=== PATIENT | female | born 1935 | race Caucasian/White ===

== ENCOUNTER 2018-08-27 10:30 | Observation (INO) | payer MEDICARE, SELFPAY ==
[2018-08-27] VITALS (7 sets, daily range): BP systolic 144–176; BP diastolic 83–132; PULSE 91–103; RESP 14–20; TEMP 36.2–36.8; O2SAT 94–98; BMI 21.4; BMI 22.3
--- NOTE | 2018-08-27 10:46 | EKG12_ITS ---
Test Reason : FALL Blood Pressure : / mmHG Vent. Rate : 090 BPM Atrial Rate : 090 BPM P-R Int : 000 ms QRS Dur : 074 ms QT Int : 378 ms P-R-T Axes : 000 -10 055 degrees QTc Int : 462 ms Accelerated Junctional rhythm Nonspecific ST abnormality Abnormal ECG Confirmed by ANGELITA BARAJAS, JACQUIE ([id number]), make up editor ELLIOT SANCHEZ ([id number]) on 08/28/2018 1:07:26 PM Referred By: Brandon Choe Confirmed By:JACQUIE GOLDSTEIN MD
--- NOTE | 2018-08-27 10:46 | CT_ITS ---
STUDY: CT BRAIN WITHOUT CONTRAST REASON FOR EXAM: Female, 82 years old. FALL LASTNIGHT, FOUND ON FLOOR THIS AM RADIATION DOSAGE (If Supplied By Facility): CTDIvol = ( 44.99 ) mGy, DLP = ( 863.60 ) mGycm TECHNIQUE: Transaxial CT imaging of the brain was performed without administration of intravenous contrast material. Individualized dose optimization techniques were used for this CT. COMPARISON: None. FINDINGS: There is cerebral atrophy with widening of the extra-axial spaces and ventricular dilatation. There are areas of decreased attenuation within the white matter tracts of the supratentorial brain, consistent with microvascular disease changes. There is no intracranial hemorrhage. There are no findings of an acute ischemic infarction. Normal soft tissue structures. Normal visualized paranasal sinuses. CT/Brain/Head without Contrast IMPRESSION: Chronic involutional changes of the brain. Electronically Signed: Tania Silver MD at 12:16 EDT Tel , Service support ,
--- NOTE | 2018-08-27 10:52 | ED.DCSUM_ITS ---
- ER Visit Summary Date of Service: 08/27/18 Chief Complaint: Fall History of Present Illness: The patient is a 82 F who presents after a fall last night. Patient states she fell out of bed last night. Patient states she was unable to get up and climb back into bed. Patient states she laid on the floor all night. Patient hit the top of her head near the frontal area. Patient denies any loss of consciousness. Patient admits to some general weakness. Patient denies any focal weakness. Patient denies any other injury. Physical Examination: Vital signs are stable. Patient is afebrile. Patient is in no acute distress. Cranial nerves II through XII are intact. There are no focal motor or sensory deficits noted. There is tenderness over the frontal area of the scalp. There is no edema noted. There is no bony crepitance or step-off. Oral mucosa is dry. Neck is supple. Trachea is midline. There is no JVD noted. Heart was regular rate and rhythm. Lungs are clear and equal bilateral. Abdomen is soft. Bowel sounds are normal. There is no tenderness. Test Results: EKG showed sinus rhythm with first-degree AV block. There are nonspecific ST-T wave changes. There are no acute changes. CBC shows a mild anemia with hemoglobin of 10.5. Basic metabolic profile showed an elevated creatinine of 1.92 and BUN of 25. Potassium was low at 2.8. Troponin was 0.021. Total CK was 224. Urinalysis showed 100 leukocyte esterase, 5-10 white blood cells, 1+ bacteria. Chest x-ray shows evidence of COPD. There is no acute infiltrate. CT scan of the brain was obtained. There is no acute intracranial abnormality noted. Emergency Department Course and Treatment: Patient was given IV fluids here. Patient was given oral potassium here. Patient was given Zofran, and a GI cocktail. Ambulation was attempted however, the patient was unable to tolerate getting out of bed and standing. Patient was too weak to do this. Case was discussed with the hospitalist. Disposition: Admit to hospital Impression: 1. Acute kidney injury 2. Generalized weakness 3. Inability to ambulate 4. Fall This note was generated with [employer] dictation software. It may contain incorrect words, spelling, and punctuation that were not noted in review of the chart prior to signing
[2018-08-27] MEDS: 0.9% Normal Saline 1,000 ML 1000 ML IV (11:18)
--- NOTE | 2018-08-27 11:22 | RAD_ITS ---
STUDY: X-RAY CHEST REASON FOR EXAM: Female, 82 years old. Fall. TECHNIQUE: Single AP portable view of the chest. COMPARISON: None. FINDINGS: Limited by rotation to the right. Hyperexpansion of the lungs. No infiltrates. No effusions. There is mild cardiac enlargement. Normal mediastinum and mazin. Normal visualized pulmonary arteries. There is atherosclerotic tortuosity of the aortic arch and descending thoracic aorta. The visualized bones and joints show degenerative changes.. There is no demonstrated abnormality of the visualized soft tissue structures of the upper abdomen. RAD/Chest 1 View (Portable) IMPRESSION: Significantly suboptimal positioning. Probable COPD with no infiltrates or effusions. Electronically Signed: Akshat Dao MD at 12:01 EDT , Service support ,
[2018-08-27 11:24] LABS: Absolute Lymphocyte Count 0.59 X10^3/ul (0.83-4.51); Absolute Neutrophil Count 9.1 X10^3/uL (2.0-7.7); Basophil# 0.02 X10^3/uL; Basophil% 0.2 % (0-1); Differential Indicated SCAN CRITERIA MET; Eosinophil# 0.02 X10^3/uL; Eosinophils% 0.2 % (0-5); Hematocrit 32.2 % (37-47); Hemoglobin 10.5 g/dl (12.0-15.0); Lymphocyte # 0.59 X10^3/ul (4.0); Lymphocyte % 5.7 % (19-41); Mean Corp Hgb Conc 32.6 g/gl (32-36); Mean Corpuscular Hgb 30.2 pg (27.0-32.0); Mean Corpuscular Volume 92.5 fL (81-99); Mean Platelet Vol. 9.7 fl (6.2-12.0); Monocyte# 0.67 X10^3/uL; Monocyte% 6.4 % (0-10); Neutrophil % 87.3 % (47-70); POSITIVE COUNT NO; POSITIVE DIFFERENTIAL YES; POSITIVE MORPHOLOGY NO; Platelet Count 175 K/mm3 (150-450); RBC Distribution Width CV 13.5 % (11.6-14.6); RBC Distribution Width SD 44.1 fl (35.1-43.9); Red Blood Count 3.48 M/mm3 (4.2-5.4); White Blood Count 10.4 K/mm3 (4.4-11.0)
[2018-08-27 11:35] LABS: Anion Gap 6 (5-15); BUN 25 mg/dL (7-18); CPK Total, Creatine Kinase 224 U/L (26-192); Calcium,Total 11.5 mg/dL (8.5-10.1); Chloride 107 mmol/L (98-107); Creatinine, Serum 1.92 mg/dL (0.55-1.02); EST Glomerular Filtration Rate 27 mL/min (>60); Est Glom Filt Rate - Afr Amer 32 mL/min (>60); Estimated Creatinine Clearance 21.88 ml/min; Glucose 130 mg/dL (74-106); Potassium 2.8 mmol/L (3.5-5.1); Sodium Level 143 mmol/L (136-145)
[2018-08-27 11:42] LABS: Differential Comment SCANNED
[2018-08-27 11:45] LABS: Mucous, Urine 0 SEEN /hpf (<or=2+)
[2018-08-27 11:46] LABS: Color, Urine Yellow (Yellow); Glucose, Dipstick Normal (Normal); Ketone-Dipstick Negative (Negative); Leukocyte Esterase-Dipstick 100 /ul (Negative); Nitrite-Dipstick Negative (Negative); Occult Blood-Urine 25 /ul (Negative); Protein-Dipstick 30 mg/dl (Negative); Specific Gravity, Urine 1.015 (1.002-1.030); Urine Bilirubin Dipstick Negative (Negative); Urine Clarity Clear (Clear); Urine Urobilinogen Normal (Normal)
[2018-08-27 11:53] LABS: Bacteria 1+ /hpf (None Seen); Red Blood Cells-Urine 0-5 SEEN /hpf (0-5); Squamous Epithelial Cells - UA 0-5 SEEN /hpf (5-10); White Blood Cells 5-10 SEEN /hpf (0-5)
--- NOTE | 2018-08-27 13:56 | PCM.HP.STD ---
Problem List (1) UTI (urinary tract infection) Status: Acute History of Present Illness Date of Admission: 08/27/18 Chief Complaint: Feeling unwell, fall The patient is a 82 year old F with no PMH because she does not see a doctor regularly, presenting after a fall last night. She fell out of bed and hit her head but did not lose consciousness, however she was unable to get back up and did not call for help. She was found this morning by her daughter and brought into the hospital. She lives with her daughter. Other than the headache she denies any blurry vision or focal weakness, though she does feel generally weak. She has been feeling unwell for the last couple of days, though she did not know what was going on. She denies any dysuria, or frequency. In the ER she did not have a leukocytosis, and she was afebrile. CT of her head was negative for any hematoma and her chest x-ray was clear, she does not have any symptoms of a viral syndrome. She was found to be hypokalemic with potassium of 2.8 which was replaced in the ER, and she was found to have possibly an acute kidney injury though we do not have a baseline creatinine for comparison. Total creatine kinase came back in the normal range, therefore she does not have rhabdo. UA was negative for nitrites but positive for leukocyte esterase, with 5-10 white blood cells and 1+ urine bacteria. Past Medical History Allergies No Known Allergies Allergy (Verified 08/27/18 10:44) Surgical History: hysterectomy Lives: With Family Smoking Status: Never smoker Alcohol: None Drugs: None - *Family History Maternal History Items: No pertinent history Paternal History Items: No pertinent history Review of Systems Constitutional: Reports: Weakness. Denies: Chills, Fever, Weight Change HEENT: Denies: Head Aches, Sinus Congestion, Sinus Drainage Cardiovascular: Denies: Chest Pain, Palpitations Respiratory: Denies: Cough, Shortness of breath at rest, Sputum production Gastrointestinal: Reports: Nausea. Denies: Abdominal Pain, Vomiting Genitourinary: Denies: Dysuria Musculoskeletal: Denies: Joint Pain, Joint Tenderness Skin: Denies: Rash, Wounds Neurological: Denies: Numbness, Tingling, Focal weakness Psychiatric: Denies: Anxiety, Depression Hematologic/ Lymphatic: Denies: Easy Bruising, Easy Bleeding VTE Information - Inpt Only VTE Present on Admission: No Patient Problems: Active and Suspected Problems UTI (urinary tract infection) (Acute) - Physical Exam General: Alert, Oriented x3, Cooperative, No apparent distress HEENT: Atraumatic, PERRLA, EOMI, Normocephalic Oral: Dry Mucosa Neck: Supple, No JVD, Trachea Midline Lungs: Clear to auscultation, Normal air movement, No rhonchi, No wheeze, No rales Cardiovascular: Regular rate, Regular Rhythm, Normal S1, Normal S2, No murmurs, - - PACs Abdomen: Soft, Non Tender, Non-Distended, No Hepato-splenomegaly Extremities: No edema, Capillary Refill Less than 3 Seconds Skin: No rashes, No breakdown Neurological: Neuro grossly intact, Sensory exam intact to light touch and pain Psych/Mental Status: Normal Affect, Appropriate Vital Signs Temp Pulse Resp BP Pulse Ox 97.2 F L 91 16 144/91 H 94 08/27/18 10:34 08/27/18 13:07 08/27/18 13:07 08/27/18 13:07 08/27/18 10:34 Oxygen Delivery Method Nasal Cannula Weight: 132 lb 11.492 oz Body Mass Index (BMI) 21.4 Laboratory Tests Past 24 Hrs 08/27/18 08/27/18 08/27/18 11:05 11:05 11:35 WBC 10.4 RBC 3.48 L Hgb 10.5 L Hct 32.2 L MCV 92.5 MCH 30.2 MCHC 32.6 RDW 13.5 RDW Differential 44.1 H Plt Count 175 MPV 9.7 Immature Gran % (Auto) 0.200 Neut % (Auto) 87.3 H Lymph % (Auto) 5.7 L [place] % (Auto) 6.4 Eos % (Auto) 0.2 Baso % (Auto) 0.2 Absolute Neuts (auto) 9.1 H Absolute Lymphs (auto) 0.59 L Total Counted Not Reportable Differential Comment SCANNED Sodium 143 Potassium 2.8 L Chloride 107 Carbon Dioxide 30.0 Anion Gap 6 BUN 25 H Creatinine 1.92 H Estim Creat Clear Calc 21.88 Est GFR (MDRD) Af Amer 32 L Est GFR (MDRD) Non-Af 27 L BUN/Creatinine Ratio 13.0 Glucose 130 H Calcium 11.5 H Total Creatine Kinase 224 H Troponin I 0.021 Urine Color Yellow Urine Clarity Clear Urine pH 8.0 Ur Specific [place] 1.015 Urine Protein 30 H Urine Glucose (UA) Normal Urine Ketones Negative Urine Occult Blood 25 H Urine Nitrite Negative Urine Bilirubin Negative Urine Urobilinogen Normal Ur Leukocyte Esterase 100 H Urine RBC 0-5 SEEN Urine WBC 5-10 SEEN Ur Squamous Epith Cells 0-5 SEEN Urine Bacteria 1+ Urine Mucus 0 SEEN Assessment/Plan All Active Problems UTI (urinary tract infection) (Acute) 1. UTI causing weakness in her fall/CHRIS? -Continue with IV fluids for now given her creatinine of 1.92 and recheck in the morning -She was given p.o. potassium in the ER and will monitor her potassium level -Regular diet -We will start her on Keflex 500 mg p.o. 3 times daily and obtain a urine culture -Zofran for nausea -She does not see her doctor regularly and therefore does not take any medications and states that she has no medical problems. -PT/OT for evaluation DVT: Sindinox Code Visit OBSV E&M: 14124 Initial observation care L2
[2018-08-27] MEDS: Ondansetron 4 MG/2 ML Vial IV (14:04)
--- NOTE | 2018-08-27 14:17 | ED.RN ---
PT STATES SHE'S UNABLE TO SWALLOW PILLS. DR. GARZA AWARE AND CHANGED POTASSIUM ORDER. KEFLEX WILL BE GIVEN IN APPLESAUCE.
[2018-08-27] MEDS: Cephalexin 250 MG Capsule 500 MG PO (15:06)
[2018-08-27] MEDS: Mag Hydrox/Al Hydrox/Simeth 30 ML UDC PO (15:07)
[2018-08-27] MEDS: 0.9% Normal Saline 1,000 ML 100 ML IV (17:28)
[2018-08-27] MEDS: Cephalexin 250 MG Capsule PO (21:22)
[2018-08-28] MEDS: Ondansetron 4 MG/2 ML Vial IV (01:51)
[2018-08-28] MEDS: 0.9% Normal Saline 1,000 ML 100 ML IV ×2 (01:51→16:47)
[2018-08-28 02:00] VITALS: BP 156/69; PULSE 87; RESP 18; TEMP 36.6; O2SAT 97
[2018-08-28 05:57] LABS: Absolute Neutrophil Count 5.2 X10^3/uL (2.0-7.7); Basophil# 0.02 X10^3/uL; Basophil% 0.3 % (0-1); Eosinophil# 0.08 X10^3/uL; Eosinophils% 1.2 % (0-5); Hematocrit 28.2 % (37-47); Hemoglobin 8.9 g/dl (12.0-15.0); Lymphocyte % 13.3 % (19-41); Mean Corp Hgb Conc 31.6 g/gl (32-36); Mean Corpuscular Hgb 29.9 pg (27.0-32.0); Mean Corpuscular Volume 94.6 fL (81-99); Mean Platelet Vol. 9.8 fl (6.2-12.0); Monocyte# 0.58 X10^3/uL; Monocyte% 8.5 % (0-10); Neutrophil % 76.6 % (47-70); Platelet Count 160 K/mm3 (150-450); RBC Distribution Width CV 13.6 % (11.6-14.6); RBC Distribution Width SD 45.3 fl (35.1-43.9); Red Blood Count 2.98 M/mm3 (4.2-5.4); White Blood Count 6.8 K/mm3 (4.4-11.0)
[2018-08-28 06:17] LABS: Anion Gap 6 (5-15); BUN 21 mg/dL (7-18); BUN/Creat Ratio 12.4 RATIO (10-20); Calcium,Total 9.5 mg/dL (8.5-10.1); Chloride 113 mmol/L (98-107); EST Glomerular Filtration Rate 31 mL/min (>60); Est Glom Filt Rate - Afr Amer 37 mL/min (>60); Estimated Creatinine Clearance 21.47 ml/min; Glucose 88 mg/dL (74-106); Potassium 2.8 mmol/L (3.5-5.1); Sodium Level 143 mmol/L (136-145)
[2018-08-28 06:18] LABS: POSITIVE COUNT NO; POSITIVE DIFFERENTIAL NO; POSITIVE MORPHOLOGY NO
[2018-08-28] MEDS: Cephalexin 250 MG Capsule PO ×3 (06:23→22:31)
--- NOTE | 2018-08-28 06:48 | PCM.PN.HOSP ---
Patient Problems: Active and Suspected Problems UTI (urinary tract infection) (Acute) Subjective: Patient with no acute events overnight per self and per nursing report aside from ongoing notable weakness with therapy recommendations for correction facility transition in addition to mild nausea however improved slightly with oral intake this morning and following antiemetic. She does also note diffuse body generalized aching. Discussed patient living status and she states that in the past she did have a high bed however family has decreased the height and they are currently building a ramp into the home. Discussed patient status and weakness at length and amenable to correction facility transition in interim. Patient denies fevers, chills, emesis, abdominal pain, chest pain or dyspnea. Objective: Physical Examination: General: awake, alert, oriented x [address], year, month and realizes that today is her birthday, remains cooperative, seated upright in the bedside chair, no acute distress, notes nausea has subsided with some oral intake but emesis bag next to her. Skin: normal color, turgor, no icterus, cyanosis except staged various extremity and thorax bruising. HEENT: AT/NC, EOMI, PERRLA, mildly dry MM. Lungs: CTA bilaterally, moderate effort, mild decrease BL bases, no rales, ronchi or wheezing. Heart: Regular rate and rhythm; no gallop, rub audible. Abdomen: soft, thin habitus, NTTP, ND, normal BS. Extremities: no cyanosis, clubbing, or edema. Neurological: patient awake, alert, oriented as noted; cognitive function appears baseline intact; pupils equally reactive to light and accomodation; cranial nerves II-XII grossly normal, moving all 4 extremities, no focal deficits, strength [place] to severely globally decreased secondary to acute presentation. Psychiatric: affect appears normal, no acute evidence of depressive or anxiety feelings. Vitals/I&O's: Vital Signs Temp Pulse Resp BP Pulse Ox 98 F 87 18 156/69 H 97 08/28/18 02:00 08/28/18 02:00 08/28/18 02:00 08/28/18 02:00 08/28/18 02:00 Oxygen Delivery Method Room Air Weight: 126 lb 1.671 oz Body Mass Index (BMI) 22.3 Intake and Output for Last 24 Hours 08/26/18 08/27/18 08/28/18 23:59 23:59 23:59 Intake Total 1960 Balance 1960 Laboratory Results 08/27/18 11:05: WBC 10.4, RBC 3.48 L, Hgb 10.5 L, Hct 32.2 L, MCV 92.5, MCH 30.2, MCHC 32.6, RDW 13.5, RDW Differential 44.1 H, Plt Count 175, MPV 9.7, Immature Gran % (Auto) 0.200, Neut % (Auto) 87.3 H, Lymph % (Auto) 5.7 L, [place] % (Auto) 6.4, Eos % (Auto) 0.2, Baso % (Auto) 0.2, Absolute Neuts (auto) 9.1 H, Absolute Lymphs (auto) 0.59 L, Total Counted Not Reportable, Differential Comment SCANNED 08/27/18 11:05: Sodium 143, Potassium 2.8 L, Chloride 107, Carbon Dioxide 30.0, Anion Gap 6, BUN 25 H, Creatinine 1.92 H, Estim Creat Clear Calc 21.88, Est GFR (MDRD) Af Amer 32 L, Est GFR (MDRD) Non-Af 27 L, BUN/Creatinine Ratio 13.0, Glucose 130 H, Calcium 11.5 H, Total Creatine Kinase 224 H, Troponin I 0.021 08/27/18 11:35: Urine Color Yellow, Urine Clarity Clear, Urine pH 8.0, Ur Specific [place] 1.015, Urine Protein 30 H, Urine Glucose (UA) Normal, Urine Ketones Negative, Urine Occult Blood 25 H, Urine Nitrite Negative, Urine Bilirubin Negative, Urine Urobilinogen Normal, Ur Leukocyte Esterase 100 H, Urine RBC 0-5 SEEN, Urine WBC 5-10 SEEN, Ur Squamous Epith Cells 0-5 SEEN, Urine Bacteria 1+, Urine Mucus 0 SEEN 08/28/18 05:08: WBC 6.8, RBC 2.98 L, Hgb 8.9 L, Hct 28.2 L, MCV 94.6, MCH 29.9, MCHC 31.6 L, RDW 13.6, RDW Differential 45.3 H, Plt Count 160, MPV 9.8, Immature Gran % (Auto) 0.100, Neut % (Auto) 76.6 H, Lymph % (Auto) 13.3 L, [place] % (Auto) 8.5, Eos % (Auto) 1.2, Baso % (Auto) 0.3, Absolute Neuts (auto) 5.2, Absolute Lymphs (auto) 0.90, Total Counted Not Reportable 08/28/18 05:08: Sodium 143, Potassium 2.8 L, Chloride 113 H, Carbon Dioxide 24.0, Anion Gap 6, BUN 21 H, Creatinine 1.70 H, Estim Creat Clear Calc 21.47, Est GFR (MDRD) Af Amer 37 L, Est GFR (MDRD) Non-Af 31 L, BUN/Creatinine Ratio 12.4, Glucose 88, Calcium 9.5 Current Medications Cephalexin (Keflex) 250 mg PO Q8 [facility] Last Admin: 08/28/18 06:23 Dose: 250 mg Enoxaparin Sodium (Lovenox) 30 mg SC DAILY@1000 JAZMINE Sodium Chloride () 1,000 mls @ 100 mls/hr IV .Q10H [facility] Last Admin: 08/28/18 01:51 Dose: 100 mls/hr Magnesium Hydroxide (Milk Of Magnesia) 30 ml PO DAILY PRN PRN PRN Reason: Constipation Nutritional Formula (Lactose Free) (Ensure Enlive) 120 ml PO 4X/DAY JAZMINE Last Admin: 08/27/18 21:21 Dose: 120 ml Ondansetron HCl (Zofran) 4 mg IV Q8H PRN PRN PRN Reason: NAUSEA Last Admin: 08/28/18 01:51 Dose: 4 mg Sodium Chloride () 5 - 15 ml IV UD PRN PRN Reason: SALINE FLUSH Medical Necessity - Tobacco Use Smoking Status: Never smoker Assessment/Plan All Active Problems UTI (urinary tract infection) (Acute) The patient is an 83 y/o F w/ no regular health care, unclear PMHx who presents to the [facility] ED on 08/27/18 secondary to fall with associated malaise, fatigue prior. (1) Acute Urinary Tract Infection: Admitted to [facility] upon ED evaluation remarkable, pending UCx, continue IVFs, monitor I/Os, continue oral keflex w/ transition as able pending sensitivities and speciation. PT, OT evaluations, patient amenable to SNF transition, requesting TCU, CM updated. (2) Acute kidney injury versus component CKD, Unclear Stage: Suspect component CKD. Admission BUN/Cr 25/1.92, prior baseline creatinine unknown, repeat 08/28/18 BUN/Cr 26/06.70. Will continue to hydrate, hold nephrotoxic medications and repeat chemistry in AM. FeNa pending. Renal US pending given unclear if CHRIS on CKD component. (3) Hypokalemia: Admission K+ 2.8, supplementation given, repeat level similar; however, will obtain mag level, suspect will be low with repletion needs. (4) Mild rhabdomyolysis: Admission TCK 224, hydrated, repeat TCK pending, suspected downtime mild to moderate, notes still diffusely aching. (5) Mechanical Fall, Possible related to #1, #2, #3: CT head with no acute intracranial findings, maintain on fall precautions, PT, OT, CM consulted for discharge planning. (6) Anemia, Normocytic, Suspected Chronic: Admission Hgb 10.5, repeat 8.9 following overnight hydration, obtain Fe panel, ferritin, vitamin B12, folic acid levels, trend. (7) DVT prophylaxis: SCDs, renally lovenox. (8) CODE status: Discussed CODE status at length including difference between FULL code, DNR-CCA and DNR-CC status. Following discussions about the differences in these status, requested Full Code status. Patient does have a living will and HCPOA (Daughter) in place. She does note that if she had a stroke or something drastic following her living will she would want to transition to comfort measures only. Advanced Care Planning Face to Face Time: 16 minutes. Code Visit OBSV E&M: 07694 Subsequent observation care L3 Procedures: 78866 Advncd Care Plan 30 Min
--- NOTE | 2018-08-28 06:56 | US_ITS ---
STUDY: RENAL ULTRASOUND - COMPLETE REASON FOR EXAM: Female, 83 years old. Acute renal failure. TECHNIQUE: Ultrasound evaluation of the kidneys was performed with real-time and static corea-scale imaging. COMPARISON: None. FINDINGS: RIGHT KIDNEY: Normal location of the right kidney, which is normal in size. The right kidney measures 8.2 x 4.3 x 3.3 cm. There is increased right renal cortical echogenicity. The renal cortex measures 1.2 cm. There is no right renal mass or cyst. There are renal arteriovascular calcifications, but no definite demonstration of right renal calculi. There is no right hydronephrosis. DISTAL RIGHT URETER: There is non-visualization of the distal right ureter. There is no demonstrated right ureterovesical junction calculus. There is no demonstrated right ureteral jet. LEFT KIDNEY: Normal location of the left kidney, which is normal in size. The left kidney measures 8.6 x 4.7 x 3.5 cm. There is increased echogenicity of the left renal cortex. The renal cortex measures 1.4 cm. There is no left renal mass or cyst. There are renal arteriovascular calcifications, but no definite demonstration of left renal calculi. There is no left hydronephrosis. DISTAL LEFT URETER: There is non-visualization of the distal left ureter. There is no demonstrated left ureterovesical junction calculus. There is no demonstrated left ureteral jet. BLADDER: The urinary bladder has a volume of 208 ml. No post void images or measurements of the urinary bladder were obtained. There is a normal wall thickness of the distended urinary bladder. There is no demonstrated mass within the urinary bladder. There are no demonstrated bladder calculi. US/Kidney and Bladder IMPRESSION: Increased renal cortical echogenicity bilaterally, consistent with medical renal disease. No demonstrated hydronephrosis. Urinary bladder is unremarkable in appearance. No post void images or measurements were obtained. Electronically Signed: Magno Lanier MD at 7:58 EDT , Service support ,
--- NOTE | 2018-08-28 06:58 | PN_ITS ---
Patient Problems: Active and Suspected Problems UTI (urinary tract infection) (Acute) Subjective: Patient with no acute events overnight per self and per nursing report aside from ongoing notable weakness with therapy recommendations for [facility] facility transition in addition to mild nausea however improved slightly with oral intake this morning and following antiemetic. She does also note diffuse body generalized aching. Discussed patient living status and she states that in the past she did have a high bed however family has decreased the height and they are currently building a ramp into the home. Discussed patient status and weakness at length and amenable to [facility] facility transition in interim. Patient denies fevers, chills, emesis, abdominal pain, chest pain or dyspnea. Objective: Physical Examination: General: awake, alert, oriented x [address], year, month and realizes that today is her birthday, remains cooperative, seated upright in the bedside chair, no acute distress, notes nausea has subsided with some oral intake but emesis bag next to her. Skin: normal color, turgor, no icterus, cyanosis except staged various extremity and thorax bruising. HEENT: AT/NC, EOMI, PERRLA, mildly dry MM. Lungs: CTA bilaterally, moderate effort, mild decrease BL bases, no rales, ronchi or wheezing. Heart: Regular rate and rhythm; no gallop, rub audible. Abdomen: soft, thin habitus, NTTP, ND, normal BS. Extremities: no cyanosis, clubbing, or edema. Neurological: patient awake, alert, oriented as noted; cognitive function appears baseline intact; pupils equally reactive to light and accomodation; cranial nerves II-XII grossly normal, moving all 4 extremities, no focal deficits, strength [place] to severely globally decreased secondary to acute presentation. Psychiatric: affect appears normal, no acute evidence of depressive or anxiety feelings. Vitals/I&O's: Vital Signs Temp Pulse Resp BP Pulse Ox 98 F 87 18 156/69 H 97 08/28/18 02:00 08/28/18 02:00 08/28/18 02:00 08/28/18 02:00 08/28/18 02:00 Oxygen Delivery Method Room Air Weight: 126 lb 1.671 oz Body Mass Index (BMI) 22.3 Intake and Output for Last 24 Hours 08/26/18 08/27/18 08/28/18 23:59 23:59 23:59 Intake Total 1960 Balance 1960 Laboratory Results 08/27/18 11:05: WBC 10.4, RBC 3.48 L, Hgb 10.5 L, Hct 32.2 L, MCV 92.5, MCH 3 0.2, MCHC 32.6, RDW 13.5, RDW Differential 44.1 H, Plt Count 175, MPV 9.7, Immature Gran % (Auto) 0.200, Neut % (Auto) 87.3 H, Lymph % (Auto) 5.7 L, [place] % (Auto) 6.4, Eos % (Auto) 0.2, Baso % (Auto) 0.2, Absolute Neuts (auto) 9.1 H, Absolute Lymphs (auto) 0.59 L, Total Counted Not Reportable, Differential Comment SCANNED 08/27/18 11:05: Sodium 143, Potassium 2.8 L, Chloride 107, Carbon Dioxide 30.0, Anion Gap 6, BUN 25 H, Creatinine 1.92 H, Estim Creat Clear Calc 21.88, Est GFR (MDRD) Af Amer 32 L, Est GFR (MDRD) Non-Af 27 L, BUN/Creatinine Ratio 13.0, Glucose 130 H, Calcium 11.5 H, Total Creatine Kinase 224 H, Troponin I 0.021 08/27/18 11:35: Urine Color Yellow, Urine Clarity Clear, Urine pH 8.0, Ur Specific [place] 1.015, Urine Protein 30 H, Urine Glucose (UA) Normal, Urine Ketones Negative, Urine Occult Blood 25 H, Urine Nitrite Negative, Urine Bilirubin Negative, Urine Urobilinogen Normal, Ur Leukocyte Esterase 100 H, Urine RBC 0-5 SEEN, Urine WBC 5-10 SEEN, Ur Squamous Epith Cells 0-5 SEEN, Urine Bacteria 1+, Urine Mucus 0 SEEN 08/28/18 05:08: WBC 6.8, RBC 2.98 L, Hgb 8.9 L, Hct 28.2 L, MCV 94.6, MCH 29.9, MCHC 31.6 L, RDW 13.6, RDW Differential 45.3 H, Plt Count 160, MPV 9.8, Immature Gran % (Auto) 0.100, Neut % (Auto) 76.6 H, Lymph % (Auto) 13.3 L, [place] % (Auto) 8.5, Eos % (Auto) 1.2, Baso % (Auto) 0.3, Absolute Neuts (auto) 5.2, Absolute Lymphs (auto) 0.90, Total Counted Not Reportable 08/28/18 05:08: Sodium 143, Potassium 2.8 L, Chloride 113 H, Carbon Dioxide 24.0, Anion Gap 6, BUN 21 H, Creatinine 1.70 H, Estim Creat Clear Calc 21.47, Est GFR (MDRD) Af Amer 37 L, Est GFR (MDRD) Non-Af 31 L, BUN/Creatinine Ratio 12.4, Glucose 88, Calcium 9.5 Current Medications Cephalexin (Keflex) 250 mg PO Q8 [facility] Last Admin: 08/28/18 06:23 Dose: 250 mg Enoxaparin Sodium (Lovenox) 30 mg SC DAILY@1000 JAZMINE Sodium Chloride () 1,000 mls @ 100 mls/hr IV .Q10H [facility] Last Admin: 08/28/18 01:51 Dose: 100 mls/hr Magnesium Hydroxide (Milk Of Magnesia) 30 ml PO DAILY PRN PRN PRN Reason: Constipation Nutritional Formula (Lactose Free) (Ensure Enlive) 120 ml PO 4X/DAY JAZMINE Last Admin: 08/27/18 21:21 Dose: 120 ml Ondansetron HCl (Zofran) 4 mg IV Q8H PRN PRN PRN Reason: NAUSEA Last Admin: 08/28/18 01:51 Dose: 4 mg Sodium Chloride () 5 - 15 ml IV UD PRN PRN Reason: SALINE FLUSH Medical Necessity - Tobacco Use Smoking Status: Never smoker Assessment/Plan All Active Problems UTI (urinary tract infection) (Acute) The patient is an 83 y/o F w/ no regular health care, unclear PMHx who presents to the [facility] ED on 08/27/18 secondary to fall with associated malaise, fatigue prior. (1) Acute Urinary Tract Infection: Admitted to [facility] upon ED evaluation remarkable, pending UCx, continue IVFs, monitor I/Os, continue oral keflex w/ transition as able pending sensitivities and speciation. PT, OT evaluations, patient amenable to SNF transition, requesting TCU, CM updated. (2) Acute kidney injury versus component CKD, Unclear Stage: Suspect component CKD. Admission BUN/Cr 25/1.92, prior baseline creatinine unknown, repeat 08/28/18 BUN/Cr 26/06.70. Will continue to hydrate, hold nephrotoxic medications and repeat chemistry in AM. FeNa pending. Renal US pending given unclear if HCRIS on CKD component. (3) Hypokalemia: Admission K+ 2.8, supplementation given, repeat level similar; however, will obtain mag level, suspect will be low with repletion needs. (4) Mild rhabdomyolysis: Admission TCK 224, hydrated, repeat TCK pending, suspected downtime mild to moderate, notes still diffusely aching. (5) Mechanical Fall, Possible related to #1, #2, #3: CT head with no acute intracranial findings, maintain on fall precautions, PT, OT, CM consulted for discharge planning. (6) Anemia, Normocytic, Suspected Chronic: Admission Hgb 10.5, repeat 8.9 following overnight hydration, obtain Fe panel, ferritin, vitamin B12, folic acid levels, trend. (7) DVT prophylaxis: SCDs, renally lovenox. (8) CODE status: Discussed CODE status at length including difference between FULL code, DNR-CCA and DNR-CC status. Following discussions about the differences in these status, requested Full Code status. Patient does have a living will and HCPOA (Daughter) in place. She does note that if she had a stroke or something drastic following her living will she would want to transition to comfort measures only. Advanced Care Planning Face to Face Time: 16 minutes. Code Visit OBSV E&M: 76753 Subsequent observation care L3 Procedures: 93192 Advncd Care Plan 30 Min
[2018-08-28 07:46] VITALS: O2SAT 95
[2018-08-28 07:50] LABS: CPK Total, Creatine Kinase 387 U/L (26-192)
[2018-08-28 08:18] LABS: Ferritin 194 ng/mL (8-252); Iron 55 ug/dL (50-170); Iron Binding Capacity,Total 286 ug/dL (250-450); Magnesium 1.7 mg/dL (1.6-2.6); PERCENT IRON SATURATION 19.2 % (15.0-55.0)
--- NOTE | 2018-08-28 09:28 | CASEMGMT ---
Addendum entered by Jayda Miller 08/28/18 13:32: SW updated pt on acceptance to TCU and that pt will likely discharge to TCU tomorrow. Pt states understanding. Original Note: Addendum entered by Jayda Miller 08/28/18 13:25: VINOD spoke with Alicia at [facility]. Per lAicia pt is approved to go to TCU. VINOD updated Alicia that it is likely pt will discharge to TCU tomorrow. Alicia states understanding. Per previous conversations with physician, physician is likely to discharge pt tomorrow. VINOD placed a call to Adri with TCU and informed her of approval and that physician is hoping discharge tomorrow. Adri states understanding. Plan: TCU once medically cleared Original Note: Social Work Note SW received update from physician that pt is agreeable to TCU. SW met with pt. SW introduced self and role at [facility]. Pt is alert and orientated x3. Pt states that she lives with her daughter and her daughter's family in a one level set up. Pt states that she was previously independent with ADLs. Pt states that she has can, walker, and wheelchair at home. Pt confirms that she is agreeable to TCU. SW explained that this worker will check on bed availability and that pt will need pre-cert. Pt states understanding. VINOD placed a call to Adri who is covering for TCU referrals. SW left message for Adri regarding referral. VINOD waiting to hear from Adri with TCU in regards to referral. Plan: TCU pending acceptance and pre-cert Jayda Miller BLANKMAKER, WRAPPER LAYER
[2018-08-28 09:30] VITALS: BP 108/74; PULSE 64; RESP 18; TEMP 37.1; O2SAT 96
[2018-08-28 09:45] LABS: Vitamin B12 412 pg/mL (211-911)
[2018-08-28] MEDS: Enoxaparin 30 MG/0.3 ML Syringe SC (09:54)
[2018-08-28 12:50] LABS: Anion Gap 7 (5-15); BUN 21 mg/dL (7-18); BUN/Creat Ratio 11.7 RATIO (10-20); Calcium,Total 9.3 mg/dL (8.5-10.1); Chloride 113 mmol/L (98-107); Creatinine, Serum 1.79 mg/dL (0.55-1.02); EST Glomerular Filtration Rate 29 mL/min (>60); Est Glom Filt Rate - Afr Amer 35 mL/min (>60); Estimated Creatinine Clearance 20.39 ml/min; Glucose 134 mg/dL (74-106); Potassium 3.4 mmol/L (3.5-5.1); Sodium Level 143 mmol/L (136-145)
[2018-08-28 15:30] VITALS: BP 124/107; PULSE 83; RESP 18; TEMP 37.1; O2SAT 96
[2018-08-28 20:25] VITALS: BP 122/84; PULSE 77; RESP 18; TEMP 37.4; O2SAT 94
[2018-08-28 20:33] LABS: Urine Sodium 93 mmol/L (Not Establ.)
[2018-08-29 02:35] VITALS: BP 142/86; PULSE 88; RESP 18; TEMP 37.3; O2SAT 96
[2018-08-29] MEDS: 0.9% Normal Saline 1,000 ML 100 ML IV (03:00)
[2018-08-29] MEDS: 0.9% NaCl Peripheral Flush Adult/Peds IV (03:01)
[2018-08-29] MEDS: Cephalexin 250 MG Capsule PO ×2 (05:49→14:44)
[2018-08-29 06:15] LABS: Absolute Lymphocyte Count 0.98 X10^3/ul (0.83-4.51); Absolute Neutrophil Count 4.1 X10^3/uL (2.0-7.7); Basophil# 0.02 X10^3/uL; Basophil% 0.3 % (0-1); Eosinophil# 0.11 X10^3/uL; Eosinophils% 1.9 % (0-5); Hematocrit 27.5 % (37-47); Hemoglobin 8.6 g/dl (12.0-15.0); Lymphocyte # 0.98 X10^3/ul (4.0); Lymphocyte % 16.7 % (19-41); Mean Corp Hgb Conc 31.3 g/gl (32-36); Mean Corpuscular Hgb 29.6 pg (27.0-32.0); Mean Corpuscular Volume 94.5 fL (81-99); Mean Platelet Vol. 9.5 fl (6.2-12.0); Monocyte# 0.62 X10^3/uL; Monocyte% 10.5 % (0-10); Neutrophil # 4.14 X10^3/uL (2.7-7.7); Neutrophil % 70.4 % (47-70); Platelet Count 140 K/mm3 (150-450); RBC Distribution Width CV 13.6 % (11.6-14.6); RBC Distribution Width SD 45.1 fl (35.1-43.9); Red Blood Count 2.91 M/mm3 (4.2-5.4); White Blood Count 5.9 K/mm3 (4.4-11.0)
[2018-08-29 06:20] LABS: POSITIVE COUNT NO; POSITIVE DIFFERENTIAL NO; POSITIVE MORPHOLOGY NO
[2018-08-29 06:31] LABS: Anion Gap 6 (5-15); BUN 16 mg/dL (7-18); BUN/Creat Ratio 9.8 RATIO (10-20); CPK Total, Creatine Kinase 423 U/L (26-192); Calcium,Total 8.6 mg/dL (8.5-10.1); Chloride 115 mmol/L (98-107); Creatinine, Serum 1.64 mg/dL (0.55-1.02); EST Glomerular Filtration Rate 32 mL/min (>60); Est Glom Filt Rate - Afr Amer 39 mL/min (>60); Estimated Creatinine Clearance 22.25 ml/min; Glucose 95 mg/dL (74-106); Potassium 3.2 mmol/L (3.5-5.1); Sodium Level 145 mmol/L (136-145)
--- NOTE | 2018-08-29 06:56 | PCM.PN.HOSP ---
Subjective: Patient notes feeling improved since day prior, oral intake is improved and patient is less sore and generalized achiness has been improving as well. Patient remains very weak however and is still amenable to transitioning to TCU for ongoing skilled therapies. Patient denies fevers, chills, nausea, emesis, abdominal pain, chest pain or dyspnea. Objective: Physical Examination: General: awake, alert, oriented x 3, cooperative, seated upright in a bedside chair, no acute distress, notes feeling improved since day prior. Skin: normal color, turgor, no icterus, cyanosis except staged various extremity and thorax bruising. HEENT: AT/NC, EOMI, PERRLA, MMM. Lungs: CTA bilaterally, moderate effort, mild decrease BL bases, no rales, ronchi or wheezing. Heart: Regular rate and rhythm; no gallop, rub audible. Abdomen: soft, thin habitus, NTTP, ND, normal BS. Extremities: no cyanosis, clubbing, or edema. Neurological: patient awake, alert, oriented as noted; cognitive function appears baseline intact; pupils equally reactive to light and accomodation; cranial nerves II-XII grossly normal, moving all 4 extremities, no focal deficits, strength improving, moderate to severely globally decreased. Psychiatric: affect appears proved, less fatigued, no acute evidence of depressive or anxiety feelings. Vitals/I&O's: Vital Signs Temp Pulse Resp BP Pulse Ox 99.1 F 88 18 142/86 H 96 08/29/18 02:35 08/29/18 02:35 08/29/18 02:35 08/29/18 02:35 08/29/18 02:35 Oxygen Delivery Method Room Air Weight: 126 lb 1.671 oz Body Mass Index (BMI) 22.3 Intake and Output for Last 24 Hours 08/27/18 08/28/18 08/29/18 23:59 23:59 23:59 Intake Total 2788 / 2788 1579 / 1579 Output Total 850 / 850 Balance 2788 / 2788 729 / 729 Microbiology Past 72 Hours 08/27/18 17:18 Urine Catheter - Catheter Urine Culture - Preliminary Gram negative dalila Laboratory Results 08/28/18 07:15: Magnesium 1.7, Iron 55, TIBC 286, Iron Saturation 19.2, Ferritin 194, Folate 21.70 08/28/18 07:15: Vitamin B12 412 03/25/19 07:15: Total Creatine Kinase 387 H 08/28/18 12:14: Sodium 143, Potassium 3.4 L, Chloride 113 H, Carbon Dioxide 23.0, Anion Gap 7, BUN 21 H, Creatinine 1.79 H, Estim Creat Clear Calc 20.39, Est GFR (MDRD) Af Amer 35 L, Est GFR (MDRD) Non-Af 29 L, BUN/Creatinine Ratio 11.7, Glucose 134 H, Calcium 9.3 08/28/18 19:00: Urine Creatinine 72.50 08/28/18 19:00: Ur Random Sodium 93 08/29/18 05:54: WBC 5.9, RBC 2.91 L, Hgb 8.6 L, Hct 27.5 L, MCV 94.5, MCH 29.6, MCHC 31.3 L, RDW 13.6, RDW Differential 45.1 H, Plt Count 140 L, MPV 9.5, Immature Gran % (Auto) 0.200, Neut % (Auto) 70.4 H, Lymph % (Auto) 16.7 L, [place] % (Auto) 10.5 H, Eos % (Auto) 1.9, Baso % (Auto) 0.3, Absolute Neuts (auto) 4.1, Absolute Lymphs (auto) 0.98, Total Counted Not Reportable 08/29/18 05:54: Sodium 145, Potassium 3.2 L, Chloride 115 H, Carbon Dioxide 24.0, Anion Gap 6, BUN 16, Creatinine 1.64 H, Estim Creat Clear Calc 22.25, Est GFR (MDRD) Af Amer 39 L, Est GFR (MDRD) Non-Af 32 L, BUN/Creatinine Ratio 9.8 L, Glucose 95, Calcium 8.6, Total Creatine Kinase 423 H Current Medications Cephalexin (Keflex) 250 mg PO Q8 [facility] Last Admin: 08/29/18 05:49 Dose: 250 mg Enoxaparin Sodium (Lovenox) 30 mg SC DAILY@1000 JAZMINE Last Admin: 08/28/18 09:54 Dose: 30 mg Sodium Chloride () 1,000 mls @ 100 mls/hr IV .Q10H [facility] Last Admin: 08/29/18 03:00 Dose: 100 mls/hr Magnesium Hydroxide (Milk Of Magnesia) 30 ml PO DAILY PRN PRN PRN Reason: Constipation Nutritional Formula (Lactose Free) (Ensure Enlive) 120 ml PO 4X/DAY JAZMINE Last Admin: 08/28/18 22:31 Dose: Not Given Ondansetron HCl (Zofran) 4 mg IV Q8H PRN PRN PRN Reason: NAUSEA Last Admin: 08/28/18 01:51 Dose: 4 mg Sodium Chloride () 5 - 15 ml IV UD PRN PRN Reason: SALINE FLUSH Last Admin: 08/29/18 03:01 Dose: 10 ml Medical Necessity - Tobacco Use Smoking Status: Never smoker Assessment/Plan All Active Problems UTI (urinary tract infection) (Acute) The patient is an 83 y/o F w/ no regular health care, unclear PMHx who presents to the [facility] ED on 08/27/18 secondary to fall with associated malaise, fatigue prior. (1) Acute E. Coli Urinary Tract Infection: Admitted to [facility] upon ED evaluation remarkable, E. Coli on UCx, continue IVFs, monitor I/Os, continued oral keflex also upon discharge given sensitive on Cx. PT, OT evaluations, CM consulted, planned discharge to TCU today. (2) Acute kidney injury versus component CKD, Unclear Stage: Suspect component CKD. Admission BUN/Cr 25/1.92, prior baseline creatinine unknown, repeat 08/28/18 BUN/Cr 21/1.70-->08/29/18 BUN/Cr 16/1.64, improving. FeNa 1.61%. Renal US w/ increased renal cortical echogenicity bilaterally consistent with medical renal disease with no demonstrated hydronephrosis with a urinary bladder unremarkable in appearance. Suspect likely nearing patient baseline renal function but given she has not been evaluated by healthcare professional and had labs recently unknown clear baseline. Will refer outpatient to nephrology. (3) Hypokalemia: Admission K+ 2.8, supplementation given, repeat level similar; magnesium supplemented, repeat level 3.2, additional supplementation administered. (4) Mild rhabdomyolysis: Admission TCK 224, continue to hydrate, trending w/ 387-->423; however, improved, notes decreased neurologist. (5) Mechanical Fall, Possible related to #1, #2, #3: CT head with no acute intracranial findings, maintain on fall precautions, PT, OT, CM consulted for discharge planning, given improvement, stable, planned transition to TCU today. (6) Anemia, Normocytic, Suspected Chronic: Admission Hgb 10.5, repeat 8.9 following overnight hydration, Fe panel, ferritin, vitamin B12, folic acid level within normal range. 08/29/18 Hgb 8.6. (7) DVT prophylaxis: SCDs, renally lovenox. (8) CODE status: Full Code.
[2018-08-29 07:14] VITALS: O2SAT 96
[2018-08-29 08:00] VITALS: BP 126/64; PULSE 61; RESP 18; TEMP 37; O2SAT 94
--- NOTE | 2018-08-29 08:50 | PCM.TXEXTCAR ---
- Diet 08/27/18 16:06 Diet: Regular Diet Food consistency:: Regular Liquid Consistency:: Regular/Thin HOB, aspiration precautions - Routine Orders/Code Status Enema Type: Fleetz Enema Frequency: Daily PRN Suppository Type: Dulcolax 10mg Suppository Frequency: Daily PRN Keep PO Greater than or Equal to (%): 92 Routine Lab Work: - - CBC, BMP within 1 week Code Status: Full Code - Wound(s) Left upper arm Wound Type: iv site right upper arm Wound Type: old IV site - Suggestions for Active Care Change Position every (hours): 2 Hours to sit in a chair: 6 Times a day to sit in chair: 3 - Therapies Weight Bearing: Full weight bearing Physical Therapy: Eval and Treat Occupational Therapy: Eval and Treat - Allergies/Procedures Done in Hospital Allergies/Adverse Reactions: Allergies No Known Allergies Allergy (Verified 08/27/18 10:44) Procedures: EKG - Type of Care/Length of Stay Estimated LOS: Convalescent Care Less Than 30 days Type of Care Needed: Skilled Rehab Potential: Good Prognosis: Good - Additional Orders/Day of Discharge Additional Orders: (1) HOB. (2) IS 10x/hr 7a-7p. (3) Position changes q 2. (4) Fall precautions, Aspiration precautions. (5) Encourage appropriate oral water intake given recent mild rhabdomyolysis. H&P will serve as current which was dated: 08/27/18 Day of Discharge: 08/29/18 - Dietary and Speech Recommendations Dietitian Recommendations/Changes: Continue regular diet as indicated. Will add ONS to meals, in addition to medpass, for added nutrition if consumed. - Follow Up Care Primary Care Physician: Care Physician,No Primary [Primary Care Provider] - Please follow up with your Primary Care Physician in: Please establish prior to SNF d/c, need PCP visit within 1-2 days D/C. Please Follow Up With: Radha Rahman, When: CKD, new dx, recent CHRIS on CKD, f/u 1 week.
--- NOTE | 2018-08-29 09:02 | CASEMGMT ---
Social Work Note Physician is discharging pt to TCU today. SW placed a call to Adri with [facility] and updated her pt is discharging to TCU today. Adri states understanding. Plan: TCU today Jayda Miller FORMING ROLL OPERATOR, LAP CHECKER
--- NOTE | 2018-08-29 10:18 | CASEMGMT ---
RN EMERALD NOTE: To room to talk with pt. Introduced self and role of XANDER CORBIN. Pt sitting up in recliner chair. Family present in room and pt agreeable to talking with XANDER CORBIN. Discussed HARTMAN form with pt and family and questions answered. Provided MCR Are you a hospital Inpatient or Outpatient info packet. HARTMAN form signed by pt, copy made and placed on chart, and original given back to pt. Kurt JIMENEZ RN CM
--- NOTE | 2018-08-29 11:46 | CASEMGMT ---
Social Work Note SW updated pt on discharge to TCU today. Pt has family present in room. Pt gave this worker permission to speak to her in front of her guest. Pt states understanding on discharge to TCU today. SW updated pt and pt's family that once pt gets to TCU, updates will be sent to pt's insurance and they will determine when they will stop paying for pt to be on TCU. Pt and pt's family state understanding. Plan: TCU today Jayda Miller SHEET COMBINING OPERATOR, SNOW REMOVAL SUPERVISOR
[2018-08-29] MEDS: Enoxaparin 30 MG/0.3 ML Syringe SC (13:03)
[2018-08-29 13:09] VITALS: BP 135/86; PULSE 80; RESP 18; TEMP 37.1; O2SAT 98
--- NOTE | 2018-08-29 14:50 | NURSING ---
report called to TCU.. pt being moved to room TCU 15
--- NOTE | 2018-08-29 15:01 | PCM.DC.SUM ---
Discharge Date and Diagnosis Date of Admission: 08/27/18 Date of Discharge: 08/29/18 - Primary Discharge Diagnosis (1) Acute E. Coli Urinary Tract Infection (2) Acute kidney injury versus component CKD, Unclear Stage (3) Hypokalemia (4) Mild rhabdomyolysis (5) Mechanical Fall, Possible related to #1, #2, #3 (6) Anemia, Normocytic, Suspected Chronic - Secondary Discharge Diagnosis (1) Suspected CKD, Unclear Stage (2) Anemia, Normocytic, Suspected Chronic Hospital Course and Treatment Operations: None Procedures: EKG Summary of Care Provided: The patient is an 83 y/o F w/ no regular health care, unclear PMHx who presented to the [facility] ED on 08/27/18 secondary to fall with associated malaise, fatigue prior. Admitted to [facility], [facility] upon ED evaluation remarkable, E. Coli on UCx, continue IVFs, monitor I/Os, continued oral keflex also upon discharge given sensitive on Cx. PT, OT evaluations, CM consulted, planned discharge to TCU today. Acute kidney injury versus component CKD, Unclear Stage w/ suspected component CKD. Admission BUN/Cr 25/1.92, prior baseline creatinine unknown, repeat 08/28/18 BUN/Cr 21/1.70-->08/29/18 BUN/Cr 16/1.64, improving. FeNa 1.61%. Renal US w/ increased renal cortical echogenicity bilaterally consistent with medical renal disease with no demonstrated hydronephrosis with a urinary bladder unremarkable in appearance. Suspected discharge Cr likely near patient baseline renal function but given she had not been evaluated by healthcare professional and had labs recently unknown clear baseline. Patient was referred outpatient to nephrology. Admission K+ 2.8, supplementation given, repeat level similar; magnesium supplemented, repeat level 3.2, additional supplementation administered. Admission TCK 224, continue to hydrate, trending w/ 387-->423; however, improved, notes decreased neurologist. CT head with no acute intracranial findings, maintained on fall precautions. Admission Hgb 10.5, repeat 8.9 following overnight hydration, Fe panel, ferritin, vitamin B12, folic acid level within normal range. 08/29/18 Hgb 8.6. Patient discharged to TCU in improved condition for ongoing PT, OT. Upon discharge had recommended follow-up and establishment with a primary care physician within 1-2 days of transition from shelter facility to home as well as follow-up outpatient with nephrology to establish. - Physical Exam Vital Signs Temp Pulse Resp BP Pulse Ox 98.8 F 80 18 135/86 H 98 08/29/18 13:09 08/29/18 13:09 08/29/18 13:09 08/29/18 13:09 08/29/18 13:09 Oxygen Delivery Method Room Air Weight: 126 lb 1.671 oz Body Mass Index (BMI) 22.3 Intake and Output for Last 24 Hours 08/27/18 08/28/18 08/29/18 23:59 23:59 23:59 Intake Total 2788 / 2788 2574 / 2574 Output Total 1400 / 1400 Balance 2788 / 2788 1174 / 1174 Microbiology Past 72 Hours 08/27/18 17:18 Urine Culture - Final Urine Catheter - Catheter Escherichia coli Laboratory Tests Past 24 Hrs 08/28/18 08/28/18 08/29/18 19:00 19:00 05:54 WBC 5.9 RBC 2.91 L Hgb 8.6 L Hct 27.5 L MCV 94.5 MCH 29.6 MCHC 31.3 L RDW 13.6 RDW Differential 45.1 H Plt Count 140 L MPV 9.5 Immature Gran % (Auto) 0.200 Neut % (Auto) 70.4 H Lymph % (Auto) 16.7 L [place] % (Auto) 10.5 H Eos % (Auto) 1.9 Baso % (Auto) 0.3 Absolute Neuts (auto) 4.1 Absolute Lymphs (auto) 0.98 Total Counted Not Reportable Sodium Potassium Chloride Carbon Dioxide Anion Gap BUN Creatinine Estim Creat Clear Calc Est GFR (MDRD) Af Amer Est GFR (MDRD) Non-Af BUN/Creatinine Ratio Glucose Calcium Total Creatine Kinase Ur Random Sodium 93 Urine Creatinine 72.50 08/29/18 05:54 WBC RBC Hgb Hct MCV MCH MCHC RDW RDW Differential Plt Count MPV Immature Gran % (Auto) Neut % (Auto) Lymph % (Auto) [place] % (Auto) Eos % (Auto) Baso % (Auto) Absolute Neuts (auto) Absolute Lymphs (auto) Total Counted Sodium 145 Potassium 3.2 L Chloride 115 H Carbon Dioxide 24.0 Anion Gap 6 BUN 16 Creatinine 1.64 H Estim Creat Clear Calc 22.25 Est GFR (MDRD) Af Amer 39 L Est GFR (MDRD) Non-Af 32 L BUN/Creatinine Ratio 9.8 L Glucose 95 Calcium 8.6 Total Creatine Kinase 423 H Ur Random Sodium Urine Creatinine Home Medications: Medications to take at Discharge Acetaminophen [Tylenol] 325 mg PO Q4H PRN PRN #10 capsule 08/29/18 Cephalexin [Keflex] 250 mg PO Q8 3 Days capsule 08/29/18 Ensure Enlive 120 ml PO 4X/DAY liquid 08/29/18 Ondansetron HCl [Zofran] 4 mg PO Q8H PRN PRN #10 tablet 08/29/18 Following Prescrptions Were Given to Patient: Acetaminophen [Tylenol] 325 mg PO Q4H PRN PRN #10 capsule PRN Reason: fever, pain Ondansetron HCl [Zofran] 4 mg PO Q8H PRN PRN #10 tablet PRN Reason: nausea, emesis Primary Care Physician: Care Physician,No Primary [Primary Care Provider] - Please follow up with your Primary Care Physician in: Please establish prior to SNF d/c, need PCP visit within 1-2 days D/C. Please Follow Up With: Radha Rahman DO When: CKD, new dx, recent CHRIS on CKD, f/u 1 week. Disposition: Half-Way facility Minutes spent on discharge:: 35 Patient Condition:: Fair Medical Necessity - Tobacco Use Smoking Status: Never smoker Meaningful Use Info Meaningful Use Diagnoses (Choose all that apply): None applicable Code Visit OBSV E&M: 14182 Observation care discharge
== END 2018-08-29 14:45 | disposition skilled nursing facility (03) ==
LOC: ED 12:13 → MS3 14:24
PROVIDERS: Admitting Provider Family Medicine; Emergency Provider Emergency Medicine; Referring Provider Family Medicine; Visit Provider Family Medicine
DX: N39.0 Urinary tract infection, site not specified (principal); B96.20 Unspecified Escherichia coli [E. coli] as the cause of diseases classified elsewhere; E87.6 Hypokalemia; M62.82 Rhabdomyolysis; I44.0 Atrioventricular block, first degree; R53.81 Other malaise; D64.9 Anemia, unspecified; Z91.81 History of falling
CPT/HCPCS: 36415; 70450; 71045; 76770; 80048; 81001; 82550; 82570; 82607; 82728; 82746; 83540; 83550; 83735; 84300; 84484; 85025; 87077; 87086; 87088; 87186; 93005; 96361; 96372; 96374; 96376; 97162; 97166; 97530; 97802; 99218; 99285; J7030; A4216; G0378; J2405

== ENCOUNTER 2018-08-29 15:03 | Inpatient (IN) | payer MEDICARE, SELFPAY ==
[2018-08-27 16:08] VITALS: BMI 22.3
[2018-08-29 15:18] VITALS: BP 117/66; PULSE 84; RESP 18; TEMP 36.9; O2SAT 93; BMI 25.2
[2018-08-29] MEDS: Ensure Clear 120 ML Liquid PO (18:35)
[2018-08-29] MEDS: Cephalexin 250 MG Capsule PO (21:07)
--- NOTE | 2018-08-29 21:14 | PCM.HP.STD ---
Problem List (1) Fall Status: Acute (2) Encephalopathy Status: Acute (3) Closed head injury Status: Acute (4) Acute on chronic kidney failure Status: Acute (5) Hypokalemia Status: Acute (6) Debility Status: Acute (7) UTI (urinary tract infection) Status: Acute History of Present Illness Date of Admission: 08/29/18 Chief Complaint: Here for rehabilitation, strengthening, prior to discharge home with family. She lives in in-law suite. The patient is a 83 year old Female with below past medical history presented to [facility] Emergency Department with fall. 08/27/2018 CT head showed chronic involutional changes of brain. 08/27/2018 EKG accelerated junctional rhythm, nonspecific ST abnormality. 08/27/2018 Chest X-ray shows chronic obstructive pulmonary disease. Fell out of bed, unable to get up. Hit head. Hemoglobin 10.5, BUN 25, Cr 1.92, K 2.8, Troponin 0.021. Total CK 224, UA equivocal. IV Fluids, KCL, Zofran, GI cocktail, given. Unable to walk, admit to Hospital. 08/27/2018 Admit to Hospital. IV Fluids. PT/OT consult. Keflex 500MG TID for urinary tract infection, urine culture pending. 08/28/2018 Continue Keflex, IV Fluids, PT/OT. Check Magnesium level. 08/28/2018 Miranda ultrasound showed medical renal disease. Urine culture grew E. Coli. Potassium corrected. Recommend Nephrology follow up as outpatient. 08/29/2018 Admit to TCU with debility, here for rehabilitation, strengthening, prior to discharge home with family. Suspect acute delirium upon underlying dementia, discussed with resident, resident daughter, resident son-in-law. 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 Smoking Status: Never smoker Tobacco Use: Non-smoker Alcohol: None Drugs: None - *Family History Maternal History Items: No pertinent history Paternal History Items: No pertinent history Review of Systems Constitutional: Reports: Weakness. Denies: Chills, Fever, Weight Change HEENT: Denies: Head Aches, Sinus Congestion, Sinus Drainage Cardiovascular: Denies: Chest Pain, Palpitations Respiratory: Denies: Cough, Shortness of breath at rest, Sputum production Gastrointestinal: Denies: Abdominal Pain, Nausea, Vomiting Genitourinary: Denies: Dysuria Musculoskeletal: Denies: Joint Pain, Joint Tenderness Skin: Denies: Rash, Wounds Neurological: Denies: Numbness, Tingling, Focal weakness Psychiatric: Denies: Anxiety, Depression, Homicidal Ideations, Suicidal Ideations Hematologic/ Lymphatic: Denies: Easy Bruising, Easy Bleeding VTE Information - Inpt Only VTE Present on Admission: No VTE Mechan Device Prophylaxis: Knee High DEVIN Hose VTE Pharm Prophylaxis ordered?: Yes Patient Problems: Active and Suspected Problems Fall (Acute) Encephalopathy (Acute) Closed head injury (Acute) Acute on chronic kidney failure (Acute) Hypokalemia (Acute) Debility (Acute) - Physical Exam General: Alert, Oriented x3, Cooperative HEENT: Atraumatic, PERRLA, EOMI, Normocephalic Neck: Supple, No JVD, Negative Carotid Bruits Lungs: Clear to auscultation, Normal air movement Cardiovascular: Regular rate, No murmurs Abdomen: Bowel Sounds Present, Soft, Non Tender Extremities: No edema, Capillary Refill Less than 3 Seconds Skin: No rashes, No breakdown Musculoskeletal: No Tenderness to Palpation of Joints or Extremities Neurological: Cranial nerves II-XII grossly intact Psych/Mental Status: Normal Affect, Appropriate Vital Signs Temp Pulse Resp BP Pulse Ox 98.4 F 84 18 117/66 93 08/29/18 15:18 08/29/18 15:18 08/29/18 15:18 08/29/18 15:18 08/29/18 15:18 Oxygen Delivery Method Room Air Weight: 58.5 kg Body Mass Index (BMI) 25.2 Assessment/Plan All Active Problems UTI (urinary tract infection) (Acute) Fall (Acute) Encephalopathy (Acute) Closed head injury (Acute) Acute on chronic kidney failure (Acute) Hypokalemia (Acute) Debility (Acute) 83 year old female with below past medical history hospitalized for fall secondary to E. Coli urinary tract infection, complicated by hypokalemia, acute on chronic kidney failure, admitted to TCU with debility, here for rehabilitation, strengthening, prior to discharge home with family. Debility - PT/OT. Pain - Tylenol 1000MG Q8H PRN mild pain. Bowel - Miralax 17GM daily, Dulcolax 10MG daily PRN. Pneumonia vaccination - Administer Prevnar 13 and/or Pneumovax 23 as necessary. DVT prophylaxis - Lovenox 30MG SC daily. Indigestion - Calcium carbonate 1000MG Q6H PRN. E. Coli UTI - Keflex 250MG Q8H thru 09/04/2018. Nutrition - Ensure 120ML TID. Nausea - Zofran ODT 4MG Q8H PRN. Chronic kidney disease - Follow up with Dr. Rahman as outpatient. Acute delirium on underlying mild Alzheimer's Disease - reassess after discharge from TCU, will treat aggressively if Alzheimer's Disease confirmed.
--- NOTE | 2018-08-29 21:21 | HP.PCM_ITS ---
Problem List (1) Fall Status: Acute (2) Encephalopathy Status: Acute (3) Closed head injury Status: Acute (4) Acute on chronic kidney failure Status: Acute (5) Hypokalemia Status: Acute (6) Debility Status: Acute (7) UTI (urinary tract infection) Status: Acute History of Present Illness Date of Admission: 08/29/18 Chief Complaint: Here for rehabilitation, strengthening, prior to discharge home with family. She lives in in-law suite. The patient is a 83 year old Female with below past medical history presented to [facility] Emergency Department with fall. 08/27/2018 CT head showed chronic involutional changes of brain. 08/27/2018 EKG accelerated junctional rhythm, nonspecific ST abnormality. 08/27/2018 Chest X-ray shows chronic obstructive pulmonary disease. Fell out of bed, unable to get up. Hit head. Hemoglobin 10.5, BUN 25, Cr 1.92, K 2.8, Troponin 0.021. Total CK 224, UA equivocal. IV Fluids, KCL, Zofran, GI cocktail, given. Unable to walk, admit to Hospital. 08/27/2018 Admit to Hospital. IV Fluids. PT/OT consult. Keflex 500MG TID for urinary tract infection, urine culture pending. 08/28/2018 Continue Keflex, IV Fluids, PT/OT. Check Magnesium level. 08/28/2018 Miranda ultrasound showed medical renal disease. Urine culture grew E. Coli. Potassium corrected. Recommend Nephrology follow up as outpatient. 08/29/2018 Admit to TCU with debility, here for rehabilitation, strengthening, prior to discharge home with family. Suspect acute delirium upon underlying dementia, discussed with resident, resident daughter, resident son-in-law. 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 Smoking Status: Never smoker Tobacco Use: Non-smoker Alcohol: None Drugs: None - *Family History Maternal History Items: No pertinent history Paternal History Items: No pertinent history Review of Systems Constitutional: Reports: Weakness. Denies: Chills, Fever, Weight Change HEENT: Denies: Head Aches, Sinus Congestion, Sinus Drainage Cardiovascular: Denies: Chest Pain, Palpitations Respiratory: Denies: Cough, Shortness of breath at rest, Sputum production Gastrointestinal: Denies: Abdominal Pain, Nausea, Vomiting Genitourinary: Denies: Dysuria Musculoskeletal: Denies: Joint Pain, Joint Tenderness Skin: Denies: Rash, Wounds Neurological: Denies: Numbness, Tingling, Focal weakness Psychiatric: Denies: Anxiety, Depression, Homicidal Ideations, Suicidal Ideations Hematologic/ Lymphatic: Denies: Easy Bruising, Easy Bleeding VTE Information - Inpt Only VTE Present on Admission: No VTE Mechan Device Prophylaxis: Knee High DEVIN Hose VTE Pharm Prophylaxis ordered?: Yes Patient Problems: Active and Suspected Problems Fall (Acute) Encephalopathy (Acute) Closed head injury (Acute) Acute on chronic kidney failure (Acute) Hypokalemia (Acute) Debility (Acute) - Physical Exam General: Alert, Oriented x3, Cooperative HEENT: Atraumatic, PERRLA, EOMI, Normocephalic Neck: Supple, No JVD, Negative Carotid Bruits Lungs: Clear to auscultation, Normal air movement Cardiovascular: Regular rate, No murmurs Abdomen: Bowel Sounds Present, Soft, Non Tender Extremities: No edema, Capillary Refill Less than 3 Seconds Skin: No rashes, No breakdown Musculoskeletal: No Tenderness to Palpation of Joints or Extremities Neurological: Cranial nerves II-XII grossly intact Psych/Mental Status: Normal Affect, Appropriate Vital Signs Temp Pulse Resp BP Pulse Ox 98.4 F 84 18 117/66 93 08/29/18 15:18 08/29/18 15:18 08/29/18 15:18 08/29/18 15:18 08/29/18 15:18 Oxygen Delivery Method Room Air Weight: 58.5 kg Body Mass Index (BMI) 25.2 Assessment/Plan All Active Problems UTI (urinary tract infection) (Acute) Fall (Acute) Encephalopathy (Acute) Closed head injury (Acute) Acute on chronic kidney failure (Acute) Hypokalemia (Acute) Debility (Acute) 83 year old female with below past medical history hospitalized for fall secondary to E. Coli urinary tract infection, complicated by hypokalemia, acute on chronic kidney failure, admitted to TCU with debility, here for rehabilitation, strengthening, prior to discharge home with family. * Debility - PT/OT. * Pain - Tylenol 1000MG Q8H PRN mild pain. * Bowel - Miralax 17GM daily, Dulcolax 10MG daily PRN. * Pneumonia vaccination - Administer Prevnar 13 and/or Pneumovax 23 as necessary. * DVT prophylaxis - Lovenox 30MG SC daily. * Indigestion - Calcium carbonate 1000MG Q6H PRN. * E. Coli UTI - Keflex 250MG Q8H thru 09/04/2018. * Nutrition - Ensure 120ML TID. * Nausea - Zofran ODT 4MG Q8H PRN. * Chronic kidney disease - Follow up with Dr. Rahman as outpatient. * Acute delirium on underlying mild Alzheimer's Disease - reassess after discharge from TCU, will treat aggressively if Alzheimer's Disease confirmed.
[2018-08-30] MEDS: Bisacodyl 5 MG Tablet 10 MG PO (03:51)
[2018-08-30] MEDS: Cephalexin 250 MG Capsule PO ×3 (06:04→21:00)
[2018-08-30] MEDS: Enoxaparin 30 MG/0.3 ML Syringe SC (06:04)
[2018-08-30] MEDS: Polyethylene Glycol 3350 17 GM PACKET PO (06:05)
[2018-08-30 06:06] LABS: Absolute Lymphocyte Count 0.82 X10^3/ul (0.83-4.51); Absolute Neutrophil Count 4.6 X10^3/uL (2.0-7.7); Basophil# 0.01 X10^3/uL; Basophil% 0.2 % (0-1); Eosinophil# 0.16 X10^3/uL; Eosinophils% 2.6 % (0-5); Hematocrit 27.6 % (37-47); Hemoglobin 8.8 g/dl (12.0-15.0); Lymphocyte # 0.82 X10^3/ul (4.0); Lymphocyte % 13.3 % (19-41); Mean Corp Hgb Conc 31.9 g/gl (32-36); Mean Corpuscular Hgb 30.1 pg (27.0-32.0); Mean Corpuscular Volume 94.5 fL (81-99); Monocyte# 0.55 X10^3/uL; Monocyte% 8.9 % (0-10); Neutrophil # 4.59 X10^3/uL (2.7-7.7); Neutrophil % 74.7 % (47-70); Platelet Count 150 K/mm3 (150-450); RBC Distribution Width CV 13.7 % (11.6-14.6); RBC Distribution Width SD 45.5 fl (35.1-43.9); Red Blood Count 2.92 M/mm3 (4.2-5.4); White Blood Count 6.2 K/mm3 (4.4-11.0)
[2018-08-30 06:11] LABS: POSITIVE COUNT NO; POSITIVE DIFFERENTIAL NO; POSITIVE MORPHOLOGY NO
[2018-08-30 06:22] LABS: Anion Gap 7 (5-15); BUN 14 mg/dL (7-18); BUN/Creat Ratio 8.9 RATIO (10-20); Calcium,Total 8.3 mg/dL (8.5-10.1); Chloride 115 mmol/L (98-107); Creatinine, Serum 1.58 mg/dL (0.55-1.02); EST Glomerular Filtration Rate 33 mL/min (>60); Est Glom Filt Rate - Afr Amer 40 mL/min (>60); Estimated Creatinine Clearance 20.06 ml/min; Glucose 107 mg/dL (74-106); Potassium 3.5 mmol/L (3.5-5.1); Sodium Level 145 mmol/L (136-145)
[2018-08-30] MEDS: Ensure Clear 120 ML Liquid PO ×3 (09:16→17:39)
[2018-08-30] MEDS: Iron Polysaccharide Complex 150 MG CAPSULE PO (09:16)
--- NOTE | 2018-08-30 10:17 | NURSING ---
Dr Jackson updated by shift supervisor film processing that tongue coated reports pain to mouth and throat. new order for nystatin s/s
[2018-08-30] MEDS: Tuberculin,Purif.prot.deriv. 50 TU/ML Vial 5 ML ID (11:26)
[2018-08-30] MEDS: NYSTATIN 500,000 UNIT/5 ML UDC 500000 UNIT PO ×3 (11:27→20:58)
--- NOTE | 2018-08-30 12:00 | NURSING ---
Dr Jackson updated on final urine culture, no new orders,continue keflex
--- NOTE | 2018-08-30 14:52 | CASEMGMT ---
Insurance: [facility]
[2018-08-30 16:00] VITALS: BP 142/82; PULSE 86; RESP 18; TEMP 36; O2SAT 98
--- NOTE | 2018-08-30 18:37 | NURSING ---
pt informed this nurse she had emesis this morning after breakfast, she thinks it might have been the iron medication.
[2018-08-31] MEDS: NYSTATIN 500,000 UNIT/5 ML UDC 500000 UNIT PO ×4 (05:59→21:00)
[2018-08-31] MEDS: Cephalexin 250 MG Capsule PO ×3 (05:59→21:00)
[2018-08-31] MEDS: Enoxaparin 30 MG/0.3 ML Syringe SC (06:00)
[2018-08-31] MEDS: Polyethylene Glycol 3350 17 GM PACKET PO (06:04)
[2018-08-31] MEDS: Ensure Clear 120 ML Liquid PO ×3 (08:43→17:05)
[2018-08-31] MEDS: Iron Polysaccharide Complex 150 MG CAPSULE PO (08:44)
[2018-08-31 09:40] VITALS: PULSE 79; RESP 18; O2SAT 98
--- NOTE | 2018-08-31 11:07 | CASEMGMT ---
Insurance: Continued stay approved. Patient approved from 08/28/18 to 09/22/18 with LCD 09/21/18. Next review due 09/18/18 with D/C plan and anticipated D/C date. Auth #[id number].
[2018-08-31] MEDS: Calcium Carbonate 500 MG Tablet 1000 MG PO (14:10)
[2018-08-31 14:17] VITALS: BP 141/87; PULSE 82; RESP 18; TEMP 36.9; O2SAT 95
--- NOTE | 2018-08-31 14:18 | NURSING ---
pt c/o reflux, vitals checked all WNL. tums administered, pt going to therapy at this time. will monitor.
--- NOTE | 2018-08-31 16:23 | CASEMGMT ---
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 -KAJAL Gonzales, SUPERVISOR [employer]
[2018-09-01] MEDS: NYSTATIN 500,000 UNIT/5 ML UDC 500000 UNIT PO ×4 (05:00→21:10)
[2018-09-01] MEDS: Polyethylene Glycol 3350 17 GM PACKET PO (05:00)
[2018-09-01] MEDS: Cephalexin 250 MG Capsule PO ×3 (05:00→21:10)
[2018-09-01] MEDS: Enoxaparin 30 MG/0.3 ML Syringe SC (05:00)
[2018-09-01] MEDS: Iron Polysaccharide Complex 150 MG CAPSULE PO (08:31)
--- NOTE | 2018-09-01 12:16 | PHA.CONS_ITS ---
<KalebtommyeligioJames D - Last Filed: 09/01/18 12:14> Progress Note - Pharmacy Subjective: TCU Admission Objective: Allergies No Known Allergies Allergy (Verified 08/27/18 10:44) Current Medications Generic Name Dose Route Start Last Admin Trade Name Freq PRN Reason Stop Dose Admin Acetaminophen 1,000 mg 08/29/18 21:31 Tylenol PO Q8H PRN PRN MILD PAIN (1-3/10) Bisacodyl 10 mg 08/29/18 16:02 08/30/18 03:51 Dulcolax PO 10 mg DAILY PRN PRN Administration Constipation Calcium Carbonate 1,000 mg 08/29/18 18:45 08/31/18 14:10 Tums PO 1,000 mg Q6H PRN PRN Administration INDIGESTION Cephalexin 250 mg 08/29/18 22:00 09/01/18 05:00 Keflex PO 09/04/18 23:59 250 mg Q8 JAZMINE Administration Enoxaparin Sodium 30 mg 08/30/18 06:00 09/01/18 05:00 Lovenox SC 30 mg DAILY@0600 JAZMINE Administration Nutritional Formula (Lactose Free) 120 ml 08/29/18 17:45 09/01/18 11:36 Ensure Clear PO Not Given TIDCM JAZMINE Nystatin 500,000 unit 08/30/18 12:00 09/01/18 11:36 Nystatin PO 09/09/18 12:01 500,000 unit 4X/DAY JAZMINE Administration Ondansetron HCl 4 mg 08/29/18 16:03 Zofran Odt PO Q8H PRN PRN nausea, emesis Polyethylene Glycol 17 gm 08/30/18 06:00 09/01/18 05:00 Miralax PO 17 gm DAILY JAZMINE Administration Polysaccharide Iron Complex 150 mg 08/30/18 08:00 09/01/18 08:31 Ferrex 150 PO 150 mg DAILYCM JAZMINE Administration Tuberculin PPD 5 tu 09/06/18 10:00 Tubersol, Aplisol, Ppd ID 09/06/18 10:01 X1 ONE Problem List Fall (Acute) Encephalopathy (Acute) Closed head injury (Acute) Acute on chronic kidney failure (Acute) Hypokalemia (Acute) Debility (Acute) Vital Signs Temp Pulse Resp BP Pulse Ox 98.5 F 82 18 141/87 H 95 08/31/18 14:17 08/31/18 14:17 08/31/18 14:17 08/31/18 14:17 08/31/18 14:17 Oxygen Delivery Method Room Air Weight: 58.5 kg Body Mass Index (BMI) 25.2 Sodium 145 mmol/L (136-145) 08/30/18 05:24 Potassium 3.5 mmol/L (3.5-5.1) 08/30/18 05:24 Chloride 115 mmol/L (98-107) H 08/30/18 05:24 Carbon Dioxide 23.0 mmol/L (21.0-32.0) 08/30/18 05:24 Anion Gap 7 (5-15) 08/30/18 05:24 BUN 14 mg/dL (7-18) 08/30/18 05:24 Creatinine 1.58 mg/dL (0.55-1.02) H 08/30/18 05:24 Est GFR (MDRD) Af Amer 40 mL/min (>60) L 08/30/18 05:24 Est GFR (MDRD) Non-Af 33 mL/min (>60) L 08/30/18 05:24 BUN/Creatinine Ratio 8.9 RATIO (10-20) L 08/30/18 05:24 Glucose 107 mg/dL (74-106) H 08/30/18 05:24 Assessment/Plan: 1) Pain APAP for mild pain. Continue to monitor prn medication use, daily pain scores. 2) ID Cephalexin, nystatin. Continue to monitor s/s thrush, UTI. 3) DVT PPx Enoxaparin daily. Continue to monitor s/s bleeding/clot. Psychotropic Medications: None Unnecessary Medications: None Bowel Regimen: 4) PEG, prn bisacodyl. Continue to monitor prn medication use, for constipation/diarrhea. Date of Note:: 09/01/18 - Provider Comments Provider responsibility: Provider responsible to enter orders to implement recommendations <Derek Jackson Chi - Last Filed: 09/01/18 13:41> Progress Note - Pharmacy Subjective: [] Objective: Allergies No Known Allergies Allergy (Verified 08/27/18 10:44) Current Medications Generic Name Dose Route Start Last Admin Trade Name Freq PRN Reason Stop Dose Admin Acetaminophen 1,000 mg 08/29/18 21:31 Tylenol PO Q8H PRN PRN MILD PAIN (1-3/10) Bisacodyl 10 mg 08/29/18 16:02 08/30/18 03:51 Dulcolax PO 10 mg DAILY PRN PRN Administration Constipation Calcium Carbonate 1,000 mg 08/29/18 18:45 08/31/18 14:10 Tums PO 1,000 mg Q6H PRN PRN Administration INDIGESTION Cephalexin 250 mg 08/29/18 22:00 09/01/18 05:00 Keflex PO 09/04/18 23:59 250 mg Q8 JAZMINE Administration Enoxaparin Sodium 30 mg 08/30/18 06:00 09/01/18 05:00 Lovenox SC 30 mg DAILY@0600 [facility] Administration Nutritional Formula (Lactose Free) 120 ml 08/29/18 17:45 09/01/18 11:36 Ensure Clear PO Not Given TIDCM JAZMINE Nystatin 500,000 unit 08/30/18 12:00 09/01/18 11:36 Nystatin PO 09/09/18 12:01 500,000 unit 4X/DAY JAZMINE Administration Ondansetron HCl 4 mg 08/29/18 16:03 Zofran Odt PO Q8H PRN PRN nausea, emesis Polyethylene Glycol 17 gm 08/30/18 06:00 09/01/18 05:00 Miralax PO 17 gm DAILY JAZMINE Administration Polysaccharide Iron Complex 150 mg 08/30/18 08:00 09/01/18 08:31 Ferrex 150 PO 150 mg DAILYCM JAZMINE Administration Tuberculin PPD 5 tu 09/06/18 10:00 Tubersol, Aplisol, Ppd ID 09/06/18 10:01 X1 ONE Problem List Fall (Acute) Encephalopathy (Acute) Closed head injury (Acute) Acute on chronic kidney failure (Acute) Hypokalemia (Acute) Debility (Acute) Vital Signs Temp Pulse Resp BP Pulse Ox 98.5 F 82 18 141/87 H 95 08/31/18 14:17 08/31/18 14:17 08/31/18 14:17 08/31/18 14:17 08/31/18 14:17 Oxygen Delivery Method Room Air Weight: 58.5 kg Body Mass Index (BMI) 25.2 Sodium 145 mmol/L (136-145) 08/30/18 05:24 Potassium 3.5 mmol/L (3.5-5.1) 08/30/18 05:24 Chloride 115 mmol/L (98-107) H 08/30/18 05:24 Carbon Dioxide 23.0 mmol/L (21.0-32.0) 08/30/18 05:24 Anion Gap 7 (5-15) 08/30/18 05:24 BUN 14 mg/dL (7-18) 08/30/18 05:24 Creatinine 1.58 mg/dL (0.55-1.02) H 08/30/18 05:24 Est GFR (MDRD) Af Amer 40 mL/min (>60) L 08/30/18 05:24 Est GFR (MDRD) Non-Af 33 mL/min (>60) L 08/30/18 05:24 BUN/Creatinine Ratio 8.9 RATIO (10-20) L 08/30/18 05:24 Glucose 107 mg/dL (74-106) H 08/30/18 05:24 Assessment/Plan: Psychotropic Medications: Unnecessary Medications: Bowel Regimen: - Provider Comments Provider responsibility: Provider responsible to enter orders to implement recommendations Provider Comments to Recommendations by Pharmacy: Agree
[2018-09-01] MEDS: Calcium Carbonate 500 MG Tablet 1000 MG PO (14:04)
[2018-09-01 15:13] VITALS: BP 164/87; PULSE 85; RESP 16; TEMP 36.7; O2SAT 96
--- NOTE | 2018-09-01 17:04 | PCM.CONS.GEN ---
Problem List (1) Nail disorder (onychogryphosis) Status: Chronic (2) Tinea unguium Status: Chronic (3) Toe pain, right Status: Chronic (4) Toe pain, left Status: Chronic Reason for Consult Date of Consultation: 09/01/18 Reason for Consultation: long thick painful toenails History of Present Illness: The patient is a 83 year old F was seen bedside for long thick, painful toenails that she does not feel safe trimming on her own. She asked for help today. She is residing in the transitional care unit at this time status post fall. She denies other pedal complaints at this time. She denies claudication or rest paresthesias. 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 Smoking Status: Never smoker Tobacco Use: Non-smoker Alcohol: None Drugs: None - *Family History Maternal History Items: No pertinent history Paternal History Items: No pertinent history Review of Systems Constitutional: Denies: Chills, Fever Cardiovascular: Reports: Edema - legs (wears compression stockings) Gastrointestinal: Denies: Diarrhea, Vomiting Skin: Reports: - - thick long toenails Neurological: Reports: Balance problems Patient Problems: Active and Suspected Problems Fall (Acute) Encephalopathy (Acute) Closed head injury (Acute) Acute on chronic kidney failure (Acute) Hypokalemia (Acute) Debility (Acute) - Physical Exam General: Alert, Oriented x3, Cooperative Extremities: No cyanosis, No Calf Tenderness - negative edgar and archer signs bilateral, Edema - bilateral lower extremities, Peripheral Pulses Normal - 2/4 dp bilateral Skin: - - there is no infection, skin discontinuity, erythema, maceration bilateral. Toenails are long thick and dystrophic with subungual debris x10 Musculoskeletal: No Tenderness to Palpation of Joints or Extremities, Muscle Wasting, - - Active range of motion toes x10. 5 out of 5 ankle muscle strength and all directions. Pain with nail compression bilateral Neurological: Sensory exam intact to light touch and pain Psych/Mental Status: Normal Affect, Appropriate Vital Signs Temp Pulse Resp BP Pulse Ox 98.1 F 85 16 164/87 H 96 09/01/18 15:13 09/01/18 15:13 09/01/18 15:13 09/01/18 15:13 09/01/18 15:13 Oxygen Delivery Method Room Air Weight: 58.5 kg Body Mass Index (BMI) 25.2 Intake and Output for Last 24 Hours 08/30/18 08/31/18 09/01/18 23:59 23:59 23:59 Intake Total 420 / 420 400 / 400 600 / 600 Balance 420 / 420 400 / 400 600 / 600 Assessment/Plan All Active Problems UTI (urinary tract infection) (Acute) Fall (Acute) Encephalopathy (Acute) Closed head injury (Acute) Acute on chronic kidney failure (Acute) Hypokalemia (Acute) Debility (Acute) onychogryphosis / onychomycosis right and left toe pain s/p fall I reviewed and discussed her case. The abnormal toenail growth may be secondary to repetitive microtrauma or nail fungus. She elects to proceed with palliative care at this time and defers current workup. Her toenails were debrided in length and thickness with nail nippers without incidence x10. Proper hygiene was recommended including washing her feet daily and wearing protective and supportive shoes. To follow-up in the outpatient setting at the [facility] if needed in the future. To continue with rehabilitation while residing in the transitional care unit and medical management per Dr. Jackson. Thank you for the consultation. Please do not hesitate to call if you have any questions. Julieta Gimenez DPM, [facility] [phone]
[2018-09-01] MEDS: Pantoprazole Sodium 40 MG Tablet PO (20:03)
--- NOTE | 2018-09-02 04:20 | NURSING ---
Addendum entered by Isabella Alfaro 09/02/18 04:49: Dr Jackson aware of above. Continue to monitor. Original Note: Addendum entered by Isabella Alfaro 09/02/18 04:43: BP reassessed at this time 189/86, HR 81, pulse ox 97%. Pt reports no CP at this time. No distress noted. Original Note: Upon assisting pt back to bed from , pt states she is having CP while holding chest with hands. Rates CP 8/10. BP 166/110, HR 79, RR 20, pulse ox 96% on RA. RT called for stat EKG.
--- NOTE | 2018-09-02 04:23 | EKG12_ITS ---
Test Reason : CP Blood Pressure : / mmHG Vent. Rate : 078 BPM Atrial Rate : 078 BPM P-R Int : 166 ms QRS Dur : 070 ms QT Int : 386 ms P-R-T Axes : 048 -26 023 degrees QTc Int : 440 ms Sinus rhythm with Premature atrial complexes Otherwise normal ECG When compared with ECG of 27-AUG-2018 11:04, Sinus rhythm has replaced Junctional rhythm Confirmed by ANGELITA BARAJAS, JACQUIE ([id number]), acquisition editor ELLIOT SANCHEZ ([id number]) on 09/11/2018 1:29:23 PM Referred By: Derek Jackson Confirmed By:JACQUIE GOLDSTEIN MD
[2018-09-02] MEDS: Cephalexin 250 MG Capsule PO ×3 (05:35→21:04)
[2018-09-02] MEDS: Enoxaparin 30 MG/0.3 ML Syringe SC (05:35)
[2018-09-02] MEDS: NYSTATIN 500,000 UNIT/5 ML UDC 500000 UNIT PO ×4 (05:36→21:05)
[2018-09-02] MEDS: Pantoprazole Sodium 40 MG Tablet PO (05:36)
[2018-09-02] MEDS: Polyethylene Glycol 3350 17 GM PACKET PO (05:36)
[2018-09-02] MEDS: Iron Polysaccharide Complex 150 MG CAPSULE PO (08:34)
[2018-09-02 16:00] VITALS: BP 134/73; PULSE 67; RESP 18; TEMP 36.9; O2SAT 97
[2018-09-03] MEDS: Pantoprazole Sodium 40 MG Tablet PO (05:43)
[2018-09-03] MEDS: NYSTATIN 500,000 UNIT/5 ML UDC 500000 UNIT PO ×4 (05:44→20:59)
[2018-09-03] MEDS: Cephalexin 250 MG Capsule PO ×3 (05:44→20:59)
--- NOTE | 2018-09-03 05:49 | NURSING ---
Pt refused lovenox injection this AM. Educated pt on the importance of this medication.
[2018-09-03] MEDS: Iron Polysaccharide Complex 150 MG CAPSULE PO (08:00)
[2018-09-03 15:49] VITALS: BP 132/65; PULSE 82; RESP 18; TEMP 37.1; O2SAT 99
[2018-09-04] MEDS: Pantoprazole Sodium 40 MG Tablet PO (06:03)
[2018-09-04] MEDS: Enoxaparin 30 MG/0.3 ML Syringe SC (06:03)
[2018-09-04] MEDS: Polyethylene Glycol 3350 17 GM PACKET PO (06:03)
[2018-09-04] MEDS: NYSTATIN 500,000 UNIT/5 ML UDC 500000 UNIT PO ×4 (06:03→21:51)
[2018-09-04] MEDS: Cephalexin 250 MG Capsule PO ×3 (06:03→21:50)
[2018-09-04] MEDS: Iron Polysaccharide Complex 150 MG CAPSULE PO (07:54)
[2018-09-04 15:09] VITALS: BP 162/87; PULSE 87; RESP 18; TEMP 36.8; O2SAT 94
[2018-09-05] MEDS: NYSTATIN 500,000 UNIT/5 ML UDC 500000 UNIT PO ×4 (05:07→20:45)
[2018-09-05] MEDS: Pantoprazole Sodium 40 MG Tablet PO (05:07)
--- NOTE | 2018-09-05 05:12 | NURSING ---
Pt reported to RN she does not want any more Lovenox injections. Pt educated on risks, pt continues to refuse lovenox injections. Will update Dr Jackson.
[2018-09-05] MEDS: Iron Polysaccharide Complex 150 MG CAPSULE PO (09:06)
--- NOTE | 2018-09-05 09:29 | NURSING ---
Pt refusing Lovenox injection, Dr. Jackson made aware, NO to d/c lovenox.
[2018-09-05 16:00] VITALS: BP 126/65; PULSE 89; RESP 18; TEMP 36.8; O2SAT 96
[2018-09-06] MEDS: NYSTATIN 500,000 UNIT/5 ML UDC 500000 UNIT PO ×4 (06:16→20:24)
[2018-09-06] MEDS: Pantoprazole Sodium 40 MG Tablet PO (06:16)
[2018-09-06] MEDS: Polyethylene Glycol 3350 17 GM PACKET PO (06:17)
[2018-09-06 06:29] LABS: Absolute Lymphocyte Count 1.07 X10^3/ul (0.83-4.51); Absolute Neutrophil Count 4.1 X10^3/uL (2.0-7.7); Basophil# 0.02 X10^3/uL; Basophil% 0.3 % (0-1); Eosinophil# 0.08 X10^3/uL; Eosinophils% 1.4 % (0-5); Hemoglobin 8.4 g/dl (12.0-15.0); Lymphocyte # 1.07 X10^3/ul (4.0); Lymphocyte % 18.3 % (19-41); Mean Corp Hgb Conc 32.3 g/gl (32-36); Mean Corpuscular Hgb 30.1 pg (27.0-32.0); Mean Corpuscular Volume 93.2 fL (81-99); Monocyte# 0.61 X10^3/uL; Monocyte% 10.4 % (0-10); Neutrophil # 4.07 X10^3/uL (2.7-7.7); Neutrophil % 69.4 % (47-70); Platelet Count 200 K/mm3 (150-450); RBC Distribution Width CV 13.7 % (11.6-14.6); RBC Distribution Width SD 45.2 fl (35.1-43.9); Red Blood Count 2.79 M/mm3 (4.2-5.4); White Blood Count 5.9 K/mm3 (4.4-11.0)
[2018-09-06 06:30] LABS: Anion Gap 6 (5-15); BUN 23 mg/dL (7-18); BUN/Creat Ratio 15.2 RATIO (10-20); Calcium,Total 8.3 mg/dL (8.5-10.1); Chloride 110 mmol/L (98-107); Creatinine, Serum 1.51 mg/dL (0.55-1.02); EST Glomerular Filtration Rate 35 mL/min (>60); Est Glom Filt Rate - Afr Amer 43 mL/min (>60); Estimated Creatinine Clearance 20.99 ml/min; Glucose 90 mg/dL (74-106); Sodium Level 140 mmol/L (136-145)
[2018-09-06 06:35] LABS: POSITIVE COUNT NO; POSITIVE DIFFERENTIAL NO; POSITIVE MORPHOLOGY NO
[2018-09-06] MEDS: Iron Polysaccharide Complex 150 MG CAPSULE PO (08:15)
[2018-09-06] MEDS: Tuberculin,Purif.prot.deriv. 50 TU/ML Vial 5 ML ID (11:14)
--- NOTE | 2018-09-06 12:55 | CASEMGMT ---
Social Work Plan of care meeting held today with pt and two daughters present. Pt is receiving PT/OT and progressing with therapy. No d/c date set at this time. Pt is aware that insurance update is due 09/18 and that continued stay is not guaranteed. Pt lives in an in-law suite at daughters home. Therapy is recommending 24 hour supervision initially at home and pt dgts state they can provide this for pt. Pt will need home health PT/OT as well. Will continue with treatment plan at this time. BREANNA Amezcua
[2018-09-06 15:11] VITALS: BP 153/78; PULSE 89; RESP 24; TEMP 37.2; O2SAT 98
--- NOTE | 2018-09-06 18:46 | NURSING ---
Addendum entered by Dari Orr 09/07/18 09:21: Dr farrell spoke with pt, pt refusing to have scopes done. Original Note: Addendum entered by Dari Orr 09/07/18 07:22: paged Dr Farrell this AM, awaiting return call. Original Note: occult stool positive, Dr Jackson notified, new order for gen surgery consult for possible EGD/Colonoscopy
[2018-09-06 20:33] VITALS: PULSE 84; O2SAT 99
[2018-09-07] MEDS: NYSTATIN 500,000 UNIT/5 ML UDC 500000 UNIT PO ×4 (06:06→20:01)
[2018-09-07] MEDS: Pantoprazole Sodium 40 MG Tablet PO (06:06)
[2018-09-07] MEDS: Iron Polysaccharide Complex 150 MG CAPSULE PO (07:48)
--- NOTE | 2018-09-07 08:19 | PCM.CONS.GEN ---
Problem List (1) Anemia Status: Acute Qualifiers: Anemia type: unspecified type Qualified Code(s): D64.9 - Anemia, unspecified Reason for Consult Date of Consultation: 09/07/18 Reason for Consultation: Anemia and positive fecal occult blood History of Present Illness: The patient is a 83 year old F was admitted after a fall with also urinary tract infection. On admission her hemoglobin was 10 but the following morning was 8.4. She reports that during her hospitalization she had diarrhea and was having some bleeding during the diarrhea. She is not having any bleeding in her bowel movements anymore. She is not having any nausea or vomiting or abdominal pain. She does not reports she is ever had a colonoscopy in the past. 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 Smoking Status: Never smoker Tobacco Use: Non-smoker Alcohol: None Drugs: None - *Family History Maternal History Items: No pertinent history Paternal History Items: No pertinent history Review of Systems Constitutional: Denies: Anorexia, Fever HEENT: Denies: Difficulty Swallowing Respiratory: Denies: Cough, Shortness of Breath Gastrointestinal: Reports: Diarrhea. Denies: Abdominal Pain, Nausea, Vomiting Genitourinary: Denies: Dysuria Psychiatric: Denies: Anxiety, Depression Hematologic/ Lymphatic: Reports: Anemia Patient Problems: Active and Suspected Problems Fall (Acute) Encephalopathy (Acute) Closed head injury (Acute) Acute on chronic kidney failure (Acute) Hypokalemia (Acute) Debility (Acute) Anemia (Acute) - Physical Exam General: Alert, Oriented x3, Cooperative Neck: No JVD Lungs: Normal air movement, No rales Cardiovascular: Regular rate, Regular Rhythm Abdomen: Soft, Non Tender, Non-Distended Extremities: No clubbing Musculoskeletal: No Muscle Wasting Neurological: Cranial nerves II-XII grossly intact Psych/Mental Status: Normal Affect Vital Signs Temp Pulse Resp BP Pulse Ox 99 F 84 24 H 153/78 H 99 09/06/18 15:11 09/06/18 20:33 09/06/18 15:11 09/06/18 15:11 09/06/18 20:33 Oxygen Delivery Method Room Air Weight: 129 lb 4 oz Body Mass Index (BMI) 25.2 Intake and Output for Last 24 Hours 09/05/18 09/06/18 09/07/18 23:59 23:59 23:59 Intake Total 720 / 720 720 / 720 Balance 720 / 720 720 / 720 Microbiology Past 72 Hours 09/06/18 16:00 Stool Occult Blood (DWAIN) - Final Stool Occult Blood Positive Assessment/Plan All Active Problems UTI (urinary tract infection) (Acute) Fall (Acute) Encephalopathy (Acute) Closed head injury (Acute) Acute on chronic kidney failure (Acute) Hypokalemia (Acute) Debility (Acute) Anemia (Acute) 83-year-old female with anemia and positive fecal occult blood test 1. Patient had a drop in hemoglobin which may be due to a false elevation of her first hemoglobin from dehydration. Once she was rehydrated her hemoglobin was 8 and I suspect that she is chronically anemic. Patient did describe some blood with bowel movements when she was having diarrhea and irritated from wiping. 2. I recommend EGD and colonoscopy as the patient has never had one. The patient is refusing. I explained the risks of the procedure including bleeding and perforation of the colon but I also explained the risks of not performing the procedure such as leaving a malignancy unnoticed and having a cancer spread. The patient reports that she has 2 friends that undergoing colonoscopy and she does not want these procedures. I explained that it is very safe procedure and these complications rarely occur but the patient respectfully declines. I offered that if she changes her mind I will be available to perform an EGD and colonoscopy for her. Mir Farrell MD Pager: [facility] [address] [place] [address], [address] [place] [address] Office:
--- NOTE | 2018-09-07 08:23 | CON.PCM_ITS ---
Problem List (1) Anemia Status: Acute Qualifiers: Anemia type: unspecified type Qualified Code(s): D64.9 - Anemia, unspecified Reason for Consult Date of Consultation: 09/07/18 Reason for Consultation: Anemia and positive fecal occult blood History of Present Illness: The patient is a 83 year old F was admitted after a fall with also urinary tract infection. On admission her hemoglobin was 10 but the following morning was 8.4. She reports that during her hospitalization she had diarrhea and was having some bleeding during the diarrhea. She is not having any bleeding in her bowel movements anymore. She is not having any nausea or vomiting or abdominal pain. She does not reports she is ever had a colonoscopy in the past. 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 Smoking Status: Never smoker Tobacco Use: Non-smoker Alcohol: None Drugs: None - *Family History Maternal History Items: No pertinent history Paternal History Items: No pertinent history Review of Systems Constitutional: Denies: Anorexia, Fever HEENT: Denies: Difficulty Swallowing Respiratory: Denies: Cough, Shortness of Breath Gastrointestinal: Reports: Diarrhea. Denies: Abdominal Pain, Nausea, Vomiting Genitourinary: Denies: Dysuria Psychiatric: Denies: Anxiety, Depression Hematologic/ Lymphatic: Reports: Anemia Patient Problems: Active and Suspected Problems Fall (Acute) Encephalopathy (Acute) Closed head injury (Acute) Acute on chronic kidney failure (Acute) Hypokalemia (Acute) Debility (Acute) Anemia (Acute) - Physical Exam General: Alert, Oriented x3, Cooperative Neck: No JVD Lungs: Normal air movement, No rales Cardiovascular: Regular rate, Regular Rhythm Abdomen: Soft, Non Tender, Non-Distended Extremities: No clubbing Musculoskeletal: No Muscle Wasting Neurological: Cranial nerves II-XII grossly intact Psych/Mental Status: Normal Affect Vital Signs Temp Pulse Resp BP Pulse Ox 99 F 84 24 H 153/78 H 99 09/06/18 15:11 09/06/18 20:33 09/06/18 15:11 09/06/18 15:11 09/06/18 20:33 Oxygen Delivery Method Room Air Weight: 129 lb 4 oz Body Mass Index (BMI) 25.2 Intake and Output for Last 24 Hours 09/05/18 09/06/18 09/07/18 23:59 23:59 23:59 Intake Total 720 / 720 720 / 720 Balance 720 / 720 720 / 720 Microbiology Past 72 Hours 09/06/18 16:00 Stool Occult Blood (DWAIN) - Final Stool Occult Blood Positive Assessment/Plan All Active Problems UTI (urinary tract infection) (Acute) Fall (Acute) Encephalopathy (Acute) Closed head injury (Acute) Acute on chronic kidney failure (Acute) Hypokalemia (Acute) Debility (Acute) Anemia (Acute) 83-year-old female with anemia and positive fecal occult blood test 1. Patient had a drop in hemoglobin which may be due to a false elevation of her first hemoglobin from dehydration. Once she was rehydrated her hemoglobin w as 8 and I suspect that she is chronically anemic. Patient did describe some blood with bowel movements when she was having diarrhea and irritated from wiping. 2. I recommend EGD and colonoscopy as the patient has never had one. The patient is refusing. I explained the risks of the procedure including bleeding and perforation of the colon but I also explained the risks of not performing the procedure such as leaving a malignancy unnoticed and having a cancer spread. The patient reports that she has 2 friends that undergoing colonoscopy and she does not want these procedures. I explained that it is very safe procedure and these complications rarely occur but the patient respectfully declines. I offered that if she changes her mind I will be available to perform an EGD and colonoscopy for her. Mir Farrell MD Pager: [facility] [address] [place] [address], [address] [place] [address] Office:
--- NOTE | 2018-09-07 15:10 | CASEMGMT ---
Student Social Work MDS documentation reviewed. BREANNA Amezcua
[2018-09-07 16:00] VITALS: BP 135/72; PULSE 82; RESP 18; TEMP 36.6; O2SAT 97
[2018-09-08] MEDS: Pantoprazole Sodium 40 MG Tablet PO (05:11)
[2018-09-08] MEDS: NYSTATIN 500,000 UNIT/5 ML UDC 500000 UNIT PO ×4 (05:11→21:12)
[2018-09-08] MEDS: Polyethylene Glycol 3350 17 GM PACKET PO (05:12)
[2018-09-08] MEDS: Iron Polysaccharide Complex 150 MG CAPSULE PO (08:34)
--- NOTE | 2018-09-08 09:58 | MDS.RN ---
Information for the mds was obtained from review of the clinical record, interview of resident, staff, and direct observation of resident's care.
[2018-09-08 10:40] VITALS: PULSE 80
[2018-09-08 16:00] VITALS: BP 147/80; PULSE 85; RESP 16; TEMP 37.2; O2SAT 99
--- NOTE | 2018-09-08 16:16 | CHAPLAIN ---
Type of Pastoral Visit _x__ Initial Visit ___ Follow-up Visit ___ On-call Visit ___ General Patient Visit ___ Spiritual Assessment ___ Family Conference ___ Bereavement ___ Rapid Response ___ Code Blue ___ Other (describe below) Pastoral Care Referral From _x__ Patient ___ Family ___ Nurse ___ Physician ___ Lead Systems Developer ___ Mail Distribution Scheme Examiner ___ Other (describe below) Sacrament/Intervention _x__ Active listening ___ Anointing ___ Tenriism ___ Bereavement ___ Communion ___ Luzmaria exploration ___ ___ Life review _x__ Prayer ___ Reconciliation ___ Sacrament of Sick _x__ Supportive presence ___ Wedding ___ Other (describe below) Pastoral Comments
[2018-09-09] MEDS: Pantoprazole Sodium 40 MG Tablet PO (06:06)
[2018-09-09] MEDS: NYSTATIN 500,000 UNIT/5 ML UDC 500000 UNIT PO ×2 (06:06→11:28)
[2018-09-09] MEDS: Iron Polysaccharide Complex 150 MG CAPSULE PO (08:47)
[2018-09-09 15:14] VITALS: BP 125/78; PULSE 88; RESP 16; TEMP 37.2; O2SAT 95
[2018-09-10] MEDS: Pantoprazole Sodium 40 MG Tablet PO (05:06)
[2018-09-10] MEDS: Iron Polysaccharide Complex 150 MG CAPSULE PO (10:25)
[2018-09-10 14:52] VITALS: BP 149/74; PULSE 81; RESP 16; TEMP 36.6; O2SAT 96
[2018-09-11] MEDS: Pantoprazole Sodium 40 MG Tablet PO (04:44)
[2018-09-11 04:48] VITALS: PULSE 71; O2SAT 93
[2018-09-11] MEDS: Iron Polysaccharide Complex 150 MG CAPSULE PO (08:11)
[2018-09-11 16:00] VITALS: BP 131/77; PULSE 79; RESP 18; TEMP 36.9; O2SAT 97
[2018-09-12] MEDS: Pantoprazole Sodium 40 MG Tablet PO (04:16)
--- NOTE | 2018-09-12 12:00 | CASEMGMT ---
BIMS and PHQ9 interviews completed on this date for MDS assessment. BREANNA Amezcua
[2018-09-12 16:00] VITALS: BP 129/78; PULSE 77; RESP 18; TEMP 37.2; O2SAT 97
[2018-09-13] MEDS: Pantoprazole Sodium 40 MG Tablet PO (06:01)
[2018-09-13 06:17] LABS: Absolute Lymphocyte Count 1.23 X10^3/ul (0.83-4.51); Absolute Neutrophil Count 2.3 X10^3/uL (2.0-7.7); Basophil# 0.02 X10^3/uL; Basophil% 0.5 % (0-1); Eosinophil# 0.09 X10^3/uL; Eosinophils% 2.2 % (0-5); Hematocrit 27.6 % (37-47); Hemoglobin 8.7 g/dl (12.0-15.0); Lymphocyte # 1.23 X10^3/ul (4.0); Lymphocyte % 29.8 % (19-41); Mean Corp Hgb Conc 31.5 g/gl (32-36); Mean Corpuscular Hgb 29.5 pg (27.0-32.0); Mean Corpuscular Volume 93.6 fL (81-99); Mean Platelet Vol. 9.4 fl (6.2-12.0); Monocyte# 0.51 X10^3/uL; Monocyte% 12.3 % (0-10); Neutrophil # 2.27 X10^3/uL (2.7-7.7); Platelet Count 234 K/mm3 (150-450); RBC Distribution Width CV 13.4 % (11.6-14.6); Red Blood Count 2.95 M/mm3 (4.2-5.4); White Blood Count 4.1 K/mm3 (4.4-11.0)
[2018-09-13 06:21] LABS: POSITIVE COUNT NO; POSITIVE DIFFERENTIAL NO; POSITIVE MORPHOLOGY NO
[2018-09-13 06:29] LABS: Anion Gap 9 (5-15); BUN 30 mg/dL (7-18); BUN/Creat Ratio 17.3 RATIO (10-20); Calcium,Total 8.7 mg/dL (8.5-10.1); Chloride 109 mmol/L (98-107); Creatinine, Serum 1.73 mg/dL (0.55-1.02); EST Glomerular Filtration Rate 30 mL/min (>60); Est Glom Filt Rate - Afr Amer 36 mL/min (>60); Estimated Creatinine Clearance 18.32 ml/min; Glucose 95 mg/dL (74-106); Potassium 4.4 mmol/L (3.5-5.1); Sodium Level 143 mmol/L (136-145)
[2018-09-13 16:00] VITALS: BP 157/94; PULSE 52; RESP 18; TEMP 36.6; O2SAT 93
[2018-09-14] MEDS: Pantoprazole Sodium 40 MG Tablet PO (04:34)
[2018-09-14 15:23] VITALS: BP 143/76; PULSE 92; RESP 16; TEMP 36.9; O2SAT 91
[2018-09-15] MEDS: Pantoprazole Sodium 40 MG Tablet PO (05:45)
[2018-09-15 06:37] LABS: Anion Gap 7 (5-15); BUN 33 mg/dL (7-18); BUN/Creat Ratio 19.1 RATIO (10-20); Calcium,Total 9.4 mg/dL (8.5-10.1); Chloride 110 mmol/L (98-107); Creatinine, Serum 1.73 mg/dL (0.55-1.02); EST Glomerular Filtration Rate 30 mL/min (>60); Est Glom Filt Rate - Afr Amer 36 mL/min (>60); Estimated Creatinine Clearance 18.32 ml/min; Glucose 99 mg/dL (74-106); Potassium 4.1 mmol/L (3.5-5.1); Sodium Level 142 mmol/L (136-145)
--- NOTE | 2018-09-15 09:43 | CASEMGMT ---
Addendum entered by Raquel Harrington 09/15/18 13:21: Student social work documentation reviewed including discharge assessment. BREANNA Amezcua Original Note: Addendum entered by Amada Torrez 09/15/18 10:12: Called patient's daughter, Dari - spoke with Dari's - Bryn. Bryn is agreeable to discharge plan and date - 09/19/18. Akshat Torrez social work student Original Note: Social Work Spoke with resident in room about discharge date. Last covered day being 09/18 with a discharge date of 09/19/18. Resident is agreeable to this date stating she will talk to daughter. Team recommending home physical and occupational therapy. Resident has no preference on company. Spoke with [facility], [facility], and made referral for home PT and OT. Resident reported having all equipment needed and is comparing prices for medical alerts. Discharge Date: 09/19/18 Discharge Plan: Home with family and home health services Akshat Torrez social work student
--- NOTE | 2018-09-15 14:34 | DCINST_ITS ---
- Discharge Diagnoses Current Active Problems: Current Active and Chronic Problems Fall (Acute) Encephalopathy (Acute) Closed head injury (Acute) Acute on chronic kidney failure (Acute) Hypokalemia (Acute) Debility (Acute) Nail disorder (onychogryphosis) (Chronic) Tinea unguium (Chronic) Toe pain, right (Chronic) Toe pain, left (Chronic) Anemia (Acute) You will use the following diet at home:: No restrictions, Regular Your food should be the consistency of: Regular Your liquids should be the consistency of: Regular/Thin Discharge Activity: Return to Normal Activity, May Shower, Use Walker Weight Bearing Status: Weight bearing as tolerated Call your doctor if you observe: Fever of 101 or Higher, Inability to urinate, Inability to have a bowel movement, Chest pain, Uncontrolled pain Allergies/Adverse Reactions: Allergies No Known Allergies Allergy (Verified 08/27/18 10:44) Medications to take at Discharge Acetaminophen [Tylenol] 1,000 mg PO Q8H PRN PRN tablet 09/15/18 Hydrocortisone 2.5% Crm [Hytone] 1 applic TOPICAL BID PRN PRN #1 tube 09/15/18 Iron Polysaccharide Complex [Ferrex 150] 150 mg PO DAILYCM #30 cap 09/15/18 Pantoprazole Sodium [Protonix] 40 mg PO DAILY #30 tab 09/15/18 The following prescriptions were given: Hydrocortisone 2.5% Crm [Hytone] 1 applic TOPICAL BID PRN PRN #1 tube PRN Reason: HEMORRHOIDS Iron Polysaccharide Complex [Ferrex 150] 150 mg PO DAILYCM #30 cap Pantoprazole Sodium [Protonix] 40 mg PO DAILY #30 tab Primary Care Physician: Derek Jackson Chi, MD [COURTESY STAFF PHYSICIAN] - Please follow up with your Primary Care Physician in: 1 week. Test Results: Test results from this visit will be discussed in further detail at your follow- up appointment, if applicable. Please Follow Up With: Dr. Gimenez When: as needed after discharge Proposed Discharge Date: 09/19/18
--- NOTE | 2018-09-15 14:34 | PCM.DC.SUM ---
Discharge Date and Diagnosis - Problem List Patient Problems: Active and Suspected Problems Fall (Acute) Encephalopathy (Acute) Closed head injury (Acute) Acute on chronic kidney failure (Acute) Hypokalemia (Acute) Debility (Acute) Anemia (Acute) Date of Admission: 08/29/18 Date of Discharge: 09/19/18 - Primary Discharge Diagnosis Active and Suspected Problems Fall (Acute) Encephalopathy (Acute) Closed head injury (Acute) Acute on chronic kidney failure (Acute) Hypokalemia (Acute) Debility (Acute) Anemia (Acute) - Secondary Discharge Diagnosis Chronic Problems Nail disorder (onychogryphosis) (Chronic) Tinea unguium (Chronic) Toe pain, right (Chronic) Toe pain, left (Chronic) Hospital Course and Treatment Imaging Results: 08/29/18 16:07 Diet: Regular Diet Food consistency:: Regular Liquid Consistency:: Regular/Thin Is pt able to select menu?: Yes Labs (Last 48 Hours) 09/15/18 05:30 Sodium 142 Potassium 4.1 Chloride 110 H Carbon Dioxide 25.0 Anion Gap 7 BUN 33 H Creatinine 1.73 H Estim Creat Clear Calc 18.32 Est GFR (MDRD) Af Amer 36 L Est GFR (MDRD) Non-Af 30 L BUN/Creatinine Ratio 19.1 Glucose 99 Calcium 9.4 Operations: None Procedures: None Summary of Care Provided: The patient is a 83 year old Female with below past medical history hospitalized for fall secondary to E. Coli urinary tract infection, complicated by hypokalemia, acute on chronic kidney failure, admitted to TCU with debility, here for rehabilitation, strengthening, prior to discharge home with family. Resident anemic, Dr. Farrell consulted for EGD/Colonoscopy, resident denied, will follow up as outpatient. Discharge home with family(in-law suite), Home Health Services for PT/OT. Patient Problems: Active and Suspected Problems Fall (Acute) Encephalopathy (Acute) Closed head injury (Acute) Acute on chronic kidney failure (Acute) Hypokalemia (Acute) Debility (Acute) Anemia (Acute) - Physical Exam Vital Signs Temp Pulse Resp BP Pulse Ox 98.5 F 92 16 143/76 H 91 09/14/18 15:23 09/14/18 15:23 09/14/18 15:23 09/14/18 15:23 09/14/18 15:23 Oxygen Delivery Method Room Air Weight: 57.238 kg Body Mass Index (BMI) 25.2 Intake and Output for Last 24 Hours 09/13/18 09/14/18 09/15/18 23:59 23:59 23:59 Intake Total 1560 / 1560 1140 / 1140 600 / 600 Balance 1560 / 1560 1140 / 1140 600 / 600 Laboratory Tests Past 24 Hrs 09/15/18 05:30 Sodium 142 Potassium 4.1 Chloride 110 H Carbon Dioxide 25.0 Anion Gap 7 BUN 33 H Creatinine 1.73 H Estim Creat Clear Calc 18.32 Est GFR (MDRD) Af Amer 36 L Est GFR (MDRD) Non-Af 30 L BUN/Creatinine Ratio 19.1 Glucose 99 Calcium 9.4 Discharge Diet: No Restrictions Discharge Activity: Return to Normal Activity, May Shower, Use Walker Weight Bearing Status: Weight bearing as tolerated Call your doctor if you observe: Fever of 101 or Higher, Inability to urinate, Inability to have a bowel movement, Chest pain, Uncontrolled pain Home Medications: Medications to take at Discharge Acetaminophen [Tylenol] 1,000 mg PO Q8H PRN PRN tablet 09/15/18 Hydrocortisone 2.5% Crm [Hytone] 1 applic TOPICAL BID PRN PRN #1 tube 09/15/18 Iron Polysaccharide Complex [Ferrex 150] 150 mg PO DAILYCM #30 cap 09/15/18 Pantoprazole Sodium [Protonix] 40 mg PO DAILY #30 tab 09/15/18 Following Prescrptions Were Given to Patient: Hydrocortisone 2.5% Crm [Hytone] 1 applic TOPICAL BID PRN PRN #1 tube PRN Reason: HEMORRHOIDS Iron Polysaccharide Complex [Ferrex 150] 150 mg PO DAILYCM #30 cap Pantoprazole Sodium [Protonix] 40 mg PO DAILY #30 tab Primary Care Physician: Derek Jackson Chi, MD [COURTESY STAFF PHYSICIAN] - Please follow up with your Primary Care Physician in: 1 week. Please Follow Up With: Dr. Gimenez When: as needed after discharge Disposition: Home with Home Health Minutes spent on discharge:: 35 Patient Condition:: Stable Medical Necessity - Tobacco Use Smoking Status: Never smoker Tobacco Use: Non-smoker Meaningful Use Info Meaningful Use Diagnoses (Choose all that apply): None applicable
--- NOTE | 2018-09-15 14:37 | PCM.PN.HH ---
Home Health Note - Plan Overview of reason of hospitalization: The patient is a 83 year old Female with below past medical history hospitalized for fall secondary to E. Coli urinary tract infection, complicated by hypokalemia, acute on chronic kidney failure, admitted to TCU with debility, here for rehabilitation, strengthening, prior to discharge home with family. Resident anemic, Dr. Farrell consulted for EGD/Colonoscopy, resident denied, will follow up as outpatient. Discharge home with family(in-law suite), Home Health Services for PT/OT. Problems: Patient was seen for Fall (Acute) Encephalopathy (Acute) Closed head injury (Acute) Acute on chronic kidney failure (Acute) Hypokalemia (Acute) Debility (Acute) Nail disorder (onychogryphosis) (Chronic) Tinea unguium (Chronic) Toe pain, right (Chronic) Toe pain, left (Chronic) Anemia (Acute) Complete List of Medical Problems UTI (urinary tract infection) (Acute) Fall (Acute) Encephalopathy (Acute) Closed head injury (Acute) Acute on chronic kidney failure (Acute) Hypokalemia (Acute) Debility (Acute) Nail disorder (onychogryphosis) (Chronic) Tinea unguium (Chronic) Toe pain, right (Chronic) Toe pain, left (Chronic) Anemia (Acute) - Requirements and Reasons Disciplines Needed/Ordered: Physical Therapy Reason for Disciplines: Disease Specific Monitoring/education, Gait Training, Stair Training, Fall Prevention, Home Safety/Equipment Instruction, Balance and/or Posture Training, Transfer Training Related To: Change in Medical Treatment Plan, Limited/Poor Endurance, Physical Impairments, Unsteady Gait/Balance, Fall Risk Patient is unable to leave the home: Without Aid of Supportive Devices (crutches, cane, wheelchair, walker), Without the assistance of another person Medically Contraindicated related to: Weight Bearing Status - Additional Disciplines Additional Disciplines Needed/Ordered: Occupational Therapy
[2018-09-15 15:56] VITALS: BP 132/72; PULSE 74; RESP 24; TEMP 36.8; O2SAT 98
[2018-09-16] MEDS: Pantoprazole Sodium 40 MG Tablet PO (06:55)
[2018-09-16 16:00] VITALS: BP 125/74; PULSE 75; RESP 18; TEMP 36.3; O2SAT 94
--- NOTE | 2018-09-16 19:13 | NURSING ---
Dr Jackson aware pt continues to refuse iron. N.O. to D/C.
[2018-09-16 20:00] VITALS: PULSE 88; RESP 16; O2SAT 97
[2018-09-17] MEDS: Pantoprazole Sodium 40 MG Tablet PO (04:44)
[2018-09-17 06:30] VITALS: PULSE 80; RESP 18; O2SAT 96
[2018-09-17 16:00] VITALS: BP 132/67; PULSE 85; RESP 20; TEMP 36.3; O2SAT 94
[2018-09-17] MEDS: Hydrocortisone 2.5% Crm 1 APPLIC TOPICAL (23:25)
[2018-09-18] MEDS: Pantoprazole Sodium 40 MG Tablet PO (04:22)
[2018-09-18 10:00] VITALS: PULSE 72
--- NOTE | 2018-09-18 11:47 | CASEMGMT ---
Insurance Clinical update due today. Pt approved through 09/22 and SW called Alicia at [employer] and notified her that d/c is tomorrow so update will not be faxed today. Alicia in agreement. Auth# [id number] BREANNA Amezcua
[2018-09-18 15:48] VITALS: BP 147/77; PULSE 84; RESP 16; TEMP 37.1; O2SAT 99
[2018-09-19] MEDS: Pantoprazole Sodium 40 MG Tablet PO (04:31)
--- NOTE | 2018-09-19 11:23 | CASEMGMT ---
Addendum entered by Raquel Harrington 09/19/18 12:09: VINOD reviewed student SW MDS documentation. BREANNA Amezcua Original Note: Brief interview for mental status (BIMS) and mood (PHQ-9) completed on this day. BIMS score 05/20. PHQ-9 score . Akshat Torrez social work student
[2018-09-19 11:53] VITALS: BP 142/76; PULSE 74; RESP 16; TEMP 36.8; O2SAT 98
--- NOTE | 2018-09-19 12:29 | CASEMGMT ---
Insurance Notified insurance of d/c on this date with [facility] PT/OT. Auth# [id number] BREANNA Amezcua
--- NOTE | 2018-09-26 08:23 | MDS.RN ---
Information for the mds was obtained from review of the clinical record, interview of resident, staff, and direct observation of resident's care.
== END 2018-09-19 11:45 | disposition home health service (06) | DRG 948 ==
PROVIDERS: Admitting Provider Family Medicine Geriatric Medicine; Referring Provider Family Medicine Geriatric Medicine; Visit Provider Family Medicine Geriatric Medicine
DX: R53.81 Other malaise (principal); N39.0 Urinary tract infection, site not specified; F05 Delirium due to known physiological condition; B96.20 Unspecified Escherichia coli [E. coli] as the cause of diseases classified elsewhere; G30.9 Alzheimer's disease, unspecified; F02.80 Dementia in other diseases classified elsewhere, unspecified severity, without behavioral disturbance, psychotic disturbance, mood disturbance, and anxiety; N18.9 Chronic kidney disease, unspecified; J44.9 Chronic obstructive pulmonary disease, unspecified; D64.9 Anemia, unspecified; L60.2 Onychogryphosis; B35.1 Tinea unguium
CPT/HCPCS: 36415; 80048; 82274; 85025; 93005; 97110; 97116; 97162; 97166; 97530; 97535; 97802

== ENCOUNTER → 2018-10-03 | Outpatient (CLI) | payer MEDICARE, SELFPAY ==
[2018-08-29 15:18] VITALS: BMI 25.2
[2018-10-03 16:32] LABS: Absolute Lymphocyte Count 1.28 X10^3/ul (0.83-4.51); Absolute Neutrophil Count 3.5 X10^3/uL (2.0-7.7); Basophil# 0.02 X10^3/uL; Basophil% 0.4 % (0-1); Eosinophil# 0.03 X10^3/uL; Eosinophils% 0.6 % (0-5); Hematocrit 31.7 % (37-47); Hemoglobin 9.9 g/dl (12.0-15.0); Lymphocyte # 1.28 X10^3/ul (4.0); Lymphocyte % 23.8 % (19-41); Mean Corp Hgb Conc 31.2 g/gl (32-36); Mean Corpuscular Hgb 29.1 pg (27.0-32.0); Mean Corpuscular Volume 93.2 fL (81-99); Mean Platelet Vol. 9.2 fl (6.2-12.0); Monocyte# 0.56 X10^3/uL; Monocyte% 10.4 % (0-10); Neutrophil # 3.48 X10^3/uL (2.7-7.7); Neutrophil % 64.8 % (47-70); Platelet Count 218 K/mm3 (150-450); RBC Distribution Width CV 13.5 % (11.6-14.6); RBC Distribution Width SD 44.8 fl (35.1-43.9); White Blood Count 5.4 K/mm3 (4.4-11.0)
[2018-10-03 16:39] LABS: POSITIVE COUNT NO; POSITIVE DIFFERENTIAL NO; POSITIVE MORPHOLOGY NO
[2018-10-03 17:10] LABS: Vitamin D,25 Hydroxy 16.1 ng/mL (29.95-100.01)
[2018-10-03 17:11] LABS: ALB/GLOB Ratio 0.9 RATIO (0.9-2.4); AST(SGOT) 16 U/L (15-37); Alanine Aminotransfer ALT/SGPT 18 U/L (13-56); Albumin, Serum 3.5 g/dL (3.2-5.0); Alkaline Phosphatase 73 U/L (45-117); Anion Gap 9 (5-15); BUN 25 mg/dL (7-18); Calcium,Total 9.2 mg/dL (8.5-10.1); Chloride 106 mmol/L (98-107); Creatinine, Serum 1.47 mg/dL (0.55-1.02); EST Glomerular Filtration Rate 36 mL/min (>60); Est Glom Filt Rate - Afr Amer 44 mL/min (>60); Globulin 3.8 g/dL (2.2-4.2); Glucose 104 mg/dL (74-106); Potassium 3.5 mmol/L (3.5-5.1); Protein, Total 7.3 g/dL (6.4-8.2); Sodium Level 141 mmol/L (136-145); Thyroid Stim Hormone (TSH) 3.26 uIU/mL (0.358-3.74)
== END | disposition home or self-care (01) ==
LOC: POLAB3 15:39
PROVIDERS: Visit Provider Family Medicine Geriatric Medicine
DX: I10 Essential (primary) hypertension (principal)
CPT/HCPCS: 36415; 80053; 82306; 84443; 85025

== ENCOUNTER 2018-12-05 16:17 | Emergency (ER) | payer MEDICARE, SELFPAY ==
[2018-08-29 15:18] VITALS: BMI 25.2
[2018-12-05 16:19] VITALS: BP 205/148; BP 211/153; PULSE 93; PULSE 95; RESP 16; RESP 20; TEMP 36.6; O2SAT 96; O2SAT 98; BMI 25.0
--- NOTE | 2018-12-05 16:50 | EKG12_ITS ---
Test Reason : NAUSEA AND VOMIT Blood Pressure : / mmHG Vent. Rate : 086 BPM Atrial Rate : 086 BPM P-R Int : 194 ms QRS Dur : 088 ms QT Int : 390 ms P-R-T Axes : 055 -30 052 degrees QTc Int : 466 ms Sinus rhythm with Premature atrial complexes Left axis deviation Minimal voltage criteria for LVH, may be normal variant Abnormal ECG Confirmed by NEVILLE MERCHANT ([id number]), social media editor ELLIOT SANCHEZ ([id number]) on 12/11/2018 1:03:07 PM Referred By: Confirmed By:NEVILLE MERCHANT
--- NOTE | 2018-12-05 16:53 | ED.VISSUMM ---
- ER Visit Summary Date of Service: 12/05/18 Chief Complaint: Nausea, vomiting History of Present Illness: The patient is a 83 F presenting with nausea, vomiting. She states this started around 10 AM today. She has had several episodes of vomiting at home. She denies blood in her emesis. She denies diarrhea or constipation. Denies abdominal pain. Denies chest pain or shortness of breath. She complains of mild headache. She states this is not the worst headache of her life. Denies sick contacts or recent travel. EMS was called. She was given Zofran in the ambulance but she states she vomited immediately following the medication. Physical Examination: Vitals are stable. Blood pressure 211/153. Patient is afebrile. Alert no acute distress. HEENT exam is unremarkable. Neck is supple. Lungs are clear and equal bilaterally. Heart is regular rate and rhythm. Abdomen is soft nontender nondistended. No guarding or rebound Extremities are unremarkable. Skin is warm and dry. No focal neurologic deficit. Remainder of exam is unremarkable. Emergency Department Course and Treatment: Patient given IV fluids, Zofran. EKG is sinus rate of 86 with no acute ischemic changes. Chest x-ray shows no acute process. CBC normal except hemoglobin 11.2. Chemistry normal except for potassium 3.2, glucose 152, BUN 25, creatinine 1.74. Urinalysis unremarkable. Troponin is negative. Patient declined Tylenol for her headache. She continues to have nausea and was given Phenergan IV. She was given clonidine. Repeat blood pressure is 222/112. She was given hydralazine IV. Repeat blood pressure 184/91. She states her headache has resolved. CT head shows interval development of left periventricular hyperdensities, concerning for hemorrhage. Chronic ischemic and atrophic changes. CT abdomen/pelvis shows colonic diverticulosis without evidence of inflammation. Mild increased fat attenuation along the right paracolic gutter, nonspecific, although could be secondary to mild inflammation. Hepatomegaly. Small hiatal hernia. Repeat blood pressure 159/104. Patient and family request [facility]. Discussed with [facility] for transfer. Disposition: Transfer to [facility] Impression: Left periventricular hemorrhage This note was generated with Snapverse dictation software. It may contain incorrect words, spelling, and punctuation that were not noted in review of the chart prior to signing ED Disposition - Plan for ED Patient: Referrals: Derek Jackson Chi, MD [Primary Care Provider] -
--- NOTE | 2018-12-05 16:58 | RAD_ITS ---
STUDY: X-RAY CHEST REASON FOR EXAM: Female, 83 years old. Chest pain TECHNIQUE: Frontal view of the chest COMPARISON: X-Ray Chest August 27, 2018 FINDINGS: The lungs are clear. There are no pleural effusions. There is no pneumothorax. The heart is mildly enlarged. Moderate left shoulder degenerative changes are present. RAD/Chest 1 View (Portable) IMPRESSION: No acute thoracic pathology. Mild cardiomegaly. Electronically Signed: [place], at 17:12 EDT Tel , Service support ,
[2018-12-05] MEDS: Ondansetron 4 MG/2 ML Vial IV ×2 (17:14→21:10)
[2018-12-05 17:31] LABS: Absolute Lymphocyte Count 1.02 X10^3/ul (0.83-4.51); Basophil# 0.02 X10^3/uL; Basophil% 0.4 % (0-1); Hematocrit 34.3 % (37-47); Hemoglobin 11.2 g/dl (12.0-15.0); Lymphocyte # 1.02 X10^3/ul (4.0); Lymphocyte % 18.9 % (19-41); Mean Corp Hgb Conc 32.7 g/gl (32-36); Mean Corpuscular Hgb 28.9 pg (27.0-32.0); Mean Corpuscular Volume 88.4 fL (81-99); Mean Platelet Vol. 9.5 fl (6.2-12.0); Monocyte# 0.33 X10^3/uL; Monocyte% 6.1 % (0-10); Neutrophil # 4.02 X10^3/uL (2.7-7.7); Neutrophil % 74.6 % (47-70); Platelet Count 166 K/mm3 (150-450); RBC Distribution Width CV 13.7 % (11.6-14.6); RBC Distribution Width SD 44.3 fl (35.1-43.9); Red Blood Count 3.88 M/mm3 (4.2-5.4); White Blood Count 5.4 K/mm3 (4.4-11.0)
[2018-12-05 17:35] LABS: POSITIVE COUNT NO; POSITIVE DIFFERENTIAL NO; POSITIVE MORPHOLOGY NO
[2018-12-05 17:44] LABS: AST(SGOT) 17 U/L (15-37); Alanine Aminotransfer ALT/SGPT 18 U/L (13-56); Albumin, Serum 3.8 g/dL (3.2-5.0); Alkaline Phosphatase 78 U/L (45-117); Anion Gap 10 (5-15); BUN 25 mg/dL (7-18); BUN/Creat Ratio 14.4 RATIO (10-20); Calcium,Total 9.9 mg/dL (8.5-10.1); Chloride 105 mmol/L (98-107); Creatinine, Serum 1.74 mg/dL (0.55-1.02); EST Glomerular Filtration Rate 30 mL/min (>60); Est Glom Filt Rate - Afr Amer 36 mL/min (>60); Estimated Creatinine Clearance 18.21 ml/min; Globulin 3.9 g/dL (2.2-4.2); Glucose 152 mg/dL (74-106); Lipase 57 U/L (73-393); Potassium 3.2 mmol/L (3.5-5.1); Protein, Total 7.7 g/dL (6.4-8.2); Sodium Level 141 mmol/L (136-145)
[2018-12-05 17:55] VITALS: BP 205/102
[2018-12-05 17:55] LABS: Bacteria 0 SEEN /hpf (None Seen); Mucous, Urine 0 SEEN /hpf (<or=2+); Red Blood Cells-Urine 0 SEEN /hpf (0-5)
[2018-12-05] MEDS: cloNIDine HCl 0.1 MG Tablet 0.2 MG PO (17:59)
[2018-12-05 18:00] LABS: Color, Urine Straw (Yellow); Glucose, Dipstick Normal (Normal); Ketone-Dipstick 5 mg/dl (Negative); Leukocyte Esterase-Dipstick Negative /ul (Negative); Nitrite-Dipstick Negative (Negative); Occult Blood-Urine Negative /ul (Negative); Protein-Dipstick 15 mg/dl (Negative); Specific Gravity, Urine 1.015 (1.002-1.030); Urine Bilirubin Dipstick Negative (Negative); Urine Clarity Clear (Clear); Urine Urobilinogen Normal (Normal)
[2018-12-05 18:08] LABS: Squamous Epithelial Cells - UA 0-5 SEEN /hpf (5-10)
[2018-12-05 18:09] LABS: White Blood Cells 0-5 SEEN /hpf (0-5)
[2018-12-05 18:41] VITALS: BP 221/112
--- NOTE | 2018-12-05 18:46 | CT_ITS ---
STUDY: CT ABDOMEN AND PELVIS WITHOUT CONTRAST REASON FOR EXAM: Female, 83 years old. Nausea RADIATION DOSAGE (If Supplied By Facility): DLP = ( 398.27 ) mGycm TECHNIQUE: Transaxial images were obtained from the dome of the diaphragm to the symphysis pubis without oral contrast, and without intravenous contrast. Sagittal and coronal images were reconstructed. Individualized dose optimization techniques were used for this CT. COMPARISON: None. FINDINGS: Evaluation of the abdominal viscera is limited in the absence of intravenous contrast. The visualized lung bases are clear. The visualized portions of the heart and pericardium are within normal limits. There are no calcified gallstones present. No hepatic lesions are present. The liver is enlarged. The spleen is normal in size. The pancreas demonstrates an unremarkable unenhanced appearance. The adrenal glands are within normal limits. There are no obstructing renal stones. There is no hydronephrosis. There is a small hiatal hernia. There is no bowel obstruction or inflammation. Colonic diverticulosis is present. There is mild increased fat attenuation along the right paracolic catheter. The aorta is normal in caliber. There is no abdominal or pelvic free air, free fluid, fluid collection or lymphadenopathy. There are no destructive osseous lesions. Extensive degenerative change of the spine is present. CT/Abdomen/Pelvis without Cont IMPRESSION: Colonic diverticulosis without evidence of inflammation. Mild increased fat attenuation along the right paracolic gutter, nonspecific, although could be secondary to mild inflammation. Hepatomegaly. Small hiatal hernia. Electronically Signed: Los Rivero, at 19:50 EDT Tel , Service support ,
--- NOTE | 2018-12-05 18:46 | CT_ITS ---
STUDY: CT BRAIN WITHOUT CONTRAST REASON FOR EXAM: Female, 83 years old. Headache RADIATION DOSAGE (If Supplied By Facility): DLP = ( 796.11 ) mGycm TECHNIQUE: Transaxial CT imaging of the brain was performed without administration of intravenous contrast material. Individualized dose optimization techniques were used for this CT. COMPARISON: CT head August 27, 2018 FINDINGS: There has been interval development of a left periventricular 1.6 x 0.8 x 0.9 cm hyperdensity. There are several smaller adjacent hyperdensities. There is no significant mass effect. No intraventricular blood is present. There are chronic ischemic and atrophic changes. The ventricles are normal in configuration. There is no hydrocephalus. The visualized paranasal sinuses are clear. The mastoid air cells are well aerated. There is no skull fracture. CT/Brain/Head without Contrast IMPRESSION: Interval development of left periventricular hyperdensities as described above, concerning for hemorrhage. Chronic ischemic and atrophic changes. N.B. : The above information has been verbally conveyed by Los Rivero to Joan Christy MD, on 12/05/2018 19:42:02 (ET). Electronically Signed: Los Rivero, at 19:29 EDT Tel , Service support ,
[2018-12-05] MEDS: proMETHazine 25 MG/ML Syringe 6.25 MG IV (18:53)
[2018-12-05] MEDS: hydrALAZINE 20 MG/ML Vial 10 MG IV ×2 (19:18→21:11)
[2018-12-05 19:50] VITALS: BP 184/91; PULSE 102; RESP 16; O2SAT 99
[2018-12-05 20:15] VITALS: BP 159/104; PULSE 99; RESP 17; O2SAT 98
[2018-12-05] MEDS: Morphine 2 MG/ML Syringe IV (21:10)
[2018-12-05 21:16] VITALS: BP 161/111; PULSE 99; RESP 16; O2SAT 99
== END 2018-12-05 21:30 | disposition short-term general hospital (02) ==
PROVIDERS: Emergency Provider Emergency Medicine; Family Provider Family Medicine Geriatric Medicine; PCP Family Medicine Geriatric Medicine
DX: I61.5 Nontraumatic intracerebral hemorrhage, intraventricular (principal); K21.9 Gastro-esophageal reflux disease without esophagitis; I10 Essential (primary) hypertension
CPT/HCPCS: 70450; 71045; 74176; 80053; 81001; 83690; 84484; 85025; 93005; 96361; 96374; 96375; 96376; 99285; J7040; A4216; J2405

== ENCOUNTER 2018-12-11 13:45 | Inpatient (IN) | payer MEDICARE, SELFPAY ==
[2018-12-11 13:59] VITALS: BMI 24.9; BMI 25.2
--- NOTE | 2018-12-11 13:59 | NURSING ---
pt arrived via cot at 1654
[2018-12-11 14:05] VITALS: BP 154/76; PULSE 65; RESP 16; TEMP 36.9; O2SAT 95
[2018-12-11] MEDS: Acetaminophen 325 MG Tablet 650 MG PO (15:48)
[2018-12-11 16:00] VITALS: BP 152/77; PULSE 68; RESP 16; TEMP 36.7; O2SAT 95
[2018-12-11 17:54] VITALS: BP 152/77; PULSE 68
[2018-12-11] MEDS: Metoprolol Tartrate 25 MG Tablet PO (17:54)
--- NOTE | 2018-12-11 19:53 | HP.PCM_ITS ---
Problem List (1) Nausea & vomiting Status: Acute (2) Hemorrhagic stroke Status: Acute (3) Hypertensive emergency Status: Acute (4) Osteoarthritis Status: Chronic (5) Kidney stone Status: Chronic (6) Hypertension Status: Chronic (7) Hypokalemia Status: Chronic (8) Anemia Status: Chronic Qualifiers: History of Present Illness Date of Admission: 12/11/18 Chief Complaint: Here for rehabilitation, strengthening, prior to disharge home with family. The patient is a 83 year old Female with below past medical history presented to [facility] Emergency Department 12/05/2018 with nausea, vomiting. 12/05/2018 Chest X-ray negative, mild cardiomegaly. 12/05/2018 CT abdomen/pelvis showed colonic diverticulosis, increased fat attenuation right paracolic gutter, hepatomegaly, small hiatal hernia. 12/05/2018 CT brain showed left periventricular hemorrhage. Nausea, vomiting x 1 day, mild headache. Zofran not helpful, Blood pressure 211/153. IV fluids, Zofran given. EKG normal sinus rhythm, heart rate 86. Hemoglobin 11.2, K 3.2, Glucose 152, BUN 25, Cr 1.74. UA negative, Troponin negative. Phenergan, clonidine given, Hydralazine IV given. Transfer to [facility]. 12/06/2018 Admit to [facility] with left periventricular hemorrhage. Antiemetics for nausea. Nausea with movement. CT brain in AM, monitor blood pressure, Zofran, Phenergan for nausea. Potassium chloride repleted. Hypertensive hemorrhage. Dr. Gallo recommended medical management. Lisinopril started for HTN. PT/OT consulted. 12/07/2018 No focal neurologic deficits. Reglan added for severe nausea. Lisinopril changed to Amlodipine due to kidney function. 12/08/2018 Nausea continued. IV Hydralazine for high blood pressure. 12/11/2018 Admit to TCU with debility, here for rehabilitation, strengthening, prior to discharge home with family. Resident admits to depression, she appears emotional, anxious, will treat with Paroxetine low dose. Past Medical History Past Medical History (Chronic Problems): Chronic Problems Hypokalemia (Chronic) Nail disorder (onychogryphosis) (Chronic) Tinea unguium (Chronic) Toe pain, right (Chronic) Toe pain, left (Chronic) Anemia (Chronic) Osteoarthritis (Chronic) Kidney stone (Chronic) Hypertension (Chronic) Allergies No Known Allergies Allergy (Verified 12/05/18 18:15) Home Medications: Ambulatory Orders Medication Instructions Recorded Acetaminophen 650 mg PO Q4H PRN PRN 12/11/18 Amlodipine [Norvasc] 10 mg PO DAILY 12/11/18 Ascorbic Acid 500 mg PO DAILY 12/11/18 Calcium Carbonate [Calcium] 500 mg PO TID PRN PRN 12/11/18 Cod Liver Oil 1 ea PO DAILY 12/11/18 Garlic 1 ea PO DAILY 12/11/18 Metoprolol Tartrate 25 mg PO BID 12/11/18 Multiple Vitamin 1 tab PO DAILY 12/11/18 Dixon-3 Fatty Acids/Fish Oil 1 ea PO DAILY 12/11/18 [Dixon 3 1,000 mg Softgel] Ondansetron [Zofran Odt] 4 mg PO Q6H PRN PRN 12/11/18 hydrALAZINE [Apresoline] 10 mg PO TID 12/11/18 Surgical History: hysterectomy, - - Laser kidney stone. 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 Smoking Status: Never smoker Tobacco Use: Non-smoker Alcohol: None Drugs: None - *Family History Maternal History Items: No pertinent history Paternal History Items: No pertinent history Review of Systems Constitutional: Reports: Weakness. Denies: Chills, Fever, Weight Change HEENT: Denies: Head Aches, Sinus Congestion, Sinus Drainage Cardiovascular: Denies: Chest Pain, Palpitations Respiratory: Denies: Cough, Shortness of breath at rest, Sputum production Gastrointestinal: Denies: Abdominal Pain, Nausea, Vomiting Genitourinary: Denies: Dysuria Musculoskeletal: Denies: Joint Pain, Joint Tenderness Skin: Denies: Rash, Wounds Neurological: Denies: Numbness, Tingling, Focal weakness Psychiatric: Reports: Depression. Denies: Anxiety, Homicidal Ideations, Suicidal Ideations Hematologic/ Lymphatic: Denies: Easy Bruising, Easy Bleeding VTE Information - Inpt Only VTE Present on Admission: No VTE Mechan Device Prophylaxis: Knee High DEVIN Hose VTE Pharm Prophylaxis ordered?: No Reason prophylaxis not ordered:: Medical Contraindication Patient Problems: Active and Suspected Problems Nausea & vomiting (Acute) Hemorrhagic stroke (Acute) Hypertensive emergency (Acute) - Physical Exam General: Alert, Oriented x3, Cooperative HEENT: Atraumatic, PERRLA, EOMI, Normocephalic Neck: Supple, No JVD, Negative Carotid Bruits Lungs: Clear to auscultation, Normal air movement Cardiovascular: Regular rate, No murmurs Abdomen: Bowel Sounds Present, Soft, Non Tender Extremities: No edema, Capillary Refill Less than 3 Seconds Skin: No rashes, No breakdown Musculoskeletal: No Tenderness to Palpation of Joints or Extremities Neurological: Cranial nerves II-XII grossly intact Psych/Mental Status: Normal Affect, Appropriate Vital Signs Temp Pulse Resp BP Pulse Ox 98.0 F 68 16 152/77 H 95 12/11/18 16:00 12/11/18 17:54 12/11/18 16:00 12/11/18 17:54 12/11/18 16:00 Oxygen Delivery Method Room Air Weight: 57.8 kg Body Mass Index (BMI) 25.2 Intake and Output for Last 24 Hours 12/09/18 12/10/18 12/11/18 23:59 23:59 23:59 Intake Total 120 / 120 Balance 120 / 120 Assessment/Plan All Active Problems UTI (urinary tract infection) (Acute) Fall (Acute) Encephalopathy (Acute) Closed head injury (Acute) Acute on chronic kidney failure (Acute) Debility (Acute) Nausea & vomiting (Acute) Hemorrhagic stroke (Acute) Hypertensive emergency (Acute) 83 year old female with below past medical history hospitalized for hemorrhagic stroke secondary to uncontrolled hypertension, complicated by acute kidney injury, nausea/vomiting, admitted to TCU with debility, here for rehabilitation, strengthening, prior to discharge home with family. * Debility - PT/OT. * Pain - Tylenol 650MG Q4H PRN. * Bowel - Miralax 17GM daily, Senna/colace 1 tablet BID, Dulcolax 10MG daily PRN. * Pneumonia vaccination - Administer Prevnar 13 and/or Pneumovax 23 as necessary. * DVT prophylaxis - Hold due to hemorrhagic stroke. * Hypertension - Amlodipine 10MG daily, Hydralazine 10MG TID, Metoprolol 25MG BID. * Vitamin C deficiency - Vitamin C 500MG daily. * GERD - TUMS 500MG TID PRN. * Nutrition - MVI daily. * Nausea - Zofran ODT 4MG Q6H PRN. * Depression - Rx Paroxetine 10MG QHS.
[2018-12-11 21:44] VITALS: BP 163/73; PULSE 74
[2018-12-11] MEDS: PARoxetine 10 MG Tablet PO (21:44)
[2018-12-11] MEDS: hydrALAZINE 10 MG Tablet PO (21:44)
[2018-12-11 21:45] VITALS: PULSE 74
[2018-12-12 05:39] VITALS: BP 146/74; PULSE 77
[2018-12-12] MEDS: Ascorbic Acid 500 MG Tablet PO (05:39)
[2018-12-12] MEDS: hydrALAZINE 10 MG Tablet PO ×3 (05:39→21:10)
[2018-12-12] MEDS: Metoprolol Tartrate 25 MG Tablet PO ×2 (05:39→17:15)
[2018-12-12] MEDS: Polyethylene Glycol 3350 17 GM PACKET PO (05:40)
[2018-12-12] MEDS: amLODIPine 10 MG Tablet PO (05:40)
[2018-12-12] MEDS: Senna/Docusate Sodium 1 Tablet PO ×2 (05:40→17:15)
[2018-12-12] MEDS: Ondansetron ODT 4 MG Tablet PO ×3 (05:48→21:44)
[2018-12-12 06:13] LABS: Absolute Lymphocyte Count 1.06 X10^3/ul (0.83-4.51); Absolute Neutrophil Count 4.2 X10^3/uL (2.0-7.7); Basophil# 0.02 X10^3/uL; Basophil% 0.3 % (0-1); Eosinophil# 0.09 X10^3/uL; Eosinophils% 1.5 % (0-5); Hematocrit 33.2 % (37-47); Hemoglobin 10.7 g/dl (12.0-15.0); Lymphocyte # 1.06 X10^3/ul (4.0); Lymphocyte % 17.9 % (19-41); Mean Corp Hgb Conc 32.2 g/gl (32-36); Mean Corpuscular Hgb 28.7 pg (27.0-32.0); Mean Platelet Vol. 9.6 fl (6.2-12.0); Monocyte# 0.54 X10^3/uL; Monocyte% 9.1 % (0-10); Neutrophil # 4.19 X10^3/uL (2.7-7.7); Neutrophil % 70.9 % (47-70); Platelet Count 175 K/mm3 (150-450); RBC Distribution Width CV 14.2 % (11.6-14.6); Red Blood Count 3.73 M/mm3 (4.2-5.4); White Blood Count 5.9 K/mm3 (4.4-11.0)
[2018-12-12 06:16] LABS: POSITIVE COUNT NO; POSITIVE DIFFERENTIAL NO; POSITIVE MORPHOLOGY NO
[2018-12-12 06:19] LABS: Anion Gap 3 (5-15); BUN 18 mg/dL (7-18); BUN/Creat Ratio 15.5 RATIO (10-20); Calcium,Total 8.5 mg/dL (8.5-10.1); Chloride 112 mmol/L (98-107); Creatinine, Serum 1.16 mg/dL (0.55-1.02); EST Glomerular Filtration Rate 48 mL/min (>60); Est Glom Filt Rate - Afr Amer 58 mL/min (>60); Estimated Creatinine Clearance 27.32 ml/min; Glucose 97 mg/dL (74-106); Potassium 3.7 mmol/L (3.5-5.1); Sodium Level 141 mmol/L (136-145)
--- NOTE | 2018-12-12 09:13 | NURSING ---
Pt c/o nausea. Had 75ml yellowish emesis x 1. VS- BP 176/81, P76, R 18, Temp 98.5 temporal, SpO2 98% on RA. Took PRN Zofran ODT 4mg at 5:48 am. Pt stated medication was ineffective. Reported to Lisa TERRELL.
[2018-12-12] MEDS: Tuberculin,Purif.prot.deriv. 50 TU/ML Vial 5 ML ID (11:41)
--- NOTE | 2018-12-12 12:20 | NURSING ---
Addendum entered by Lisa Cisneros 12/12/18 17:49: Dr. Jackson reviewed KUB results, new order for magnesium citrate x1 and soap suds enema. Original Note: New order to KUB r/t nausea and vomiting.
--- NOTE | 2018-12-12 12:55 | RAD_ITS ---
STUDY: X-RAY - ABDOMEN/PELVIS REASON FOR EXAM: Female, 83 years old. Nausea and vomiting TECHNIQUE: AP supine and upright views of the abdomen and pelvis. COMPARISON: None. FINDINGS: Normal visualized lung bases. Moderate fecal retention throughout the colon. There is no demonstrated free abdominal air. The visualized liver, spleen and kidneys are grossly normal in size and morphology. Normal soft tissue structures. There are diffuse degenerative changes of the visualized lumbar spine. Levoscoliosis of the lumbar spine. RAD/Abd Inc Decub and/or Erect IMPRESSION: Fecal retention. No acute findings Electronically Signed: Rocael Duran DO at 13:38 EDT Tel , Service support ,
[2018-12-12 13:41] VITALS: BP 142/66; PULSE 66
[2018-12-12 16:00] VITALS: BP 145/76; PULSE 74; RESP 16; TEMP 37; O2SAT 97
[2018-12-12 17:15] VITALS: BP 145/76; PULSE 74
[2018-12-12] MEDS: Magnesium Citrate 300 ML PO (18:31)
[2018-12-12 20:45] VITALS: BP 113/80; PULSE 72; PULSE 73; RESP 18; TEMP 36.7; O2SAT 96
[2018-12-12 21:10] VITALS: BP 113/80; PULSE 73
[2018-12-12] MEDS: PARoxetine 10 MG Tablet PO (21:10)
--- NOTE | 2018-12-12 21:37 | NURSING ---
Addendum entered by Janet Ellis 12/13/18 00:39: Dr Jackson aware. Repeat SSE if needed. Original Note: pt had refused mag citrate this hs and sse given as per order. pt continued to have nausea and was dry heaving while on the commode after enema. pt had a moderate hard bowel movement and was noted to have hemorrhoids and firmness around the anus. pt returned to bed and had an 200cc emesis of partial digested food. pt also reported that her abdomen was hurting. pt given zofran
[2018-12-13] VITALS (7 sets, daily range): BP systolic 141–145; BP diastolic 67–77; PULSE 70–90; RESP 16–22; TEMP 37.2–37.8; O2SAT 94–96
[2018-12-13] MEDS: hydrALAZINE 10 MG Tablet PO ×2 (05:46→22:11)
[2018-12-13] MEDS: Senna/Docusate Sodium 1 Tablet PO (05:46)
[2018-12-13] MEDS: Ascorbic Acid 500 MG Tablet PO (05:47)
--- NOTE | 2018-12-13 05:56 | NURSING ---
Addendum entered by Margot Santana 12/13/18 06:06: pt questioned if she was having pain, pt denied;pt lalso questioned if she needed to have a bowel movement and pt denied also, attend were clean and dry Original Note: attempted to given pt medications this am and pt ate crackers and sipped sprite, in the process of taking medications pt began vomiting. pt threw up senokot and vitamin c and could not get other medications. pt refused to take miralax. zofran given as per order, pt reports that her stomach is upset . rn made aware
--- NOTE | 2018-12-13 10:11 | CASEMGMT ---
Insurance: [facility]
--- NOTE | 2018-12-13 10:57 | NURSING ---
Addendum entered by Dari Orr 12/13/18 18:15: family concerned, feels nausea and pt curling up in position is just like she was on admit for CVA. Dr Jackson update, new order to send to ER for CT scan of brain. family aware. Addendum entered by Dari Orr 12/13/18 11:15: Dr Jackson updated, new order to start IVF & change Reglan and zofran to IV scheduled. Original Note: This nurse into give Pt medication, Pt refusing all oral medications at this time. Pt is lying in the postion, refusing therapy or medication, skin is warm, Pt is diaphoretic. vitals taken at this time. Temp. 100.3 Pulse 86 resp 16 oxygen 96% Bp 166/76. reported to Dari TERRELL
[2018-12-13] MEDS: Ondansetron 4 MG/2 ML Vial IV ×2 (12:59→17:59)
[2018-12-13] MEDS: 0.9% Normal Saline 1,000 ML 999 ML IV (13:03)
[2018-12-13] MEDS: 0.9% Normal Saline 1,000 ML 60 ML IV (14:07)
[2018-12-13] MEDS: Metoclopramide 10 MG/2 ML Vial IV ×2 (16:20→22:11)
--- NOTE | 2018-12-13 16:30 | CASEMGMT ---
Insurance: Patient approved for additional days. Patient approved through 12/22 with an update due 12/20/18. Auth #[id number].
--- NOTE | 2018-12-13 21:00 | NURSING ---
Pt returned from ED. Reported called by Sandra in ER. Per Sandra CAT scan- neg, bleed area smaller than prior study. NS bolus 500ml administered. Pt is to obtain IV Zofran and morphine prior to returning to TCU. Vitals in ER Temp 98.3 HR 95 B/P 132/73 Resp 18 94% on RA. Dr Jackson updated.
[2018-12-13] MEDS: PARoxetine 10 MG Tablet PO (22:12)
--- NOTE | 2018-12-13 22:34 | NURSING ---
Straight cath urine spec sent to lab per order. Patient tolerated procedure well. Will cont to monitor.
[2018-12-13 22:39] LABS: Mucous, Urine 0 SEEN /hpf (<or=2+); Red Blood Cells-Urine 0 SEEN /hpf (0-5); Squamous Epithelial Cells - UA 0 SEEN /hpf (5-10)
[2018-12-13] MEDS: 0.9% Normal Saline 1,000 ML 75 ML IV (22:52)
[2018-12-13] MEDS: Scopolamine 1mg/72hr Patch 1 PATCH TD (22:53)
[2018-12-13 22:54] LABS: Color, Urine Yellow (Yellow); Glucose, Dipstick Normal (Normal); Ketone-Dipstick 5 mg/dl (Negative); Leukocyte Esterase-Dipstick Negative /ul (Negative); Nitrite-Dipstick Negative (Negative); Occult Blood-Urine Negative /ul (Negative); Protein-Dipstick 15 mg/dl (Negative); Urine Bilirubin Dipstick Negative (Negative); Urine Clarity Sl. Cloudy (Clear); Urine Urobilinogen Normal (Normal)
[2018-12-13] MEDS: proMETHazine 25 MG/ML Syringe 6.25 MG IV (22:55)
[2018-12-13 23:14] LABS: Bacteria 3+ /hpf (None Seen); White Blood Cells 0-5 SEEN /hpf (0-5)
[2018-12-14] VITALS (8 sets, daily range): BP systolic 141–160; BP diastolic 67–79; PULSE 70–95; RESP 16–20; TEMP 37–37.3; O2SAT 94–99
[2018-12-14] MEDS: Polyethylene Glycol 3350 17 GM PACKET PO ×2 (05:41→16:39)
[2018-12-14] MEDS: hydrALAZINE 10 MG Tablet PO ×3 (05:41→20:23)
[2018-12-14] MEDS: Metoprolol Tartrate 25 MG Tablet PO ×2 (05:42→16:38)
[2018-12-14] MEDS: amLODIPine 10 MG Tablet PO (05:42)
[2018-12-14] MEDS: proMETHazine 25 MG/ML Syringe 6.25 MG IV (05:46)
[2018-12-14] MEDS: Metoclopramide 10 MG/2 ML Vial IV (05:46)
[2018-12-14] MEDS: Senna/Docusate Sodium 1 Tablet 2 TABLET PO ×2 (05:49→16:39)
[2018-12-14] MEDS: 0.9% Saline Lock 10 ML Syringe IV ×2 (05:55→14:18)
--- NOTE | 2018-12-14 06:47 | PHA.CONS_ITS ---
<Brandon Nielsen C - Last Filed: 12/14/18 06:47> Progress Note - Pharmacy Subjective: [] TCU Admission Objective: Allergies No Known Allergies Allergy (Verified 12/13/18 18:38) Current Medications Generic Name Dose Route Start Last Admin Trade Name Freq PRN Reason Stop Dose Admin Acetaminophen 1,000 mg 12/13/18 22:13 Tylenol PO Q6H PRN PRN MILD PAIN (1-08/13) Amlodipine Besylate 10 mg 12/12/18 06:00 12/14/18 05:42 Norvasc PO 10 mg DAILY JAZMINE Administration Bisacodyl 10 mg 12/11/18 20:13 Dulcolax PO DAILY PRN Constipation Hydralazine HCl 10 mg 12/11/18 22:00 12/14/18 05:41 Apresoline PO 10 mg TID JAZMINE Administration Sodium Chloride 1,000 mls @ 75 mls/hr 12/13/18 22:20 12/13/18 22:52 IV 75 mls/hr .[id number] JAZMINE Administration Metoclopramide HCl 10 mg 12/13/18 14:00 12/14/18 05:46 Reglan IV 10 mg Q8 JAZMINE Administration Metoprolol Tartrate 25 mg 12/11/18 18:00 12/14/18 05:42 Lopressor (Beta Jeremie) PO 25 mg BID JAZMINE Administration Polyethylene Glycol 17 gm 12/13/18 18:00 12/14/18 05:41 Miralax PO 17 gm BID JAZMINE Administration Promethazine HCl 6.25 mg 12/13/18 22:30 12/14/18 05:46 Phenergan IV 6.25 mg Q8 JAZMINE Administration Scopolamine HBr 1 patch 12/13/18 22:30 12/13/18 22:53 Transderm-Scop TD 1 patch Q3D JAZMINE Administration Senna/Docusate Sodium 2 tablet 12/13/18 18:00 12/14/18 05:49 Senokot-S, Rosalva-Colace PO 2 tablet BID JAZMINE Administration Sodium Chloride 5 - 10 ml 12/13/18 23:05 12/14/18 05:55 IV 10 ml BID PRN Administration SALINE FLUSH Tuberculin PPD 5 tu 12/19/18 10:00 Tubersol, Aplisol, Ppd ID 12/19/18 10:01 X1 ONE Problem List Nausea & vomiting (Acute) Hemorrhagic stroke (Acute) Hypertensive emergency (Acute) Osteoarthritis (Chronic) Kidney stone (Chronic) Hypertension (Chronic) Vital Signs Temp Pulse Resp BP Pulse Ox 99.1 F 95 20 H 142/79 H 95 12/14/18 00:00 12/14/18 05:42 12/14/18 00:00 12/14/18 05:42 12/14/18 00:00 Oxygen Delivery Method Room Air Weight: 58.287 kg Body Mass Index (BMI) 25.2 Sodium 141 mmol/L (136-145) 12/12/18 05:15 Potassium 3.7 mmol/L (3.5-5.1) 12/12/18 05:15 Chloride 112 mmol/L (98-107) H 12/12/18 05:15 Carbon Dioxide 26.0 mmol/L (21.0-32.0) 12/12/18 05:15 3 (5-15) L 12/12/18 05:15 BUN 18 mg/dL (7-18) 12/12/18 05:15 1.16 mg/dL (0.55-1.02) H 12/12/18 05:15 Est GFR (MDRD) Af Amer 58 mL/min (>60) L 12/12/18 05:15 Est GFR (MDRD) Non-Af 48 mL/min (>60) L 12/12/18 05:15 15.5 RATIO (10-20) 12/12/18 05:15 Glucose 97 mg/dL (74-106) 12/12/18 05:15 Assessment/Plan: 1) Pain: Acetaminophen 1000mg po q6h prn for mild pain. Please continue to monitor prn usage and for signs/symptoms of increased/decreased pain. *2) Nausea: Promethazine 6.25mg IV q8h scheduled, Metoclopramide 10mg IV q8h scheduled. This combination is a Level 1 interaction which is known to cause irreversible tardive dyskinesias. Please re evaluate the continued use of this scheduled combination. Thanks 3) Hypertension: Amlodipine 10mg po daily, Hydralazine 10mg po tid, Metoprolol tartrate 25mg po bid. Pt's average blood pressure of the last 18 readings is 142.8/74.6. Please continue to monitor. Psychotropic Medications: none Unnecessary Medications: none Bowel Regimen: Miralax 17gm po bid, Bisacodyl 10mg po daily prn contipation, Se nna/Docusate 2 tablets po bid. Please continue to monitor prn usage and for signs/symptoms of constipation/diarrhea Date of Note:: 12/14/18 - Provider Comments Provider responsibility: Provider responsible to enter orders to implement recommendations <Derek Jackson Chi - Last Filed: 12/14/18 08:06> Progress Note - Pharmacy Subjective: [] Objective: Allergies No Known Allergies Allergy (Verified 12/13/18 18:38) Current Medications Generic Name Dose Route Start Last Admin Trade Name Freq PRN Reason Stop Dose Admin Acetaminophen 1,000 mg 12/13/18 22:13 Tylenol PO Q6H PRN PRN MILD PAIN (-08/13) Amlodipine Besylate 10 mg 12/12/18 06:00 12/14/18 05:42 Norvasc PO 10 mg DAILY JAZMINE Administration Bisacodyl 10 mg 12/11/18 20:13 Dulcolax PO DAILY PRN Constipation Hydralazine HCl 10 mg 12/11/18 22:00 12/14/18 05:41 Apresoline PO 10 mg TID JAZMINE Administration Sodium Chloride 1,000 mls @ 75 mls/hr 12/13/18 22:20 12/13/18 22:52 IV 75 mls/hr .[id number] JAZMINE Administration Metoclopramide HCl 10 mg 12/13/18 14:00 12/14/18 05:46 Reglan IV 10 mg Q8 JAZMINE Administration Metoprolol Tartrate 25 mg 12/11/18 18:00 12/14/18 05:42 Lopressor (Beta Jeremie) PO 25 mg BID JAZMINE Administration Polyethylene Glycol 17 gm 12/13/18 18:00 12/14/18 05:41 Miralax PO 17 gm BID JAZMINE Administration Promethazine HCl 6.25 mg 12/13/18 22:30 12/14/18 05:46 Phenergan IV 6.25 mg Q8 JAZMINE Administration Scopolamine HBr 1 patch 12/13/18 22:30 12/13/18 22:53 Transderm-Scop TD 1 patch Q3D JAZMINE Administration Senna/Docusate Sodium 2 tablet 12/13/18 18:00 12/14/18 05:49 Senokot-S, Rosalva-Colace PO 2 tablet BID JAZMINE Administration Sodium Chloride 5 - 10 ml 12/13/18 23:05 12/14/18 05:55 IV 10 ml BID PRN Administration SALINE FLUSH Tuberculin PPD 5 tu 12/19/18 10:00 Tubersol, Aplisol, Ppd ID 12/19/18 10:01 X1 ONE Problem List Nausea & vomiting (Acute) Hemorrhagic stroke (Acute) Hypertensive emergency (Acute) Osteoarthritis (Chronic) Kidney stone (Chronic) Hypertension (Chronic) Vital Signs Temp Pulse Resp BP Pulse Ox 99.1 F 95 20 H 142/79 H 95 12/14/18 00:00 12/14/18 05:42 12/14/18 00:00 12/14/18 05:42 12/14/18 00:00 Oxygen Delivery Method Room Air Weight: 58.287 kg Body Mass Index (BMI) 25.2 Sodium 141 mmol/L (136-145) 12/12/18 05:15 Potassium 3.7 mmol/L (3.5-5.1) 12/12/18 05:15 Chloride 112 mmol/L (98-107) H 12/12/18 05:15 Carbon Dioxide 26.0 mmol/L (21.0-32.0) 12/12/18 05:15 3 (5-15) L 12/12/18 05:15 BUN 18 mg/dL (7-18) 12/12/18 05:15 1.16 mg/dL (0.55-1.02) H 12/12/18 05:15 Est GFR (MDRD) Af Amer 58 mL/min (>60) L 12/12/18 05:15 Est GFR (MDRD) Non-Af 48 mL/min (>60) L 12/12/18 05:15 15.5 RATIO (10-20) 12/12/18 05:15 Glucose 97 mg/dL (74-106) 12/12/18 05:15 Assessment/Plan: Psychotropic Medications: Unnecessary Medications: Bowel Regimen: - Provider Comments Provider responsibility: Provider responsible to enter orders to implement recommendations Provider Comments to Recommendations by Pharmacy: Agree
--- NOTE | 2018-12-14 12:58 | NURSING ---
24g IV inserted into RFA. Patient tolerated well.
[2018-12-14] MEDS: 0.9% Normal Saline 1,000 ML 75 ML IV (14:18)
[2018-12-14] MEDS: Acetaminophen 500 MG Tablet 1000 MG PO (18:58)
[2018-12-14] MEDS: Metoclopramide 10 MG Tablet PO (18:58)
[2018-12-15] MEDS: Metoclopramide 10 MG Tablet PO ×2 (06:11→17:49)
--- NOTE | 2018-12-15 06:18 | NURSING ---
Patient very nauseated this am. Given prn reglan per order. Refusing any other meds at this time. I'm afraid they won't stay down. Reassured. Will cont to monitor. Same reported to Brian. XANDER
--- NOTE | 2018-12-15 09:48 | NURSING ---
Pt unable to take scheduled 0600 meds on time d/t being nauseous. This nurse attempted to give pills at a later time and pt still c/o being nauseous. Stated, I don't think they will be able to stay down. Reported to Dari TERRELL.
[2018-12-15 10:00] VITALS: PULSE 78; O2SAT 98
[2018-12-15 13:21] VITALS: BP 139/69; PULSE 78
[2018-12-15] MEDS: hydrALAZINE 10 MG Tablet PO (13:21)
[2018-12-15] MEDS: Acetaminophen 500 MG Tablet 1000 MG PO (13:22)
[2018-12-15 16:00] VITALS: BP 136/65; PULSE 84; RESP 18; TEMP 37.1; O2SAT 98
[2018-12-15 17:41] VITALS: BP 136/65; PULSE 84
[2018-12-15] MEDS: Metoprolol Tartrate 25 MG Tablet PO (17:41)
[2018-12-15] MEDS: Senna/Docusate Sodium 1 Tablet 2 TABLET PO (17:41)
[2018-12-15] MEDS: Polyethylene Glycol 3350 17 GM PACKET PO (17:43)
--- NOTE | 2018-12-15 20:41 | NURSING ---
Pt c/o extreme nausea and refusing medications at this time. Pt states she is unable to take medications because she will vomit. Lee Ann TERRELL aware. Pt recently medicated with PO Reglan
--- NOTE | 2018-12-16 05:58 | NURSING ---
Pt refusing all AM medication stating she won't be able to keep them down, her nausea is not improved. Pt also refusing PO Nausea medication.
[2018-12-16] MEDS: Acetaminophen 500 MG Tablet 1000 MG PO ×2 (10:57→17:44)
[2018-12-16] MEDS: Metoclopramide 10 MG Tablet PO (10:57)
[2018-12-16 14:34] VITALS: BP 142/74; PULSE 87
[2018-12-16] MEDS: hydrALAZINE 10 MG Tablet PO ×2 (14:34→20:50)
[2018-12-16] MEDS: AMOXICILLIN 500 MG CAPSULE PO (14:34)
[2018-12-16 14:39] VITALS: BP 142/74; PULSE 87
[2018-12-16 15:44] VITALS: BP 155/78; PULSE 85; RESP 18; TEMP 37.3; O2SAT 93
[2018-12-16 17:42] VITALS: BP 155/78; PULSE 85
[2018-12-16] MEDS: Senna/Docusate Sodium 1 Tablet 2 TABLET PO (17:42)
[2018-12-16] MEDS: Metoprolol Tartrate 25 MG Tablet PO (17:42)
[2018-12-16 20:50] VITALS: BP 155/78; PULSE 85
[2018-12-16] MEDS: Scopolamine 1mg/72hr Patch 1 PATCH TD (20:50)
[2018-12-16 22:00] VITALS: PULSE 76; RESP 16; O2SAT 97
[2018-12-17] VITALS (9 sets, daily range): BP systolic 121–164; BP diastolic 64–96; PULSE 68–79; RESP 16–20; TEMP 37.4–37.6; O2SAT 92–96
[2018-12-17] MEDS: amLODIPine 10 MG Tablet PO (07:57)
[2018-12-17] MEDS: Metoprolol Tartrate 25 MG Tablet PO ×2 (07:58→18:22)
[2018-12-17] MEDS: hydrALAZINE 10 MG Tablet PO ×3 (07:58→19:45)
[2018-12-17] MEDS: Metoclopramide 10 MG Tablet PO ×2 (10:10→19:45)
[2018-12-17] MEDS: AMOXICILLIN 500 MG CAPSULE PO ×2 (13:24→19:45)
--- NOTE | 2018-12-17 15:01 | NURSING ---
PT REFUSED TEDHOSE.
[2018-12-17] MEDS: Polyethylene Glycol 3350 17 GM PACKET PO (18:22)
[2018-12-17] MEDS: Senna/Docusate Sodium 1 Tablet 2 TABLET PO (18:22)
[2018-12-18] MEDS: Senna/Docusate Sodium 1 Tablet 2 TABLET PO ×2 (05:43→18:17)
[2018-12-18] MEDS: AMOXICILLIN 500 MG CAPSULE PO ×3 (05:43→21:52)
[2018-12-18] MEDS: Acetaminophen 500 MG Tablet 1000 MG PO ×2 (05:43→13:51)
[2018-12-18] MEDS: Polyethylene Glycol 3350 17 GM PACKET PO ×2 (05:59→18:18)
--- NOTE | 2018-12-18 09:35 | NURSING ---
Patient's BP 110/53, 70. Hold Lopressor, Norvasc and Hydralazine per Dr. Jackson.
[2018-12-18 09:37] VITALS: BP 110/53; PULSE 70
[2018-12-18] MEDS: Metoclopramide 10 MG Tablet PO (09:38)
--- NOTE | 2018-12-18 09:40 | NURSING ---
Pt medicated with PRN Reglan d/t c/o nausea at this time.
[2018-12-18 10:00] VITALS: PULSE 80; O2SAT 94
--- NOTE | 2018-12-18 10:40 | NURSING ---
Pt refused ISABELLE wraps this AM.
--- NOTE | 2018-12-18 10:55 | NURSING ---
Pt c/o soreness to inside of naval. Noted redness, with whitish discharge and yeasty odor present. Reported to Lisa TERRELL.
--- NOTE | 2018-12-18 11:12 | NURSING ---
Appointment with Dr. Gallo changed to tomorrow at 1000, daughter Dari to transport patient.
[2018-12-18 13:50] VITALS: BP 131/76; PULSE 74
[2018-12-18] MEDS: hydrALAZINE 10 MG Tablet PO ×2 (13:50→21:52)
[2018-12-18 16:00] VITALS: BP 106/64; PULSE 68; RESP 18; TEMP 37.2; O2SAT 97
--- NOTE | 2018-12-18 16:53 | NURSING ---
Patient with redness and white, scaley rash around umbilicus. Foul odor. Dr. Jackson notified, new order for culture and gram stain and bacitracin ointment to site BID.
[2018-12-18 18:17] VITALS: BP 125/70; PULSE 68
[2018-12-18] MEDS: Metoprolol Tartrate 25 MG Tablet PO (18:17)
[2018-12-18 21:52] VITALS: BP 142/68; PULSE 74
[2018-12-18] MEDS: BACITRACIN 15 GM Tube 1 APPLIC TOPICAL (21:54)
[2018-12-19] MEDS: Senna/Docusate Sodium 1 Tablet 2 TABLET PO ×2 (05:45→17:41)
[2018-12-19] MEDS: AMOXICILLIN 500 MG CAPSULE PO ×2 (05:45→13:56)
[2018-12-19] MEDS: BACITRACIN 15 GM Tube 1 APPLIC TOPICAL ×3 (05:47→21:15)
[2018-12-19] MEDS: Polyethylene Glycol 3350 17 GM PACKET PO ×2 (05:48→17:38)
[2018-12-19 05:53] LABS: Absolute Lymphocyte Count 1.04 X10^3/ul (0.83-4.51); Absolute Neutrophil Count 2.9 X10^3/uL (2.0-7.7); Basophil# 0.03 X10^3/uL; Basophil% 0.6 % (0-1); Eosinophil# 0.09 X10^3/uL; Eosinophils% 1.9 % (0-5); Hematocrit 29.7 % (37-47); Hemoglobin 9.7 g/dl (12.0-15.0); Lymphocyte # 1.04 X10^3/ul (4.0); Lymphocyte % 22.3 % (19-41); Mean Corp Hgb Conc 32.7 g/gl (32-36); Mean Corpuscular Hgb 29.1 pg (27.0-32.0); Mean Corpuscular Volume 89.2 fL (81-99); Mean Platelet Vol. 9.3 fl (6.2-12.0); Monocyte# 0.57 X10^3/uL; Monocyte% 12.2 % (0-10); Neutrophil # 2.93 X10^3/uL (2.7-7.7); Neutrophil % 62.8 % (47-70); Platelet Count 179 K/mm3 (150-450); RBC Distribution Width CV 14.2 % (11.6-14.6); RBC Distribution Width SD 44.8 fl (35.1-43.9); Red Blood Count 3.33 M/mm3 (4.2-5.4); White Blood Count 4.7 K/mm3 (4.4-11.0)
[2018-12-19 06:02] LABS: POSITIVE COUNT NO; POSITIVE DIFFERENTIAL NO; POSITIVE MORPHOLOGY NO
[2018-12-19 06:13] LABS: Anion Gap 6 (5-15); BUN 16 mg/dL (7-18); BUN/Creat Ratio 12.8 RATIO (10-20); Calcium,Total 8.2 mg/dL (8.5-10.1); Chloride 109 mmol/L (98-107); Creatinine, Serum 1.25 mg/dL (0.55-1.02); EST Glomerular Filtration Rate 44 mL/min (>60); Est Glom Filt Rate - Afr Amer 53 mL/min (>60); Estimated Creatinine Clearance 25.35 ml/min; Glucose 97 mg/dL (74-106); Potassium 2.9 mmol/L (3.5-5.1); Sodium Level 141 mmol/L (136-145)
--- NOTE | 2018-12-19 08:12 | RAD_ITS ---
STUDY: X-RAY - ABDOMEN/PELVIS REASON FOR EXAM: Female, 83 years old. Constipation. TECHNIQUE: Two AP supine views of the abdomen and pelvis. COMPARISON: Abdomen, December 12, 2018. FINDINGS: Normal visualized lung bases. There is reduced rectal feces. There is no colonic distention. There is minimal air-filled loops of small bowel in the central abdomen which were not present on the previous exam. There is no demonstrated free abdominal air. The visualized liver, spleen and kidneys are grossly normal in size and morphology. Normal soft tissue structures. No visualized osseous changes. RAD/Abdomen Single View IMPRESSION: 1. Resolution of the increased cortical retention since the prior study. 2. Mildly distended central small bowel loops. Question ileus versus early obstruction. 3. No other interval change. Electronically Signed: Chetan Henley DO at 16:51 EDT Tel [phone], Service support ,
[2018-12-19 08:49] VITALS: BP 152/82; PULSE 82
[2018-12-19 08:50] VITALS: BP 152/82; PULSE 82
--- NOTE | 2018-12-19 08:51 | NURSING ---
PT REUSED MORNING MEDS. STATED SHE WOULD THROW THEM BACK UP. REPORTED TO XANDER MANZO
--- NOTE | 2018-12-19 08:52 | NURSING ---
Addendum entered by Dari Orr 12/19/18 09:03: Dr Jackson notified of LBM 12/13, new order to repeat a KUB. Will get when pt returns from appt. Original Note: THIS NURSE OFFERED PT REGLAN FOR HER NAUSEA. PT REFUSED. PT AT THIS TIME LEAVING FOR APPOINTMENT BY WHEEL CHAIR. FAMILY TAKING.
[2018-12-19 08:54] VITALS: BP 152/82; PULSE 82; O2SAT 95
--- NOTE | 2018-12-19 12:37 | NURSING ---
Addendum entered by Dari Orr 12/19/18 12:40: D/T pt continues with Nausea, difficulty taking meds and eating. Original Note: pt returned from appt with Dr Gallo, neuro at [facility] with order for CT no contrast of brain Dx: intracranial hemorrhage. report called to Dottie in ER.
[2018-12-19] MEDS: Acetaminophen 500 MG Tablet 1000 MG PO (13:56)
[2018-12-19] MEDS: Metoclopramide 10 MG Tablet PO (13:56)
[2018-12-19 13:57] VITALS: BP 142/81; PULSE 82
[2018-12-19] MEDS: hydrALAZINE 10 MG Tablet PO (13:57)
[2018-12-19] MEDS: amLODIPine 10 MG Tablet PO (13:57)
--- NOTE | 2018-12-19 14:21 | NURSING ---
THIS NURSE GAVE PT HER PILLS AND WATER WITH A LITTLE APPLE SAUCE AND PT THREW EVERY THING UP. PT ALSO COMPLAINED OF A HEADACHE. REPORTED TO XANDER MANZO
[2018-12-19] MEDS: Tuberculin,Purif.prot.deriv. 50 TU/ML Vial 5 ML ID (14:42)
[2018-12-19 15:41] VITALS: BP 145/76; PULSE 78; RESP 20; TEMP 36.6; O2SAT 96
[2018-12-19 17:42] VITALS: BP 145/76; PULSE 78
[2018-12-19] MEDS: Metoprolol Tartrate 25 MG Tablet PO (17:42)
--- NOTE | 2018-12-19 17:51 | NURSING ---
Dr Jackson reviewed CT brain and KUB, no new orders. Dr Jackson is adjusting meds for nausea.
--- NOTE | 2018-12-19 17:52 | NURSING ---
THIS NURSE REMOVED THE SCOPOLAMINE PATCH FROM PT PER . XANDER MANZO AWARE
--- NOTE | 2018-12-19 18:39 | NURSING ---
PT STRAIGHT CATHED FOR 550. PT TOLERATED WELL.
[2018-12-19] MEDS: proMETHazine 25 MG Tablet PO (18:42)
--- NOTE | 2018-12-19 18:47 | NURSING ---
THIS NURSE GAVE PT HER SCHEDULED PHENERGAN AND PT THREW IT UP. REPORTED TO XANDER MANZO
--- NOTE | 2018-12-19 21:15 | NURSING ---
PT REFUSED PO MEDICATIONS D/T NAUSEA
--- NOTE | 2018-12-19 21:16 | NURSING ---
PT LYING ON RT SIDE. UNABLE TO TURN TO BACK OR LEFT SIDE FOR FULL ASSESSMENT D/T NAUSEA. PT REFUSES ALL PO MEDICATIONS AT THIS TIME.
--- NOTE | 2018-12-20 08:48 | NURSING ---
PT THREW UP BREAKFAST 200 CC, AND REFUSED PILLS. REPORTED TO XANDER MANZO
[2018-12-20] MEDS: BACITRACIN 15 GM Tube 1 APPLIC TOPICAL ×3 (09:16→22:02)
--- NOTE | 2018-12-20 09:28 | CASEMGMT ---
Social Work IDT met with patient, daughter and ANTONIO for care plan meeting. Pt not medically stable and unable to fully progress in therapy. Although, SBA to CGA assist with therapies. Recommending some assistance upon DC. Pt lives [id number] and daughter is a teacher. Will continue to actively discharge plan. Insurance update today - continued stay is not guaranteed. pt and family understood. Leticia Meléndez, DIRECTOR OF CORPORATE MARKETING HAND FABRIC CUTTER
[2018-12-20] MEDS: Metoclopramide 10 MG Tablet PO ×3 (11:19→22:01)
[2018-12-20 11:40] VITALS: PULSE 72; RESP 18; O2SAT 93
--- NOTE | 2018-12-20 13:05 | MDS.RN ---
Information for the mds was obtained from review of the clinical record, interview of resident, staff, and direct observation of resident's care.
[2018-12-20 14:08] VITALS: BP 170/66; PULSE 77
[2018-12-20] MEDS: amLODIPine 10 MG Tablet PO (14:08)
[2018-12-20] MEDS: hydrALAZINE 10 MG Tablet PO (14:08)
[2018-12-20 14:17] VITALS: BP 170/66; PULSE 77; RESP 20; O2SAT 94
[2018-12-20] MEDS: AMOXICILLIN 500 MG CAPSULE PO (15:09)
[2018-12-20 15:19] VITALS: BP 142/82; PULSE 81; RESP 18; TEMP 37.2; O2SAT 94
--- NOTE | 2018-12-20 16:40 | CASEMGMT ---
Insurance: Clinical updates faxed this day. Auth #[id number].
[2018-12-20 17:50] VITALS: BP 142/82; PULSE 81
[2018-12-20] MEDS: Metoprolol Tartrate 25 MG Tablet PO (17:50)
[2018-12-20] MEDS: Ketoconazole Cream 1 APPLIC TOPICAL (18:49)
[2018-12-20] MEDS: proMETHazine 25 MG Tablet 12.5 MG PO (22:45)
[2018-12-20 22:48] VITALS: BP 130/70; PULSE 82
[2018-12-21 06:24] LABS: Anion Gap 10 (5-15); BUN 15 mg/dL (7-18); BUN/Creat Ratio 12.9 RATIO (10-20); Calcium,Total 8.7 mg/dL (8.5-10.1); Chloride 109 mmol/L (98-107); Creatinine, Serum 1.16 mg/dL (0.55-1.02); EST Glomerular Filtration Rate 48 mL/min (>60); Est Glom Filt Rate - Afr Amer 58 mL/min (>60); Estimated Creatinine Clearance 27.32 ml/min; Glucose 91 mg/dL (74-106); Potassium 2.9 mmol/L (3.5-5.1); Sodium Level 145 mmol/L (136-145)
[2018-12-21] MEDS: Ketoconazole Cream 1 APPLIC TOPICAL ×2 (06:34→16:32)
[2018-12-21] MEDS: Metoclopramide 10 MG Tablet PO ×4 (06:35→20:37)
[2018-12-21] MEDS: proMETHazine 25 MG Tablet 12.5 MG PO (08:51)
[2018-12-21 08:59] VITALS: BP 147/93; PULSE 80
--- NOTE | 2018-12-21 10:03 | NURSING ---
Pt able to take scheduled Potassium this AM and refused the rest of her scheduled 0800 medications despite multiple attempts. Pt stated she did not think she would be able to keep the rest of her pills down. reported to Parish TERRELL.
[2018-12-21] MEDS: AMOXICILLIN 500 MG CAPSULE PO ×2 (13:41→20:37)
[2018-12-21] MEDS: amLODIPine 10 MG Tablet PO (13:41)
[2018-12-21 13:42] VITALS: BP 156/81; PULSE 86
[2018-12-21] MEDS: hydrALAZINE 10 MG Tablet PO ×2 (13:42→20:36)
[2018-12-21] MEDS: Acetaminophen 500 MG Tablet 1000 MG PO (13:46)
[2018-12-21 15:59] VITALS: BP 145/94; PULSE 83; RESP 18; TEMP 36.9; O2SAT 95
[2018-12-21 16:26] VITALS: BP 145/94; PULSE 83
[2018-12-21] MEDS: Metoprolol Tartrate 25 MG Tablet PO (16:26)
--- NOTE | 2018-12-21 17:09 | CASEMGMT ---
Insurance: Continued stay approved. Patient approved through 01/03/19.Next update due 01/01/19. Auth # [id number].
[2018-12-21 20:30] VITALS: PULSE 72; RESP 16; O2SAT 97
[2018-12-21 20:36] VITALS: BP 156/63; PULSE 72
[2018-12-22] MEDS: proMETHazine 25 MG Tablet 12.5 MG PO (02:37)
[2018-12-22] MEDS: Ketoconazole Cream 1 APPLIC TOPICAL ×2 (06:50→16:54)
[2018-12-22 10:00] VITALS: PULSE 86; RESP 18; O2SAT 95
[2018-12-22] MEDS: Acetaminophen 500 MG Tablet 1000 MG PO ×2 (10:59→16:50)
[2018-12-22] MEDS: Metoclopramide 10 MG Tablet PO ×2 (11:07→20:02)
[2018-12-22 15:07] VITALS: BP 137/70; PULSE 77; RESP 17; TEMP 37.1; O2SAT 95
[2018-12-22 20:04] VITALS: BP 129/72; PULSE 80
[2018-12-22] MEDS: Metoprolol Tartrate 25 MG Tablet PO (20:04)
[2018-12-22 20:05] VITALS: BP 129/72; PULSE 80
[2018-12-22] MEDS: hydrALAZINE 10 MG Tablet PO (20:05)
[2018-12-22] MEDS: AMOXICILLIN 500 MG CAPSULE PO (20:05)
[2018-12-23] VITALS (7 sets, daily range): BP systolic 129–155; BP diastolic 60–83; PULSE 72–86; RESP 14–16; TEMP 36.9; O2SAT 95–96
[2018-12-23] MEDS: Metoclopramide 10 MG Tablet PO ×4 (06:06→20:32)
[2018-12-23] MEDS: Ketoconazole Cream 1 APPLIC TOPICAL ×2 (06:06→17:47)
[2018-12-23 07:05] LABS: Anion Gap 10 (5-15); BUN 14 mg/dL (7-18); BUN/Creat Ratio 11.9 RATIO (10-20); Calcium,Total 8.6 mg/dL (8.5-10.1); Chloride 107 mmol/L (98-107); Creatinine, Serum 1.18 mg/dL (0.55-1.02); EST Glomerular Filtration Rate 47 mL/min (>60); Est Glom Filt Rate - Afr Amer 57 mL/min (>60); Estimated Creatinine Clearance 26.86 ml/min; Glucose 105 mg/dL (74-106); Potassium 3.6 mmol/L (3.5-5.1); Sodium Level 141 mmol/L (136-145)
[2018-12-23] MEDS: proMETHazine 25 MG Tablet 12.5 MG PO ×2 (09:02→16:20)
--- NOTE | 2018-12-23 09:03 | NURSING ---
Pt had emesis after breakfast. Daughter stated pt is signing over the deed to her house today. Pt stated she was having no nausea before daughter arrived and told her. Pt stated, I think it could possibly be my nerves. PRN Phenergan given. Lisa TERRELL made aware. Will continue to monitor.
[2018-12-23] MEDS: hydrALAZINE 10 MG Tablet PO ×3 (09:54→20:32)
[2018-12-23] MEDS: Metoprolol Tartrate 25 MG Tablet PO ×2 (09:55→17:47)
[2018-12-23] MEDS: Acetaminophen 500 MG Tablet 1000 MG PO ×2 (09:56→19:02)
[2018-12-23] MEDS: amLODIPine 10 MG Tablet PO (09:56)
--- NOTE | 2018-12-23 16:02 | NURSING ---
Patient has c/o constant LILLY, Tylenol ineffective. Dr. Jackson notified, new order for Ultram 50mg PO [id number] PRN for moderate pain.
[2018-12-23] MEDS: traMADol 50 MG Tablet PO (16:21)
[2018-12-23] MEDS: Bisacodyl 5 MG Tablet 10 MG PO (20:32)
[2018-12-24] MEDS: Metoclopramide 10 MG Tablet PO ×4 (06:52→20:11)
[2018-12-24] MEDS: Ketoconazole Cream 1 APPLIC TOPICAL ×2 (06:53→17:32)
[2018-12-24] MEDS: Senna/Docusate Sodium 1 Tablet 2 TABLET PO (09:06)
[2018-12-24] MEDS: amLODIPine 10 MG Tablet PO (09:07)
[2018-12-24] MEDS: proMETHazine 25 MG Tablet 12.5 MG PO (09:07)
[2018-12-24 09:10] VITALS: BP 161/72; PULSE 88
[2018-12-24] MEDS: hydrALAZINE 10 MG Tablet PO ×3 (09:10→20:11)
[2018-12-24] MEDS: Metoprolol Tartrate 25 MG Tablet PO (09:10)
[2018-12-24] MEDS: Acetaminophen 500 MG Tablet 1000 MG PO ×2 (09:18→15:39)
--- NOTE | 2018-12-24 09:30 | NURSING ---
Pt given 0800 scheduled medications and threw up afterwards. Reported to Aminata TERRELL.
[2018-12-24] MEDS: traMADol 50 MG Tablet PO (10:54)
--- NOTE | 2018-12-24 11:00 | NURSING ---
Pt c/o headache. States Tylenol and Tramadol are ineffective. Reported to Irina TERRELL.
[2018-12-24 14:34] VITALS: BP 146/82; PULSE 86
[2018-12-24 16:00] VITALS: BP 154/77; PULSE 62; RESP 16; TEMP 37.1; O2SAT 98
--- NOTE | 2018-12-24 17:35 | NURSING ---
Pt still c/o headaches. Tylenol and Tramadol are both ineffective when it comes to pain. Reported to Irina TERRELL.
--- NOTE | 2018-12-24 18:25 | NURSING ---
Pt refusing scheduled 1700 and 1800 pills despite multiple attempts. Pt stated, I just don't think I'll be able to keep them down. I'm afraid they will come right back up. Reported to Aminata TERRELL.
[2018-12-24 20:11] VITALS: BP 161/95; PULSE 98
[2018-12-24] MEDS: oxyCODONE 5 MG Tablet 2.5 MG PO (20:18)
[2018-12-24 23:05] VITALS: RESP 18; O2SAT 95
[2018-12-25] VITALS (10 sets, daily range): BP systolic 134–164; BP diastolic 64–74; PULSE 78–113; RESP 18–20; TEMP 37.2; O2SAT 94–96
--- NOTE | 2018-12-25 01:01 | EKG12_ITS ---
Test Reason : CP Blood Pressure : / mmHG Vent. Rate : 130 BPM Atrial Rate : 130 BPM P-R Int : 134 ms QRS Dur : 068 ms QT Int : 318 ms P-R-T Axes : 002 -41 084 degrees QTc Int : 467 ms Sinus tachycardia with Premature atrial complexes Left axis deviation Abnormal ECG No previous ECGs available Confirmed by ANGELITA BARAJAS, JACQUIE ([id number]), editor in chief newspaper TELMA RAMIREZ ([id number]) on 12/27/2018 4:18:31 PM Referred By: Derek Jackson Confirmed By:JACQUIE GOLDSTEIN MD
--- NOTE | 2018-12-25 01:18 | NURSING ---
Addendum entered by Janet Ellis 12/25/18 07:46: Pt noted reassessment pt c/o lower abd pain. Phenergan provided, pt went for a walk on unit and noted to be in bed with eyes closed, resting comfortably. Addendum entered by Janet Ellis 12/25/18 01:35: HR reg and tachy. Pt rubbing chest, pt unable to describe pain. Pt denies pain radiating. EKG obtained Dr Manuel kim. N.O. Nitro X1. Original Note: Pt c/o chest pain states, she could describe what the pain felt like. Bp-150/71, R-18, Spo2-94%, P-113. Rates pain a 8 out of 10 localized in the chest area. States, it doesn't feel like pressure on the chest.
[2018-12-25] MEDS: Nitroglycerin (INPATIENT USE) 0.4 MG TAB.SUBL SUBLINGUAL (01:38)
[2018-12-25] MEDS: proMETHazine 25 MG Tablet 12.5 MG PO (02:12)
[2018-12-25] MEDS: Ketoconazole Cream 1 APPLIC TOPICAL ×2 (06:15→18:01)
[2018-12-25] MEDS: Metoclopramide 10 MG Tablet PO ×4 (06:18→20:02)
[2018-12-25] MEDS: Senna/Docusate Sodium 1 Tablet 2 TABLET PO (06:18)
[2018-12-25] MEDS: Polyethylene Glycol 3350 17 GM PACKET PO (06:18)
[2018-12-25] MEDS: oxyCODONE 5 MG Tablet 2.5 MG PO ×3 (06:27→16:58)
[2018-12-25] MEDS: amLODIPine 10 MG Tablet PO (09:20)
[2018-12-25] MEDS: Metoprolol Tartrate 25 MG Tablet PO ×2 (09:20→17:56)
[2018-12-25] MEDS: hydrALAZINE 10 MG Tablet PO ×3 (09:21→20:02)
[2018-12-26] VITALS (9 sets, daily range): BP systolic 121–155; BP diastolic 57–91; PULSE 80–120; RESP 17–18; TEMP 36.8–37.2; O2SAT 95–96
[2018-12-26 05:59] LABS: Absolute Lymphocyte Count 1.31 X10^3/uL (0.83-4.51); Absolute Neutrophil Count 6.6 X10^3/uL (2.0-7.7); Basophil# 0.03 X10^3/uL; Basophil% 0.3 % (0-1); Eosinophils% 1.1 % (0-5); Hematocrit 32.5 % (37-47); Hemoglobin 10.7 g/dL (12.0-15.0); Lymphocyte # 1.31 X10^3/ul (4.0); Lymphocyte % 14.5 % (19-41); Mean Corp Hgb Conc 32.9 g/dL (32-36); Mean Corpuscular Hgb 29.1 pg (27.0-32.0); Mean Corpuscular Volume 88.3 fL (81-99); Mean Platelet Vol. 9.5 fl (6.2-12.0); Monocyte# 0.93 X10^3/uL; Monocyte% 10.3 % (0-10); Neutrophil # 6.61 X10^3/uL (2.7-7.7); Neutrophil % 73.4 % (47-70); Platelet Count 243 K/mm3 (150-450); RBC Distribution Width CV 14.4 % (11.6-14.6); RBC Distribution Width SD 46.8 fl (35.1-43.9); Red Blood Count 3.68 M/mm3 (4.2-5.4)
[2018-12-26 06:14] LABS: Anion Gap 11 (5-15); BUN 18 mg/dL (7-18); BUN/Creat Ratio 14.3 RATIO (10-20); Calcium,Total 9.2 mg/dL (8.5-10.1); Chloride 108 mmol/L (98-107); Creatinine, Serum 1.26 mg/dL (0.55-1.02); EST Glomerular Filtration Rate 43 mL/min (>60); Est Glom Filt Rate - Afr Amer 52 mL/min (>60); Estimated Creatinine Clearance 25.15 ml/min; Glucose 105 mg/dL (74-106); Potassium 4.3 mmol/L (3.5-5.1); Sodium Level 141 mmol/L (136-145)
[2018-12-26] MEDS: Ketoconazole Cream 1 APPLIC TOPICAL ×2 (07:06→18:30)
[2018-12-26] MEDS: Metoclopramide 10 MG Tablet PO ×4 (07:06→19:57)
[2018-12-26] MEDS: hydrALAZINE 10 MG Tablet PO ×3 (09:11→19:57)
[2018-12-26] MEDS: Metoprolol Tartrate 25 MG Tablet PO ×2 (09:12→18:27)
[2018-12-26] MEDS: oxyCODONE 5 MG Tablet 2.5 MG PO (09:13)
[2018-12-26] MEDS: amLODIPine 10 MG Tablet PO (09:13)
[2018-12-26] MEDS: Ondansetron ODT 4 MG Tablet PO ×2 (11:37→18:33)
[2018-12-26] MEDS: Pantoprazole Sodium 40 MG Tablet PO (11:37)
[2018-12-26] MEDS: Senna/Docusate Sodium 1 Tablet 2 TABLET PO (18:27)
[2018-12-27] VITALS (7 sets, daily range): BP systolic 107–124; BP diastolic 59–76; PULSE 71–91; RESP 18; TEMP 36.9; O2SAT 96–100
[2018-12-27] MEDS: Ondansetron ODT 4 MG Tablet PO ×3 (03:07→18:46)
[2018-12-27] MEDS: Polyethylene Glycol 3350 17 GM PACKET PO ×2 (06:55→17:43)
[2018-12-27] MEDS: Ketoconazole Cream 1 APPLIC TOPICAL ×2 (06:56→17:44)
[2018-12-27] MEDS: Senna/Docusate Sodium 1 Tablet 2 TABLET PO ×2 (06:56→17:43)
[2018-12-27] MEDS: Pantoprazole Sodium 40 MG Tablet PO (06:56)
[2018-12-27] MEDS: Metoclopramide 10 MG Tablet PO ×4 (06:57→20:07)
[2018-12-27] MEDS: hydrALAZINE 10 MG Tablet PO ×3 (07:08→20:07)
[2018-12-27] MEDS: amLODIPine 10 MG Tablet PO (09:19)
[2018-12-27] MEDS: Metoprolol Tartrate 25 MG Tablet PO ×2 (09:20→17:43)
[2018-12-27] MEDS: oxyCODONE 5 MG Tablet 2.5 MG PO (10:55)
--- NOTE | 2018-12-27 16:12 | NURSING ---
discussed code status with pt, she wishes to be a full code at this time.
[2018-12-28] MEDS: Senna/Docusate Sodium 1 Tablet 2 TABLET PO (07:21)
[2018-12-28] MEDS: Pantoprazole Sodium 40 MG Tablet PO (07:21)
[2018-12-28] MEDS: Metoclopramide 10 MG Tablet PO ×4 (07:21→19:59)
[2018-12-28] MEDS: Ketoconazole Cream 1 APPLIC TOPICAL ×2 (07:24→18:22)
[2018-12-28 09:24] VITALS: BP 145/74; PULSE 86
[2018-12-28] MEDS: Metoprolol Tartrate 25 MG Tablet PO ×2 (09:24→18:25)
[2018-12-28] MEDS: amLODIPine 10 MG Tablet PO (09:24)
[2018-12-28] MEDS: hydrALAZINE 10 MG Tablet PO ×3 (09:24→19:59)
[2018-12-28] MEDS: Ondansetron ODT 4 MG Tablet PO ×2 (11:41→18:19)
[2018-12-28 14:24] VITALS: BP 112/50; PULSE 74
[2018-12-28 15:51] VITALS: BP 95/43; PULSE 70; RESP 18; TEMP 36.6; O2SAT 96
[2018-12-28 18:25] VITALS: BP 140/71; PULSE 86
[2018-12-28 19:59] VITALS: BP 139/67; PULSE 71
[2018-12-28 20:00] VITALS: PULSE 71; RESP 16; O2SAT 97
[2018-12-29] VITALS (8 sets, daily range): BP systolic 114–148; BP diastolic 62–74; PULSE 77–92; RESP 18; TEMP 36.9; O2SAT 96
[2018-12-29] MEDS: Pantoprazole Sodium 40 MG Tablet PO (06:27)
[2018-12-29] MEDS: Ondansetron ODT 4 MG Tablet PO ×3 (06:27→21:29)
[2018-12-29] MEDS: Metoclopramide 10 MG Tablet PO ×4 (06:27→21:29)
[2018-12-29] MEDS: Senna/Docusate Sodium 1 Tablet 2 TABLET PO ×2 (06:27→17:47)
[2018-12-29] MEDS: Ketoconazole Cream 1 APPLIC TOPICAL ×2 (06:28→17:54)
[2018-12-29] MEDS: amLODIPine 10 MG Tablet PO (08:58)
[2018-12-29] MEDS: Metoprolol Tartrate 25 MG Tablet PO ×2 (08:59→17:48)
[2018-12-29] MEDS: hydrALAZINE 10 MG Tablet PO ×3 (08:59→21:27)
--- NOTE | 2018-12-29 18:00 | NURSING ---
PT YEAST/RED IN BELLY BUTTON HAS NOW SPREAD TO OUT SIDE ALL AROUND THE BELLY BUTTON. XANDER DE SANTIAGO AWARE
[2018-12-30] MEDS: Ondansetron ODT 4 MG Tablet PO ×2 (05:54→14:52)
[2018-12-30] MEDS: Senna/Docusate Sodium 1 Tablet 2 TABLET PO (05:54)
[2018-12-30] MEDS: Pantoprazole Sodium 40 MG Tablet PO (05:54)
[2018-12-30] MEDS: Ketoconazole Cream 1 APPLIC TOPICAL ×2 (05:55→18:20)
[2018-12-30] MEDS: Metoclopramide 10 MG Tablet PO ×4 (05:56→20:47)
[2018-12-30 09:01] VITALS: BP 129/72; PULSE 82
[2018-12-30] MEDS: amLODIPine 10 MG Tablet PO (09:01)
[2018-12-30] MEDS: hydrALAZINE 10 MG Tablet PO ×3 (09:01→20:47)
[2018-12-30] MEDS: Metoprolol Tartrate 25 MG Tablet PO ×2 (09:01→18:19)
[2018-12-30 14:52] VITALS: BP 129/83; PULSE 84
[2018-12-30 15:29] VITALS: BP 129/83; PULSE 91; RESP 20; TEMP 36.8; O2SAT 98
[2018-12-30 18:19] VITALS: BP 136/72; PULSE 84
--- NOTE | 2018-12-30 18:27 | NURSING ---
Redness to inside of naval extends now outside around the naval on stomach. Reported to Dari TERRELL.
[2018-12-30 20:45] VITALS: PULSE 70; RESP 18; O2SAT 96
[2018-12-30] MEDS: Acetaminophen 500 MG Tablet 1000 MG PO (20:46)
[2018-12-30 20:47] VITALS: BP 119/79; PULSE 70
[2018-12-31] VITALS (7 sets, daily range): BP systolic 87–135; BP diastolic 44–88; PULSE 64–100; RESP 18–20; TEMP 37.3; O2SAT 95–96
[2018-12-31] MEDS: Pantoprazole Sodium 40 MG Tablet PO (06:16)
[2018-12-31] MEDS: Metoclopramide 10 MG Tablet PO ×4 (06:16→20:47)
--- NOTE | 2018-12-31 09:42 | NURSING ---
pT BP THIS AM 87/44. WILL RECHECK AND REASSESS PRIOR TO ADMINISTERING BP MEDICATIONS. ANAIS TERRELL AWARE
[2018-12-31] MEDS: hydrALAZINE 10 MG Tablet PO ×2 (13:44→20:46)
[2018-12-31] MEDS: amLODIPine 10 MG Tablet PO (13:44)
[2018-12-31] MEDS: Ondansetron ODT 4 MG Tablet PO (13:44)
[2018-12-31] MEDS: Metoprolol Tartrate 25 MG Tablet PO (17:37)
[2019-01-01] VITALS (7 sets, daily range): BP systolic 120–140; BP diastolic 54–76; PULSE 77–88; RESP 18; TEMP 37.4; O2SAT 90–97
[2019-01-01] MEDS: Metoclopramide 10 MG Tablet PO ×3 (06:46→16:04)
[2019-01-01] MEDS: Pantoprazole Sodium 40 MG Tablet PO (06:46)
[2019-01-01] MEDS: hydrALAZINE 10 MG Tablet PO ×2 (09:19→14:48)
[2019-01-01] MEDS: amLODIPine 10 MG Tablet PO (09:19)
[2019-01-01] MEDS: Metoprolol Tartrate 25 MG Tablet PO ×2 (09:20→18:04)
--- NOTE | 2019-01-01 14:14 | CASEMGMT ---
Insurance: Clinical updates faxed to [employer] this day. Auth # [id number]
--- NOTE | 2019-01-01 14:33 | CASEMGMT ---
Social Work Met with patient to discuss progress in therapy so far and discharge plans. Pt states she has been eeling better and sleeping less. Her goal is to return home in [address], but wants to get stronger first. Asked pt to define goals and stronger. Pt stated being able to make meals on her own, walking with a cane, and overally having more energy and strength to be independent. Explained insurance update is today and continued stay is not guaranteed - pt understood. Will continue to follow for safe discharge planning. Leticia Meléndez, DEVELOPMENT VICE PRESIDENT TANDEM MILL OPERATOR
[2019-01-01] MEDS: Ketoconazole Cream 1 APPLIC TOPICAL (18:11)
[2019-01-02] VITALS (9 sets, daily range): BP systolic 102–139; BP diastolic 52–75; PULSE 79–96; RESP 16–18; TEMP 37.1; O2SAT 95
[2019-01-02] MEDS: Metoclopramide 10 MG Tablet PO ×4 (06:53→20:21)
[2019-01-02] MEDS: Ketoconazole Cream 1 APPLIC TOPICAL ×2 (06:53→18:13)
[2019-01-02] MEDS: Pantoprazole Sodium 40 MG Tablet PO (06:53)
[2019-01-02] MEDS: hydrALAZINE 10 MG Tablet PO ×3 (09:18→20:20)
[2019-01-02] MEDS: Metoprolol Tartrate 25 MG Tablet PO ×2 (09:18→18:17)
[2019-01-02] MEDS: amLODIPine 10 MG Tablet PO (09:19)
--- NOTE | 2019-01-02 16:14 | CASEMGMT ---
Addendum entered by Leticia Meléndez 01/08/19 12:32: Patient requesting [facility] PT/OT. Original Note: Social Work Spoke with patient about therapy recommending discharging home 01/06. Pt states she is ready and doing much better, and agrees. Son was present in room during conversation whom agrees. No DME needs. Therapy not recommending any HHC. Plan: DC home with family support 01/06. RAINA PerkinsW
[2019-01-02] MEDS: Senna/Docusate Sodium 1 Tablet 2 TABLET PO (18:13)
--- NOTE | 2019-01-02 20:45 | DCINST_ITS ---
- Discharge Diagnoses Current Active Problems: Current Active and Chronic Problems Nausea & vomiting (Acute) Hemorrhagic stroke (Acute) Hypertensive emergency (Acute) Osteoarthritis (Chronic) Kidney stone (Chronic) Hypertension (Chronic) You will use the following diet at home:: No restrictions, Regular Your food should be the consistency of: Regular Your liquids should be the consistency of: Regular/Thin Discharge Activity: Return to Normal Activity, May Shower, Use Walker Weight Bearing Status: Weight bearing as tolerated Call your doctor if you observe: Fever of 101 or Higher, Inability to urinate, Inability to have a bowel movement, Shortness of breath, Chest pain, Uncontrolled pain Allergies/Adverse Reactions: Allergies No Known Allergies Allergy (Verified 12/13/18 18:38) Medications to take at Discharge Amlodipine Besylate [Norvasc] 10 mg PO DAILY 12/13/18 Metoclopramide [Reglan] 10 mg PO ACHS 12/13/18 Metoprolol Tartrate [Lopressor (beta андрей)] 25 mg PO BID 12/13/18 Ondansetron [Zofran Odt] 4 mg PO Q6H PRN 12/13/18 hydrALAZINE [Apresoline] 10 mg PO TID 12/13/18 Acetaminophen [Tylenol] 1,000 mg PO Q6H PRN PRN tab 01/02/19 Amlodipine [Norvasc] 10 mg PO DAILY@0800 #30 tab 01/02/19 Ketoconazole [Nizoral Cream] 1 applic TOPICAL BID #1 tube 01/02/19 Metoclopramide [Reglan] 10 mg PO ACHS #120 tab 01/02/19 Metoprolol Tartrate [Lopressor (beta андрей)] 25 mg PO BID@0800,1800 #60 tab 01/02/19 Pantoprazole Sodium [Protonix] 40 mg PO DAILY #30 tab 01/02/19 Potassium Chloride [K-Dur] 20 meq PO BIDCM #60 tab 01/02/19 hydrALAZINE [Apresoline] 10 mg PO TID@0800,1400,2200 #90 tab 01/02/19 The following prescriptions were given: hydrALAZINE [Apresoline] 10 mg PO TID@0800,1400,2200 #90 tab Prescription Printed Potassium Chloride [K-Dur] 20 meq PO BIDCM #60 tab Prescription Printed Metoprolol Tartrate [Lopressor (beta андрей)] 25 mg PO BID@0800,1800 #60 tab Prescription Printed Ketoconazole [Nizoral Cream] 1 applic TOPICAL BID #1 tube Prescription Printed Amlodipine [Norvasc] 10 mg PO DAILY@0800 #30 tab Prescription Printed Pantoprazole Sodium [Protonix] 40 mg PO DAILY #30 tab Prescription Printed Metoclopramide [Reglan] 10 mg PO ACHS #120 tab Prescription Printed Primary Care Physician: Sean Guido MD [STAFF PHYSICIAN] - Please follow up with your Primary Care Physician in: 1 week. Test Results: Test results from this visit will be discussed in further detail at your follow- up appointment, if applicable. Please Follow Up With: kacey redding Please Follow Up With: Sean Guido MD When: at d/c from TCU Proposed Discharge Date: 01/06/19
--- NOTE | 2019-01-02 20:49 | PCM.DC.SUM ---
Discharge Date and Diagnosis - Problem List Patient Problems: Active and Suspected Problems Nausea & vomiting (Acute) Hemorrhagic stroke (Acute) Hypertensive emergency (Acute) Date of Admission: 12/11/18 Date of Discharge: 01/06/19 - Primary Discharge Diagnosis Active and Suspected Problems Nausea & vomiting (Acute) Hemorrhagic stroke (Acute) Hypertensive emergency (Acute) - Secondary Discharge Diagnosis Chronic Problems Hypokalemia (Chronic) Nail disorder (onychogryphosis) (Chronic) Tinea unguium (Chronic) Toe pain, right (Chronic) Toe pain, left (Chronic) Anemia (Chronic) Osteoarthritis (Chronic) Kidney stone (Chronic) Hypertension (Chronic) Hospital Course and Treatment Imaging Results: 12/20/18 15:54 Diet: Regular Diet Food consistency:: Regular Liquid Consistency:: Regular/Thin Is pt able to select menu?: Yes Diet Comments: 2gm Na Clinical Impression(s) from Imaging Studies Abdomen X-Ray 12/12/18 12:55 IMPRESSION: Fecal retention. No acute findings Electronically Signed: Rocael Duran DO at 13:38 EDT Tel , Service support , KUB X-Ray 12/19/18 08:12 IMPRESSION: 1. Resolution of the increased cortical retention since the prior study. 2. Mildly distended central small bowel loops. Question ileus versus early obstruction. 3. No other interval change. Electronically Signed: Chetan Henley DO at 16:51 EDT Tel [phone], Service support , Operations: None Procedures: None Summary of Care Provided: The patient is a 83 year old Female with below past medical history hospitalized for hemorrhagic stroke secondary to uncontrolled hypertension, complicated by acute kidney injury, nausea/vomiting, admitted to TCU with debility, here for rehabilitation, strengthening, prior to discharge home with family. Discharge home with family support. Patient Problems: Active and Suspected Problems Nausea & vomiting (Acute) Hemorrhagic stroke (Acute) Hypertensive emergency (Acute) - Physical Exam Vital Signs Temp Pulse Resp BP Pulse Ox 98.7 F 80 18 111/61 95 01/02/19 15:07 01/02/19 20:20 01/02/19 15:07 01/02/19 20:20 01/02/19 15:07 Oxygen Delivery Method Room Air Weight: 51.908 kg Body Mass Index (BMI) 25.2 Intake and Output for Last 24 Hours 12/31/18 01/01/19 01/02/19 23:59 23:59 23:59 Intake Total 360 / 360 840 / 840 880 / 880 Balance 360 / 360 840 / 840 880 / 880 Discharge Diet: No Restrictions Discharge Activity: Return to Normal Activity, May Shower, Use Walker Weight Bearing Status: Weight bearing as tolerated Call your doctor if you observe: Fever of 101 or Higher, Inability to urinate, Inability to have a bowel movement, Shortness of breath, Chest pain, Uncontrolled pain Home Medications: Medications to take at Discharge RX: Amlodipine Besylate [Norvasc] 10 mg PO DAILY 12/13/18 RX: Metoclopramide [Reglan] 10 mg PO ACHS 12/13/18 RX: Metoprolol Tartrate [Lopressor (beta андрей)] 25 mg PO BID 12/13/18 RX: Ondansetron [Zofran Odt] 4 mg PO Q6H PRN 12/13/18 RX: hydrALAZINE [Apresoline] 10 mg PO TID 12/13/18 RX: Acetaminophen [Tylenol] 1,000 mg PO Q6H PRN PRN tab 01/02/19 RX: Amlodipine [Norvasc] 10 mg PO DAILY@0800 #30 tab 01/02/19 RX: Ketoconazole [Nizoral Cream] 1 applic TOPICAL BID #1 tube 01/02/19 RX: Metoclopramide [Reglan] 10 mg PO ACHS #120 tab 01/02/19 RX: Metoprolol Tartrate [Lopressor (beta андрей)] 25 mg PO BID@0800,1800 #60 tab 01/02/19 RX: Pantoprazole Sodium [Protonix] 40 mg PO DAILY #30 tab 01/02/19 RX: Potassium Chloride [K-Dur] 20 meq PO BIDCM #60 tab 01/02/19 RX: hydrALAZINE [Apresoline] 10 mg PO TID@0800,1400,2200 #90 tab 01/02/19 Following Prescrptions Were Given to Patient: RX: hydrALAZINE [Apresoline] 10 mg PO TID@0800,1400,2200 #90 tab Prescription Printed RX: Potassium Chloride [K-Dur] 20 meq PO BIDCM #60 tab Prescription Printed RX: Metoprolol Tartrate [Lopressor (beta андрей)] 25 mg PO BID@0800,1800 #60 tab Prescription Printed RX: Ketoconazole [Nizoral Cream] 1 applic TOPICAL BID #1 tube Prescription Printed RX: Amlodipine [Norvasc] 10 mg PO DAILY@0800 #30 tab Prescription Printed RX: Pantoprazole Sodium [Protonix] 40 mg PO DAILY #30 tab Prescription Printed RX: Metoclopramide [Reglan] 10 mg PO ACHS #120 tab Prescription Printed Primary Care Physician: Sean Guido MD [STAFF PHYSICIAN] - Please follow up with your Primary Care Physician in: 1 week. Please Follow Up With: kacey redding Please Follow Up With: Sean Guido MD When: at d/c from TCU Disposition: Home Minutes spent on discharge:: 30 Patient Condition:: Stable Medical Necessity - Tobacco Use Smoking Status: Never smoker Tobacco Use: Non-smoker Meaningful Use Info Meaningful Use Diagnoses (Choose all that apply): None applicable
[2019-01-03] VITALS (8 sets, daily range): BP systolic 99–123; BP diastolic 47–69; PULSE 70–94; RESP 18; TEMP 36.9; O2SAT 96–97
[2019-01-03] MEDS: Pantoprazole Sodium 40 MG Tablet PO (06:45)
[2019-01-03] MEDS: Metoclopramide 10 MG Tablet PO ×4 (06:45→22:17)
[2019-01-03] MEDS: Ketoconazole Cream 1 APPLIC TOPICAL ×2 (06:45→18:12)
[2019-01-03] MEDS: hydrALAZINE 10 MG Tablet PO ×3 (09:09→22:17)
[2019-01-03] MEDS: Metoprolol Tartrate 25 MG Tablet PO ×2 (09:09→18:04)
[2019-01-03] MEDS: amLODIPine 10 MG Tablet PO (09:09)
--- NOTE | 2019-01-03 11:48 | CASEMGMT ---
Insurance: Continued stay approved. Next update due 01/10/19. Auth # [id number].
[2019-01-04] MEDS: Metoclopramide 10 MG Tablet PO ×4 (06:29→17:11)
[2019-01-04] MEDS: Pantoprazole Sodium 40 MG Tablet PO (06:29)
[2019-01-04] MEDS: Ketoconazole Cream 1 APPLIC TOPICAL ×2 (06:29→18:10)
[2019-01-04 09:23] VITALS: BP 140/62; PULSE 86
[2019-01-04] MEDS: amLODIPine 10 MG Tablet PO (09:23)
[2019-01-04] MEDS: hydrALAZINE 10 MG Tablet PO ×3 (09:23→20:47)
[2019-01-04] MEDS: Metoprolol Tartrate 25 MG Tablet PO ×2 (09:23→18:09)
--- NOTE | 2019-01-04 11:24 | MDS.RN ---
Information for the mds was obtained from review of the clinical record, interview of resident, staff, and direct observation of resident's care.
--- NOTE | 2019-01-04 11:53 | MDS.RN ---
Pain interview for mg 01/06/19 completed.
[2019-01-04 14:09] VITALS: BP 132/61; PULSE 78
[2019-01-04 15:53] VITALS: BP 130/54; PULSE 76; RESP 16; TEMP 36.4; O2SAT 99
[2019-01-04 18:09] VITALS: BP 130/54; PULSE 76
[2019-01-04 20:47] VITALS: BP 117/54; PULSE 72
[2019-01-04 20:50] VITALS: PULSE 72; RESP 16; O2SAT 95
[2019-01-05] MEDS: Ketoconazole Cream 1 APPLIC TOPICAL ×2 (06:16→18:57)
[2019-01-05] MEDS: Pantoprazole Sodium 40 MG Tablet PO (06:16)
[2019-01-05] MEDS: Metoclopramide 10 MG Tablet PO ×2 (06:16→17:21)
[2019-01-05] MEDS: Senna/Docusate Sodium 1 Tablet 2 TABLET PO (06:17)
[2019-01-05] MEDS: amLODIPine 10 MG Tablet PO (08:29)
[2019-01-05 08:30] VITALS: BP 128/70; PULSE 78
[2019-01-05] MEDS: hydrALAZINE 10 MG Tablet PO ×3 (08:30→22:04)
[2019-01-05] MEDS: Metoprolol Tartrate 25 MG Tablet PO ×2 (08:30→19:01)
--- NOTE | 2019-01-05 09:20 | CASEMGMT ---
Social Work BIMS and PHQ-9 completed for MDS assessment. Leticia Meléndez, EXECUTIVE ASSISTANT TO GENERAL COUNSEL CATERERS HELPER
[2019-01-05 14:00] VITALS: BP 130/57; PULSE 78
[2019-01-05 15:54] VITALS: BP 97/47; PULSE 76; RESP 18; TEMP 37.3; O2SAT 93
[2019-01-05 19:01] VITALS: BP 139/70; PULSE 70
[2019-01-05 22:04] VITALS: BP 140/69; PULSE 74
[2019-01-05 22:48] VITALS: PULSE 74; RESP 16; O2SAT 97
[2019-01-06] MEDS: Pantoprazole Sodium 40 MG Tablet PO (05:41)
[2019-01-06] MEDS: Ketoconazole Cream 1 APPLIC TOPICAL (05:41)
[2019-01-06] MEDS: Metoclopramide 10 MG Tablet PO ×2 (05:43→09:42)
[2019-01-06 09:40] VITALS: BP 124/68; PULSE 84
[2019-01-06] MEDS: hydrALAZINE 10 MG Tablet PO (09:40)
[2019-01-06 09:41] VITALS: BP 124/68; PULSE 84
[2019-01-06] MEDS: amLODIPine 10 MG Tablet PO (09:41)
[2019-01-06] MEDS: Metoprolol Tartrate 25 MG Tablet PO (09:41)
[2019-01-06 09:45] VITALS: BP 124/68; PULSE 84; RESP 18; TEMP 37.2; O2SAT 95
[2019-01-06 09:50] VITALS: PULSE 84; RESP 18; O2SAT 95
[2019-01-06 11:09] VITALS: BP 124/64; PULSE 79; RESP 16; TEMP 36.9; O2SAT 94
== END 2019-01-06 11:11 | disposition home or self-care (01) | DRG 948 ==
PROVIDERS: Admitting Provider Family Medicine Geriatric Medicine; Family Provider Family Medicine Geriatric Medicine; PCP Family Medicine Geriatric Medicine; Referring Provider Family Medicine Geriatric Medicine; Visit Provider Family Medicine Geriatric Medicine
DX: R53.81 Other malaise (principal); K21.9 Gastro-esophageal reflux disease without esophagitis; F32.9 Major depressive disorder, single episode, unspecified; I12.9 Hypertensive chronic kidney disease with stage 1 through stage 4 chronic kidney disease, or unspecified chronic kidney disease; N18.9 Chronic kidney disease, unspecified; M19.90 Unspecified osteoarthritis, unspecified site; Z86.73 Personal history of transient ischemic attack (TIA), and cerebral infarction without residual deficits; E87.6 Hypokalemia
CPT/HCPCS: 36415; 74018; 74019; 80048; 81001; 85025; 87070; 87077; 87086; 87088; 87205; 93005; 97110; 97116; 97163; 97166; 97530; 97535; 97802; J7030; A4216; J2405

== ENCOUNTER 2018-12-13 18:27 | Emergency (ER) | payer MEDICARE, SELFPAY ==
[2018-12-11 13:59] VITALS: BMI 25.2
[2018-12-13 18:33] VITALS: BP 134/103; PULSE 95; RESP 18; TEMP 37.3; O2SAT 94; BMI 27.2
[2018-12-13 19:00] VITALS: BP 136/62
--- NOTE | 2018-12-13 19:22 | CT_ITS ---
STUDY: CT BRAIN WITHOUT CONTRAST REASON FOR EXAM: Female, 83 years old. Follow-up bleed RADIATION DOSAGE (If Supplied By Facility): CTDIvol = ( 44.99 ) mGy, DLP = ( 812.98 ) mGycm TECHNIQUE: Transaxial CT imaging of the brain was performed without administration of intravenous contrast material. Individualized dose optimization techniques were used for this CT. COMPARISON: 12/05/2018 FINDINGS: There is a 1.0 x 0.7 x 0.7 cm left periventricular hemorrhage which is decreased in size and density when compared with the prior exam. There is no new bleed or infarct. There are stable chronic ischemic changes. The ventricles are normal in configuration. There is no hydrocephalus. The visualized paranasal sinuses are clear. The mastoid air cells are well aerated. There is no skull fracture. CT/Brain/Head without Contrast IMPRESSION: 1.0 x 0.7 x 0.7 cm left periventricular hemorrhage which is decreased in size and density when compared with the prior exam. No new bleed. No acute infarct. Stable chronic ischemic changes Electronically Signed: Gucci Washburn, at 20:07 EDT Tel , Service support ,
--- NOTE | 2018-12-13 19:25 | ED.DCSUM_ITS ---
- ER Visit Summary Date of Service: 12/13/18 Chief Complaint: Nausea and vomiting History of Present Illness: The patient is a 83 F of hypertension. That was treated non-surgically. She was transferred from here to [facility] and is currently in the TCU. She has had worse nausea and vomiting and headache last several days and they want to reevaluate to make sure she did not have a worsening intracranial bleed. She is on no blood thinners according to the family. She typically lives at home with her daughter. Physical Examination: Alert female no acute distress. Vital signs are stable. She is afebrile. She does not look septic or toxic. HEENT exam no facial droop. No signs of trauma to her face or scalp. Nontender. Moist his membranes. Nontender no meningismus. No lymphadenopathy. Lungs clear to auscultation bilaterally. Heart regular rhythm no murmur. Abdomen soft and nontender. Normal bowel sounds no peritoneal signs. No hernias or masses. No signs of obstruction. No localizing tenderness. Both the right upper right lower quadrant unremarkable. Patient is moving all 4 extremities. No edema. Nontender. Neurologically she is awake. She answers questions and follows commands. Daughter is at bedside is giving most of the history. Test Results: CBC showed a white count of 9. She runs a chronic anemia her hemoglobin was 10.6 which is her baseline. No bands. Electrolytes unremarkable gap of 8. Creatinine 1.1. CT of her brain is read by the radiologist and reviewed by me showed a 1 cm periventricular bleed which is actually smaller than the prior bleed seen on the prior CAT scan. It was actually improving. Not worse. Emergency Department Course and Treatment: CAT scan of the brain will be obtained along with screening labs. Patient be treated with IV fluids and IV Zofran. Treatment Plan: Repeat exam patient is doing okay at 2050 p.m. I discussed test results with her and her family. She will be given a dose of morphine for her h eadache. Another dose of Zofran. Her abdomen remains benign. And she will be discharged back to the TCU. Disposition: Discharge Impression: Acute nausea and vomiting History of recent hypertensive intracranial bleed treated nonoperatively. This note was generated with [employer] software. It may contain incorrect words, spelling, and punctuation that were not noted in review of the chart prior to signing ED Disposition - Plan for ED Patient: Referrals: Derek Jackson Chi, MD [Primary Care Provider] -
[2018-12-13 19:41] VITALS: BP 132/73; PULSE 95; RESP 18; TEMP 36.8; O2SAT 94
[2018-12-13] MEDS: Ondansetron 4 MG/2 ML Vial IV ×2 (19:42→20:55)
[2018-12-13 19:49] LABS: Absolute Lymphocyte Count 1.27 X10^3/ul (0.83-4.51); Basophil# 0.02 X10^3/uL; Basophil% 0.2 % (0-1); Eosinophil# 0.04 X10^3/uL; Eosinophils% 0.4 % (0-5); Hematocrit 32.2 % (37-47); Hemoglobin 10.6 g/dl (12.0-15.0); Lymphocyte # 1.27 X10^3/ul (4.0); Lymphocyte % 13.8 % (19-41); Mean Corp Hgb Conc 32.9 g/gl (32-36); Mean Corpuscular Hgb 29.4 pg (27.0-32.0); Mean Corpuscular Volume 89.2 fL (81-99); Monocyte# 0.87 X10^3/uL; Monocyte% 9.4 % (0-10); Platelet Count 214 K/mm3 (150-450); RBC Distribution Width CV 14.6 % (11.6-14.6); RBC Distribution Width SD 47.4 fl (35.1-43.9); Red Blood Count 3.61 M/mm3 (4.2-5.4); White Blood Count 9.2 K/mm3 (4.4-11.0)
[2018-12-13 20:04] LABS: POSITIVE COUNT NO; POSITIVE DIFFERENTIAL NO; POSITIVE MORPHOLOGY NO
[2018-12-13 20:06] LABS: Anion Gap 8 (5-15); BUN 17 mg/dL (7-18); BUN/Creat Ratio 14.4 RATIO (10-20); Calcium,Total 8.3 mg/dL (8.5-10.1); Chloride 111 mmol/L (98-107); Creatinine, Serum 1.18 mg/dL (0.55-1.02); EST Glomerular Filtration Rate 47 mL/min (>60); Est Glom Filt Rate - Afr Amer 57 mL/min (>60); Estimated Creatinine Clearance 26.86 ml/min; Glucose 105 mg/dL (74-106); Potassium 3.4 mmol/L (3.5-5.1); Sodium Level 143 mmol/L (136-145)
--- NOTE | 2018-12-13 20:50 | ED.DEP ---
ED Disposition - Plan for ED Patient: Disposition: Home or Assisted Living Instructions: VOMITING (8y-Adult) Referrals: Derek Jackson Chi, MD [Primary Care Provider] - 1 Day Additional Instructions: Zofran as needed for nausea. Follow-up with Dr. Jackson to reevaluate her.
[2018-12-13] MEDS: Morphine 4 MG/ML Syringe IV (20:57)
[2018-12-13 20:58] VITALS: BP 174/67; PULSE 94; RESP 18; O2SAT 93
== END 2018-12-13 21:41 | disposition home or self-care (01) ==
PROVIDERS: Emergency Provider Emergency Medicine; Family Provider Family Medicine Geriatric Medicine; PCP Family Medicine Geriatric Medicine
DX: R11.2 Nausea with vomiting, unspecified (principal); R51 Headache; I10 Essential (primary) hypertension; Z86.73 Personal history of transient ischemic attack (TIA), and cerebral infarction without residual deficits; Z79.02 Long term (current) use of antithrombotics/antiplatelets; Z79.899 Other long term (current) drug therapy
CPT/HCPCS: 70450; 80048; 85025; 96361; 96374; 96375; 96376; 99283; J7040; J2405

== ENCOUNTER → 2018-12-19 | Outpatient (CLI) | payer MEDICARE, SELFPAY ==
[2018-12-13 18:33] VITALS: BMI 27.2
--- NOTE | 2018-12-19 13:00 | CT_ITS ---
STUDY: CT BRAIN WITHOUT CONTRAST REASON FOR EXAM: Female, 83 years old. Follow-up brain hemorrhage. RADIATION DOSAGE (If Supplied By Facility): CTDIvol = ( 44.99 ) mGy, DLP = ( 779.24 ) mGycm TECHNIQUE: Transaxial CT imaging of the brain was performed without administration of intravenous contrast material. Individualized dose optimization techniques were used for this CT. COMPARISON: CT of the head, December 13, 2018 FINDINGS: Normal soft tissue structures. Normal calvarium. Normal size ventricles and extra-axial spaces for the patient's age. There are areas of decreased attenuation within the white matter tracts of the supratentorial brain, consistent with microvascular disease changes. There is near complete resolution of the left periventricular hemorrhage noted in previous study. On the few focal areas of hypodensity remain. This now measures approximately 0.4 cm in diameter. Normal basal ganglia and thalami. Normal brainstem. Normal cerebellum. There is no intracranial hemorrhage. There are no findings of an acute ischemic infarction. Normal visualized paranasal sinuses. CT/Brain/Head without Contrast IMPRESSION: 1. Near-complete resolution left periventricular hemorrhage when compared to prior study. This now measures less approximately 4 mm in diameter. 2. No other major interval change. Electronically Signed: Chetan Henley DO at 17:21 EDT Tel [phone], Service support ,
== END | disposition home or self-care (01) ==
LOC: CT 12:51
PROVIDERS: Family Provider Family Medicine Geriatric Medicine; PCP Family Medicine Geriatric Medicine
DX: I62.9 Nontraumatic intracranial hemorrhage, unspecified (principal)
CPT/HCPCS: 70450

== ENCOUNTER → 2019-01-10 11:17 | Outpatient (CLI) | payer MEDICARE, SELFPAY ==
[2018-12-13 18:33] VITALS: BMI 27.2
[2019-01-10 13:06] LABS: Anion Gap 4 (5-15); BUN 24 mg/dL (7-18); BUN/Creat Ratio 15.5 RATIO (10-20); Calcium,Total 9.2 mg/dL (8.5-10.1); Chloride 107 mmol/L (98-107); Creatinine, Serum 1.55 mg/dL (0.55-1.02); EST Glomerular Filtration Rate 34 mL/min (>60); Est Glom Filt Rate - Afr Amer 41 mL/min (>60); Glucose 95 mg/dL (74-106); Potassium 4.8 mmol/L (3.5-5.1); Sodium Level 136 mmol/L (136-145)
== END ==
PROVIDERS: Family Provider Family Medicine Geriatric Medicine; PCP Family Medicine Geriatric Medicine; Visit Provider Family Medicine Geriatric Medicine
DX: E87.6 Hypokalemia (principal)
CPT/HCPCS: 36415; 80048

== ENCOUNTER → 2019-01-17 | Outpatient (CLI) | payer MEDICARE, SELFPAY ==
--- NOTE | 2019-01-17 09:27 | VDLE_ITS ---
Reason For Study: Localized edema RIGHT LEFT GSV is normal. GSV is normal. CFV is partially compressbile with minimal CFV is compressible, spontaneous, phasic, flow noted. competent, and demonstrates normal Acute deep vein thrombosis is noted in the augmentation. right FV, PopV, GastrocV, PTV, PeroV. FV is compressible, spontaneous, phasic, Procedure competent and demonstrates normal Exam performed in department. augmentation. A preliminary report was called and/or faxed POP V is compressible, spontaneous, phasic, to Manuel. competent and demonstrates normal Pt sent up to office. augmentation. T/P Trunk is compressible. PTV is compressible. LT PerV is compressible. Interpretation Summary Acute deep vein thrombosis is noted in the right common femoral vein. Acute deep vein thrombosis is noted in the right femoral vein. Acute deep vein thrombosis is noted in the right popliteal vein. Acute deep vein thrombosis is noted in the right tibio-peroneal trunk. Acute deep vein thrombosis is noted in the right peroneal vein. Acute deep vein thrombosis is noted in the right posterior tibial vein. Acute deep vein thrombosis is noted in the right gastrocnemius vein. Deep veins of the left lower extremity are patent and compressible segmentally. There is no evidence of left lower extremity deep vein thrombosis. Valvular competence appears intact within the proximal deep venous system on the left . The great saphenous veins appear bilaterally patent and compressible segmentally. Ordering Physician: Derek Jackson Referring Physician: Derek Jackson Chi Performed By: Jayda Macdonald RVT
== END | disposition home or self-care (01) ==
PROVIDERS: Family Provider Family Medicine Geriatric Medicine; PCP Family Medicine Geriatric Medicine; Referring Provider Family Medicine Geriatric Medicine; Visit Provider Family Medicine Geriatric Medicine
DX: R60.0 Localized edema (principal)
CPT/HCPCS: 93970

== ENCOUNTER → 2019-04-03 | Outpatient (CLI) | payer MEDICARE, SELFPAY ==
[2019-04-03 17:45] LABS: Absolute Neutrophil Count 3.5 X10^3/uL (2.0-7.7); Basophil# 0.02 X10^3/uL; Basophil% 0.3 % (0-1); Eosinophil# 0.05 X10^3/uL; Eosinophils% 0.9 % (0-5); Hematocrit 36.1 % (37-47); Hemoglobin 11.8 g/dL (12.0-15.0); Lymphocyte % 27.6 % (19-41); Mean Corp Hgb Conc 32.7 g/dL (32-36); Mean Corpuscular Hgb 30.5 pg (27.0-32.0); Mean Corpuscular Volume 93.3 fL (81-99); Mean Platelet Vol. 9.6 fl (6.2-12.0); Monocyte# 0.62 X10^3/uL; Monocyte% 10.7 % (0-10); NRBC Flagged by Analyzer 0 % (0-5); Neutrophil # 3.49 X10^3/uL (2.7-7.7); Neutrophil % 60.2 % (47-70); Platelet Count 219 K/mm3 (150-450); RBC Distribution Width CV 13.7 % (11.6-14.6); RBC Distribution Width SD 46.5 fl (35.1-43.9); Red Blood Count 3.87 M/mm3 (4.2-5.4); White Blood Count 5.8 K/mm3 (4.4-11.0)
== END | disposition home or self-care (01) ==
LOC: POLAB3 16:49
PROVIDERS: Family Provider Family Medicine Geriatric Medicine; PCP Family Medicine Geriatric Medicine; Visit Provider Family Medicine Geriatric Medicine
DX: D64.9 Anemia, unspecified (principal)
CPT/HCPCS: 36415; 85025

== ENCOUNTER → 2019-04-20 | Outpatient (CLI) | payer MEDICARE, SELFPAY ==
--- NOTE | 2019-04-20 13:59 | VDLE_ITS ---
Reason For Study: Localized edema RIGHT LEFT GSV is normal. CFV is compressible, spontaneous, phasic, CFV is compressible, spontaneous, phasic, competent, and demonstrates normal competent and demonstrates normal augmentation. augmentation. POP V is compressible, spontaneous, phasic, competent and demonstrates normal augmentation. T/P Trunk is compressible. Right FV, PTV, PeroV and gastroc vein are partially compressible with minimal flow noted. Procedure Exam performed in department. Compared to study done on 01/17/19. A preliminary report was called and/or faxed to Manuel. Interpretation Summary Acute deep vein thrombosis is noted in the right femoral vein. Acute deep vein thrombosis is noted in the right posterior tibial vein. Acute deep vein thrombosis is noted in the right peroneal vein. Acute deep vein thrombosis is noted in the right gastrocnemius vein. The right common femoral vein, popliteal vein, and tibio-peroneal trunk are patent and compressible. The right common femoral vein and popliteal vein are competent. The right great saphenous vein appears patent and compressible segmentally. There has been improvement since a prior study on 01/17/2019, with resolution of the acute deep vein thrombosis in the right common femoral vein, popliteal vein, and tibio-peroneal trunk. Ordering Physician: Derek Jackson Referring Physician: Derek Jackson Chi Performed By: Jayda Macdonald RVT
== END | disposition home or self-care (01) ==
LOC: CVS 13:56
PROVIDERS: Family Provider Family Medicine Geriatric Medicine; PCP Family Medicine Geriatric Medicine; Referring Provider Family Medicine Geriatric Medicine; Visit Provider Family Medicine Geriatric Medicine
DX: R60.0 Localized edema (principal)
CPT/HCPCS: 93971

== ENCOUNTER → 2020-02-06 12:20 | Outpatient (CLI) | payer MEDICARE, SELFPAY ==
[2020-02-06 12:45] LABS: Absolute Lymphocyte Count 1.68 X10^3/uL (0.83-4.51); Absolute Neutrophil Count 4.6 X10^3/uL (2.0-7.7); Basophil# 0.04 X10^3/uL; Basophil% 0.6 % (0-1); Eosinophil# 0.04 X10^3/uL; Eosinophils% 0.6 % (0-5); Hematocrit 33.6 % (37-47); Hemoglobin 10.9 g/dL (12.0-15.0); Lymphocyte # 1.68 X10^3/ul (4.0); Lymphocyte % 23.4 % (19-41); Mean Corp Hgb Conc 32.4 g/dL (32-36); Mean Corpuscular Hgb 30.4 pg (27.0-32.0); Mean Corpuscular Volume 93.6 fL (81-99); Mean Platelet Vol. 9.7 fl (6.2-12.0); Monocyte# 0.74 X10^3/uL; Monocyte% 10.3 % (0-10); NRBC Flagged by Analyzer 0 % (0-5); Neutrophil # 4.63 X10^3/uL (2.7-7.7); Neutrophil % 64.5 % (47-70); Platelet Count 246 K/mm3 (150-450); RBC Distribution Width CV 13.8 % (11.6-14.6); RBC Distribution Width SD 47.4 fl (35.1-43.9); Red Blood Count 3.59 M/mm3 (4.2-5.4); White Blood Count 7.2 K/mm3 (4.4-11.0)
[2020-02-06 13:06] LABS: ALB/GLOB Ratio 0.9 RATIO (0.9-2.4); AST(SGOT) 18 U/L (15-37); Alanine Aminotransfer ALT/SGPT 17 U/L (13-56); Albumin, Serum 3.3 g/dL (3.2-5.0); Alkaline Phosphatase 70 U/L (45-117); Anion Gap 5 (5-15); BUN 25 mg/dL (7-18); BUN/Creat Ratio 13.1 RATIO (10-20); Calcium,Total 10.6 mg/dL (8.5-10.1); Chloride 105 mmol/L (98-107); Creatinine, Serum 1.91 mg/dL (0.55-1.02); EST Glomerular Filtration Rate 27 mL/min (>60); Est Glom Filt Rate - Afr Amer 32 mL/min (>60); Globulin 3.8 g/dL (2.2-4.2); Glucose 103 mg/dL (74-106); Potassium 3.6 mmol/L (3.5-5.1); Protein, Total 7.1 g/dL (6.4-8.2); Sodium Level 140 mmol/L (136-145); Thyroid Stim Hormone (TSH) 5.82 uIU/mL (0.358-3.74)
[2020-02-06 13:11] LABS: Vitamin D,25 Hydroxy 30.7 ng/mL
== END ==
PROVIDERS: PCP Family Medicine Geriatric Medicine; Visit Provider Family Medicine Geriatric Medicine
DX: E55.9 Vitamin D deficiency, unspecified (principal); I10 Essential (primary) hypertension
CPT/HCPCS: 36415; 80053; 82306; 84443; 85025

== ENCOUNTER → 2020-02-06 12:49 | Outpatient (CLI) | payer MEDICARE, SELFPAY ==
--- NOTE | 2020-02-06 12:55 | VDLE_ITS ---
Reason For Study: Edema RIGHT GSV is normal. CFV is compressible, spontaneous, phasic, competent and demonstrates normal augmentation. FV is partially compressible throughout with bright intraluminal echoes noted consistent with chronic DVT. Normal venous flow noted. POP V is compressible, spontaneous, phasic, competent and demonstrates normal augmentation. T/P Trunk is compressible. PTV is compressible. RT PerV is compressible. Procedure Exam performed in department. A preliminary report was called and/or faxed to Manuel. Interpretation Summary Chronic venous changes are noted in the right femoral vein, which is partially compressible and demonstrates bright intraluminal echogenicity, and normal venous flow. The remainder of the right lower extremity deep venous system is patent and compressible. Valvular competence appears intact within the proximal deep venous system on the right . The right great saphenous vein appears patent and compressible segmentally. Ordering Physician: Derek Jackson Referring Physician: Derek Jackson Chi Performed By: Jayda Macdonald RVT
== END ==
PROVIDERS: PCP Family Medicine Geriatric Medicine; Referring Provider Family Medicine Geriatric Medicine; Visit Provider Family Medicine Geriatric Medicine
DX: R60.0 Localized edema (principal); E55.9 Vitamin D deficiency, unspecified; I10 Essential (primary) hypertension
CPT/HCPCS: 36415; 80053; 82306; 84443; 85025; 93971

== ENCOUNTER → 2020-03-25 | Outpatient (CLI) | payer MEDICARE, SELFPAY ==
[2020-03-25 12:58] LABS: Thyroid Stim Hormone (TSH) 4.76 uIU/mL (0.358-3.74)
== END | disposition home or self-care (01) ==
LOC: POLAB3 10:28
PROVIDERS: PCP Family Medicine Geriatric Medicine; Visit Provider Family Medicine Geriatric Medicine
DX: E03.9 Hypothyroidism, unspecified (principal)
CPT/HCPCS: 36415; 84443

== ENCOUNTER → 2020-06-02 12:06 | Outpatient (CLI) | payer MEDICARE, SELFPAY ==
--- NOTE | 2020-06-02 12:45 | RAD_ITS ---
STUDY: X-RAY - ABDOMEN/PELVIS REASON FOR EXAM: Female, 84 years old. fecal impaction of colon TECHNIQUE: Single AP view of the abdomen / pelvis. COMPARISON: 12/19/2018. FINDINGS: There is fecal retention in the rectum, cannot exclude impaction. Otherwise there is an unremarkable bowel gas pattern. There is no demonstrated free abdominal air. The visualized liver, spleen and kidneys are grossly normal in size and morphology. Normal soft tissue structures. There are diffuse degenerative changes of the visualized lumbar spine. RAD/Abdomen Single View IMPRESSION: No evidence for obstruction. Fecal retention or impaction in the rectum. Electronically Signed: Akshat Dao MD at 0:01 EST , Service support ,
[2020-06-02 14:20] LABS: Thyroid Stim Hormone (TSH) 4.58 uIU/mL (0.358-3.74)
== END ==
PROVIDERS: PCP Family Medicine Geriatric Medicine; Referring Provider Family Medicine Geriatric Medicine; Visit Provider Family Medicine Geriatric Medicine
DX: E03.9 Hypothyroidism, unspecified (principal); N39.0 Urinary tract infection, site not specified; K56.41 Fecal impaction
CPT/HCPCS: 36415; 74018; 84443; 87086; 87088

== ENCOUNTER → 2020-08-06 11:36 | Outpatient (CLI) | payer MEDICARE, SELFPAY ==
[2020-08-06 12:20] LABS: Absolute Lymphocyte Count 1.63 X10^3/uL (0.83-4.51); Basophil# 0.03 X10^3/uL; Basophil% 0.4 % (0-1); Eosinophil# 0.17 X10^3/uL; Eosinophils% 2.2 % (0-5); Hematocrit 30.4 % (37-47); Hemoglobin 9.8 g/dL (12.0-15.0); Lymphocyte # 1.63 X10^3/ul (4.0); Lymphocyte % 21.4 % (19-41); Mean Corp Hgb Conc 32.2 g/dL (32-36); Mean Corpuscular Hgb 30.8 pg (27.0-32.0); Mean Corpuscular Volume 95.6 fL (81-99); Mean Platelet Vol. 9.7 fl (6.2-12.0); Monocyte# 0.81 X10^3/uL; Monocyte% 10.6 % (0-10); NRBC Flagged by Analyzer 0 % (0-5); Neutrophil # 4.95 X10^3/uL (2.7-7.7); Platelet Count 191 K/mm3 (150-450); RBC Distribution Width CV 13.7 % (11.6-14.6); RBC Distribution Width SD 47.4 fl (35.1-43.9); Red Blood Count 3.18 M/mm3 (4.2-5.4); White Blood Count 7.6 K/mm3 (4.4-11.0)
[2020-08-06 12:36] LABS: Vitamin D,25 Hydroxy 34.4 ng/mL
[2020-08-06 12:45] LABS: ALB/GLOB Ratio 0.9 RATIO (0.9-2.4); AST(SGOT) 15 U/L (15-37); Alanine Aminotransfer ALT/SGPT 14 U/L (13-56); Albumin, Serum 3.4 g/dL (3.2-5.0); Alkaline Phosphatase 74 U/L (45-117); Anion Gap 6 (5-15); BUN 21 mg/dL (7-18); BUN/Creat Ratio 10.9 RATIO (10-20); Calcium,Total 9.9 mg/dL (8.5-10.1); Chloride 105 mmol/L (98-107); Creatinine, Serum 1.93 mg/dL (0.55-1.02); EST Glomerular Filtration Rate 26 mL/min (>60); Est Glom Filt Rate - Afr Amer 32 mL/min (>60); Globulin 3.7 g/dL (2.2-4.2); Glucose 87 mg/dL (74-106); Potassium 3.5 mmol/L (3.5-5.1); Protein, Total 7.1 g/dL (6.4-8.2); Sodium Level 140 mmol/L (136-145); Thyroid Stim Hormone (TSH) 5.47 uIU/mL (0.358-3.74)
== END ==
PROVIDERS: PCP Family Medicine Geriatric Medicine; Visit Provider Family Medicine Geriatric Medicine
DX: E55.9 Vitamin D deficiency, unspecified (principal); I10 Essential (primary) hypertension
CPT/HCPCS: 36415; 80053; 82306; 84443; 85025

== ENCOUNTER 2020-08-12 12:49 | Outpatient (RCR) | payer MEDICARE, SELFPAY ==
[2020-08-12] MEDS: COVID-19 VACC, MRNA(PFIZER)/PF 30 MCG/0.3 ML SYRINGE IM (10:05)
== END 2020-11-11 23:59 ==
LOC: IMMUN 12:49
PROVIDERS: PCP Family Medicine Geriatric Medicine; Visit Provider Family Medicine
DX: Z23 Encounter for immunization (principal)
CPT/HCPCS: 0001A; 91300

== ENCOUNTER 2020-08-22 12:21 | Inpatient (IN) | payer MEDICARE, SELFPAY ==
[2020-08-22] VITALS (11 sets, daily range): BP systolic 153–205; BP diastolic 77–107; PULSE 71–99; RESP 16–19; TEMP 36.4–36.9; O2SAT 95–100; BMI 24.4; BMI 25.2
--- NOTE | 2020-08-22 13:11 | RAD_ITS ---
STUDY: X-RAY CHEST REASON FOR EXAM: Female, 84 years old. Weakness TECHNIQUE: Single AP portable view of the chest. COMPARISON: Comparison is made with prior study dated 12/05/2018. FINDINGS: EKG electrodes are seen. There is hyperinflation of the lungs consistent with chronic obstructive lung disease (COPD). There is no demonstrated pleural abnormality. Normal size heart. Normal mediastinum and mazin. Normal visualized pulmonary arteries. There is atherosclerotic calcification of the aortic arch with tortuosity. Normal visualized thoracic spine. There is degenerative osteoarthritis of the bilateral shoulders. There is no demonstrated abnormality of the visualized soft tissue structures of the upper abdomen. RAD/Chest 1 View (Portable) IMPRESSION: No acute abnormality is seen. Electronically Signed: Александр Ledesma MD at 14:01 EDT , Service support ,
--- NOTE | 2020-08-22 13:11 | EKG12_ITS ---
Test Reason : FATIGUE Blood Pressure : / mmHG Vent. Rate : 069 BPM Atrial Rate : 234 BPM P-R Int : 000 ms QRS Dur : 082 ms QT Int : 376 ms P-R-T Axes : 000 -08 045 degrees QTc Int : 402 ms Sinus rhythm Abnormal ECG Confirmed by ELMO BARAJAS, AMY ([id number]), medical editor ELLIOT SANCHEZ ([id number]) on 08/25/2020 10:55:16 A M Referred By: HECTOR Confirmed By:STACY BORREGO MD
--- NOTE | 2020-08-22 13:14 | ED.DCSUM_ITS ---
History of Present Illness Chief Complaint: Fatigue Informant: Patient Narrative: 84-year-old female presenting with generalized weakness. She states he has some mild nausea as well. She has decreased p.o. intake. Patient states she received her Covid 19 vaccine about a week and a half ago and since that time has been doing poorly. Has not had a fever, body aches, chest pain, palpitations, shortness of breath, abdominal pain. She denies urinary complaints. She is making bowel movements. She is not had any falls but feels like she can even walk. Her family is helping her get around the house. Prior to her Covid vaccine she states she was doing well. Daughter states that at her last office visit she was told she has hypothyroidism but she has not been started on any medications. Past Medical History - Allergies and Home Meds Allergies/Adverse Reactions: Allergies heparin Allergy (Verified 08/22/20 15:16) Rash Surgical History: hysterectomy, - - Laser kidney stone. Smoking Status: Never smoker - Family History Maternal Family History: Reports: No pertinent history Paternal Family History: Reports: No pertinent history Physical Exam Vital Signs/Narrative: Vital Signs Temp Pulse Resp BP Pulse Ox 08/22/20 12:22 97.9 F 72 18 190/107 H 100 Diagnostic/Tx/Re-eval Clinical Impression(s) from Imaging Studies Chest X-Ray 08/22/20 13:11 IMPRESSION: No acute abnormality is seen. Electronically Signed: Александр Ledesma MD at 14:01 EDT , Service support , Laboratory Data 08/22/20 08/22/20 13:28 13:28 WBC 5.9 RBC 3.24 L Hgb 10.0 L Hct 30.4 L MCV 93.8 MCH 30.9 MCHC 32.9 RDW Std Deviation 45.2 H RDW Coeff of Cain 13.1 Plt Count 181 MPV 9.2 Immature Gran % (Auto) 0.300 Neut % (Auto) 71.2 H Lymph % (Auto) 16.8 L [place] % (Auto) 9.8 Eos % (Auto) 1.4 Baso % (Auto) 0.5 Absolute Neuts (auto) 4.2 Absolute Lymphs (auto) 0.99 Nucleated RBC % 0 Sodium 143 Potassium 3.3 L Chloride 106 Carbon Dioxide 32.0 Anion Gap 5 BUN 31 H Creatinine 2.96 H Estim Creat Clear Calc 10.53 Est GFR (MDRD) Af Amer 20 L Est GFR (MDRD) Non-Af 16 L BUN/Creatinine Ratio 10.5 Glucose 107 H Calcium 12.9 H* Total Bilirubin 0.30 AST 14 L ALT 15 Alkaline Phosphatase 76 Troponin I < 0.015 Total Protein 7.3 Albumin 3.4 Globulin 3.9 Albumin/Globulin Ratio 0.9 TSH 5.07 H Free T4 1.32 Free T3 pg/dL 2.7 - Medical Decision Making 84-year-old female presenting with generalized weakness. She states she is unable to ambulate. She does have a family member who is giving her care however they are concerned for her level of weakness. She has associated symptoms of nausea but does not have any other systemic signs or symptoms. She has no pain anywhere. She not short of breath. Patient does state that she has history of abnormal TSH and she is not on any medication for thyroid treatment. EKG performed on arrival shows sinus rhythm at 69 bpm without signs of ischemic change as interpreted by myself. Theology does agree. Blood work shows CBC with white blood cell count 5.9 hemoglobin 10.0, platelets 181. CMP shows sodium 143, potassium 3.3, BUN 31, creatinine 2.96, calcium 12.9 LFT's are normal. TSH is 5.07. T3 and T4 normal. Opponent negative. After patient's lab work-up it is noted that her creatinine is usually around 2 and sometimes slightly lower. Representing acute kidney injury. She did not appear to be prerenal azotemia. She is given a 500 cc bolus of normal saline and then started at a rate of 150/h. Patient's potassium is 3.3 I will hold off on repleting this given her nausea. This can be repleted on the medical floor. Patient was noted to be hypertensive. She states he only takes 12.5 mg of metoprolol the morning. She believes she took this. I did give her 5 mg of hydralazine. Her blood pressure will be monitored on the medical floor. Patient is transferred in stable condition. Impression: 1. Generalized weakness 2. Hypercalcemia 3. Hypokalemia 4. Acute kidney injury ED Disposition - Plan for ED Patient: Disposition: Acute Care [facility]
[2020-08-22 13:38] LABS: Absolute Lymphocyte Count 0.99 X10^3/uL (0.83-4.51); Absolute Neutrophil Count 4.2 X10^3/uL (2.0-7.7); Basophil# 0.03 X10^3/uL; Basophil% 0.5 % (0-1); Eosinophil# 0.08 X10^3/uL; Eosinophils% 1.4 % (0-5); Hematocrit 30.4 % (37-47); Lymphocyte # 0.99 X10^3/ul (4.0); Lymphocyte % 16.8 % (19-41); Mean Corp Hgb Conc 32.9 g/dL (32-36); Mean Corpuscular Hgb 30.9 pg (27.0-32.0); Mean Corpuscular Volume 93.8 fL (81-99); Mean Platelet Vol. 9.2 fl (6.2-12.0); Monocyte# 0.58 X10^3/uL; Monocyte% 9.8 % (0-10); NRBC Flagged by Analyzer 0 % (0-5); Neutrophil % 71.2 % (47-70); Platelet Count 181 K/mm3 (150-450); RBC Distribution Width CV 13.1 % (11.6-14.6); RBC Distribution Width SD 45.2 fl (35.1-43.9); Red Blood Count 3.24 M/mm3 (4.2-5.4); White Blood Count 5.9 K/mm3 (4.4-11.0)
[2020-08-22 14:05] LABS: ALB/GLOB Ratio 0.9 RATIO (0.9-2.4); AST(SGOT) 14 U/L (15-37); Alanine Aminotransfer ALT/SGPT 15 U/L (13-56); Albumin, Serum 3.4 g/dL (3.2-5.0); Alkaline Phosphatase 76 U/L (45-117); Anion Gap 5 (5-15); BUN 31 mg/dL (7-18); BUN/Creat Ratio 10.5 RATIO (10-20); Calcium,Total 12.9 mg/dL (8.5-10.1); Chloride 106 mmol/L (98-107); Creatinine, Serum 2.96 mg/dL (0.55-1.02); EST Glomerular Filtration Rate 16 mL/min (>60); Est Glom Filt Rate - Afr Amer 20 mL/min (>60); Estimated Creatinine Clearance 10.53 ml/min; Free T3 2.7 pg/mL (2.18-3.98); Globulin 3.9 g/dL (2.2-4.2); Glucose 107 mg/dL (74-106); Potassium 3.3 mmol/L (3.5-5.1); Protein, Total 7.3 g/dL (6.4-8.2); Sodium Level 143 mmol/L (136-145); T4 Free Direct 1.32 ng/dL (0.76-1.46); Thyroid Stim Hormone (TSH) 5.07 uIU/mL (0.358-3.74)
--- NOTE | 2020-08-22 14:39 | PCM.HP.STD ---
Problem List (1) Acute on chronic kidney failure Status: Acute Qualifiers: Acute renal failure type: unspecified Chronic kidney disease stage: stage 4 (severe) Qualified Code(s): N17.9 - Acute kidney failure, unspecified; N18.4 - Chronic kidney disease, stage 4 (severe) (2) Hypokalemia Status: Acute (3) Debility Status: Acute (4) Hypertension Status: Chronic Qualifiers: Hypertension type: essential hypertension Qualified Code(s): I10 - Essential (primary) hypertension History of Present Illness Date of Admission: 08/22/20 Chief Complaint: Generalised weakness, poor po intake The patient is a 84 year old F with past medical history of hemorrhagic CVA, hypertension, who lives in a [id number] unit with her daughter. She had had her COVID-19 vaccination about a week and half ago. She has since had progressive fatigue and loss of appetite and has not been eating and drinking. A day prior to admission, I was noted the patient was more confused and has barely been eating or drinking. She complains of nausea and has vomited a couple of times in the ED. Vitals in the ED showed temperature of 97.9F, heart rate 22, blood pressure 190/107, respiratory rate 18, SPO2 100% WBC count is 5.9, hemoglobin 10.0, which is close to her baseline, platelet count 181, sodium 143, potassium 3.3, chloride 106, bicarbonate 32, BUN 31, creatinine 2.96, creatinine is 1.9, calcium was 12.9, LFTs unremarkable, TSH 5.07, free T4 1.32, free T3 2.7 EKG shows NSR, 1st degree AV block. Past Medical History Past Medical History (Chronic Problems): Chronic Problems Nail disorder (onychogryphosis) (Chronic) Tinea unguium (Chronic) Toe pain, right (Chronic) Toe pain, left (Chronic) Anemia (Chronic) Osteoarthritis (Chronic) Kidney stone (Chronic) Hypertension (Chronic) Allergies No Known Allergies Allergy (Verified 08/22/20 12:25) Home Medications: Ambulatory Orders Medication Instructions Recorded Aspirin E.C. [Ecotrin] 81 mg PO DAILY@0800 08/22/20 Calcium Carbonate [Tums] 500 mg PO DAILY PRN 08/22/20 Levothyroxine Sodium [Synthroid] 25 mcg PO DAILY 08/22/20 Metoprolol Tartrate 12.5 mg PO BID 08/22/20 Surgical History: hysterectomy, - - Laser kidney stone. Psychiatric History: No pertinent psych hx [employer]ANT SALES History: No pertinent [employer] SAL[employer] history Lives: With Family Smoking Status: Never smoker Tobacco Use: Non-smoker Alcohol: None Drugs: None - *Family History Maternal History Items: Stroke Paternal History Items: Heart Disease Review of Systems Comment: Constitutional: Reports: Malaise, Weakness, Fatigue, Anorexia. Denies: Chills, Fever, Night Sweats, Weight Change. Eyes: Denies: Blurred vision, Cataracts, Conjunctivae Inflammation, Pain, Redness, Vision Change. HEENT: Denies: Difficulty Hearing, Difficulty Swallowing, Head Aches, Hearing Changes, Sinus Congestion, Sinus Drainage. Cardiovascular: Denies: Chest Pain, Orthopnea, Palpitations. Respiratory: Denies: Cough, Shortness of breath at rest, Sputum production. Gastrointestinal: Denies: Abdominal Pain, Nausea, Vomiting. Genitourinary: Denies: Dysuria. Musculoskeletal: Denies: Joint Pain, Joint stiffness, Joint swelling, Joint Tenderness. Skin: Denies: Rash, Wounds. Neurological: Denies: Numbness, Tingling, Focal weakness VTE Information - Inpt Only VTE Present on Admission: No VTE Pharm Prophylaxis ordered?: Yes Patient Problems: Active and Suspected Problems Acute on chronic kidney failure (Acute) Hypokalemia (Acute) Debility (Acute) - Physical Exam Vitals/I&O's: Vital Signs Temp Pulse Resp BP Pulse Ox 97.6 F L 71 19 H 184/92 H 100 08/22/20 13:27 08/22/20 13:27 08/22/20 13:27 08/22/20 13:27 08/22/20 13:27 Oxygen Delivery Method Room Air Weight: 56.699 kg Body Mass Index (BMI) 24.4 General: Alert, Oriented x3 - Not to time, Cooperative, No apparent distress, - - Appears very frail HEENT: Atraumatic, PERRLA, EOMI, Normocephalic Oral: Dry Mucosa Neck: Supple Lungs: Clear to auscultation, Normal air movement Cardiovascular: Regular rate, Regular Rhythm, Normal S1, No murmurs Abdomen: Bowel Sounds Present, Soft, Non Tender, Non-Distended, No Hepato-splenomegaly Extremities: No edema Skin: No rashes Musculoskeletal: - - Deformity of the anterior chest wall with kyphosis Lymphatic: No Cervical, Supraclavicular, or Inguinal Adenopathy Neurological: Cranial nerves II-XII grossly intact, Neuro grossly intact Psych/Mental Status: Normal Affect, Appropriate Laboratory Results 08/22/20 13:28: WBC 5.9, RBC 3.24 L, Hgb 10.0 L, Hct 30.4 L, MCV 93.8, MCH 30.9, MCHC 32.9, RDW Std Deviation 45.2 H, RDW Coeff of Cain 13.1, Plt Count 181, MPV 9.2, Immature Gran % (Auto) 0.300, Neut % (Auto) 71.2 H, Lymph % (Auto) 16.8 L, [place] % (Auto) 9.8, Eos % (Auto) 1.4, Baso % (Auto) 0.5, Absolute Neuts (auto) 4.2, Absolute Lymphs (auto) 0.99, Nucleated RBC % 0 08/22/20 13:28: Sodium 143, Potassium 3.3 L, Chloride 106, Carbon Dioxide 32.0, Anion Gap 5, BUN 31 H, Creatinine 2.96 H, Estim Creat Clear Calc 10.53, Est GFR (MDRD) Af Amer 20 L, Est GFR (MDRD) Non-Af 16 L, BUN/Creatinine Ratio 10.5, Glucose 107 H, Calcium 12.9 H*, Total Bilirubin 0.30, AST 14 L, ALT 15, Alkaline Phosphatase 76, Troponin I < 0.015, Total Protein 7.3, Albumin 3.4, Globulin 3.9, Albumin/Globulin Ratio 0.9, TSH 5.07 H, Free T4 1.32, Free T3 pg/dL 2.7 Current Medications Sodium Chloride () 1,000 mls @ 150 mls/hr IV .Q6H40M [facility] Assessment/Plan All Active Problems UTI (urinary tract infection) (Acute) Fall (Acute) Encephalopathy (Acute) Closed head injury (Acute) Acute on chronic kidney failure (Acute) Hypokalemia (Acute) Debility (Acute) Nausea & vomiting (Acute) Hemorrhagic stroke (Acute) Hypertensive emergency (Acute) 1. Debility, progressive weakness, status post COVID-19 vaccination one and half weeks ago Now with poor/no p.o. intake Will give IV fluids, PT/OT to evaluate and treat Family is open for subacute rehab if needed Social work/case management consulted 2. Hypertensive urgency, BP is uncontrolled, will resume home metoprolol Hydralazine as needed 3. CHRIS on CKD stage IV, prerenal secondary to dehydration baseline creatinine between 1.5-1.9 Admitted with creatinine of 2.96 Continue on IV fluids, repeat blood work in a.m. 4. Hypercalcemia secondary to oral calcium supplementation Would hold oral calcium, aggressive IV fluids, Check PTH, vitamin D levels Ten blood work in a.m. 5. Hypokalemia, replaced, recheck in a.m. 6. Anemia, chronic, normocytic likely secondary to CKD We will check iron stores 7. DVT PPx- Heparin SC 8. Code status - DNR-CCA, no intubation I discussed and explained in details the various types of CODE STATUS-full code, DNR CCA, DNR CC with patient and her daughter. Patient chose Time spent discussing CODE STATUS 18 minutes Inpatient E&M: 74724 Init Hosp L3 Procedures: 40201 Advncd Care Plan 30 Min
[2020-08-22] MEDS: Ondansetron 4 MG/2 ML Vial IV (14:52)
[2020-08-22] MEDS: hydrALAZINE 20 MG/ML Vial 5 MG IV (15:24)
[2020-08-22 16:22] LABS: Ferritin 105 ng/mL (8-252); Iron 61 ug/dL (50-170); Iron Binding Capacity,Total 336 ug/dL (250-450); PERCENT IRON SATURATION 18.2 % (15.0-55.0)
[2020-08-22] MEDS: Acetaminophen 325 MG Tablet 650 MG PO (17:04)
[2020-08-22] MEDS: Potassium Chloride Oral Tablet 20 MEQ 40 MEQ PO (17:05)
[2020-08-22 17:20] LABS: Anion Gap 8 (5-15); BUN 31 mg/dL (7-18); Calcium,Total 12.2 mg/dL (8.5-10.1); Chloride 108 mmol/L (98-107); Creatinine, Serum 2.83 mg/dL (0.55-1.02); EST Glomerular Filtration Rate 17 mL/min (>60); Est Glom Filt Rate - Afr Amer 21 mL/min (>60); Estimated Creatinine Clearance 13.28 ml/min; Glucose 108 mg/dL (74-106); Sodium Level 144 mmol/L (136-145)
[2020-08-22] MEDS: 0.9% Normal Saline 1,000 ML 150 ML IV (19:30)
[2020-08-22] MEDS: Metoprolol Tartrate 25 MG Tablet 12.5 MG PO (21:38)
[2020-08-22] MEDS: 0.9% Saline Lock 10 ML Syringe IV (22:30)
[2020-08-23] VITALS (12 sets, daily range): BP systolic 154–164; BP diastolic 62–92; PULSE 79–92; RESP 16–22; TEMP 36.6–36.8; O2SAT 95–98
[2020-08-23] LABS: Color, Urine Yellow (Yellow); Glucose, Dipstick Normal (Normal); Ketone-Dipstick Negative (Negative); Leukocyte Esterase-Dipstick 25 /ul (Negative); Nitrite-Dipstick Negative (Negative); Occult Blood-Urine Negative /ul (Negative); Protein-Dipstick 30 mg/dl (Negative); Specific Gravity, Urine 1.015 (1.002-1.030); Urine Bilirubin Dipstick Negative (Negative); Urine Clarity Clear (Clear); Urine Urobilinogen Normal (Normal)
[2020-08-23] MEDS: 0.9% Normal Saline 1,000 ML 150 ML IV (02:58)
[2020-08-23] MEDS: Levothyroxine 25 MCG TABLET PO (05:42)
[2020-08-23 07:23] LABS: Absolute Lymphocyte Count 0.96 X10^3/uL (0.83-4.51); Basophil# 0.03 X10^3/uL; Basophil% 0.5 % (0-1); Eosinophil# 0.09 X10^3/uL; Eosinophils% 1.6 % (0-5); Hematocrit 27.4 % (37-47); Hemoglobin 8.7 g/dL (12.0-15.0); Lymphocyte # 0.96 X10^3/ul (4.0); Lymphocyte % 16.9 % (19-41); Mean Corp Hgb Conc 31.8 g/dL (32-36); Mean Corpuscular Hgb 30.3 pg (27.0-32.0); Mean Corpuscular Volume 95.5 fL (81-99); Mean Platelet Vol. 9.7 fl (6.2-12.0); Monocyte# 0.57 X10^3/uL; NRBC Flagged by Analyzer 0 % (0-5); Neutrophil # 4.02 X10^3/uL (2.7-7.7); Neutrophil % 70.6 % (47-70); Platelet Count 156 K/mm3 (150-450); RBC Distribution Width CV 13.2 % (11.6-14.6); RBC Distribution Width SD 45.7 fl (35.1-43.9); Red Blood Count 2.87 M/mm3 (4.2-5.4); White Blood Count 5.7 K/mm3 (4.4-11.0)
[2020-08-23 07:58] LABS: ALB/GLOB Ratio 0.9 RATIO (0.9-2.4); AST(SGOT) 15 U/L (15-37); Alanine Aminotransfer ALT/SGPT 13 U/L (13-56); Albumin, Serum 2.9 g/dL (3.2-5.0); Alkaline Phosphatase 62 U/L (45-117); Anion Gap 6 (5-15); BUN 28 mg/dL (7-18); BUN/Creat Ratio 10.7 RATIO (10-20); Calcium,Total 10.5 mg/dL (8.5-10.1); Chloride 115 mmol/L (98-107); Creatinine, Serum 2.61 mg/dL (0.55-1.02); EST Glomerular Filtration Rate 19 mL/min (>60); Est Glom Filt Rate - Afr Amer 23 mL/min (>60); Estimated Creatinine Clearance 15.22 ml/min; Globulin 3.1 g/dL (2.2-4.2); Glucose 94 mg/dL (74-106); Potassium 3.5 mmol/L (3.5-5.1); Sodium Level 145 mmol/L (136-145)
[2020-08-23] MEDS: Aspirin E.C. 81 MG Tablet PO (08:02)
[2020-08-23] MEDS: Metoprolol Tartrate 25 MG Tablet 12.5 MG PO ×2 (08:02→21:33)
--- NOTE | 2020-08-23 08:40 | CPS ---
[facility] held for patient care by nursing
[2020-08-23] MEDS: Acetaminophen 325 MG Tablet 650 MG PO (10:40)
[2020-08-23] MEDS: 0.9% Normal Saline 1,000 ML 100 ML IV ×2 (10:43→20:45)
--- NOTE | 2020-08-23 13:06 | PN_ITS ---
Patient Problems: Active and Suspected Problems Acute on chronic kidney failure (Acute) Hypokalemia (Acute) Debility (Acute) Subjective: Patient seen and examined. She was lying comfortably in bed, but complained of just feeling tired. She was also noted to have mild swelling of her upper lip. Per her daughter, the only new medication she was recently started on is synthroid. She is not on any ISABELLE-I. Daughter says she has had such similar swelling in the past on admission. Review of systems is otherwise negative. Cr is 2.61. Vitals/I&O's: Vital Signs Temp Pulse Resp BP Pulse Ox 97.8 F 82 18 154/62 H 96 08/23/20 13:00 08/23/20 13:00 08/23/20 13:00 08/23/20 13:00 08/23/20 13:00 Oxygen Delivery Method Room Air Weight: 127 lb 13.89 oz Body Mass Index (BMI) 25.2 Intake and Output for Last 24 Hours 08/21/20 08/22/20 08/23/20 23:59 23:59 23:59 Intake Total 1335 / 1335 1505 / 1505 Output Total 225 / 225 1100 / 1100 Balance 1110 / 1110 405 / 405 General: Alert, Oriented x3, Cooperative, No apparent distress, Lethargic HEENT: Atraumatic, PERRLA, EOMI, Normocephalic Oral: Dry Mucosa, - - mild swelling of upper lip Neck: Supple, No JVD, Negative Carotid Bruits Lungs: Clear to auscultation, Normal air movement, No rhonchi, No wheeze Cardiovascular: Regular rate, Regular Rhythm, Normal S1, Normal S2, No murmurs Abdomen: Bowel Sounds Present, Soft, Non Tender, Non-Distended, No Hepato- splenomegaly Extremities: No clubbing, No cyanosis, No edema, Capillary Refill Less than 3 Seconds Skin: No rashes, No breakdown Musculoskeletal: No Tenderness to Palpation of Joints or Extremities Lymphatic: No Cervical, Supraclavicular, or Inguinal Adenopathy Neurological: Cranial nerves II-XII grossly intact, Neuro grossly intact, Motor Exam 5/5 strength throughout Psych/Mental Status: Normal Affect, Appropriate, Alert and oriented to time, place, person, mood and affect Laboratory Results 08/22/20 13:28: WBC 5.9, RBC 3.24 L, Hgb 10.0 L, Hct 30.4 L, MCV 93.8, MCH 30.9, MCHC 32.9, RDW Std Deviation 45.2 H, RDW Coeff of Cain 13.1, Plt Count 181, MPV 9.2, Immature Gran % (Auto) 0.300, Neut % (Auto) 71.2 H, Lymph % (Auto) 16.8 L, [place] % (Auto) 9.8, Eos % (Auto) 1.4, Baso % (Auto) 0.5, Absolute Neuts (auto) 4.2, Absolute Lymphs (auto) 0.99, Nucleated RBC % 0 08/22/20 13:28: Sodium 143, Potassium 3.3 L, Chloride 106, Carbon Dioxide 32.0, Anion Gap 5, BUN 31 H, Creatinine 2.96 H, Estim Creat Clear Calc 10.53, Est GFR (MDRD) Af Amer 20 L, Est GFR (MDRD) Non-Af 16 L, BUN/Creatinine Ratio 10.5, Glucose 107 H, Calcium 12.9 H*, Total Bilirubin 0.30, AST 14 L, ALT 15, Alkaline Phosphatase 76, Troponin I < 0.015, Total Protein 7.3, Albumin 3.4, Globulin 3.9, Albumin/Globulin Ratio 0.9, TSH 5.07 H, Free T4 1.32, Free T3 pg/dL 2.7 08/22/20 13:28: Iron 61, TIBC 336, Iron Saturation 18.2, Ferritin 105 08/22/20 13:28: PTH Intact Pending 08/22/20 16:54: Sodium 144, Potassium 3.0 L, Chloride 108 H, Carbon Dioxide 28.0, Anion Gap 8, BUN 31 H, Creatinine 2.83 H, Estim Creat Clear Calc 13.28, Est GFR (MDRD) Af Amer 21 L, Est GFR (MDRD) Non-Af 17 L, BUN/Creatinine Ratio 11.0, Glucose 108 H, Calcium 12.2 H 08/22/20 23:45: Urine Color Yellow, Urine Clarity Clear, Urine pH 8.0, Ur Specific [place] 1.015, Urine Protein 30 H, Urine Glucose (UA) Normal, Urine Ketones Negative, Urine Occult Blood Negative, Urine Nitrite Negative, Urine Bilirubin Negative, Urine Urobilinogen Normal, Ur Leukocyte Esterase 25 H 08/23/20 06:45: WBC 5.7, RBC 2.87 L, Hgb 8.7 L, Hct 27.4 L, MCV 95.5, MCH 30.3, MCHC 31.8 L, RDW Std Deviation 45.7 H, RDW Coeff of Cain 13.2, Plt Count 156, MPV 9.7, Immature Gran % (Auto) 0.400, Neut % (Auto) 70.6 H, Lymph % (Auto) 16.9 L, [place] % (Auto) 10.0, Eos % (Auto) 1.6, Baso % (Auto) 0.5, Absolute Neuts (auto) 4.0, Absolute Lymphs (auto) 0.96, Nucleated RBC % 0 08/23/20 06:45: Sodium 145, Potassium 3.5, Chloride 115 H, Carbon Dioxide 24.0, Anion Gap 6, BUN 28 H, Creatinine 2.61 H, Estim Creat Clear Calc 15.22, Est GFR (MDRD) Af Amer 23 L, Est GFR (MDRD) Non-Af 19 L, BUN/Creatinine Ratio 10.7, Glucose 94, Calcium 10.5 H, Total Bilirubin 0.30, AST 15, ALT 13, Alkaline Phosphatase 62, Total Protein 6.0 L, Albumin 2.9 L, Globulin 3.1, Albumin/Globulin Ratio 0.9 08/23/20 06:45: Vit D 1,25-Dihydroxy Cancelled 08/23/20 06:45: Vitamin D 25-Hydroxy Pending Diagnostic Data Chest X-Ray 08/22/20 13:11 IMPRESSION: No acute abnormality is seen. Electronically Signed: Александр Ledesma MD at 14:01 EDT , Service support , Current Medications Acetaminophen (Acetaminophen 325 Mg Tablet) 650 mg PO Q6H PRN PRN PRN Reason: Pain Score 1-10/Temp > 100.7 F Last Admin: 08/23/20 10:40 Dose: 650 mg Documented by: Aspirin (Aspirin E.C. 81 Mg Tablet) 81 mg PO DAILY@0800 JAZMINE Last Admin: 08/23/20 08:02 Dose: 81 mg Documented by: Diphenhydramine HCl (Diphenhydramine 50 Mg/Ml Syringe) 25 mg IV Q4H PRN PRN PRN Reason: Angioedema Hydralazine HCl (Hydralazine 20 Mg/Ml Vial) 5 mg IV Q6H PRN PRN PRN Reason: BLOOD PRESSURE Sodium Chloride () 1,000 mls @ 100 mls/hr IV .Q10H [facility] Last Admin: 08/23/20 10:43 Dose: 100 mls/hr Documented by: Levothyroxine Sodium (Levothyroxine 25 Mcg Tablet) 25 mcg PO DAILY@0600 [facility] Last Admin: 08/23/20 05:42 Dose: 25 mcg Documented by: Metoprolol Tartrate (Metoprolol Tartrate 25 Mg Tablet) 12.5 mg PO BID [facility] Last Admin: 08/23/20 08:02 Dose: 12.5 mg Documented by: Nutritional Formula (Lactose Free) (Ensure Enlive 120 Ml Liquid) 120 ml PO 4X/DAY [facility] Last Admin: 08/23/20 12:04 Dose: 120 ml Documented by: Sodium Chloride (0.9% Saline Lock 10 Ml Syringe) 10 - 40 ml IV UD PRN PRN Reason: SALINE FLUSH Last Admin: 08/22/20 22:30 Dose: 10 ml Documented by: STROKE Vital Signs/Narrative: Vital Signs Temp Pulse Resp BP Pulse Ox 08/23/20 13:00 97.8 F 82 18 154/62 H 96 08/23/20 11:29 83 Medical Necessity - Tobacco Use Smoking Status: Never smoker Tobacco Use: Non-smoker Assessment/Plan All Active Problems UTI (urinary tract infection) (Acute) Fall (Acute) Encephalopathy (Acute) Closed head injury (Acute) Acute on chronic kidney failure (Acute) Hypokalemia (Acute) Debility (Acute) Nausea & vomiting (Acute) Hemorrhagic stroke (Acute) Hypertensive emergency (Acute) #Hypercalcemia * calcium was 12.2 on admission, now down to 10.5 * continue hydrating with normal saline. # Hypertensive urgency: resolved. BP is now down to the 150s. Continue home metoprolol. IV hydrazine prn #Debility * due to general medical condition * PT/OT on board * fall precautions * #?angioedema * has mildly swollen upper lip, which daughter says has happened in the past too. Not on any ISABELLE-I or ARB * give IV benadryl 25mg every 6 hours as needed * #Hypokalemia: resolved #CHRIS on CKD IV * Today is 2.61. Baseline is around 1.5. Continue hydration with IV fluids. * #Acute on chronic anemia: Stable. Hemoglobin is down to 8.7 which may be hemodilution all #has been receiving fluids. will monitor #DVT propylaxis: heparin Code status: DNRCCA no intubation Inpatient E&M: 94911 Subs Hosp L2
[2020-08-23] MEDS: DiphenhydrAMINE 50 MG/ML Syringe 25 MG IV ×2 (13:12→21:35)
[2020-08-23] MEDS: 0.9% Saline Lock 10 ML Syringe IV (13:13)
--- NOTE | 2020-08-23 15:17 | CM.UR ---
RN CM Assessment Introduced role of RN CM to patient.? Patient is alert, oriented and able?to participate in RN CM Assessment. ?Care providers, pharmacy, and demographics verified. no family present at bedside. Presentation: Fatigued, generalized weakness Admit Dx: CHRIS Re-Admit: no Barriers/Issues: ? memory impairment PCP: Manuel Specialists: denies Preferred Pharmacy: [facility] Insurance: aetna MCR Rx Benefit:? Yes ?LNOK: Dari Workman, daughter LW/HPOA: Yes on file. Her who has is listed as HCPOA but the daughter who she lives with (Dari) is first alternate. Living Arrangements:? Lives in a [id number] suite that was built onto her daughter's house. ADL?s: Independent Transportation: One of her daughters, Has 5 surviving daughters. DME: Cane, walker, w/c, ramp and grab bars H[facility]: [facility] SNF: [facility] Goal: Home, denies needs. DC PLAN: Home, no needs anticipated at this time. Attempted to call daughter to see if she was aware of any needs however no answer. LVM asking for her to return call or let floor staff know if there was anything. Alerted patient that case management will remain available should any needs arise. Verb understanding. Modesta Granda, XANDER, CCM.
[2020-08-24] VITALS (13 sets, daily range): BP systolic 133–206; BP diastolic 59–103; PULSE 66–152; RESP 16–18; TEMP 36.5–36.8; O2SAT 96–98
[2020-08-24] MEDS: Levothyroxine 25 MCG TABLET PO (06:06)
[2020-08-24 06:23] LABS: Absolute Lymphocyte Count 1.44 X10^3/uL (0.83-4.51); Absolute Neutrophil Count 5.6 X10^3/uL (2.0-7.7); Basophil# 0.03 X10^3/uL; Basophil% 0.4 % (0-1); Eosinophil# 0.13 X10^3/uL; Eosinophils% 1.6 % (0-5); Hemoglobin 9.2 g/dL (12.0-15.0); Lymphocyte # 1.44 X10^3/ul (4.0); Mean Corp Hgb Conc 31.7 g/dL (32-36); Mean Corpuscular Hgb 30.4 pg (27.0-32.0); Mean Corpuscular Volume 95.7 fL (81-99); Mean Platelet Vol. 9.7 fl (6.2-12.0); Monocyte# 0.72 X10^3/uL; NRBC Flagged by Analyzer 0 % (0-5); Neutrophil # 5.63 X10^3/uL (2.7-7.7); Neutrophil % 70.6 % (47-70); Platelet Count 154 K/mm3 (150-450); RBC Distribution Width CV 13.3 % (11.6-14.6); RBC Distribution Width SD 46.9 fl (35.1-43.9); Red Blood Count 3.03 M/mm3 (4.2-5.4)
[2020-08-24] MEDS: 0.9% Normal Saline 1,000 ML 100 ML IV (06:44)
[2020-08-24 06:57] LABS: Anion Gap 8 (5-15); BUN 25 mg/dL (7-18); BUN/Creat Ratio 10.4 RATIO (10-20); Calcium,Total 9.8 mg/dL (8.5-10.1); Chloride 115 mmol/L (98-107); Creatinine, Serum 2.41 mg/dL (0.55-1.02); EST Glomerular Filtration Rate 20 mL/min (>60); Est Glom Filt Rate - Afr Amer 25 mL/min (>60); Estimated Creatinine Clearance 18.69 ml/min; Glucose 92 mg/dL (74-106); Potassium 3.1 mmol/L (3.5-5.1); Sodium Level 146 mmol/L (136-145)
[2020-08-24] MEDS: 0.45% Normal Saline 1,000 ML 100 ML IV (08:46)
[2020-08-24] MEDS: Potassium Chloride Oral Tablet 20 MEQ 60 MEQ PO (08:47)
[2020-08-24] MEDS: Metoprolol Tartrate 25 MG Tablet 12.5 MG PO (08:47)
[2020-08-24] MEDS: Aspirin E.C. 81 MG Tablet PO (08:47)
--- NOTE | 2020-08-24 11:10 | PCM.PN.HOSP ---
Patient Problems: Active and Suspected Problems Acute on chronic kidney failure (Acute) Hypokalemia (Acute) Debility (Acute) Subjective: Patient seen and examined. She has no complaints today. She does seem to be having some visual hallucinations today, as she tells me that she was told by a physician she was going to today. She couldn't say which physician it was. Her nurse also tells me she has been having some auditory and visual hallucinations. Reveiw of systems otherwise negative. Sodiuim is up to 146 today, and potassium is 3.1. Vitals/I&O's: Vital Signs Temp Pulse Resp BP Pulse Ox 97.9 F 104 H 18 160/76 H 98 08/24/20 04:25 08/24/20 08:47 08/24/20 04:25 08/24/20 04:25 08/24/20 04:25 Oxygen Delivery Method Room Air Weight: 145 lb 1.027 oz Body Mass Index (BMI) 25.2 Intake and Output for Last 24 Hours 08/22/20 08/23/20 08/24/20 23:59 23:59 23:59 Intake Total 1335 / 1335 2725 / 2785 1328.34 / 1328.34 Output Total 225 / 225 1250 / 1950 1300 / 1300 Balance 1110 / 1110 1475 / 835 28.34 / 28.34 General: Alert, confused, Cooperative, No apparent distress, HEENT: Atraumatic, PERRLA, EOMI, Normocephalic Oral: Dry Mucosa, - - mild swelling of upper lip Neck: Supple, No JVD, Negative Carotid Bruits Lungs: Clear to auscultation, Normal air movement, No rhonchi, No wheeze Cardiovascular: Regular rate, Regular Rhythm, Normal S1, Normal S2, No murmurs Abdomen: Bowel Sounds Present, Soft, Non Tender, Non-Distended, No Hepato-splenomegaly Extremities: No clubbing, No cyanosis, No edema, Capillary Refill Less than 3 Seconds Skin: No rashes, No breakdown Musculoskeletal: No Tenderness to Palpation of Joints or Extremities Lymphatic: No Cervical, Supraclavicular, or Inguinal Adenopathy Neurological: Cranial nerves II-XII grossly intact, Neuro grossly intact, Motor Exam 5/5 strength throughout Psych/Mental Status: Normal Affect, Appropriate, seems a bit confused this morning Laboratory Results 08/24/20 05:40: WBC 8.0, RBC 3.03 L, Hgb 9.2 L, Hct 29.0 L, MCV 95.7, MCH 30.4, MCHC 31.7 L, RDW Std Deviation 46.9 H, RDW Coeff of Cain 13.3, Plt Count 154, MPV 9.7, Immature Gran % (Auto) 0.400, Neut % (Auto) 70.6 H, Lymph % (Auto) 18.0 L, [place] % (Auto) 9.0, Eos % (Auto) 1.6, Baso % (Auto) 0.4, Absolute Neuts (auto) 5.6, Absolute Lymphs (auto) 1.44, Nucleated RBC % 0 08/24/20 05:40: Sodium 146 H, Potassium 3.1 L, Chloride 115 H, Carbon Dioxide 23.0, Anion Gap 8, BUN 25 H, Creatinine 2.41 H, Estim Creat Clear Calc 18.69, Est GFR (MDRD) Af Amer 25 L, Est GFR (MDRD) Non-Af 20 L, BUN/Creatinine Ratio 10.4, Glucose 92, Calcium 9.8 Diagnostic Data Chest X-Ray 08/22/20 13:11 IMPRESSION: No acute abnormality is seen. Electronically Signed: Александр Ledesma MD at 14:01 EDT , Service support , Current Medications Acetaminophen (Acetaminophen 325 Mg Tablet) 650 mg PO Q6H PRN PRN PRN Reason: Pain Score 1-10/Temp > 100.7 F Last Admin: 08/23/20 10:40 Dose: 650 mg Documented by: Aspirin (Aspirin E.C. 81 Mg Tablet) 81 mg PO DAILY@0800 JAZMINE Last Admin: 08/24/20 08:47 Dose: 81 mg Documented by: Diphenhydramine HCl (Diphenhydramine 50 Mg/Ml Syringe) 25 mg IV Q4H PRN PRN PRN Reason: Angioedema Last Admin: 08/23/20 21:35 Dose: 25 mg Documented by: Hydralazine HCl (Hydralazine 20 Mg/Ml Vial) 5 mg IV Q6H PRN PRN PRN Reason: BLOOD PRESSURE Sodium Chloride () 1,000 mls @ 100 mls/hr IV .Q10H [facility] Last Admin: 08/24/20 08:46 Dose: 100 mls/hr Documented by: Levothyroxine Sodium (Levothyroxine 25 Mcg Tablet) 25 mcg PO DAILY@0600 [facility] Last Admin: 08/24/20 06:06 Dose: 25 mcg Documented by: Methylprednisolone (Methylprednisolone 40 Mg/Ml Vial) 40 mg IV Q8 [facility] Last Admin: 08/24/20 09:29 Dose: 40 mg Documented by: Metoprolol Tartrate (Metoprolol Tartrate 25 Mg Tablet) 12.5 mg PO BID [facility] Last Admin: 08/24/20 08:47 Dose: 12.5 mg Documented by: Nutritional Formula (Lactose Free) (Ensure Enlive 120 Ml Liquid) 120 ml PO 4X/DAY [facility] Last Admin: 08/24/20 08:47 Dose: 120 ml Documented by: Sodium Chloride (0.9% Saline Lock 10 Ml Syringe) 10 - 40 ml IV UD PRN PRN Reason: SALINE FLUSH Last Admin: 08/23/20 13:13 Dose: 20 ml Documented by: STROKE Vital Signs/Narrative: Vital Signs Pulse 08/24/20 08:47 104 H Medical Necessity - Tobacco Use Smoking Status: Never smoker Tobacco Use: Non-smoker Assessment/Plan All Active Problems UTI (urinary tract infection) (Acute) Fall (Acute) Encephalopathy (Acute) Closed head injury (Acute) Acute on chronic kidney failure (Acute) Hypokalemia (Acute) Debility (Acute) Nausea & vomiting (Acute) Hemorrhagic stroke (Acute) Hypertensive emergency (Acute) #Hypercalcemia resolved. Calcium is down to 9.8 today continue hydrating with normal saline. # Hypertensive urgency: resolved. BP still however remains elevated. She also had some tachycardia today. Will increase metoprolol to 25mg bid. IV hydralazine prn #Debility due to general medical condition PT/OT on board fall precautions #?angioedema still has mildly swollen lip on IV benadryl. She is unable to tell me if she has started using any new creams or add on IV solumedrol 40mg q8 x 3 doses. #Hypokalemia:potassium is 3.1. Will replace and monitor #CHRIS on CKD IV Today is 2.48. Baseline is around 1.5. Continue gentle hydration with IV fluids. #Acute on chronic anemia: Stable. Hemoglobin is down to 8.7 which may be hemodilution all #has been receiving fluids. will monitor #DVT propylaxis: heparin Code status: DNRCCA no intubation Inpatient E&M: 22913 Subs Hosp L2
--- NOTE | 2020-08-24 11:20 | EKG12_ITS ---
Test Reason : TACHY WITH AMBUL Blood Pressure : / mmHG Vent. Rate : 077 BPM Atrial Rate : 077 BPM P-R Int : 190 ms QRS Dur : 074 ms QT Int : 360 ms P-R-T Axes : 067 -21 038 degrees QTc Int : 407 ms Sinus rhythm with marked sinus arrhythmia Otherwise normal ECG When compared with ECG of 22-AUG-2020 13:31, MANUAL COMPARISON REQUIRED, DATA IS UNCONFIRMED Confirmed by ANGELITA BARAJAS, JACQUIE ([id number]), rewrite editor ELLIOT SANCHEZ ([id number]) on 08/26/2020 9:09:51 AM Referred By: ARMANDO Confirmed By:JACQUIE GOLDSTEIN MD
[2020-08-24] MEDS: hydrALAZINE 20 MG/ML Vial 5 MG IV (16:42)
[2020-08-24] MEDS: Clonidine HCl 0.1 MG, Clonidine HCl 0.2 MG 0.3 MG PO (17:30)
[2020-08-24] MEDS: Metoprolol Tartrate 25 MG Tablet PO (21:31)
[2020-08-24] MEDS: 0.9% Saline Lock 10 ML Syringe IV (21:37)
[2020-08-25 03:00] VITALS: PULSE 66
[2020-08-25 03:45] VITALS: BP 119/66; PULSE 77; RESP 16; TEMP 36.3; O2SAT 97
[2020-08-25] MEDS: Levothyroxine 25 MCG TABLET PO (05:56)
[2020-08-25 06:47] LABS: Absolute Lymphocyte Count 0.72 X10^3/uL (0.83-4.51); Absolute Neutrophil Count 6.6 X10^3/uL (2.0-7.7); Basophil# 0.01 X10^3/uL; Basophil% 0.1 % (0-1); Hematocrit 26.2 % (37-47); Hemoglobin 8.4 g/dL (12.0-15.0); Lymphocyte # 0.72 X10^3/ul (4.0); Lymphocyte % 9.5 % (19-41); Mean Corp Hgb Conc 32.1 g/dL (32-36); Mean Corpuscular Hgb 30.7 pg (27.0-32.0); Mean Corpuscular Volume 95.6 fL (81-99); Mean Platelet Vol. 9.8 fl (6.2-12.0); Monocyte# 0.21 X10^3/uL; Monocyte% 2.8 % (0-10); NRBC Flagged by Analyzer 0 % (0-5); Neutrophil # 6.58 X10^3/uL (2.7-7.7); Neutrophil % 86.9 % (47-70); Platelet Count 149 K/mm3 (150-450); RBC Distribution Width CV 13.7 % (11.6-14.6); RBC Distribution Width SD 47.8 fl (35.1-43.9); Red Blood Count 2.74 M/mm3 (4.2-5.4); White Blood Count 7.6 K/mm3 (4.4-11.0)
[2020-08-25 06:56] VITALS: PULSE 69
[2020-08-25 07:10] LABS: Anion Gap 8 (5-15); BUN 35 mg/dL (7-18); Calcium,Total 9.4 mg/dL (8.5-10.1); Chloride 114 mmol/L (98-107); Creatinine, Serum 2.33 mg/dL (0.55-1.02); EST Glomerular Filtration Rate 21 mL/min (>60); Est Glom Filt Rate - Afr Amer 26 mL/min (>60); Estimated Creatinine Clearance 16.84 ml/min; Glucose 152 mg/dL (74-106); Potassium 4.1 mmol/L (3.5-5.1); Sodium Level 145 mmol/L (136-145)
[2020-08-25 08:06] VITALS: PULSE 72
[2020-08-25] MEDS: Metoprolol Tartrate 25 MG Tablet PO (08:06)
[2020-08-25] MEDS: Aspirin E.C. 81 MG Tablet PO (08:07)
[2020-08-25 09:32] LABS: PTHIN 14.8 pg/mL (18.4-80.1)
[2020-08-25 09:34] LABS: Vitamin D,25 Hydroxy 41.1 ng/mL
[2020-08-25 09:45] VITALS: BP 149/68; PULSE 70; RESP 16; TEMP 36.4; O2SAT 98
--- NOTE | 2020-08-25 10:42 | CASEMGMT ---
VINOD was told by physician that patient and her daughter want patient to go to rehab. They were hoping for [facility] TCU. VINOD spoke with [facility] and TCU is full. VINOD met with patient, introduced self and role at [facility]. She confirmed they were looking for her to go to rehab, hopefully here at [facility]. VINOD told her TCU is full. She was not sure where else she would go. She asked that SW call her daughter. VINOD called patient's daughter and let her know TCU was full. VINOD went over the other in network SNF's with her and her next choice would be [facility]. VINOD told her SW will make the referral and let her know. VINOD told her that patient will be in quarantine for 14 days with no visitors. She verbalized understanding. Referral was faxed to [facility]. Await their response. Patient will also need a pre-cert. Vane ANGELES MSW
--- NOTE | 2020-08-25 11:27 | CASEMGMT ---
SW spoke w/Devora at [facility], they can take pt and will start the precert. SW will continue to follow. KAJAL Guerrero
--- NOTE | 2020-08-25 12:49 | CASEMGMT ---
VINOD called patient's daughter and let her know [facility] can take patient. She said she has changed her mind and they want to take patient home at discharge. She asked if home health could be set up. She said she thinks they have had the hospital's home health before and that is who they would like. She declined a list. VINOD called [facility] and made referral. Await their response. VINOD let her know that the physician may discharge her today. VINOD went to patient's room and let her know that family has decided to take her home since she cannot go to TCU. Plan: Home with home health pending their acceptance. Vane ANGELES
--- NOTE | 2020-08-25 13:28 | CASEMGMT ---
Addendum entered by Vane Bowers 08/25/20 14:33: SW spoke with patient's daughter and let her know that [facility] can see her. SW explained they will call to set up a visit. SW told her Fpc, PT, and OT were ordered. She thanked SW for the help. Vane ANGELES Original Note: VINOD received a call from Nadine with [facility] and they can take patient. VINOD will notify patient's daughter when she arrives or VINOD will call her. Plan: d/c home with [facility] Fpc, PT, and OT. Vane ANGELES
--- NOTE | 2020-08-25 13:59 | PCM.DC ---
- Discharge Diagnoses Current Active Problems: Current Active and Chronic Problems Acute on chronic kidney failure (Acute) Hypokalemia (Acute) Debility (Acute) Hypertension (Chronic) You will use the following diet at home:: Cardiac Your food should be the consistency of: Regular Your liquids should be the consistency of: Regular/Thin Discharge Activity: Return to Normal Activity Weight Bearing Status: Weight bearing as tolerated Call your doctor if you observe: Fever of 101 or Higher, Shortness of breath, Dizziness, Fainting spells Instructions: How Your Kidneys Work, Hypercalcemia Additional Instructions: to stop taking Tums unless absolutely necessary, since it can cause hypercalcemia. To have follow up BMP on outpatient basis with PCP to monitor kidney function. Allergies/Adverse Reactions: Allergies heparin Allergy (Verified 08/22/20 15:16) Rash Medications to take at Discharge Aspirin E.C. [Ecotrin] 81 mg PO DAILY@0800 08/22/20 Levothyroxine Sodium [Synthroid] 25 mcg PO DAILY 08/22/20 Metoprolol Tartrate 25 mg PO BID #60 tablet 08/25/20 The following prescriptions were given: Metoprolol Tartrate 25 mg PO BID #60 tablet Transmission Status: Pending to [id number] Primary Care Physician: Derek Jackson Chi, MD [Primary Care Provider] - Please follow up with your Primary Care Physician in: 1-2 weeks Test Results: Test results from this visit will be discussed in further detail at your follow-up appointment, if applicable. Proposed Discharge Date: 08/25/20
--- NOTE | 2020-08-25 14:04 | DS.PCM_ITS ---
Discharge Date and Diagnosis - Problem List Patient Problems: Active and Suspected Problems Acute on chronic kidney failure (Acute) Hypokalemia (Acute) Debility (Acute) Date of Admission: 08/22/20 Date of Discharge: 08/25/20 - Primary Discharge Diagnosis Acute Problems: Active Problems Acute on chronic kidney failure (Acute) Hypokalemia (Acute) Debility (Acute) Hypercalcemia - Secondary Discharge Diagnosis Chronic Problems: Chronic Problems Nail disorder (onychogryphosis) (Chronic) Tinea unguium (Chronic) Toe pain, right (Chronic) Toe pain, left (Chronic) Anemia (Chronic) Osteoarthritis (Chronic) Kidney stone (Chronic) Hypertension (Chronic) Hospital Course and Treatment Imaging Results: Diagnostic Data Chest X-Ray 08/22/20 13:11 IMPRESSION: No acute abnormality is seen. Electronically Signed: Александр Ledesma MD at 14:01 EDT , Service support , Operations: None Procedures: None Summary of Care Provided: The patient is a 84 year old F with a past medical history as outlined who was admitted through the ED on 08/22/2020 with a complaint of worsening weakness and loss of appetite. Had not been eating or drinking well. It was noted that she had become more confused the day before admission and also complained of nausea and vomiting. She had a Covid vaccination about a week and a half prior to admission. She was found to have elevated calcium of 12.9 and potassium of 3.3. Creatinine was also 2.96 with a baseline of around 1.9. 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 She was hydrated with IV fluids. Calcium gradually trended down and was down to 9.8 at time of discharge. Creatinine also trended down gradually is down to 2.33 at time of discharge. Of note, she was also noted to have swollen lips. Daughter and family said this had occurred previously. She would not change any of her medications are not on any ISABELLE inhibitor or ARB. Lip swelling resolved with administration of IV Benadryl and a few doses of IV Solu-Medrol. Patient remained stable. She was skilled is needing SNF but she could not be placed where family preferred her to be placed. Family therefore preferred for her to go home with her daughter. She was therefore discharged home on 08/25/2020 and is to follow-up with her primary care doctor in 1 to 2 weeks. Patient seen and examined prior to discharge. She had no complaints. Patient did appear to be having some hallucinations. Review of systems otherwise negative. Labs and vitals reviewed. Home medication reviewed and reconciled. O/E: Vital Signs Temp Pulse Resp BP Pulse Ox 97.6 F L 90 18 146/83 H 100 08/25/20 14:22 08/25/20 14:22 08/25/20 14:22 08/25/20 14:22 08/25/20 14:22 [] General: Alert, confused, Cooperative, No apparent distress, HEENT: Atraumatic, PERRLA, EOMI, Normocephalic Oral: Dry Mucosa, - - mild swelling of upper lip Neck: Supple, No JVD, Negative Carotid Bruits Lungs: Clear to auscultation, Normal air movement, No rhonchi, No wheeze Cardiovascular: Regular rate, Regular Rhythm, Normal S1, Normal S2, No murmurs Abdomen: Bowel Sounds Present, Soft, Non Tender, Non-Distended, No Hepato- splenomegaly Extremities: No clubbing, No cyanosis, No edema, Capillary Refill Less than 3 Seconds Skin: No rashes, No breakdown Musculoskeletal: No Tenderness to Palpation of Joints or Extremities Lymphatic: No Cervical, Supraclavicular, or Inguinal Adenopathy Neurological: Cranial nerves II-XII grossly intact, Neuro grossly intact, Motor Exam 5/5 strength throughout Psych/Mental Status: Normal Affect, Appropriate, Plan is for discharge home. Patient Problems: Active and Suspected Problems Acute on chronic kidney failure (Acute) Hypokalemia (Acute) Debility (Acute) - Physical Exam Vitals/I&O's: Vital Signs Temp Pulse Resp BP Pulse Ox 97.6 F L 70 16 149/68 H 98 08/25/20 09:45 08/25/20 09:45 08/25/20 09:45 08/25/20 09:45 08/25/20 09:45 Oxygen Delivery Method Room Air Weight: 126 lb 5.198 oz Body Mass Index (BMI) 25.2 Intake and Output for Last 24 Hours 08/23/20 08/24/20 08/25/20 23:59 23:59 23:59 Intake Total 2725 / 2785 2615.01 / 2735.01 660 / 660 Output Total 1250 / 1950 1475 / 1475 150 / 150 Balance 1475 / 835 1140.01 / 1260.01 510 / 510 Microbiology Past 72 Hours 08/25/20 10:30 Mucosa - Nose SARS-CoV-2 Antigen (Rapid) - Final Laboratory Results 08/22/20 13:28: PTH Intact 14.8 L 08/23/20 06:45: Vitamin D 25-Hydroxy 41.1 08/25/20 06:30: WBC 7.6, RBC 2.74 L, Hgb 8.4 L, Hct 26.2 L, MCV 95.6, MCH 30.7, MCHC 32.1, RDW Std Deviation 47.8 H, RDW Coeff of Cain 13.7, Plt Count 149 L, MPV 9.8, Immature Gran % (Auto) 0.700, Neut % (Auto) 86.9 H, Lymph % (Auto) 9.5 L, [place] % (Auto) 2.8, Eos % (Auto) 0.0, Baso % (Auto) 0.1, Absolute Neuts (auto) 6.6, Absolute Lymphs (auto) 0.72 L, Nucleated RBC % 0 08/25/20 06:30: Sodium 145, Potassium 4.1, Chloride 114 H, Carbon Dioxide 23.0, Anion Gap 8, BUN 35 H, Creatinine 2.33 H, Estim Creat Clear Calc 16.84, Est GFR (MDRD) Af Amer 26 L, Est GFR (MDRD) Non-Af 21 L, BUN/Creatinine Ratio 15.0, Glucose 152 H, Calcium 9.4 Current Medications Acetaminophen (Acetaminophen 325 Mg Tablet) 650 mg PO Q6H PRN PRN PRN Reason: Pain Score 1-10/Temp > 100.7 F Last Admin: 08/23/20 10:40 Dose: 650 mg Documented by: Aspirin (Aspirin E.C. 81 Mg Tablet) 81 mg PO DAILY@0800 JAZMINE Last Admin: 08/25/20 08:07 Dose: 81 mg Documented by: Diphenhydramine HCl (Diphenhydramine 50 Mg/Ml Syringe) 25 mg IV Q4H PRN PRN PRN Reason: Angioedema Last Admin: 08/23/20 21:35 Dose: 25 mg Documented by: Hydralazine HCl (Hydralazine 20 Mg/Ml Vial) 5 mg IV Q6H PRN PRN PRN Reason: BLOOD PRESSURE Last Admin: 08/24/20 16:42 Dose: 5 mg Documented by: Levothyroxine Sodium (Levothyroxine 25 Mcg Tablet) 25 mcg PO DAILY@0600 [facility] Last Admin: 08/25/20 05:56 Dose: 25 mcg Documented by: Metoprolol Tartrate (Metoprolol Tartrate 25 Mg Tablet) 25 mg PO BID [facility] Last Admin: 08/25/20 08:06 Dose: 25 mg Documented by: Nutritional Formula (Lactose Free) (Ensure Enlive 120 Ml Liquid) 120 ml PO 4X/DAY [facility] Last Admin: 08/25/20 13:16 Dose: 120 ml Documented by: Sodium Chloride (0.9% Saline Lock 10 Ml Syringe) 10 - 40 ml IV UD PRN PRN Reason: SALINE FLUSH Last Admin: 08/24/20 21:37 Dose: 10 ml Documented by: Discharge Diet: Low fat/ Low Cholesterol Discharge Activity: Return to Normal Activity Weight Bearing Status: Weight bearing as tolerated Call your doctor if you observe: Fever of 101 or Higher, Shortness of breath, Dizziness, Fainting spells Home Medications: Medications to take at Discharge Aspirin E.C. [Ecotrin] 81 mg PO DAILY@0800 08/22/20 Levothyroxine Sodium [Synthroid] 25 mcg PO DAILY 08/22/20 Metoprolol Tartrate 25 mg PO BID #60 tablet 08/25/20 Following Prescriptions Were Given to Patient: Metoprolol Tartrate 25 mg PO BID #60 tablet Transmission Status: Received by [id number] Primary Care Physician: Derek Jackson Chi, MD [Primary Care Provider] - Please follow up with your Primary Care Physician in: 1-2 weeks Patient Instructions: How Your Kidneys Work, Hypercalcemia Disposition: Home Minutes spent on discharge:: 40 Patient Condition:: Stable Medical Necessity - Tobacco Use Smoking Status: Never smoker Tobacco Use: Non-smoker Meaningful Use Info Meaningful Use Diagnoses (Choose all that apply): None applicable Inpatient E&M: 07318 [facility]
[2020-08-25 14:22] VITALS: BP 146/83; PULSE 90; RESP 18; TEMP 36.4; O2SAT 100
--- NOTE | 2020-08-25 14:28 | CASEMGMT ---
LW/Healthcare POA both scanned into summary tab of echart. Alvin is listed first, then Dari Estrella as first alternate and Ynes Piedra as second alternate. KAJAL Guerrero
--- NOTE | 2020-08-25 15:00 | PHA.DC.MR ---
Pharmacy Service has performed discharge medication reconciliation for this patient. The patient's discharge medication list was reviewed for discrepancies and discrepancies were resolved. Home Medications Aspirin E.C. [Ecotrin] 81 mg PO DAILY@0800 08/22/20 Levothyroxine Sodium [Synthroid] 25 mcg PO DAILY 08/22/20 Metoprolol Tartrate 25 mg PO BID #60 tablet 08/25/20
--- NOTE | 2020-08-26 14:48 | CASEMGMT ---
XANDER CORBIN Discharge Follow-up Phone Call: JO: Avani Strata: 3 Call Date: 1444 Discharge Date: 08/26/20 Time of Call: 08/25/20 Duration: 3 min Admitting Diagnosis: CHRIS/Hypercalemia XANDER CORBIN completed follow-up phone call after recent hospitalization. Patient answered phone and states she is not well and confused at this time. Granddaughter is with patient and patient gave permission to talk with granddaughter, Isabella. Granddaughter states that patient had been doing well and [facility]. Granddaughter states that patient had just woken from a nap and was a little confused. Granddaughter states that they had no questions or concerns regarding discharge instructions. Patient was able to fill prescriptions without any issues. Granddaughter states she believes they have follow-up appt with PCP. XANDER CORBIN instructed granddaughter that should they be concerned regarding patient's confusion to follow-up with HHC or PCP. Granddaughter voiced understanding.
== END 2020-08-25 15:44 | disposition home or self-care (01) | DRG 684 ==
LOC: ED 13:03 → PCU 15:08
PROVIDERS: Admitting Provider Internal Medicine; Emergency Provider Student in an Organized Health Care Education/Training Program; PCP Family Medicine Geriatric Medicine; Visit Provider Student in an Organized Health Care Education/Training Program
DX: N17.9 Acute kidney failure, unspecified (principal); E83.52 Hypercalcemia; I12.9 Hypertensive chronic kidney disease with stage 1 through stage 4 chronic kidney disease, or unspecified chronic kidney disease; N18.32 Chronic kidney disease, stage 3b; E87.6 Hypokalemia; Z86.73 Personal history of transient ischemic attack (TIA), and cerebral infarction without residual deficits; R53.81 Other malaise; I16.0 Hypertensive urgency; E86.0 Dehydration; D63.1 Anemia in chronic kidney disease; Z66 Do not resuscitate; M79.89 Other specified soft tissue disorders
CPT/HCPCS: 36415; 71045; 80048; 80053; 81002; 82306; 82728; 83540; 83550; 83970; 84439; 84443; 84481; 84484; 85025; 87426; 93005; 97110; 97162; 97166; 97530; 97535; 97802; 99251; 99284; J7030; A4216; G0463; J2405

== ENCOUNTER → 2020-08-29 12:29 | Outpatient (CLI) | payer MEDICARE, SELFPAY ==
[2020-08-22 16:06] VITALS: BMI 25.2
[2020-08-29 13:25] LABS: ALB/GLOB Ratio 0.9 RATIO (0.9-2.4); AST(SGOT) 13 U/L (15-37); Alanine Aminotransfer ALT/SGPT 20 U/L (13-56); Albumin, Serum 3.5 g/dL (3.2-5.0); Alkaline Phosphatase 74 U/L (45-117); Anion Gap 9 (5-15); BUN 23 mg/dL (7-18); BUN/Creat Ratio 12.6 RATIO (10-20); Calcium,Total 8.8 mg/dL (8.5-10.1); Chloride 108 mmol/L (98-107); Creatinine, Serum 1.82 mg/dL (0.55-1.02); EST Glomerular Filtration Rate 28 mL/min (>60); Est Glom Filt Rate - Afr Amer 34 mL/min (>60); Globulin 3.7 g/dL (2.2-4.2); Glucose 104 mg/dL (74-106); Potassium 3.5 mmol/L (3.5-5.1); Protein, Total 7.2 g/dL (6.4-8.2); Sodium Level 142 mmol/L (136-145)
== END ==
PROVIDERS: PCP Family Medicine Geriatric Medicine; Visit Provider Family Medicine Geriatric Medicine
DX: N17.9 Acute kidney failure, unspecified (principal)
CPT/HCPCS: 36415; 80053

== ENCOUNTER → 2020-08-29 12:32 | Outpatient (CLI) | payer MEDICARE, SELFPAY ==
[2020-08-22 16:06] VITALS: BMI 25.2
--- NOTE | 2020-08-29 12:40 | RAD_ITS ---
INDICATION: FECAL IMPACTION EXAMINATION/TECHNIQUE: X-RAY - XR Abdomen 1 View COMPARISON: 06/02/2020 FINDINGS: BOWEL GAS PATTERN: Non-obstructive. Moderate amount of retained stool in the colon. FREE AIR: Not assessed on a single supine view. ORGANOMEGALY: Not seen. CALCIFICATIONS: No abnormal calcifications observed. LOWER CHEST: No acute pathology. BONES AND SOFT TISSUES: Severe degenerative changes of the visualized spine, sacroiliac joints and pubic symphysis. Levoscoliosis. RAD/Abdomen Single View IMPRESSION: Non-obstructive bowel gas pattern. Moderate amount of retained stool in the colon. Electronically Signed: Rodrick Dhaliwal MD at 19:34 EDT Tel , Service support ,
== END ==
PROVIDERS: PCP Family Medicine Geriatric Medicine; Referring Provider Family Medicine Geriatric Medicine; Visit Provider Family Medicine Geriatric Medicine
DX: K56.41 Fecal impaction (principal); N17.9 Acute kidney failure, unspecified
CPT/HCPCS: 36415; 74018; 80053

== ENCOUNTER → 2020-09-05 10:56 | Outpatient (CLI) | payer MEDICARE, SELFPAY ==
[2020-08-22 16:06] VITALS: BMI 25.2
[2020-09-05 11:33] LABS: Absolute Lymphocyte Count 1.14 X10^3/uL (0.83-4.51); Absolute Neutrophil Count 3.9 X10^3/uL (2.0-7.7); Basophil# 0.03 X10^3/uL; Basophil% 0.5 % (0-1); Eosinophil# 0.11 X10^3/uL; Eosinophils% 1.9 % (0-5); Hematocrit 28.1 % (37-47); Hemoglobin 8.9 g/dL (12.0-15.0); Lymphocyte # 1.14 X10^3/ul (4.0); Lymphocyte % 19.6 % (19-41); Mean Corp Hgb Conc 31.7 g/dL (32-36); Mean Corpuscular Hgb 30.3 pg (27.0-32.0); Mean Corpuscular Volume 95.6 fL (81-99); Mean Platelet Vol. 9.2 fl (6.2-12.0); Monocyte% 10.3 % (0-10); NRBC Flagged by Analyzer 0 % (0-5); Neutrophil # 3.93 X10^3/uL (2.7-7.7); Neutrophil % 67.4 % (47-70); Platelet Count 257 K/mm3 (150-450); RBC Distribution Width CV 13.5 % (11.6-14.6); Red Blood Count 2.94 M/mm3 (4.2-5.4); White Blood Count 5.8 K/mm3 (4.4-11.0)
[2020-09-05 11:48] LABS: ALB/GLOB Ratio 0.7 RATIO (0.9-2.4); AST(SGOT) 10 U/L (15-37); Alanine Aminotransfer ALT/SGPT 15 U/L (13-56); Albumin, Serum 2.9 g/dL (3.2-5.0); Alkaline Phosphatase 61 U/L (45-117); BUN 16 mg/dL (7-18); BUN/Creat Ratio 8.4 RATIO (10-20); Chloride 109 mmol/L (98-107); EST Glomerular Filtration Rate 27 mL/min (>60); Est Glom Filt Rate - Afr Amer 33 mL/min (>60); Globulin 3.9 g/dL (2.2-4.2); Glucose 91 mg/dL (74-106); Potassium 3.5 mmol/L (3.5-5.1); Protein, Total 6.8 g/dL (6.4-8.2); Sodium Level 138 mmol/L (136-145)
[2020-09-05 11:49] LABS: Anion Gap 4 (5-15)
== END ==
PROVIDERS: PCP Family Medicine Geriatric Medicine; Visit Provider Family Medicine Geriatric Medicine
DX: D50.9 Iron deficiency anemia, unspecified (principal); N17.9 Acute kidney failure, unspecified
CPT/HCPCS: 36415; 80053; 85025

== ENCOUNTER 2020-12-30 21:17 | Inpatient (IN) | payer MEDICARE, SELFPAY ==
[2020-08-22 16:06] VITALS: BMI 25.2
[2020-12-30] VITALS (10 sets, daily range): BP systolic 126–210; BP diastolic 74–125; PULSE 84–100; RESP 16–24; TEMP 37.1; O2SAT 93–100; BMI 27.0
[2020-12-30] MEDS: Ondansetron 4 MG/2 ML Vial IV ×2 (21:30→22:34)
[2020-12-30] MEDS: Etomidate 20 MG/10 ML Vial 10 MG IV (21:34)
[2020-12-30] MEDS: 0.9% Normal Saline 1,000 ML 150 ML IV (21:43)
[2020-12-30 21:48] LABS: Absolute Lymphocyte Count 3.49 X10^3/uL (0.83-4.51); Absolute Neutrophil Count 4.7 X10^3/uL (2.0-7.7); Basophil# 0.05 X10^3/uL; Basophil% 0.5 % (0-1); Eosinophil# 0.13 X10^3/uL; Eosinophils% 1.4 % (0-5); Hemoglobin 9.9 g/dL (12.0-15.0); Lymphocyte # 3.49 X10^3/ul (0.83-4.51); Lymphocyte % 38.1 % (19-41); Mean Corp Hgb Conc 30.9 g/dL (32-36); Mean Corpuscular Hgb 28.4 pg (27.0-32.0); Mean Platelet Vol. 9.2 fl (6.2-12.0); Monocyte# 0.77 X10^3/uL; Monocyte% 8.4 % (0-10); NRBC Flagged by Analyzer 0 % (0-5); Neutrophil # 4.68 X10^3/uL (2.7-7.7); Neutrophil % 51.3 % (47-70); Platelet Count 245 K/mm3 (150-450); RBC Distribution Width CV 14.2 % (11.6-14.6); Red Blood Count 3.48 M/mm3 (4.2-5.4); White Blood Count 9.2 K/mm3 (4.4-11.0)
[2020-12-30] MEDS: Morphine 4 MG/ML Syringe IV (22:01)
[2020-12-30 22:06] LABS: ALB/GLOB Ratio 0.9 RATIO (0.9-2.4); AST(SGOT) 13 U/L (15-37); Alanine Aminotransfer ALT/SGPT 18 U/L (13-56); Albumin, Serum 3.5 g/dL (3.2-5.0); Alkaline Phosphatase 86 U/L (45-117); Anion Gap 7 (5-15); BUN 28 mg/dL (7-18); BUN/Creat Ratio 15.2 RATIO (10-20); Calcium,Total 9.2 mg/dL (8.5-10.1); Chloride 105 mmol/L (98-107); Creatinine, Serum 1.84 mg/dL (0.55-1.02); EST Glomerular Filtration Rate 28 mL/min (>60); Est Glom Filt Rate - Afr Amer 34 mL/min (>60); Estimated Creatinine Clearance 18.32 ml/min; Globulin 3.7 g/dL (2.2-4.2); Glucose 154 mg/dL (74-106); Potassium 3.7 mmol/L (3.5-5.1); Protein, Total 7.2 g/dL (6.4-8.2); Sodium Level 139 mmol/L (136-145)
[2020-12-30 22:20] LABS: Prothrombin Time (Protime)PT. 12.9 SECONDS (11.7-14.9)
[2020-12-30 22:21] LABS: Partial Thromboplast Time 28.8 Seconds (24.1-36.2)
--- NOTE | 2020-12-30 22:27 | RAD_ITS ---
EXAM: XR RIGHT HIP WITH PELVIS WHEN PERFORMED, 2 OR 3 VIEWS : 1935 CLINICAL INDICATION: deformity TECHNIQUE: Two or three views of the right hip with pelvis when performed. This report was created using DataPad report uberVU technology. COMPARISON: None. FINDINGS: BONES/JOINTS: There is an intertrochanteric fracture of the right femoral neck. No destructive or sclerotic lesions. Note that overlapping bowel shadows may however obscure fine detail. Sacroiliac joint is unremarkable. No widening of the pubic symphisis. The articular structures are unremarkable. SOFT TISSUES: Unremarkable. No soft tissue swelling or gas. RAD/HIP, UNI W/ Pelvis 2-3 Views IMPRESSION: Intertrochanteric fracture of the right femoral neck. at 2256 Reported and signed by: Adarsh Fritz MD Electronically Signed: Adarsh Fritz MD at 22:55 EDT Tel , Service support ,
--- NOTE | 2020-12-30 22:27 | RAD_ITS ---
EXAM: XR CHEST, 1 VIEW : 1935 CLINICAL INDICATION: Preoperative TECHNIQUE: Frontal view of the chest. This report was created using SOASTA report generation technology. COMPARISON: None. FINDINGS: LUNGS AND PLEURAL SPACES: Unremarkable. No consolidation or edema. No pneumothorax. No effusion. HEART: Unremarkable. Cardiac silhouette not enlarged. MEDIASTINUM: Central airways and mediastinal contour are unremarkable. BONES/JOINTS: Unremarkable. SOFT TISSUES: Unremarkable. RAD/Chest 1 View IMPRESSION: No radiographic evidence of acute cardiopulmonary disease. at 2255 Reported and signed by: Adarsh Fritz MD Electronically Signed: Adarsh Fritz MD at 22:54 EDT Tel , Service support ,
[2020-12-30] MEDS: LORazepam 2 MG/ML Syringe 0.5 MG IV (22:34)
--- NOTE | 2020-12-30 22:35 | EKG12_ITS ---
Test Reason : FALL Blood Pressure : / mmHG Vent. Rate : 086 BPM Atrial Rate : 086 BPM P-R Int : 214 ms QRS Dur : 084 ms QT Int : 392 ms P-R-T Axes : 064 -17 047 degrees QTc Int : 469 ms Sinus rhythm with 1st degree A-V block with Premature atrial complexes Otherwise normal ECG Confirmed by HEATHER BARAJAS, RISA ([id number]), sound editor ELLIOT SANCHEZ ([id number]) on 01/01/2021 9:51:06 AM Referred By: RICKIE Confirmed By:RISA ROMERO MD
--- NOTE | 2020-12-30 22:35 | EX.ED.GENINJ ---
HPI History of Present Illness Chief Complaint: Fall Informant: patient, family and EMS Narrative Narrative: 85-year-old female arrives in the emergency department with right hip pain. She tells me that a hot air balloon landed in her yard and she went outside to take a picture when she tripped and fell injuring her right hip. She denies any head injury. She states she has never had to see a orthopedic surgeon before. Patient received 200 mcg of fentanyl in route to the hospital by EMS. [facility] Medical History Hypothyroidism Stroke/cerebrovascular accident Home Medications aspirin 81 mg PO DAILY@0800 08/22/20 [History Last Taken 08/20/20] levothyroxine 25 mcg PO DAILY 08/22/20 [History Last Taken Unknown] amlodipine 2.5 mg PO DAILY 12/30/20 [History Last Taken Unknown] metoprolol tartrate 12.5 mg PO BID 12/30/20 [History Last Taken Unknown] pantoprazole 40 mg PO DAILY 12/30/20 [History Last Taken Unknown] Allergy/AdvReac Type Severity Reaction Status Date / Time heparin Allergy Rash Verified 12/30/20 22:10 Social History (Updated 12/30/20 @ 22:[address] Emiliano Salmeron DO) Smoking Status: Never smoker substance use type: does not use ROS ROS ED Constitutional Constitutional ED: Denies chills or weight loss Eyes Eyes: Denies change in vision or diplopia ENT ENT ED: Denies ear pain, rhinorrhea or sore throat Cardiovascular Cardiovascular: Denies chest pain, orthopnea, palpitations or racing heartbeat Respiratory/Chest Respiratory/Chest: Denies cough, dyspnea or orthopnea Gastrointestinal Gastrointestinal: Denies abdominal pain, diarrhea, nausea or vomiting Genitourinary Genitourinary ED: Denies dysuria, hematuria or urinary frequency Musculoskeletal Musculoskeletal: Reports other Details: See history of present illness ; Denies arthralgias or myalgias Integumentary Denies abscess or rash Neurologic Neurologic: Denies headache(s) or weakness Psychiatric Psychiatric: Denies anxiety, depression, suicidal ideation or suicidal thoughts Endocrine Endocrinology: Denies polydipsia, polyphagia or polyuria Allergic/Immunologic Allergic/Immunologic ED: Denies mouth swelling, tongue swelling or urticaria EXAM Physical Exam Const Vital Signs: 12/30/20 21:17 12/30/20 21:18 12/30/20 21:32 Temperature 98.7 F Temperature Source Oral Pulse Rate 91 93 89 Pulse Rate [1 (Initial Baseline)] Pulse Rate [2] Pulse Rate [3] Respiratory Rate 17 16 24 H Respiratory Rate [1 (Initial Baseline)] Respiratory Rate [2] Respiratory Rate [3] Respiratory Effort Respiratory Depth Respiratory Pattern Blood Pressure 166/95 H 166/95 H 166/95 H Blood Pressure [1 (Initial Baseline)] Blood Pressure [2] Blood Pressure [3] Blood Pressure Mean 118 118 Pulse Ox 97 97 95 Oxygen Delivery Method Room Air Room Air Room Air Oxygen Delivery Method [1 (Initial Baseline)] Oxygen Delivery Method [2] Oxygen Delivery Method [3] Oxygen Flow Rate (L/min) [2] Oxygen Flow Rate (L/min) [3] 12/30/20 21:34 12/30/20 21:44 12/30/20 21:49 Temperature Temperature Source Pulse Rate 90 97 Pulse Rate [1 (Initial Baseline)] 87 Pulse Rate [2] 100 Pulse Rate [3] 95 Respiratory Rate 19 H 17 Respiratory Rate [1 (Initial Baseline)] 17 Respiratory Rate [2] 24 H Respiratory Rate [3] 24 H Respiratory Effort Respiratory Depth Respiratory Pattern Blood Pressure 204/112 H 210/96 H Blood Pressure [1 (Initial Baseline)] 166/95 H Blood Pressure [2] 174/110 H Blood Pressure [3] 208/125 H Blood Pressure Mean Pulse Ox 94 93 Oxygen Delivery Method Room Air Room Air Oxygen Delivery Method [1 (Initial Baseline)] Room Air Oxygen Delivery Method [2] Nasal Cannula Oxygen Delivery Method [3] Nasal Cannula Oxygen Flow Rate (L/min) [2] 3 Oxygen Flow Rate (L/min) [3] 3 12/30/20 21:54 12/30/20 22:10 12/30/20 23:50 Temperature Temperature Source Pulse Rate 84 86 Pulse Rate [1 (Initial Baseline)] Pulse Rate [2] Pulse Rate [3] Respiratory Rate 18 18 Respiratory Rate [1 (Initial Baseline)] Respiratory Rate [2] Respiratory Rate [3] Respiratory Effort Normal Non-Labored Respiratory Depth Normal Respiratory Pattern Normal Blood Pressure 158/87 H 126/74 H Blood Pressure [1 (Initial Baseline)] Blood Pressure [2] Blood Pressure [3] Blood Pressure Mean 91 Pulse Ox 93 94 97 Oxygen Delivery Method Room Air Room Air Room Air Oxygen Delivery Method [1 (Initial Baseline)] Oxygen Delivery Method [2] Oxygen Delivery Method [3] Oxygen Flow Rate (L/min) [2] Oxygen Flow Rate (L/min) [3] Positive well nourished and well developed General Appearance ED: well developed HEENT Reports normocephalic, head/scalp atraumatic and moist mucous membranes Eyes PERRL and EOMs intact bilaterally Neck no lymphadenopathy, supple and no JVD Resp normal respiratory effort and clear to auscultation bilaterally Cardio regular rate, regular rhythm and no murmurs GI normal to inspection, nondistended, normoactive bowel sounds and non-tender Palpation: soft Back/Spine no CVA tenderness and normal ROM Extremity Extremity Narrative: Patient is sitting in the bed with the right leg underneath her proximal left thigh. Neurovascular intact distal General Extremety ED: Negative for edema General Extremity: Negative for edema Neuro oriented x3 and CN's II-XII intact bilaterally Sensorium / Orientation: alert Motor Exam: strength 5/5 throughout Psych mental status grossly normal Mood & Affect: Negative for depressed or tearful Skin no rashes or lesions noted and no wounds MDM MDM MDM Narrative Medical decision making narrative: The patient did not want her pants caught but she also could not take off her pants. She cannot lay back and she cannot straighten the leg without severe pain. Patient provided informed consent for the use of etomidate to sedate her to be able to do these things and get her off the sled. Patient received 10 mg of etomidate. Once adequate sedation was achieved. We able to get her undressed. 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 She was allowed to recover without incident. Patient received Zofran and morphine. X-rays revealed inotrope fracture of the right hip with lesser troches off. Patient continued to have nausea and vomiting. Family states that she usually has nausea and vomiting when she gets nervous. Therefore she received 1/2 mg of Ativan as well as additional Zofran. The patient then began to complain of a headache as well as more vomiting. CT of the brain and cervical spine were obtained. These were negative for intracranial hemorrhage or fracture. I spoke with Dr. Hawkins from orthopedics Lab Data Attestation: I reviewed the patient's lab results. Labs: Laboratory Results - last 24 hr 12/30/20 12/30/20 12/30/20 21:40 21:40 22:00 WBC 9.2 RBC 3.48 L Hgb 9.9 L Hct 32.0 L MCV 92.0 MCH 28.4 MCHC 30.9 L RDW Std Deviation 48.0 H RDW Coeff of Cain 14.2 Plt Count 245 MPV 9.2 Immature Gran % (Auto) 0.300 Neut % (Auto) 51.3 Lymph % (Auto) 38.1 [place] % (Auto) 8.4 Eos % (Auto) 1.4 Baso % (Auto) 0.5 Absolute Neuts (auto) 4.7 Absolute Lymphs (auto) 3.49 Nucleated RBC % 0 PT 12.9 INR 1.0 APTT 28.8 Sodium 139 Potassium 3.7 Chloride 105 Carbon Dioxide 27.0 Anion Gap 7 BUN 28 H Creatinine 1.84 H Estim Creat Clear Calc 18.32 Est GFR (MDRD) Af Amer 34 L Est GFR (MDRD) Non-Af 28 L BUN/Creatinine Ratio 15.2 Glucose 154 H Calcium 9.2 Total Bilirubin 0.30 AST 13 L ALT 18 Alkaline Phosphatase 86 Total Protein 7.2 Albumin 3.5 Globulin 3.7 Albumin/Globulin Ratio 0.9 Radiography Diagnostic Testing: Radiology Impression Chest X-Ray 12/30/20 22:27 IMPRESSION: No radiographic evidence of acute cardiopulmonary disease. at 2255 Reported and signed by: Adarsh Fritz MD Electronically Signed: Adarsh Fritz MD at 22:54 EDT Tel , Service support , Hip/Pelvis X-Ray 12/30/20 22:27 IMPRESSION: Intertrochanteric fracture of the right femoral neck. at 2256 Reported and signed by: Adarsh Fritz MD Electronically Signed: Adarsh Fritz MD at 22:55 EDT Tel , Service support , Brain CT 12/30/20 22:39 IMPRESSION: 1. No acute intracranial abnormality. There has been no significant change from the reference examination. 2. Stable underlying senescent change and small vessel ischemia. Individualized dose optimization techniques were used for this CT. at 2351 Reported and signed by: Adarsh Fritz MD Electronically Signed: Adarsh Fritz MD at 23:50 EDT Tel , Service support , Cervical Spine CT 12/30/20 22:39 IMPRESSION: No acute osseous abnormalities of the cervical spine. Individualized dose optimization techniques were used for this CT. at 2353 Reported and signed by: Adarsh Fritz MD Electronically Signed: Adarsh Fritz MD at 23:52 EDT Tel , Service support , EKG Initial EKG: Attestation: I personally reviewed and interpreted this EKG as follows: Comments: EKG is a sinus rhythm with first-degree AV block with PACs noted. Ventricular rate of 86 bpm Discharge Plan Triage Chief Complaint: Fall ED Provider: Emiilano Salmeron Dx/Rx/DC Orders Clinical Impression: Closed fracture of right hip, Fall, Headache, Vomiting Prescriptions: No Action aspirin 81 MG tablet 81 mg PO DAILY@0800 RF: 0 levothyroxine 25 MCG tablet 25 mcg PO DAILY RF: 0 amlodipine 2.5 mg tablet 2.5 mg PO DAILY RF: 0 pantoprazole 40 mg tablet,delayed release (DR/EC) 40 mg PO DAILY RF: 0 metoprolol tartrate 25 MG tablet 12.5 mg PO BID RF: 0 Primary Care Provider: Derek Jackson Chi Referrals: Derek Jackson Chi, MD [Primary Care Provider] - Disposition Disposition: Acute Care Hospital [facility]
--- NOTE | 2020-12-30 22:39 | CT_ITS ---
EXAM: CT CERVICAL SPINE WITHOUT INTRAVENOUS CONTRAST : 1935 CLINICAL INDICATION: injury TECHNIQUE: Helically acquired images were obtained of the cervical spine without intravenous contrast. 2D reformatted images were reviewed. This CT exam was performed using one or more of the following dose reduction techniques: automated exposure control, adjustment of the mA and/or kV according to patient size, and/or use of iterative reconstruction technique. This report was created using [employer] report generation technology. COMPARISON: None. FINDINGS: VERTEBRAE: There is minimal anterior spondylolisthesis of C6 on C7. Pression. Multilevel degenerative change with facet hypertrophy. There is minimal anterior spondylolisthesis of C6 on C7. No fracture. No discrete lytic or blastic abnormality. Normal craniocervical junction and cervicothoracic junction. DISCS/SPINAL CANAL/NEURAL FORAMINA: There is mild left bony neural foraminal narrowing at C3-4. SOFT TISSUES: Unremarkable. No prevertebral soft tissue swelling. LYMPH NODES: Unremarkable. No cervical adenopathy. LUNG APICES: Unremarkable as visualized. Clear. OTHER FINDINGS: There is multilevel facet hypertrophy bilaterally. CT/Spine Cervical without Contras IMPRESSION: No acute osseous abnormalities of the cervical spine. Individualized dose optimization techniques were used for this CT. at 2353 Reported and signed by: Adarsh Fritz MD Electronically Signed: Adarsh Fritz MD at 23:52 EDT Tel , Service support ,
--- NOTE | 2020-12-30 22:39 | CT_ITS ---
EXAM: CT HEAD WITHOUT INTRAVENOUS CONTRAST : 1935 CLINICAL INDICATION: moderate injury TECHNIQUE: Multiple axial images were obtained of the head without intravenous contrast. This CT exam was performed using one or more of the following dose reduction techniques: automated exposure control, adjustment of the mA and/or kV according to patient size, and/or use of iterative reconstruction technique. This report was created using [employer] report generation technology. COMPARISON: 12/19/2018 FINDINGS: BRAIN AND EXTRA-AXIAL SPACES: There is enlargement of the ventricular system and cortical sulci. There is hypoattenuation in the periventricular white matter. No intra- or extra-axial hemorrhage. No evidence of acute infarct. No intracranial mass or mass effect. There is preservation of the cid/white matter interface. Posterior fossa structures are unremarkable. Basal cisterns are patent. BONES/JOINTS: Unremarkable. No discrete lytic or blastic abnormalities. SINUSES: Unremarkable as visualized. Clear. MASTOID AIR CELLS: Unremarkable. Clear. ORBITS: Visualized globes, extraocular muscles, optic nerves and retrobulbar fat appear unremarkable. CT/Brain/Head without Contrast IMPRESSION: 1. No acute intracranial abnormality. There has been no significant change from the reference examination. 2. Stable underlying senescent change and small vessel ischemia. Individualized dose optimization techniques were used for this CT. at 2351 Reported and signed by: Adarsh Fritz MD Electronically Signed: Adarsh Fritz MD at 23:50 EDT Tel , Service support ,
[2020-12-30] MEDS: Metoclopramide 10 MG/2 ML Vial 5 MG IV (23:31)
[2020-12-30 23:55] LABS: Bacteria 0 SEEN /hpf (None Seen); Mucous, Urine 0 SEEN /hpf (<or=2+); Squamous Epithelial Cells - UA 0 SEEN /hpf (5-10); White Blood Cells 0 SEEN /hpf (0-5)
[2020-12-30 23:57] LABS: Color, Urine Yellow (Yellow); Glucose, Dipstick Normal (Normal); Ketone-Dipstick 15 mg/dl (Negative); Leukocyte Esterase-Dipstick Negative /ul (Negative); Nitrite-Dipstick Negative (Negative); Occult Blood-Urine 25 /ul (Negative); Protein-Dipstick Negative (Negative); Urine Bilirubin Dipstick Negative (Negative); Urine Clarity Clear (Clear); Urine Urobilinogen Normal (Normal)
[2020-12-31] VITALS (15 sets, daily range): BP systolic 112–157; BP diastolic 62–84; PULSE 62–107; RESP 16–20; TEMP 35.9–37.2; O2SAT 94–100; BMI 25.4
[2020-12-31 00:10] LABS: Red Blood Cells-Urine 0-5 SEEN /hpf (0-5)
--- NOTE | 2020-12-31 00:19 | HP.PCM.HOS_ITS ---
HPI - General General Date of Admission: 12/31/20 Date of Service: 12/31/20 Chief Complaint: Fall, R hip pain, debility HPI Narrative The patient is an 85 y/o F w/ PMHx: CKD stage IV, Hypothyroidism, HTN, GERD, Hx CVA who presents to the [facility] ED on 12/30/20 with history of unfortunate mechanical fall while attempting to view something in her air, falling down several steps with significant onset right lower extremity discomfort, inappropriate rotation with debility prompting ED evaluation. Patient notes pain severe, especially with any movement and refused to have her pants removed until sedated, eventually with etomidate. Patient rated pain 10/10, sharp and severe initially, improved currently, sleeping prior to evaluation, pain 4/10 if movement attempted. Work-up in the ED included T 98.7, heart rate 93, BP 166/95, respiratory rate 16, 97% on room air, CBC with WBC 9.2, hemoglobin 9.9, platelet 245 without marked shift, unremarkable coags, CMP with BUN/creatinine 28/1.84, glucose 154, otherwise unremarkable hepatic profile, type and screen performed per the ED, chest x-ray with no acute cardiopulmonary finding, plain film of the right hip and pelvis with evidence intertrochanteric fracture of the right femoral neck, EKG was sinus rhythm with first-degree AV block with PACs with no acute evidence of ischemia, CT of the cervical spine with no acute osseous abnormality of the cervical spine, CT brain no acute intracranial abnormality with stable underlying senescent change and small vessel ischemic. [facility] Medical History (Updated 12/31/20 @ 01:[address] Nelia Argueta MD) Anxiety and depression GERD (gastroesophageal reflux disease) HTN (hypertension) Hypothyroidism Stroke/cerebrovascular accident Home Medications aspirin 81 mg PO DAILY@0800 08/22/20 [History Last Taken 08/20/20] levothyroxine 25 mcg PO DAILY 08/22/20 [History Last Taken Unknown] amlodipine 2.5 mg PO DAILY 12/30/20 [History Last Taken Unknown] metoprolol tartrate 12.5 mg PO BID 12/30/20 [History Last Taken Unknown] pantoprazole 40 mg PO DAILY 12/30/20 [History Last Taken Unknown] Allergy/AdvReac Type Severity Reaction Status Date / Time heparin Allergy Rash Verified 12/30/20 22:10 Family History (Updated 12/31/20 @ 01:[address] Nelia Argueta MD) Mother CVA (cerebral vascular accident) Father Heart disease Hypertension Myocardial infarction Surgical History (Updated 12/31/20 @ 01:[address] Nelia Argueta MD) H/O: hysterectomy Status post laser lithotripsy of ureteral calculus Social History (Updated 12/31/20 @ 01:[address] Nelia Argueta MD) household members: other details: Patient lives with her daughter. Smoking Status: Never smoker alcohol intake: never substance use type: does not use ROS ROS Narrative Admission Review of Systems: CONSTITUTIONAL: No weight loss, fever, chills, +weakness or fatigue. HEENT: Eyes: No visual loss, blurred vision, double vision or yellow sclerae. Ears, Nose, Throat: No hearing loss, sneezing, congestion, runny nose or sore throat. SKIN: No rash or itching, lesions, wounds. CARDIOVASCULAR: No chest pain, chest pressure or chest discomfort, palpitations, edema, orthopnea, syncopal events. RESPIRATORY: No shortness of breath, cough or sputum, wheezing, hemoptysis. GASTROINTESTINAL: + anorexia, nausea, No vomiting or diarrhea, abdominal pain, melena, BRBPR. GENITOURINARY: No dysuria, frequency, urgency or retention. NEUROLOGICAL: No headache, dizziness, syncope, paralysis, ataxia, numbness or tingling in the extremities, focal weakness, change in bowel or bladder control, seizure. MUSCULOSKELETAL: + muscle, back pain, joint pain or stiffness. HEMATOLOGIC: No anemia, bleeding or bruising. LYMPHATICS: No enlarged nodes. No history of splenectomy. PSYCHIATRIC: + history of depression or anxiety. ENDOCRINOLOGIC: No reports of sweating, cold or heat intolerance. No polyuria or polydipsia. ALLERGIES: No history of asthma, hives, eczema or rhinitis. Vital Signs Vital Signs Vital Signs: 12/30/20 21:17 12/30/20 21:18 12/30/20 21:32 Temperature 98.7 F Temperature Source Oral Pulse Rate 91 93 89 Pulse Rate [1 (Initial Baseline)] Pulse Rate [2] Pulse Rate [3] Respiratory Rate 17 16 24 H Respiratory Rate [1 (Initial Baseline)] Respiratory Rate [2] Respiratory Rate [3] Respiratory Effort Respiratory Depth Respiratory Pattern Blood Pressure 166/95 H 166/95 H 166/95 H Blood Pressure [1 (Initial Baseline)] Blood Pressure [2] Blood Pressure [3] Blood Pressure Mean 118 118 Pulse Ox 97 97 95 Oxygen Delivery Method Room Air Room Air Room Air Oxygen Delivery Method [1 (Initial Baseline)] Oxygen Delivery Method [2] Oxygen Delivery Method [3] Oxygen Flow Rate (L/min) [2] Oxygen Flow Rate (L/min) [3] 12/30/20 21:34 12/30/20 21:44 12/30/20 21:49 Temperature Temperature Source Pulse Rate 90 97 Pulse Rate [1 (Initial Baseline)] 87 Pulse Rate [2] 100 Pulse Rate [3] 95 Respiratory Rate 19 H 17 Respiratory Rate [1 (Initial Baseline)] 17 Respiratory Rate [2] 24 H Respiratory Rate [3] 24 H Respiratory Effort Respiratory Depth Respiratory Pattern Blood Pressure 204/112 H 210/96 H Blood Pressure [1 (Initial Baseline)] 166/95 H Blood Pressure [2] 174/110 H Blood Pressure [3] 208/125 H Blood Pressure Mean Pulse Ox 94 93 Oxygen Delivery Method Room Air Room Air Oxygen Delivery Method [1 (Initial Baseline)] Room Air Oxygen Delivery Method [2] Nasal Cannula Oxygen Delivery Method [3] Nasal Cannula Oxygen Flow Rate (L/min) [2] 3 Oxygen Flow Rate (L/min) [3] 3 12/30/20 21:54 12/30/20 22:10 12/30/20 23:50 Temperature Temperature Source Pulse Rate 84 86 Pulse Rate [1 (Initial Baseline)] Pulse Rate [2] Pulse Rate [3] Respiratory Rate 18 18 Respiratory Rate [1 (Initial Baseline)] Respiratory Rate [2] Respiratory Rate [3] Respiratory Effort Normal Non-Labored Respiratory Depth Normal Respiratory Pattern Normal Blood Pressure 158/87 H 126/74 H Blood Pressure [1 (Initial Baseline)] Blood Pressure [2] Blood Pressure [3] Blood Pressure Mean 91 Pulse Ox 93 94 97 Oxygen Delivery Method Room Air Room Air Room Air Oxygen Delivery Method [1 (Initial Baseline)] Oxygen Delivery Method [2] Oxygen Delivery Method [3] Oxygen Flow Rate (L/min) [2] Oxygen Flow Rate (L/min) [3] Weight Weight: 147 lb 11.355 oz Body Mass Index (BMI) 27.0 Physical Exam Narrative Physical Examination: General: Awakens to stimuli, initially sleeping, alert with discussions, oriented x 3, remains cooperative, laying in the ED bed, fatigued appearing, notes pain improved. Skin: Normal color, normal turgor, no icterus, no cyanosis. HEENT: AT/NC, EOMI, PERRLA, moderately dry MM, no carotid bruits or JVD noted. Lungs: Diminished at bases, moderate effort, no rales, ronchi or wheezing. Heart: Regular rate and rhythm; no gallop, rub audible. Abdomen: Soft, NTTP, ND, normal BS, no HSM. Extremities: No cyanosis, no clubbing, right hip shortened and externally rotated, mild bilateral ankle edema, peripheral pulses intact. Neurological: Patient awakens to stimuli as initially been sleeping, alert with discussions, oriented as noted, cognitive function intact; pupils equally reactive to light and accommodation, cranial nerves II-XII grossly normal, moving all 4 extremities except limited right lower extremity movement given right hip fracture, shortened externally rotated, strength accordingly severely globally decreased. Psychiatric: Affect appears fatigued, no acute evidence of depressive or anxiety feelings. Results Lab / Micro Data Result Diagrams: 12/30/20 21:40 12/30/20 21:40 Labs: Laboratory Results - last 24 hr 12/30/20 21:40: WBC 9.2, RBC 3.48 L, Hgb 9.9 L, Hct 32.0 L, MCV 92.0, MCH 28.4, MCHC 30.9 L, RDW Std Deviation 48.0 H, RDW Coeff of Cain 14.2, Plt Count 245, MPV 9.2, Immature Gran % (Auto) 0.300, Neut % (Auto) 51.3, Lymph % (Auto) 38.1, Person % (Auto) 8.4, Eos % (Auto) 1.4, Baso % (Auto) 0.5, Absolute Neuts (auto) 4.7, Absolute Lymphs (auto) 3.49, Nucleated RBC % 0 12/30/20 21:40: Sodium 139, Potassium 3.7, Chloride 105, Carbon Dioxide 27.0, Anion Gap 7, BUN 28 H, Creatinine 1.84 H, Estim Creat Clear Calc 18.32, Est GFR (MDRD) Af Amer 34 L, Est GFR (MDRD) Non-Af 28 L, BUN/Creatinine Ratio 15.2, Glucose 154 H, Calcium 9.2, Total Bilirubin 0.30, AST 13 L, ALT 18, Alkaline Phosphatase 86, Total Protein 7.2, Albumin 3.5, Globulin 3.7, Albumin/Globulin Ratio 0.9 12/30/20 22:00: PT 12.9, INR 1.0, APTT 28.8 12/30/20 23:10: Blood Type O POSITIVE, Antibody Screen NEGATIVE 12/30/20 23:48: Urine Color Yellow, Urine Clarity Clear, Urine pH 7.0, Ur Specific Anderson 1.010, Urine Protein Negative, Urine Glucose (UA) Normal, Urine Ketones 15 H, Urine Occult Blood 25 H, Urine Nitrite Negative, Urine Bilirubin Negative, Urine Urobilinogen Normal, Ur Leukocyte Esterase Negative, Urine RBC 0-5 SEEN, Urine WBC 0 SEEN, Ur Squamous Epith Cells 0 SEEN, Urine Bacteria 0 SEEN, Urine Mucus 0 SEEN Radiology Impression Chest X-Ray 12/30/20 22:27 IMPRESSION: No radiographic evidence of acute cardiopulmonary disease. at 2255 Reported and signed by: Adarsh Fritz MD Electronically Signed: Adarsh Fritz MD at 22:54 EDT Tel , Service support , Hip/Pelvis X-Ray 12/30/20 22:27 IMPRESSION: Intertrochanteric fracture of the right femoral neck. at 2256 Reported and signed by: Adarsh Fritz MD Electronically Signed: Adarsh Fritz MD at 22:55 EDT Tel , Service support , Brain CT 12/30/20 22:39 IMPRESSION: 1. No acute intracranial abnormality. There has been no significant change from the reference examination. 2. Stable underlying senescent change and small vessel ischemia. Individualized dose optimization techniques were used for this CT. at 2351 Reported and signed by: Adarsh Fritz MD Electronically Signed: Adarsh Fritz MD at 23:50 EDT Tel , Service support , Cervical Spine CT 12/30/20 22:39 IMPRESSION: No acute osseous abnormalities of the cervical spine. Individualized dose optimization techniques were used for this CT. at 2353 Reported and signed by: Adarsh Fritz MD Electronically Signed: Adarsh Fritz MD at 23:52 EDT Tel , Service support , Assessment & Plan Assessment/Plan (1) Closed right hip fracture: QUALIFIERS: Encounter type: initial encounter Qualified Code(s): S72.001A - Fracture of unspecified part of neck of right femur, initial encounter for closed fracture PLAN: The patient is an 85 y/o F w/ PMHx: CKD stage IV, Hypothyroidism, HTN, GERD, Hx CVA who presents to the [facility] ED on 12/30/20 with history of unfortunate mechanical fall while attempting to view something in her air, falling down several steps with significant onset right lower extremity discomfort, inappropriate rotation with debility prompting ED evaluation. 1. General debility, R hip pain s/p mechanical fall w/ right intertrochanteric fracture of the right femoral neck: Orthopedic surgery consulted from ED, Dr. Hawkins. Will admit to MS, maintain NPO, continue gentle IVFs, obtain TSH, Mag level, UA, UCx, escobar placement, monitor I/Os, frequent positioning, fall precautions, type and screen per ED. Pain, anti-emetic regimen. PT/OT following operative intervention. CM consulted for discharge planning. Per NSQIP for age, underlying co-morbidities and current status average or below average risk for serious complication/any complication. Will proceed to OR given review of data as noted above. 2. Chronic normocytic anemia: Admission hemoglobin 9.9, baseline primarily appears 8-9 over the last year. Prior previous work-up included unremarkable iron panel, ferritin, vitamin B12 and folic acid levels. Encourage continued outpatient work-up. 3. Chronic Kidney Disease Stage IV: Admission BUN/Cr 28/1.84, baseline renal function primarily 1.8-2.4, repeat BMP in AM. Pronator 08/2018 renal ultrasound with increased renal cortical echogenicity bilaterally consistent with medical renal disease. 4. Hypothyroidism: Continue home synthroid regimen, TSH and FT4 pending. 5. Hypertension: Continue home regimen including metoprolol, amlodipine with hold parameters, PRN hydralazine. 6. Hx CVA: We will continue aspirin once allowed per surgery, continue hypertensive regimen, not on statin therapy, defer to outpatient. 7. GERD: We will continue patient home PPI. 8. DVT prophylaxis: SCDs, defer chemoprophylaxis given planned intervention, initiate once cleared per surgery. 9. CODE status: Patient does have a living will and HCPOA (Daughter Dari Estrella) in place Discussed CODE status at length including difference between FULL code, DNR-CCA and DNR-CC status. Following discussions about the differences in these status, requested DNR-CCA, no intubation status. Advanced Care Planning Face to Face Time: 16 minutes. Charges/Coding Visit Charges Inpatient E&M: 09989 Init Hosp L3 Procedures Hospitalists Procedures: 47104 Advncd Care Plan 30 Min
[2020-12-31 01:29] LABS: Magnesium 2.1 mg/dL (1.6-2.6)
[2020-12-31] MEDS: Morphine 2 MG/ML Syringe IV ×5 (01:43→20:33)
[2020-12-31] MEDS: 0.9% Saline Lock 10 ML Syringe IV ×7 (01:44→23:07)
[2020-12-31] MEDS: 0.9% Normal Saline 1,000 ML 100 ML IV ×2 (01:44→10:28)
[2020-12-31] MEDS: proCHLORPERazine 10 MG/2 ML Vial 5 MG IV ×2 (01:51→23:08)
[2020-12-31 05:23] LABS: Absolute Lymphocyte Count 0.77 X10^3/uL (0.83-4.51); Absolute Neutrophil Count 7.5 X10^3/uL (2.0-7.7); Basophil# 0.03 X10^3/uL; Basophil% 0.3 % (0-1); Eosinophil# 0.01 X10^3/uL; Eosinophils% 0.1 % (0-5); Hematocrit 27.4 % (37-47); Hemoglobin 8.5 g/dL (12.0-15.0); Lymphocyte # 0.77 X10^3/ul (0.83-4.51); Lymphocyte % 8.4 % (19-41); Mean Corpuscular Hgb 28.6 pg (27.0-32.0); Mean Corpuscular Volume 92.3 fL (81-99); Mean Platelet Vol. 9.2 fl (6.2-12.0); Monocyte% 8.7 % (0-10); NRBC Flagged by Analyzer 0 % (0-5); Neutrophil # 7.52 X10^3/uL (2.7-7.7); Neutrophil % 82.2 % (47-70); Platelet Count 213 K/mm3 (150-450); RBC Distribution Width SD 47.4 fl (35.1-43.9); Red Blood Count 2.97 M/mm3 (4.2-5.4); White Blood Count 9.2 K/mm3 (4.4-11.0)
[2020-12-31 05:51] LABS: AST(SGOT) 15 U/L (15-37); Alanine Aminotransfer ALT/SGPT 15 U/L (13-56); Alkaline Phosphatase 72 U/L (45-117); Anion Gap 7 (5-15); BUN 27 mg/dL (7-18); BUN/Creat Ratio 16.5 RATIO (10-20); Calcium,Total 8.5 mg/dL (8.5-10.1); Chloride 109 mmol/L (98-107); Creatinine, Serum 1.64 mg/dL (0.55-1.02); EST Glomerular Filtration Rate 32 mL/min (>60); Est Glom Filt Rate - Afr Amer 38 mL/min (>60); Estimated Creatinine Clearance 18.67 ml/min; Globulin 3.1 g/dL (2.2-4.2); Glucose 156 mg/dL (74-106); Potassium 3.9 mmol/L (3.5-5.1); Protein, Total 6.1 g/dL (6.4-8.2); Sodium Level 140 mmol/L (136-145); Thyroid Stim Hormone (TSH) 6.36 uIU/mL (0.358-3.74)
[2020-12-31] MEDS: Ondansetron 4 MG/2 ML Vial IV ×2 (06:37→20:33)
--- NOTE | 2020-12-31 07:04 | RAD_ITS ---
History: Fracture Right femur, AP and lateral views: Comparison: Right hip December 30, 2020 Findings: Acute comminuted intertrochanteric fracture of the right femur again seen with posterior displacement of the femoral shaft. No significant interval change from prior study. IMPRESSION: Acute comminuted intertrochanteric fracture of the right femur. at 1142 Reported and signed by: Christian Toribio MD Electronically Signed: Christian Toribio MD at 11:41 EDT Tel , Service support , RAD/Femur Min 2 Views
--- NOTE | 2020-12-31 07:36 | CON.PCM_ITS ---
Assessment & Plan Assessment/Plan (1) Closed fracture of right hip: QUALIFIERS: Encounter type: initial encounter Qualified Code(s): S72.001A - Fracture of unspecified part of neck of right femur, initial encounter for closed fracture PLAN: 85-year-old female patient with ground-level fall sustaining right intertrochanteric fracture with subtrochanteric extension completely displaced with some comminution. Discussed with patient and her daughter Dari about definitive surgical fixation with a cephalomedullary type device. X-rays do not encompass the distal femur therefore we will apply 7 pounds Arrington's traction and x-ray full-length right femur Antibiotics on-call to the OR plan for surgical fixation today 330 Risk benefits and alternatives of the procedure discussed with the patient consent obtained. HPI Consult Data Date of Consult: 12/31/20 HPI Narrative HPI Narrative: ALVARO HOLLEY, is a 85 F who presents status post ground-level fall looking up in a hot air balloon walking backwards stumbled landing onto the right hip immediately had pain inability ambulate medially had pain in right thigh. [facility] Medical History (Updated 12/31/20 @ 08:[address] Kiran Velasquez DO) Anxiety and depression Cancer Chronic pain DVT (deep venous thrombosis) GERD (gastroesophageal reflux disease) HTN (hypertension) Hypothyroidism Non-smoker Post-menopausal Rheumatoid arthritis Scarlet fever Stroke/cerebrovascular accident Home Medications aspirin 81 mg PO DAILY@0800 08/22/20 [History Last Taken 08/20/20] levothyroxine 25 mcg PO DAILY 08/22/20 [History Last Taken Unknown] amlodipine 2.5 mg PO DAILY 12/30/20 [History Last Taken Unknown] metoprolol tartrate 12.5 mg PO BID 12/30/20 [History Last Taken Unknown] pantoprazole 40 mg PO DAILY 12/30/20 [History Last Taken Unknown] Allergy/AdvReac Type Severity Reaction Status Date / Time heparin Allergy Rash Verified 12/30/20 22:10 latex Allergy PT UNSURE Verified 12/31/20 01:14 OF REACTION aspartame AdvReac headache Verified 12/31/20 01:17 [From Nutrasweet Aspartame] Family History (Updated 12/31/20 @ 01:[address] Nelia Argueta MD) Mother CVA (cerebral vascular accident) Father Heart disease Hypertension Myocardial infarction Surgical History (Updated 12/31/20 @ 01:27 by Adri Andres) H/O: hysterectomy History of appendectomy Status post laser lithotripsy of ureteral calculus Social History (Updated 12/31/20 @ 01:[address] Nelia Argueta MD) household members: other details: Patient lives with her daughter. Smoking Status: Never smoker alcohol intake: never substance use type: does not use Physical Exam Const alert; Negative for well nourished Extremity Extremity Narrative: Patient is sitting with a hip in a flexed and externally rotated posture with blankets underneath her thigh exquisite pain in her thigh with movement compartments are soft she does have soft tissue swelling about the knee but there is no ecchymosis or joint effusion she is tender to palpation throughout the entire leg she is able to barely dorsiflex the ankle this is secondary to any movement causing pain. Lab / Micro Data Result Diagrams: 12/31/20 05:04 12/31/20 05:04 Labs: Laboratory Results - last 24 hr 12/30/20 21:40: WBC 9.2, RBC 3.48 L, Hgb 9.9 L, Hct 32.0 L, MCV 92.0, MCH 28.4, MCHC 30.9 L, RDW Std Deviation 48.0 H, RDW Coeff of Cain 14.2, Plt Count 245, MPV 9.2, Immature Gran % (Auto) 0.300, Neut % (Auto) 51.3, Lymph % (Auto) 38.1, [place] % (Auto) 8.4, Eos % (Auto) 1.4, Baso % (Auto) 0.5, Absolute Neuts (auto) 4.7, Absolute Lymphs (auto) 3.49, Nucleated RBC % 0 12/30/20 21:40: Sodium 139, Potassium 3.7, Chloride 105, Carbon Dioxide 27.0, Anion Gap 7, BUN 28 H, Creatinine 1.84 H, Estim Creat Clear Calc 18.32, Est GFR (MDRD) Af Amer 34 L, Est GFR (MDRD) Non-Af 28 L, BUN/Creatinine Ratio 15.2, Glucose 154 H, Calcium 9.2, Total Bilirubin 0.30, AST 13 L, ALT 18, Alkaline Phosphatase 86, Total Protein 7.2, Albumin 3.5, Globulin 3.7, Albumin/Globulin Ratio 0.9 12/30/20 21:40: Magnesium 2.1 12/30/20 22:00: PT 12.9, INR 1.0, APTT 28.8 12/30/20 23:10: Blood Type O POSITIVE, Antibody Screen NEGATIVE 12/30/20 23:48: Urine Color Yellow, Urine Clarity Clear, Urine pH 7.0, Ur Specific [place] 1.010, Urine Protein Negative, Urine Glucose (UA) Normal, Urine Ketones 15 H, Urine Occult Blood 25 H, Urine Nitrite Negative, Urine Bilirubin Negative, Urine Urobilinogen Normal, Ur Leukocyte Esterase Negative, Urine RBC 0-5 SEEN, Urine WBC 0 SEEN, Ur Squamous Epith Cells 0 SEEN, Urine Bacteria 0 SEEN, Urine Mucus 0 SEEN 12/31/20 05:04: WBC 9.2, RBC 2.97 L, Hgb 8.5 L, Hct 27.4 L, MCV 92.3, MCH 28.6, MCHC 31.0 L, RDW Std Deviation 47.4 H, RDW Coeff of Cain 14.0, Plt Count 213, MPV 9.2, Immature Gran % (Auto) 0.300, Neut % (Auto) 82.2 H, Lymph % (Auto) 8.4 L, Ellsworth % (Auto) 8.7, Eos % (Auto) 0.1, Baso % (Auto) 0.3, Absolute Neuts (auto) 7.5, Absolute Lymphs (auto) 0.77 L, Nucleated RBC % 0 12/31/20 05:04: Sodium 140, Potassium 3.9, Chloride 109 H, Carbon Dioxide 24.0, Anion Gap 7, BUN 27 H, Creatinine 1.64 H, Estim Creat Clear Calc 18.67, Est GFR (MDRD) Af Amer 38 L, Est GFR (MDRD) Non-Af 32 L, BUN/Creatinine Ratio 16.5, Glucose 156 H, Calcium 8.5, Total Bilirubin 0.30, AST 15, ALT 15, Alkaline Phosphatase 72, Total Protein 6.1 L, Albumin 3.0 L, Globulin 3.1, Albumin/Globulin Ratio 1.0, TSH 6.36 H, Free T4 1.50 H Micro: Microbiology 12/31/20 00:32 Mucosa - Nose SARS-CoV-2 Antigen (Rapid) - Final Radiology Impression Chest X-Ray 12/30/20 22:27 IMPRESSION: No radiographic evidence of acute cardiopulmonary disease. at 2255 Reported and signed by: Adarsh Fritz MD Electronically Signed: Adarsh Fritz MD at 22:54 EDT Tel , Service support , Hip/Pelvis X-Ray 12/30/20 22:27 IMPRESSION: Intertrochanteric fracture of the right femoral neck. at 2256 Reported and signed by: Adarsh Fritz MD Electronically Signed: Adarsh Fritz MD at 22:55 EDT Tel , Service support , Brain CT 12/30/20 22:39 IMPRESSION: 1. No acute intracranial abnormality. There has been no significant change from the reference examination. 2. Stable underlying senescent change and small vessel ischemia. Individualized dose optimization techniques were used for this CT. at 2351 Reported and signed by: Adarsh Fritz MD Electronically Signed: Adarsh Fritz MD at 23:50 EDT Tel , Service support , Cervical Spine CT 12/30/20 22:39 IMPRESSION: No acute osseous abnormalities of the cervical spine. Individualized dose optimization techniques were used for this CT. at 2353 Reported and signed by: Adarsh Fritz MD Electronically Signed: Adarsh Fritz MD at 23:52 EDT Tel , Service support ,
[2020-12-31] MEDS: amLODIPine 2.5 MG Tablet PO (10:31)
[2020-12-31] MEDS: Pantoprazole Sodium 40 MG Tablet PO (10:31)
[2020-12-31] MEDS: Metoprolol Tartrate 25 MG Tablet 12.5 MG PO ×2 (10:31→22:34)
--- NOTE | 2020-12-31 11:00 | CASEMGMT ---
RN CM Face to Face with patient for initial transition planning/care coordination assessment. RN CM introduced self and role at [facility]. Patient lying in bed, alert and oriented. Patient willing to participate in assessment and is able to answer all questions appropriately. Care providers, pharmacy, and demographics verified. Patient wishes to discharge home with possible HHC. Discussed possibility of SNF at discharge and patient unsure. Will monitor progress with therapy after surgery for recommendations. Patient states he has no further needs or concerns at this time. CM to follow for discharge planning needs that may arise. PCP: Manuel Specialists: none [facility]erred Pharmacy: [facility] Insurance: [employer] [facility] Prescription Benefit: yes Living Will/HPOA: yes, daughter Dari Estrella LNOK: daughter Living Arrangements: Patient lives with daughter in a in-law suite with ramp to enter. Patient states she was independent at home. Transportation: daughter DME/HHC: Patient states she has built in shower seat, grab bars, cane, and walker at home. Patient has had [facility] HHC in the past. Disposition Plan: TBD pending surgery and progress with therapy. Jayda JIMENEZ, RN, CM
[2020-12-31] MEDS: Cefazolin 2 GM in 0.9% Normal Saline 100 ML IV (15:34)
--- NOTE | 2020-12-31 15:45 | RAD_ITS ---
EXAM: XR RIGHT FEMUR, 2 VIEWS : 1935 CLINICAL INDICATION: ORIF, HIP, SHORT GAMMA NAIL TECHNIQUE: Frontal and lateral views of the right femur. This report was created using [employer] report generation technology. COMPARISON: None. FINDINGS: BONES/JOINTS: Intraoperative images show placement of hardware across an intertrochanteric fracture of the right femoral neck. Preservation of the joint space. No sclerotic or destructive changes observed. SOFT TISSUES: Unremarkable. No soft tissue swelling or gas. No radiopaque foreign body. RAD/Femur Min 2 Views IMPRESSION: ORIF of a right femoral neck fracture. at 2232 Reported and signed by: Adarsh Fritz MD Electronically Signed: Adarsh Fritz MD at 22:31 EDT Tel , Service support ,
[2020-12-31] MEDS: Lactated Ringers 1,000 ML 125 ML IV ×2 (16:30→20:22)
--- NOTE | 2020-12-31 18:25 | OP.PCM_ITS ---
Report of Operation Date of Procedure: 12/31/20 Description of Surgical Findings:: Preoperative diagnosis: Right hip comminuted intertrochanteric femur fracture with subtrochanteric extension and displacement Postoperative diagnosis: Same Procedure: Long cephalo-medullary fixation right hip Implants: Synthes long nail 360 millimeter length 12 mm diameter 105 mm helical blade 48 mm screw Anesthesia: General EBL: 200 Complications: None Condition: Stable to PACU Indication for procedure: 85-year-old female patient status post ground-level fall sustaining comminuted intertrochanteric femur fracture with subtrochanteric extension risk benefits and alternatives were reviewed including risk of bleeding infection nerve, artery, bone, tissue damage, blood clot need for further surgery and continued pain. Procedure: Patient met in the preoperative holding area once again the operative extremity was identified by both patient and physician and was marked. Patient was met by anesthesia and IV was started . patient was brought back to the to the operating room anesthesia was started. Patient was then positioned on the fracture table all bony prominences were well-padded. patient was then positioned with adduction internal rotation and traction and fluoroscopy was brought in to ensure that an adequate reduction could be performed. At this point there is noted to be significant displacement of the fracture and closed reduction alone after several attempts at manipulation and with the use of a crutch to aid in the reduction alignment was not satisfactory, and it was determined that we would need to proceed with an open reduction. Patient was then prepped and draped in usual sterile fashion and timeout was called to ensure the proper patient procedure and extremity were being contemplated. Fluoroscopy was used to shreyas the tip of the greater trochanter and a 3 fingerbreadth incision was made 2 finger breaths proximal to the tip of the greater trochanter. Was carried carried down through the skin and subcutaneous tissue as well as the gluteal fascia. We then also made an incision over the fracture site with a 15 blade scalpel and electrocautery splitting the gluteal fascia and the vastus lateralis with the use of a bone hook and a Bray fracture was able to be manipulated in acceptable alignment there was soft tissue within the fracture that was preventing the reduction this was removed with a gloved finger . Once the fracture could be held in place with the bone hook guidepin was then inserted through the tip of the greater trochanter directed towards the level of lesser trochanter this was checked in both AP and lateral projections. There was severe comminution of the greater trochanter. A bent guidewire was inserted through the opening down the femoral canal was placed within the center of the canal distally under fluoroscopy placed at the tip of the superior patella and then measured the proximal portion as a 360 mm in length we sequentially reamed to 13-1/2 for 12 mm nail, patient's canals were very wide and there was not any significant cortical chatter with the reamers even at a size 13.5. Following this was the insertion of the nail the appropriate height jig was used and a triple trocar sleeve was advanced to the bone then under fluoroscopic guidance a guidepin was inserted into the femoral head, after several attempts the only way to maintain the reduction was placed the guidepin from a slightly anterior to posterior orientation however subchondral placement was achieved on AP and lateral projections and this was measured and drilled 405 mm helical blade prior to insertion of the helical blade a derotational guidepin was inserted to try to minimize movement of the fracture site with insertion of the helical blade we then advanced the helical blade and compress the fracture site with the jig. This left a slight prominence of the helical blade laterally after compression. The jig was removed locking screw was tightened prior to compression. And attention was turned distally using perfect [place] technique a distal locking screw was placed in standard fashion all the wounds were thoroughly irrigated with saline followed by a Betadine rinse lavage followed by several more liters of saline. Deep tissue was closed with #1 Vicryl followed by 0 Vicryl followed by 2-0 Vicryl and forrest in the skin dressing was applied a form of Xeroform 4 x 4 ABD [place] patient tolerated the procedure well there was no intraoperative complications all counts were correct was brought back to the PACU in stable condition.
--- NOTE | 2020-12-31 18:41 | PN.HOSP_ITS ---
Hospitalist Note Patient was seen and examined briefly today before her right hip fracture surgery, I asked her to consider going to a correction facility for recovery after she is discharged from the hospital and she stated that she would think about it, initially today, patient would not consider it. Patient's daughter was in her room at the time of my examination today and try to encourage the patient to consider going to a correction facility for inpatient rehab services.
[2020-12-31] MEDS: Cefazolin 1 GM/50 ML BAG IV (22:34)
[2020-12-31] MEDS: Acetaminophen 500 MG Tablet 1000 MG PO (22:44)
[2021-01-01] VITALS (14 sets, daily range): BP systolic 97–154; BP diastolic 45–71; PULSE 58–95; RESP 16–18; TEMP 36.1–37.3; O2SAT 92–100
[2021-01-01] MEDS: Lactated Ringers 1,000 ML 125 ML IV ×2 (03:52→18:17)
[2021-01-01] MEDS: Cefazolin 1 GM/50 ML BAG IV ×2 (05:02→14:33)
[2021-01-01] MEDS: Acetaminophen 500 MG Tablet 1000 MG PO ×3 (05:03→22:20)
[2021-01-01] MEDS: APIXABAN 2.5 MG TABLET PO (05:04)
[2021-01-01] MEDS: Levothyroxine 25 MCG TABLET PO (05:04)
[2021-01-01] MEDS: Ondansetron 4 MG/2 ML Vial IV (06:09)
[2021-01-01] MEDS: 0.9% Saline Lock 10 ML Syringe IV ×3 (06:09→14:06)
[2021-01-01 06:37] LABS: Hematocrit 18.1 % (37-47); Mean Corp Hgb Conc 30.9 g/dL (32-36); Mean Corpuscular Hgb 28.9 pg (27.0-32.0); Mean Corpuscular Volume 93.3 fL (81-99); Mean Platelet Vol. 9.7 fl (6.2-12.0); POSITIVE COUNT YES; Platelet Count 188 K/mm3 (150-450); RBC Distribution Width CV 14.5 % (11.6-14.6); RBC Distribution Width SD 48.7 fl (35.1-43.9); Red Blood Count 1.94 M/mm3 (4.2-5.4)
[2021-01-01 06:40] LABS: Hemoglobin 5.6 g/dL (12.0-15.0); Scan Indicated on CBC? Y/N YES- FLAGS NOTED
[2021-01-01] MEDS: proCHLORPERazine 10 MG/2 ML Vial 5 MG IV ×2 (06:46→14:05)
[2021-01-01 07:02] LABS: Anion Gap 6 (5-15); BUN 33 mg/dL (7-18); BUN/Creat Ratio 15.7 RATIO (10-20); Calcium,Total 8.1 mg/dL (8.5-10.1); Chloride 112 mmol/L (98-107); EST Glomerular Filtration Rate 24 mL/min (>60); Est Glom Filt Rate - Afr Amer 29 mL/min (>60); Estimated Creatinine Clearance 14.58 ml/min; Glucose 153 mg/dL (74-106); Potassium 4.5 mmol/L (3.5-5.1); Sodium Level 141 mmol/L (136-145)
--- NOTE | 2021-01-01 07:12 | PCM.PN.ORT ---
Subjective Subjective Patient seen and examined complain of pain and nausea Objective Data Objective Data Vital Signs: Vital Signs Temp Pulse Resp BP Pulse Ox 98.6 F 75 16 118/51 L 100 01/01/21 05:10 01/01/21 05:10 01/01/21 05:10 01/01/21 05:10 01/01/21 05:10 Oxygen Flow Rate (L/min) [3] 3 Oxygen Flow Rate (L/min) [2] 3 Oxygen Flow Rate (L/min) 2 Oxygen Delivery Method [3] Nasal Cannula Oxygen Delivery Method [2] Nasal Cannula Oxygen Delivery Method [1 ( Room Air Initial Baseline)] Oxygen Delivery Method Nasal Cannula Weight: 132 lb 7.965 oz Body Mass Index (BMI) 25.4 Intake & Output: Intake and Output for Last 24 Hours 12/30/20 12/31/20 01/01/21 23:59 23:59 23:59 Intake Total 3719.16 / 3719.16 689.58 / 689.58 Output Total 825 / 825 250 / 250 Balance 2894.16 / 2894.16 439.58 / 439.58 Lab / Micro Data Result Diagrams: 01/01/21 06:15 01/01/21 06:15 Labs: Laboratory Results - last 24 hr 12/30/20 23:10: Crossmatch See Detail 01/01/21 06:15: WBC 8.0, RBC 1.94 L, Hgb 5.6 L*, Hct 18.1 L, MCV 93.3, MCH 28.9, MCHC 30.9 L, RDW Std Deviation 48.7 H, RDW Coeff of Cain 14.5, Plt Count 188, MPV 9.7 01/01/21 06:15: Sodium 141, Potassium 4.5, Chloride 112 H, Carbon Dioxide 23.0, Anion Gap 6, BUN 33 H, Creatinine 2.10 H, Estim Creat Clear Calc 14.58, Est GFR (MDRD) Af Amer 29 L, Est GFR (MDRD) Non-Af 24 L, BUN/Creatinine Ratio 15.7, Glucose 153 H, Calcium 8.1 L Micro: Microbiology 12/31/20 00:32 Mucosa - Nose SARS-CoV-2 Antigen (Rapid) - Final Radiography Diagnostic Testing: Radiology Impression Femur X-Ray 12/31/20 07:04 Femur X-Ray 07/28/21 15:45 IMPRESSION: ORIF of a right femoral neck fracture. at 2232 Reported and signed by: Adarsh Fritz MD Electronically Signed: Adarsh Fritz MD at 22:31 EDT Tel , Service support , Physical Exam Const no apparent distress General Appearance: cooperative Orientation / Consciousness: confused Extremity Extremity Narrative: Right lower extremity dressing clean dry and intact compartments soft neurovascular intact Assessment & Plan Assessment/Plan (1) Intertrochanteric fracture of right hip: QUALIFIERS: Encounter type: subsequent encounter Fracture type: closed Fracture alignment: displaced Fracture healing: with routine healing Qualified Code(s): S72.141D - Displaced intertrochanteric fracture of right femur, subsequent encounter for closed fracture with routine healing (2) Acute blood loss as cause of postoperative anemia: PLAN: Status post long cephalomedullary fixation right femur highly comminuted intertrochanteric fracture with subtrochanteric extension PT OT toe-touch weightbearing right lower extremity DVT prophylaxis Decreased hemoglobin being transfused 2 units of blood hold Eliquis today resume tomorrow, recommend Eliquis for 35 days postop secondary to inability fracture toe-touch weightbearing Will need wound check 2 weeks postop in office Dressing to be left on 72 hours postop then may be removed prior to first shower if not showering wound should be cleaned at that point daily with Betadine with a dry dressing change daily at that point. Patient is going to require transitional care
--- NOTE | 2021-01-01 10:47 | CASEMGMT ---
SW met w/pt in room, pt with emesis bag on lap, stating not feeling well. SW spoke w/pt in regard to discharge plan, if she may want to consider going somewhere for rehab. SW did leave list w/pt of longterm facilities in network w/pt's insurance, in her preferred geographic area, complete with quality and resource use data. Pt not feeling well enough to discuss at this time, though may be agreeable to TCU. SW will check back with pt later today or tomorrow when feeling better to again review the discharge plan. KAJAL Guerrero
--- NOTE | 2021-01-01 12:05 | CASEMGMT ---
Palliative screening tool completed for [facility]. Patient meets criteria for palliative consult. Hospitalist updated and no consult at this time.
[2021-01-01 13:36] LABS: Pathologist Review Reviewed
[2021-01-01] MEDS: Morphine 2 MG/ML Syringe IV (14:05)
--- NOTE | 2021-01-01 15:01 | NURSING ---
PT UNABLE TO VOID IN LAST 8 HRS. BLADDER SCAN = 193ML. ST CATHED PER ORDER. 75ML URINE OBTAINED.
--- NOTE | 2021-01-01 16:13 | PN.HOSP_ITS ---
Subjective Subjective Patient was seen and examined today, her hemoglobin this morning was 5.6, 2 units of packed red blood cells were ordered. Patient denies any shortness of breath or chest pain at this time, her daughter is in the room at the time of my examination. Objective Data Objective Data Vital Signs: Vital Signs Temp Pulse Resp BP Pulse Ox 99.1 F 81 18 122/49 H 96 01/01/21 14:00 01/01/21 14:00 01/01/21 14:00 01/01/21 14:00 01/01/21 14:00 Oxygen Flow Rate (L/min) [3] 3 Oxygen Flow Rate (L/min) [2] 3 Oxygen Flow Rate (L/min) 2 Oxygen Delivery Method [3] Nasal Cannula Oxygen Delivery Method [2] Nasal Cannula Oxygen Delivery Method [1 ( Room Air Initial Baseline)] Oxygen Delivery Method Room Air Weight: 60.1 kg Body Mass Index (BMI) 25.4 Intake & Output: Intake and Output for Last 24 Hours 12/30/20 12/31/20 01/01/21 23:59 23:59 23:59 Intake Total 3719.16 / 3719.16 1429.16 / 1429.16 Output Total 825 / 825 250 / 250 Balance 2894.16 / 2894.16 1179.16 / 1179.16 Lab / Micro Data Result Diagrams: 01/01/21 06:15 01/01/21 06:15 Labs: Laboratory Results - last 24 hr 12/30/20 23:10: Crossmatch See Detail 01/01/21 06:15: WBC 8.0, RBC 1.94 L, Hgb 5.6 L*, Hct 18.1 L, MCV 93.3, MCH 28.9, MCHC 30.9 L, RDW Std Deviation 48.7 H, RDW Coeff of Cain 14.5, Plt Count 188, MPV 9.7, Diff Path Review Reviewed 01/01/21 06:15: Sodium 141, Potassium 4.5, Chloride 112 H, Carbon Dioxide 23.0, Anion Gap 6, BUN 33 H, Creatinine 2.10 H, Estim Creat Clear Calc 14.58, Est GFR (MDRD) Af Amer 29 L, Est GFR (MDRD) Non-Af 24 L, BUN/Creatinine Ratio 15.7, Gl ucose 153 H, Calcium 8.1 L Micro: Microbiology 12/31/20 00:32 Mucosa - Nose SARS-CoV-2 Antigen (Rapid) - Final Radiography Diagnostic Testing: Radiology Impression Femur X-Ray 12/31/20 15:45 IMPRESSION: ORIF of a right femoral neck fracture. at 2232 Reported and signed by: Adarsh Fritz MD Electronically Signed: Adarsh Frtiz MD at 22:31 EDT Tel , Service support , Physical Exam Const alert, oriented x3 and no apparent distress Constitutional Narrative: Patient appears her stated age HEENT head/scalp atraumatic and moist oral mucous membranes Head and Scalp: normocephalic Resp normal respiratory effort, no retractions, no use of accessory muscles and clear to auscultation bilaterally Cardio regular rate, regular rhythm, S1 normal heart sound and S2 normal heart sound GI normal to inspection, nondistended, normoactive bowel sounds, soft to palpation and non-tender Extremity normal to inspection Skin no rashes or lesions noted and no jaundice Neuro oriented x3, CN's II-XII intact bilaterally and no focal motor deficits Sensorium / Orientation: awake and alert Psych affect normal Assessment & Plan Assessment/Plan (1) Intertrochanteric fracture of right hip: QUALIFIERS: Encounter type: subsequent encounter Fracture type: closed Fracture alignment: displaced Fracture healing: with routine healing Qualified Code(s): S72.141D - Displaced intertrochanteric fracture of right femur, subsequent encounter for closed fracture with routine healing PLAN: #1. Right intertrochanteric fracture-postop day #1 Long cephalocele- medullary fixation right hip, continue postop care, continue PT and OT #2 acute blood loss anemia secondary to right hip fracture-patient will be tra nsfused 2 units of packed red blood cells, labs will be rechecked tomorrow #3 chronic kidney disease stage IV #4 essential hypertension #5 cerebral vascular disease #6 GERD #7 chronic normocytic anemia #8 hypothyroidism Charges/Coding Visit Charges Inpatient E&M: 73687 Subs Hosp L2
[2021-01-01] MEDS: Metoprolol Tartrate 25 MG Tablet 12.5 MG PO (22:20)
[2021-01-02 02:00] VITALS: BP 145/83; PULSE 89; RESP 14; TEMP 36.7; O2SAT 100
[2021-01-02] MEDS: Lactated Ringers 1,000 ML 125 ML IV ×3 (02:26→17:52)
[2021-01-02] MEDS: Levothyroxine 25 MCG TABLET PO (05:56)
[2021-01-02] MEDS: Acetaminophen 500 MG Tablet 1000 MG PO ×3 (05:56→21:27)
[2021-01-02 06:32] LABS: Hematocrit 23.9 % (37-47); Hemoglobin 7.9 g/dL (12.0-15.0); Mean Corp Hgb Conc 33.1 g/dL (32-36); Mean Corpuscular Hgb 30.5 pg (27.0-32.0); Mean Corpuscular Volume 92.3 fL (81-99); Mean Platelet Vol. 9.6 fl (6.2-12.0); Platelet Count 166 K/mm3 (150-450); RBC Distribution Width CV 14.7 % (11.6-14.6); RBC Distribution Width SD 49.3 fl (35.1-43.9); Red Blood Count 2.59 M/mm3 (4.2-5.4); White Blood Count 6.8 K/mm3 (4.4-11.0)
[2021-01-02 07:45] VITALS: BP 146/61; PULSE 90; RESP 18; TEMP 36.6; O2SAT 93; O2SAT 95
[2021-01-02] MEDS: oxyCODONE 5 MG Tablet PO (08:01)
[2021-01-02 08:20] VITALS: BP 146/61; PULSE 90
[2021-01-02] MEDS: Metoprolol Tartrate 25 MG Tablet 12.5 MG PO ×2 (08:20→21:27)
[2021-01-02] MEDS: APIXABAN 2.5 MG TABLET PO ×2 (08:20→21:27)
[2021-01-02] MEDS: Pantoprazole Sodium 40 MG Tablet PO (08:21)
[2021-01-02] MEDS: amLODIPine 2.5 MG Tablet PO (08:21)
[2021-01-02] MEDS: proCHLORPERazine 10 MG/2 ML Vial 5 MG IV ×2 (10:05→17:54)
[2021-01-02] MEDS: 0.9% Saline Lock 10 ML Syringe IV ×3 (10:05→17:54)
--- NOTE | 2021-01-02 11:37 | CASEMGMT ---
Social Work Note SW reviewed PT/OT, pt max/dep assist of two, was able to get to recliner today. SW in to speak with pt. SW introduced self and role at [facility]. SW spoke with pt how she is max/dep assist of two, recommendation is SNF. SW informed pt that TCU is able to accept pt pending pre-cert, asked if pre-cert could be started for TCU. Pt states I guess. SW informed pt that it is beneficial to get the process for TCU started as it can take a few days for pre-cert. SW informed pt that if pt improves and she wants to go home she is able to do but right now SNF is being recommended. Pt states understanding, agreeable to pre-cert for TCU to get started. SW placed a call to Destiney with TCU. Pre-cert for TCU started. SW placed Green sheet on chart in the event pre-cert is obtained. Plan: TCU pending pre-cert Jayda Miller [employer], DIRECTOR OF DANCE
[2021-01-02] MEDS: Ondansetron 4 MG/2 ML Vial IV ×2 (12:48→21:28)
[2021-01-02 14:00] VITALS: BP 151/58; PULSE 88; RESP 18; TEMP 37.2; O2SAT 96
[2021-01-02] MEDS: Morphine 2 MG/ML Syringe IV (17:54)
--- NOTE | 2021-01-02 17:58 | PCM.PN.HOSP ---
Subjective Subjective Patient was seen and examined today, she voices no complaints to this examiner, she has no complaints of any shortness of breath or chest discomfort. We are currently awaiting placement in a alf facility for inpatient rehab services. Patient's hemoglobin today was 7.9, her blood pressure is stable and I did not feel she needed a blood transfusion today. Her labs will be rechecked tomorrow Objective Data Objective Data Vital Signs: Vital Signs Temp Pulse Resp BP Pulse Ox 98.9 F 88 18 151/58 H 96 01/02/21 14:00 01/02/21 14:00 01/02/21 14:00 01/02/21 14:00 01/02/21 14:00 Oxygen Flow Rate (L/min) [3] 3 Oxygen Flow Rate (L/min) [2] 3 Oxygen Flow Rate (L/min) 2 Oxygen Delivery Method [3] Nasal Cannula Oxygen Delivery Method [2] Nasal Cannula Oxygen Delivery Method [1 ( Room Air Initial Baseline)] Oxygen Delivery Method Room Air Weight: 59.7 kg Body Mass Index (BMI) 25.4 Intake & Output: Intake and Output for Last 24 Hours 12/31/20 01/01/21 01/02/21 23:59 23:59 23:59 Intake Total 3719.16 / 3719.16 2053.75 / 2053.75 3169.16 / 3169.16 Output Total 825 / 825 325 / 425 700 / 700 Balance 2894.16 / 2894.16 1728.75 / 1628.75 2469.16 / 2469.16 Lab / Micro Data Result Diagrams: 01/02/21 06:10 01/01/21 06:15 Labs: Laboratory Results - last 24 hr 01/02/21 06:10: WBC 6.8, RBC 2.59 L, Hgb 7.9 L, Hct 23.9 L, MCV 92.3, MCH 30.5, MCHC 33.1 D, RDW Std Deviation 49.3 H, RDW Coeff of Cain 14.7 H, Plt Count 166, MPV 9.6 Micro: Microbiology 12/31/20 00:32 Mucosa - Nose SARS-CoV-2 Antigen (Rapid) - Final Physical Exam Narrative Physical Exam Const alert, oriented x3 and no apparent distress Constitutional Narrative: Patient appears her stated age HEENT head/scalp atraumatic and moist oral mucous membranes Head and Scalp: normocephalic Resp normal respiratory effort, no retractions, no use of accessory muscles and clear to auscultation bilaterally Cardio regular rate, regular rhythm, S1 normal heart sound and S2 normal heart sound GI normal to inspection, nondistended, normoactive bowel sounds, soft to palpation and non-tender Extremity normal to inspection Skin no rashes or lesions noted and no jaundice Neuro oriented x3, CN's II-XII intact bilaterally and no focal motor deficits Sensorium / Orientation: awake and alert Psych Affect flat Assessment & Plan Assessment/Plan (1) Intertrochanteric fracture of right hip: QUALIFIERS: Encounter type: subsequent encounter Fracture type: closed Fracture alignment: displaced Fracture healing: with routine healing Qualified Code(s): S72.141D - Displaced intertrochanteric fracture of right femur, subsequent encounter for closed fracture with routine healing PLAN: #1. Right intertrochanteric fracture-postop day #2 Long cephalocele-medullary fixation right hip, continue postop care, continue PT and OT, awaiting approval for alf placement #2 acute blood loss anemia secondary to right hip fracture-patient's hemoglobin today was improved, her labs will be rechecked tomorrow #3 chronic kidney disease stage IV #4 essential hypertension #5 cerebral vascular disease #6 GERD #7 chronic normocytic anemia #8 hypothyroidism Charges/Coding Visit Charges Inpatient E&M: 71430 Subs Hosp L2
[2021-01-02 19:42] VITALS: BP 153/61; PULSE 76; RESP 18; TEMP 37.1; O2SAT 95
[2021-01-02 21:27] VITALS: PULSE 75
[2021-01-03] VITALS (9 sets, daily range): BP systolic 123–169; BP diastolic 56–94; PULSE 64–92; RESP 18; TEMP 37.1–37.3; O2SAT 92–95
[2021-01-03] MEDS: Lactated Ringers 1,000 ML 125 ML IV ×3 (02:00→22:41)
[2021-01-03] MEDS: Levothyroxine 25 MCG TABLET PO (05:36)
[2021-01-03] MEDS: Acetaminophen 500 MG Tablet 1000 MG PO ×3 (05:36→22:37)
[2021-01-03] MEDS: oxyCODONE 5 MG Tablet PO (05:39)
[2021-01-03] MEDS: Ondansetron 4 MG/2 ML Vial IV (05:54)
[2021-01-03 08:03] LABS: Hematocrit 22.1 % (37-47); Mean Corp Hgb Conc 31.7 g/dL (32-36); Mean Corpuscular Hgb 29.9 pg (27.0-32.0); Mean Corpuscular Volume 94.4 fL (81-99); Mean Platelet Vol. 10.1 fl (6.2-12.0); Platelet Count 154 K/mm3 (150-450); RBC Distribution Width CV 15.2 % (11.6-14.6); RBC Distribution Width SD 52.1 fl (35.1-43.9); Red Blood Count 2.34 M/mm3 (4.2-5.4); White Blood Count 7.3 K/mm3 (4.4-11.0)
[2021-01-03] MEDS: Pantoprazole Sodium 40 MG Tablet PO (09:47)
[2021-01-03] MEDS: amLODIPine 2.5 MG Tablet PO (09:47)
[2021-01-03] MEDS: Metoprolol Tartrate 25 MG Tablet 12.5 MG PO ×2 (09:47→22:37)
[2021-01-03] MEDS: APIXABAN 2.5 MG TABLET PO ×2 (09:47→22:37)
--- NOTE | 2021-01-03 12:49 | CASEMGMT ---
SW Note Referral Source: [facility] Referral Reason: Discharge planning SW met with patient in her room. SW inquired with patient about the plan for TCU at discharge. Patient indicated she is in agreement with TCU plan at discharge. NO further SW needs at this time. SW remains available if needed. VINOD sent email to Destiney Ruiz from TCU/Rehab stating patient would like to proceed with TCU at discharge. Plan: TCU referral follow up Nuzhat CHAVES
--- NOTE | 2021-01-03 14:36 | PN.HOSP_ITS ---
Subjective Subjective Patient was seen and examined today, hemoglobin this morning was 7 and I decided to transfuse the patient 1 unit of packed red blood cells. Patient has complaints of hip pain today, she does not complain of any shortness of breath or any chest pain. Objective Data Objective Data Vital Signs: Vital Signs Temp Pulse Resp BP Pulse Ox 99.0 F 92 18 123/56 H 94 01/03/21 13:48 01/03/21 13:48 01/03/21 13:48 01/03/21 13:48 01/03/21 13:48 Oxygen Flow Rate (L/min) [3] 3 Oxygen Flow Rate (L/min) [2] 3 Oxygen Flow Rate (L/min) 2 Oxygen Delivery Method [3] Nasal Cannula Oxygen Delivery Method [2] Nasal Cannula Oxygen Delivery Method [1 ( Room Air Initial Baseline)] Oxygen Delivery Method Room Air Weight: 65.7 kg Body Mass Index (BMI) 25.4 Intake & Output: Intake and Output for Last 24 Hours 01/01/21 01/02/21 01/03/21 23:59 23:59 23:59 Intake Total 2053.75 / 2053.75 3289.16 / 3289.16 / Output Total 325 / 425 900 / 900 900 / 900 Balance 1728.75 / 1628.75 2389.16 / 2389.16 1097.92 / 1097.92 Lab / Micro Data Result Diagrams: 01/03/21 07:34 01/01/21 06:15 Labs: Laboratory Results - last 24 hr 12/30/20 23:10: Crossmatch See Detail 01/03/21 06:10: Blood Type O POSITIVE, Antibody Screen NEGATIVE, Crossmatch See Detail 01/03/21 07:34: WBC 7.3, RBC 2.34 L, Hgb 7.0 L, Hct 22.1 L, MCV 94.4, MCH 29.9, MCHC 31.7 L, RDW Std Deviation 52.1 H, RDW Coeff of Cain 15.2 H, Plt Count 154, MPV 10.1 Micro: Microbiology 12/31/20 00:32 Mucosa - Nose SARS-CoV-2 Antigen (Rapid) - Final Physical Exam Const alert, oriented x3, no apparent distress and average body habitus General Appearance: cooperative, well kempt and well developed Orientation / Consciousness: awake, oriented to person, oriented to place and oriented to time HEENT normocephalic, head/scalp atraumatic and moist oral mucous membranes Head and Scalp: normocephalic Eyes PERRL, EOMs intact bilaterally and conjunctivae normal Neck nuchal rigidity, supple, no JVD, thyroid normal and no carotid bruits General: trachea midline Resp normal respiratory effort, no retractions, no use of accessory muscles and clear to auscultation bilaterally Auscultation: Negative for rales, rhonchi or wheezes Cardio regular rate, regular rhythm, S1 normal heart sound, S2 normal heart sound, no murmurs, no rub and no gallops GI normal to inspection, nondistended, normoactive bowel sounds, soft to palpation, non-tender and non-distended Extremity no clubbing, cyanosis or edema Skin no rashes or lesions noted General Skin Exam: no breakdown Neuro oriented x3, CN's II-XII intact bilaterally, no focal motor deficits and no sensory deficits noted Sensorium / Orientation: awake and alert Speech: speech normal Psych thought process normal and affect normal Assessment & Plan Assessment/Plan (1) Intertrochanteric fracture of right hip: QUALIFIERS: Encounter type: subsequent encounter Fracture type: closed Fracture alignment: displaced Fracture healing: with routine healing Qualified Code(s): S72.141D - Displaced intertrochanteric fracture of right femur, subsequent encounter for closed fracture with routine healing PLAN: #1. Right intertrochanteric fracture-postop day #3 Long cephalocele-medullary fixation right hip, continue postop care, continue PT and OT, awaiting approval for group home placement #2 acute blood loss anemia secondary to right hip fracture-patient will be given 1 unit of packed red blood cells, recheck H&H tomorrow #3 chronic kidney disease stage IV #4 essential hypertension #5 cerebral vascular disease #6 GERD #7 chronic normocytic anemia #8 hypothyroidism Charges/Coding Visit Charges Inpatient E&M: 82384 Subs Hosp L2
[2021-01-04] VITALS (7 sets, daily range): BP systolic 144–162; BP diastolic 61–91; PULSE 84–97; RESP 18; TEMP 37.1–37.6; O2SAT 94–96
[2021-01-04] MEDS: Acetaminophen 500 MG Tablet 1000 MG PO ×3 (05:24→22:54)
[2021-01-04] MEDS: Levothyroxine 25 MCG TABLET PO (05:24)
[2021-01-04] MEDS: Lactated Ringers 1,000 ML 125 ML IV (06:37)
[2021-01-04 06:54] LABS: Hematocrit 27.8 % (37-47); Hemoglobin 8.7 g/dL (12.0-15.0)
[2021-01-04] MEDS: amLODIPine 2.5 MG Tablet PO (09:18)
[2021-01-04] MEDS: APIXABAN 2.5 MG TABLET PO ×2 (09:18→22:54)
[2021-01-04] MEDS: Metoprolol Tartrate 25 MG Tablet 12.5 MG PO ×2 (09:18→22:55)
[2021-01-04] MEDS: Pantoprazole Sodium 40 MG Tablet PO (09:18)
[2021-01-04] MEDS: oxyCODONE 5 MG Tablet PO (09:51)
[2021-01-04] MEDS: Senna/Docusate Sodium 1 Tablet 2 TABLET PO (09:51)
--- NOTE | 2021-01-04 11:27 | PCM.PN.HOSP ---
Subjective Subjective Patient was seen and examined today, she states she has less pain and feels better today. Patient's hemoglobin today was 8.7. Patient has no complaints of any shortness of breath or chest pain. Objective Data Objective Data Vital Signs: Vital Signs Temp Pulse Resp BP Pulse Ox 99.6 F H 90 18 144/61 H 96 01/04/21 09:15 01/04/21 09:18 01/04/21 09:15 01/04/21 09:15 01/04/21 09:26 Oxygen Flow Rate (L/min) [3] 3 Oxygen Flow Rate (L/min) [2] 3 Oxygen Flow Rate (L/min) 2 Oxygen Delivery Method [3] Nasal Cannula Oxygen Delivery Method [2] Nasal Cannula Oxygen Delivery Method [1 ( Room Air Initial Baseline)] Oxygen Delivery Method Room Air Weight: 68 kg Body Mass Index (BMI) 25.4 Intake & Output: Intake and Output for Last 24 Hours 01/02/21 01/03/21 01/04/21 23:59 23:59 23:59 Intake Total 3289.16 / 3289.16 3807.92 / 3907.92 1191.67 / 1191.67 Output Total 900 / 900 1350 / 1625 775 / 775 Balance 2389.16 / 2389.16 2457.92 / 2282.92 416.67 / 416.67 Lab / Micro Data Result Diagrams: 01/04/21 05:35 01/01/21 06:15 Labs: Laboratory Results - last 24 hr 12/30/20 23:10: Crossmatch See Detail 01/03/21 06:10: Blood Type O POSITIVE, Antibody Screen NEGATIVE, Crossmatch See Detail 01/04/21 05:35: Hgb 8.7 L, Hct 27.8 L Micro: Microbiology 12/31/20 00:32 Mucosa - Nose SARS-CoV-2 Antigen (Rapid) - Final Physical Exam Narrative Narrative Physical Exam Const alert, oriented x3 and no apparent distress Constitutional Narrative: Patient appears her stated age HEENT head/scalp atraumatic and moist oral mucous membranes Head and Scalp: normocephalic Resp normal respiratory effort, no retractions, no use of accessory muscles and clear to auscultation bilaterally Cardio regular rate, regular rhythm, S1 normal heart sound and S2 normal heart sound GI normal to inspection, nondistended, normoactive bowel sounds, soft to palpation and non-tender Extremity normal to inspection Skin no rashes or lesions noted and no jaundice Neuro oriented x3, CN's II-XII intact bilaterally and no focal motor deficits Sensorium / Orientation: awake and alert Psych Affect flat Assessment & Plan Assessment/Plan (1) Intertrochanteric fracture of right hip: QUALIFIERS: Encounter type: subsequent encounter Fracture type: closed Fracture alignment: displaced Fracture healing: with routine healing Qualified Code(s): S72.141D - Displaced intertrochanteric fracture of right femur, subsequent encounter for closed fracture with routine healing PLAN: #1. Right intertrochanteric fracture-postop day #4 Long cephalocele-medullary fixation right hip, continue postop care, continue PT and OT, awaiting approval for [facility] placement, patient's hip pain seems to be less today. #2 acute blood loss anemia secondary to right hip fracture-H&H appears to be stable at this time #3 chronic kidney disease stage IV #4 essential hypertension #5 cerebral vascular disease #6 GERD #7 chronic normocytic anemia #8 hypothyroidism Charges/Coding Visit Charges Inpatient E&M: 45003 Subs Hosp L2
[2021-01-04] MEDS: 0.9% Saline Lock 10 ML Syringe IV (23:02)
[2021-01-05 02:38] VITALS: BP 156/66; PULSE 76; RESP 18; TEMP 36.8; O2SAT 95
[2021-01-05] MEDS: Levothyroxine 25 MCG TABLET PO (05:42)
[2021-01-05] MEDS: Acetaminophen 500 MG Tablet 1000 MG PO (05:42)
[2021-01-05] MEDS: Ondansetron 4 MG/2 ML Vial IV (06:04)
[2021-01-05] MEDS: 0.9% Saline Lock 10 ML Syringe IV ×2 (06:07→06:12)
[2021-01-05 08:15] VITALS: BP 152/80; PULSE 132; RESP 18; TEMP 37.1; O2SAT 95
[2021-01-05 08:20] VITALS: PULSE 132
--- NOTE | 2021-01-05 09:16 | CASEMGMT ---
SOCIAL WORK Patient approved for TCU. Bed available today. Karen Hawthorne, GARBAGE COLLECTOR, QUANTITY SURVEYOR
[2021-01-05 10:11] VITALS: BP 147/76; PULSE 70; RESP 18; TEMP 37.2; O2SAT 95
[2021-01-05 10:15] VITALS: PULSE 80
[2021-01-05] MEDS: Pantoprazole Sodium 40 MG Tablet PO (10:15)
[2021-01-05] MEDS: Metoprolol Tartrate 25 MG Tablet 12.5 MG PO (10:15)
[2021-01-05] MEDS: APIXABAN 2.5 MG TABLET PO (10:15)
[2021-01-05] MEDS: amLODIPine 2.5 MG Tablet PO (10:15)
--- NOTE | 2021-01-05 11:10 | PCM.TXEXTCAR ---
Diet 01/02/21 12:32 Diet: Regular - General Food consistency:: Mechanical (Minced/Moist) Liquid Consistency:: Regular/Thin Is pt able to select menu?: No Diet Comments: NO STRAWS; 1:1 supervised meals Routine Orders/Code Status Code Status: DNRCC-A Wound(s) right lower lateral thigh: Wound Type: Surgical Incision right lateral upper thigh: Wound Type: Surgical Incision Therapies Weight Bearing: Toe-touch weight bearing Physical Therapy: Eval and Treat Occupational Therapy: Eval and Treat Speech Therapy: Eval and Treat Problem/Diagnosis (1) Intertrochanteric fracture of right hip: Status: Acute Allergies/Procedures Done in Hospital Allergies heparin Allergy (Verified 12/30/20 22:10) Rash latex Allergy (Verified 12/31/20 01:14) PT UNSURE OF REACTION aspartame [From Nutrasweet Aspartame] Adverse Reaction (Verified 12/31/20 01:17) headache Type of Care/Length of Stay Estimated LOS: Convalescent Care Less Than 30 days Type of Care Needed: Skilled Rehab Potential: Fair Prognosis: Good Additional Orders/Day of Discharge Day of Discharge: 01/05/21 Dietary and Speech Recommendations Dietitian Recommendations/Changes: Change diet to regular/general no added salt diet. Continue ensure enlive 120mL PO 4x/day at [employer] [facility]. Monitor weights. Discharge Plan Admission Admit Date/Time: 12/31/20 01:05 Attending Provider: Carlos Eduardo Eason Primary Care Provider: Derek Jackson Chi Consulting Providers: Benito Hawkins Discharge Orders/Prescriptions Prescriptions: New acetaminophen 500 mg Tablet 1,000 mg PO Q8 Qty: 1 RF: 0 Eliquis 2.5 mg Tablet 2.5 mg PO BID Qty: 60 RF: 0 Ensure Enlive 0.08 gram-1.5 kcal/mL Liquid 120 ml PO 4X/DAY Qty: 237 RF: 0 Continued levothyroxine 25 MCG tablet 25 mcg PO DAILY RF: 0 amlodipine 2.5 mg tablet 2.5 mg PO DAILY RF: 0 pantoprazole 40 mg tablet,delayed release (DR/EC) 40 mg PO DAILY RF: 0 metoprolol tartrate 25 MG tablet 12.5 mg PO BID RF: 0 Discontinued aspirin 81 MG tablet 81 mg PO DAILY@0800 RF: 0 Referrals / Follow Up: Carlos Eduardo Eason DO [STAFF PHYSICIAN] - Kiran Velasquez DO [STAFF PHYSICIAN] - Within 2 Weeks Derek Jackson Chi, MD [Primary Care Provider] - In 1 Week Disposition Disposition (needs filled in before D/C Order can be placed): [facility]
--- NOTE | 2021-01-05 11:24 | DS.PCM_ITS ---
Providers Date of Admission: 12/31/20 Primary Care Physician: Dr. Derek Jackson MD Consultations 12/31/20 01:14 Consult: Orthopedics Routine Consulting Provider: Benito Hawkins Reason for Consult: R hip fracture EMERGENT Consult: No MD Notified: Yes Date Notified: 12/31/20 Time Notified: 01:01 Method of Notification: called per ED. Reason For Visit: RIGHT HIP FRACTURE Diagnosis Discharge Diagnosis (1) Intertrochanteric fracture of right hip: Status: Acute Code(s): S72.141A - Displaced intertrochanteric fracture of right femur, initial encounter for closed fracture Qualifiers: Encounter type: subsequent encounter Fracture type: closed Fracture alignment: displaced Fracture healing: with routine healing Qualified Code(s): S72.141D - Displaced intertrochanteric fracture of right femur, subsequent encounter for closed fracture with routine healing Medications at Discharge Home Medications levothyroxine 25 mcg PO DAILY 08/22/20 amlodipine 2.5 mg PO DAILY 12/30/20 metoprolol tartrate 12.5 mg PO BID 12/30/20 pantoprazole 40 mg PO DAILY 12/30/20 acetaminophen 1,000 mg PO Q8 #1 tab 01/05/21 apixaban [Eliquis] 2.5 mg PO BID #60 tab 01/05/21 food supplemt, lactose-reduced [Ensure Enlive] 120 ml PO 4X/DAY #237 ml 01/05/21 Hospital Course Operations - (Long cephalo-medullary fixation right hip) Procedures None Summary of Care Provided Minutes Spent on Discharge: 33 Hospital Course: 85-year-old female fell down stairs. Patient developed right leg pain and was found to have intertrochanteric fracture of the right femoral neck. Patient on the underwent ORIF with Long cephalo-medullary fixation right hip. Patient's course was complicated with acute blood loss anemia patient was transfused blood and hemoglobin has remained stable since then. Patient was seen by therapy and recommended for additional therapy. Patient be discharged to the transitional care unit in stable condition. Patient will continue with physical, occupational and speech therapy. Patient was having some issues in regards to vomiting and nausea with the applesauce that her pills be put in but would tolerate it better with pudding. Physical Exam Const alert and no apparent distress General Appearance: cooperative and well kempt Cardio regular rate, regular rhythm, S1 normal heart sound and S2 normal heart sound GI normal to inspection, nondistended, normoactive bowel sounds, non-tender and non-distended Neuro Sensorium / Orientation: awake and alert Weight / BMI Weight Weight: 68.2 kg Body Mass Index (BMI) 25.4 ABG / Lab / Microbiology Data Result Diagrams: 01/04/21 05:35 01/01/21 06:15 Microbiology: Microbiology 12/31/20 00:32 Mucosa - Nose SARS-CoV-2 Antigen (Rapid) - Final Meaningful Use Info Meaningful Use Diagnoses (Choose all that apply): None applicable Discharge Plan Admission Admit Date/Time: 12/31/20 01:05 Attending Provider: Carlos Eduardo Eason Primary Care Provider: Derek Jackson Chi Consulting Providers: Benito Hawkins Discharge Orders/Prescriptions Prescriptions: New acetaminophen 500 mg Tablet 1,000 mg PO Q8 Qty: 1 RF: 0 Eliquis 2.5 mg Tablet 2.5 mg PO BID Qty: 60 RF: 0 Ensure Enlive 0.08 gram-1.5 kcal/mL Liquid 120 ml PO 4X/DAY Qty: 237 RF: 0 Continued levothyroxine 25 MCG tablet 25 mcg PO DAILY RF: 0 amlodipine 2.5 mg tablet 2.5 mg PO DAILY RF: 0 pantoprazole 40 mg tablet,delayed release (DR/EC) 40 mg PO DAILY RF: 0 metoprolol tartrate 25 MG tablet 12.5 mg PO BID RF: 0 Discontinued aspirin 81 MG tablet 81 mg PO DAILY@0800 RF: 0 Referrals / Follow Up: Carlos Eduardo Eason DO [STAFF PHYSICIAN] - Kiran Velasquez DO [STAFF PHYSICIAN] - Within 2 Weeks Derek Jackson Chi, MD [Primary Care Provider] - In 1 Week Disposition Disposition (needs filled in before D/C Order can be placed): [facility] Facility Charges/Coding Visit Charges Inpatient E&M: 37653 Disch Hosp
== END 2021-01-05 13:24 | disposition skilled nursing facility (03) | DRG 481 ==
LOC: ED 12-31 00:05 → MS3 12-31 01:07
PROVIDERS: Internal Medicine; Orthopaedic Surgery; Admitting Provider Family Medicine; Emergency Provider Emergency Medicine; PCP Family Medicine Geriatric Medicine
PROC: 0QS606Z Reposition Right Upper Femur with Intramedullary Internal Fixation Device, Open Approach (ICD-10-PCS; principal; 2020-12-31 15:00)
DX: S72.141A Displaced intertrochanteric fracture of right femur, initial encounter for closed fracture (principal); N18.4 Chronic kidney disease, stage 4 (severe); D62 Acute posthemorrhagic anemia; S72.21XA Displaced subtrochanteric fracture of right femur, initial encounter for closed fracture; I12.9 Hypertensive chronic kidney disease with stage 1 through stage 4 chronic kidney disease, or unspecified chronic kidney disease; Z86.73 Personal history of transient ischemic attack (TIA), and cerebral infarction without residual deficits; R53.81 Other malaise; D63.1 Anemia in chronic kidney disease; E03.9 Hypothyroidism, unspecified; K21.9 Gastro-esophageal reflux disease without esophagitis; Z66 Do not resuscitate; W01.0XXA Fall on same level from slipping, tripping and stumbling without subsequent striking against object, initial encounter; Y93.01 Activity, walking, marching and hiking; Y92.007 Garden or yard of unspecified non-institutional (private) residence as the place of occurrence of the external cause; Y99.8 Other external cause status
CPT/HCPCS: 36415; 51702; 70450; 71045; 72125; 73502; 73552; 76000; 80048; 80053; 81001; 83735; 84439; 84443; 85014; 85018; 85025; 85027; 85610; 85730; 86850; 86900; 86901; 86920; 86922; 87426; 92526; 92610; 93005; 97110; 97163; 97167; 97530; 97535; 99251; 99285; C1713; J7030; J7040; J7120; P9016; A4216; G0463; J2405

== ENCOUNTER 2021-01-05 13:30 | Inpatient (IN) | payer MEDICARE, SELFPAY ==
[2020-12-31 14:35] VITALS: BMI 25.4
[2021-01-05 13:39] VITALS: BP 129/71; PULSE 75; RESP 16; RESP 18; TEMP 36.2; O2SAT 96; BMI 31.3
[2021-01-05 14:28] VITALS: BP 129/71; PULSE 75; RESP 16; TEMP 36.2; O2SAT 96
[2021-01-05] MEDS: Acetaminophen 500 MG Tablet 1000 MG PO ×2 (14:32→19:51)
--- NOTE | 2021-01-05 15:11 | CHAPLAIN ---
Type of Pastoral Visit _x__ Initial Visit ___ Follow-up Visit ___ On-call Visit ___ General Patient Visit ___ Spiritual Assessment ___ Family Conference ___ Bereavement ___ Rapid Response ___ Code Blue ___ Other (describe below) Pastoral Care Referral From _x__ Patient ___ Family ___ Nurse ___ Physician ___ Social Group Worker ___ Soaping Department Supervisor ___ Other (describe below) Sacrament/Intervention _x__ Active listening ___ Anointing ___ Mormonism ___ Bereavement ___ Communion ___ Luzmaria exploration ___ ___ Life review _x__ Prayer ___ Reconciliation ___ Sacrament of Sick _x__ Supportive presence ___ Wedding ___ Other (describe below) Pastoral Comments patient was seen this day in [facility] before she was transferred to TCU; pt is pleasant but has some trouble with memory in answering questions about self; pt states she is member of a judaism and would accept spiritual care support and prayer
[2021-01-05 17:41] VITALS: PULSE 75
[2021-01-05] MEDS: Metoprolol Tartrate 25 MG Tablet 12.5 MG PO (17:41)
[2021-01-05] MEDS: Nystatin Powder 15gm Bottle 1 APPLIC TOPICAL (17:42)
[2021-01-05] MEDS: APIXABAN 2.5 MG TABLET PO (17:42)
[2021-01-05] MEDS: Menthol/Lanolin/Calamine/Znox 113 GM Tube 1 APPLIC TOPICAL (17:42)
--- NOTE | 2021-01-05 19:10 | HP.PCM_ITS ---
HPI - General General Date of Admission: 01/05/21 HPI Narrative 12/30/2020 ALVARO HOLLEY, is a 85 Female who presents to [facility] Emergency Department with fall. 12/30/2020 EKG sinus rhythm with first degree AV block with premature atrial contractions. Right hip pain, hot air balloon landed in yard, Went outside, tripped, landed on right hip. Fentanyl 200MCG given enroute. Sedated with Etomidate. X-ray showed right hip fracture. Morphine, Zofran given. Nausea/vomiting with anxiety, CT brain negative, CT cervical spine negative. 12/31/2020 Admit to Hospital. Prepare for surgery. 12/31/2020 Dr. Velasquez performed long cephalo-medullary fixation right hip. 12/31/2020 Consider SNF for PT/OT. 01/01/2021 Hemoglobin 5.6. Transfuse 2 units PRBC. PT/OT for SNF. 01/04/2021 Right hip pain improved. Hemoglobin 8.7. 01/05/2021 Admit to TCU with debility, here for rehabilitation, strengthening, prior to discharge home with daughter. [facility] Medical History Anxiety and depression Cancer Chronic pain DVT (deep venous thrombosis) GERD (gastroesophageal reflux disease) HTN (hypertension) Hypothyroidism Non-smoker Post-menopausal Rheumatoid arthritis Scarlet fever Stroke/cerebrovascular accident Home Medications levothyroxine 25 mcg PO DAILY 08/22/20 [History Last Taken Unknown] amlodipine 2.5 mg PO DAILY 12/30/20 [History Last Taken Unknown] metoprolol tartrate 12.5 mg PO BID 12/30/20 [History Last Taken Unknown] pantoprazole 40 mg PO DAILY 12/30/20 [History Last Taken Unknown] acetaminophen 1,000 mg PO Q8 01/05/21 [History Last Taken Unknown] apixaban [Eliquis] 2.5 mg PO BID 01/05/21 [History Last Taken Unknown] food supplemt, lactose-reduced [Ensure Enlive] 120 ml PO 4X/DAY 01/05/21 [History Last Taken Unknown] Allergy/AdvReac Type Severity Reaction Status Date / Time heparin Allergy Rash Verified 12/30/20 22:10 latex Allergy PT UNSURE Verified 12/31/20 01:14 OF REACTION aspartame AdvReac headache Verified 12/31/20 01:17 [From Nutrasweet Aspartame] Family History Mother CVA (cerebral vascular accident) Father Heart disease Hypertension Myocardial infarction Surgical History H/O: hysterectomy History of appendectomy Status post laser lithotripsy of ureteral calculus Social History (Updated 12/31/20 @ 01:[address] Nelia Argueta MD) household members: other details: Patient lives with her daughter. Smoking Status: Never smoker alcohol intake: never substance use type: does not use ROS Constitutional Constitutional: Denies chills, fever(s) or weight gain ENT HEENT: Denies headache(s), nasal congestion or nasal discharge Cardiovascular Cardiovascular: Denies chest pain or palpitations Respiratory/Chest Respiratory/Chest: Denies cough, excessive phlegm production or shortness of breath with exertion Gastrointestinal Gastrointestinal: Denies abdominal pain, nausea or vomiting Genitourinary Genitourinary: Denies dysuria Musculoskeletal Musculoskeletal: Denies joint pain or joint swelling Integumentary Integumentary: Denies rash or wounds Neurologic Neurologic: Denies focal weakness, numbness or tingling Psychiatric Psychiatric: Reports auditory hallucinations; Denies anxiety, depression, homicidal ideation or suicidal ideation Vital Signs Vital Signs Vital Signs: 01/05/21 13:39 01/05/21 14:28 01/05/21 17:41 Temperature 97.2 F L 97.2 F L Temperature Source Temporal Temporal Pulse Rate 75 75 75 Pulse Rhythm Irregular Pulse Strength Normal (2+) Respiratory Rate 18 16 Respiratory Effort Normal Non-Labored Respiratory Depth Normal Respiratory Pattern Normal Blood Pressure 129/71 H 129/71 H Blood Pressure Mean 90 90 Blood Pressure Source Monitor Monitor Blood Pressure Position Supine Supine Blood Pressure Location Left Arm Left Arm Pulse Ox 96 96 Oxygen Delivery Method Room Air Room Air Weight Weight: 72.3 kg Body Mass Index (BMI) 31.3 Physical Exam Const alert and oriented x3 General Appearance: cooperative HEENT normocephalic Eyes PERRL and EOMs intact bilaterally Neck supple, no JVD and no carotid bruits Resp normal respiratory effort, normal air movement and clear to auscultation bilaterally Cardio regular rate and regular rhythm GI normal to inspection, nondistended, normoactive bowel sounds, non-tender and non-distended Extremity normal capillary refill General Extremity: Negative for edema Skin no rashes or lesions noted General Skin Exam: no breakdown Psych affect normal Appearance: appropriate Assessment & Plan Assessment/Plan (1) Debility: (2) Fall: (3) Closed right hip fracture: (4) Stroke: (5) Hypothyroidism: (6) Hypertension: (7) Gastroesophageal reflux disease: (8) Postoperative anemia: (9) Chronic kidney disease, stage 4 (severe): PLAN: 85 year old female with below past medical history hospitalized for right hip fracture, underwent nail fixation 12/31/[address] Velasquez, postoperative course complicated by anemia requiring transfusion, admitted to TCU with debility, here for rehabilitation, strengthening, prior to discharge home with daughter. * Debility - PT/OT. * Pain - Tylenol 1000mg Q8H, Oxycodone 2.5mg Q4H prn pain (6-10). * Bowel - Senna/colace 1 tablet twice daily, Dulcolax 10mg daily prn. * Adult immunization - Administer prevnar 13, pneumovax 23, fluzone, COVID19 vaccine as appropriate. * DVT prophylaxis - Eliquis 2.5mg twice daily thru 02/04/2021. * Hypertension - Metoprolol 12.5mg twice daily, Amlodipine 2.5mg daily. * Nutrition - Ensure Enlive 120ml 4x/day. * Hypothyroidism - Levothyroxine 25mcg daily. * Skin irritation - Calmoseptine topical twice daily. * Tinea Corporis - Nystatin powder topical twice daily. * GERD - Pantoprazole 40mg daily. * Right hip incision - Povidone topical daily.
[2021-01-06 05:23] VITALS: BP 175/79; PULSE 103; RESP 18; TEMP 36.6
[2021-01-06] MEDS: Povidone-Iodine Swabstick 1 PACKET TOPICAL (05:25)
[2021-01-06 05:26] VITALS: BP 175/79; PULSE 103
[2021-01-06] MEDS: Metoprolol Tartrate 25 MG Tablet 12.5 MG PO (05:26)
[2021-01-06] MEDS: Menthol/Lanolin/Calamine/Znox 113 GM Tube 1 APPLIC TOPICAL ×2 (05:26→17:21)
[2021-01-06] MEDS: APIXABAN 2.5 MG TABLET PO ×2 (05:26→17:20)
[2021-01-06] MEDS: amLODIPine 2.5 MG Tablet PO (05:26)
[2021-01-06] MEDS: Levothyroxine 25 MCG TABLET PO (05:27)
[2021-01-06] MEDS: Pantoprazole Sodium 40 MG Tablet PO (05:27)
[2021-01-06] MEDS: Nystatin Powder 15gm Bottle 1 APPLIC TOPICAL ×2 (05:29→17:20)
[2021-01-06 05:32] LABS: Absolute Lymphocyte Count 1.06 X10^3/uL (0.83-4.51); Absolute Neutrophil Count 5.4 X10^3/uL (2.0-7.7); Basophil# 0.03 X10^3/uL; Basophil% 0.4 % (0-1); Eosinophil# 0.21 X10^3/uL; Eosinophils% 2.7 % (0-5); Hematocrit 26.6 % (37-47); Hemoglobin 8.5 g/dL (12.0-15.0); Lymphocyte # 1.06 X10^3/ul (0.83-4.51); Lymphocyte % 13.6 % (19-41); Mean Corpuscular Hgb 29.9 pg (27.0-32.0); Mean Corpuscular Volume 93.7 fL (81-99); Mean Platelet Vol. 9.3 fl (6.2-12.0); Monocyte% 10.2 % (0-10); NRBC Flagged by Analyzer 0 % (0-5); Neutrophil # 5.39 X10^3/uL (2.7-7.7); Neutrophil % 68.9 % (47-70); Platelet Count 185 K/mm3 (150-450); RBC Distribution Width CV 15.9 % (11.6-14.6); RBC Distribution Width SD 53.1 fl (35.1-43.9); Red Blood Count 2.84 M/mm3 (4.2-5.4); White Blood Count 7.8 K/mm3 (4.4-11.0)
[2021-01-06] MEDS: Senna/Docusate Sodium 1 Tablet PO ×2 (05:32→17:20)
[2021-01-06 05:50] LABS: Anion Gap 6 (5-15); BUN 27 mg/dL (7-18); BUN/Creat Ratio 24.5 RATIO (10-20); Calcium,Total 8.2 mg/dL (8.5-10.1); Chloride 111 mmol/L (98-107); EST Glomerular Filtration Rate 50 mL/min (>60); Est Glom Filt Rate - Afr Amer 61 mL/min (>60); Estimated Creatinine Clearance 44.23 ml/min; Glucose 104 mg/dL (74-106); Potassium 3.7 mmol/L (3.5-5.1); Sodium Level 142 mmol/L (136-145)
[2021-01-06] MEDS: Acetaminophen 500 MG Tablet 1000 MG PO ×3 (06:57→21:12)
--- NOTE | 2021-01-06 11:35 | NURSING ---
Resident only received one dose of the COVID 19 Vaccine, asked her why she did not receive the second shot, she stated she had a bad reaction to the first dose and does not want to receive the second dose.
[2021-01-06] MEDS: Tuberculin,Purif.prot.deriv. 50 TU/ML Vial 0.1 ML ID (11:46)
[2021-01-06 14:22] VITALS: BP 146/63; PULSE 78; RESP 16; TEMP 36.8; O2SAT 99
--- NOTE | 2021-01-06 14:40 | CASEMGMT ---
Social Work Met with pt and completed initial assessment. SW discussed code status and assisted pt in completing MOLST form. Pt wishing to be DNRCCA, NO intubation, No artificial nutritionn. MOLST form communicated to nursing and physician and placed in pt chart. SW explained pt [employer] M[employer] benefit and that next review is 01/07 and continued stay is not gaurentted. Pt plans to return to her home where she lives in an in law suite at [facility]. VINOD will continue to follow. BREANNA Garcia
--- NOTE | 2021-01-06 16:42 | PHA.CONS_ITS ---
Progress Note - Pharmacy Subjective: TCU Admission Objective: Allergies heparin Allergy (Verified 12/30/20 22:10) Rash latex Allergy (Verified 12/31/20 01:14) PT UNSURE OF REACTION aspartame [From SCRMet Aspartame] Adverse Reaction (Verified 12/31/20 01:17) headache Current Medications Generic Name Dose Route Start Last Admin Trade Name Freq PRN Reason Stop Dose Admin Acetaminophen 1,000 mg 01/05/21 14:00 01/06/21 14:36 Acetaminophen 500 Mg Tablet PO 1,000 mg Q8 JAZMINE Administration Amlodipine Besylate 5 mg 01/07/21 06:00 Amlodipine 5 Mg Tablet PO DAILY JAZMINE Apixaban 2.5 mg 01/05/21 18:00 01/06/21 05:26 Apixaban 2.5 Mg Tablet PO 02/04/21 19:25 2.5 mg BID JAZMINE Administration Bisacodyl 10 mg 01/05/21 19:24 Bisacodyl 5 Mg Tablet PO DAILY PRN Constipation Calamine/Phenol 1 applic 01/05/21 18:00 01/06/21 05:26 Menthol/Lanolin/Calamine/Znox 113 Gm Tube TOPICAL 1 applic BID [facility] Administration Protocol Levothyroxine Sodium 25 mcg 01/06/21 06:00 01/06/21 05:27 Levothyroxine 25 Mcg Tablet PO 25 mcg DAILY JAZMINE Administration Metoprolol Tartrate 25 mg 01/06/21 18:00 Metoprolol Tartrate 25 Mg Tablet PO BID [facility] Nutritional Formula (Lactose Free) 120 ml 01/05/21 17:00 01/06/21 11:46 Ensure Enlive 120 Ml Liquid PO 120 ml 4X/DAY JAZMINE Administration Nystatin 1 applic 01/05/21 18:00 01/06/21 05:29 Nystatin Powder 15gm Bottle TOPICAL 1 applic BID [facility] Administration Protocol Oxycodone HCl 2.5 mg 01/05/21 19:24 Oxycodone 5 Mg Tablet PO Q4H PRN PRN Pain Score 6-10 Pantoprazole Sodium 40 mg 01/06/21 06:00 01/06/21 05:27 Pantoprazole Sodium 40 Mg Tablet PO 40 mg DAILY JAZMINE Administration Povidone Iodine 1 packet 01/06/21 06:00 01/06/21 05:25 Povidone-Iodine Swabstick TOPICAL 1 packet DAILY JAZMINE Administration Protocol Senna/Docusate Sodium 1 tablet 01/06/21 06:00 01/06/21 05:32 Senna/Docusate Sodium 1 Tablet PO 1 tablet BID JAZMINE Administration Sodium Chloride 10 - 40 ml 01/05/21 13:56 0.9% Saline Lock 10 Ml Syringe IV UD PRN SALINE FLUSH Tuberculin PPD 0.1 ml 01/13/21 10:00 Tuberculin,Purif.Prot.Deriv. 50 Tu/Ml Vial ID 01/13/21 10:01 X1 ONE Problem List (Last Reviewed 01/05/21 @ 19:[address] Derek Jackson MD) Chronic kidney disease, stage 4 (severe) (Chronic) Postoperative anemia (Acute) Gastroesophageal reflux disease (Acute) Hypertension (Chronic) Hypothyroidism (Acute) Stroke (Acute) Closed right hip fracture (Acute) Fall (Acute) Debility (Acute) Vital Signs Temp Pulse Resp BP Pulse Ox 98.3 F 78 16 146/63 H 99 01/06/21 14:22 01/06/21 14:22 01/06/21 14:22 01/06/21 14:22 01/06/21 14:22 Oxygen Delivery Method Room Air Weight: 72.3 kg Body Mass Index (BMI) 31.3 Sodium 142 mmol/L (136-145) 01/06/21 05:13 Potassium 3.7 mmol/L (3.5-5.1) 01/06/21 05:13 Chloride 111 mmol/L (98-107) H 01/06/21 05:13 Carbon Dioxide 25.0 mmol/L (21.0-32.0) 01/06/21 05:13 Anion Gap 6 (5-15) 01/06/21 05:13 BUN 27 mg/dL (7-18) H 01/06/21 05:13 Creatinine 1.10 mg/dL (0.55-1.02) H 01/06/21 05:13 Est GFR (MDRD) Af Amer 61 mL/min (>60) 01/06/21 05:13 Est GFR (MDRD) Non-Af 50 mL/min (>60) L 01/06/21 05:13 BUN/Creatinine Ratio 24.5 RATIO (10-20) H 01/06/21 05:13 Glucose 104 mg/dL (74-106) 01/06/21 05:13 Assessment/Plan: 1. Pain: acetaminophen 1000mg PO Q8 and oxycodone 2.5mg PO Q4H PRN pain 6-10. Please continue to monitor for increased pain and PRN usage. 2. DVT prophylaxis: apixaban 2.5mg PO BID thru 02/04/21. Please continue to monitor for S/S of bleeding and hemoglobin (last 8.5g/dL). 3. Hypertension: amlodipine 5mg PO daily and metoprolol tartrate 25mg PO BID. Please continue to monitor BP (last 146/63), HR (last 78) and swelling. 4. Hypothyroidism: levothyroxine 25mcg PO daily. Please continue to monitor TSH (last 12/31/20) and for S/S of hypo/hyperthyroidism. 5. GERD: pantoprazole 40mg PO daily. Please continue to monitor for S/S of GERD and diarrhea. 6. Right hip incision: Povidone-iodine swabstick 1 stick topical daily. Please continue to monitor. Psychotropic Medications: None Unnecessary Medications: None Bowel Regimen: senna/docusate 1T PO BID and bisacodyl 10mg PO daily PRN constipation. Please continue to monitor for constipation and PRN usage. Date of Note:: 01/06/21
[2021-01-06 17:20] VITALS: PULSE 78
[2021-01-06] MEDS: Metoprolol Tartrate 25 MG Tablet PO (17:20)
[2021-01-07 04:54] VITALS: BP 156/75; PULSE 86; RESP 18; TEMP 36.6; O2SAT 95
[2021-01-07 05:04] VITALS: BP 156/75; PULSE 86
[2021-01-07] MEDS: Acetaminophen 500 MG Tablet 1000 MG PO ×3 (05:04→21:36)
[2021-01-07] MEDS: Metoprolol Tartrate 25 MG Tablet PO ×2 (05:04→17:07)
[2021-01-07] MEDS: Senna/Docusate Sodium 1 Tablet PO ×2 (05:04→17:07)
[2021-01-07] MEDS: Pantoprazole Sodium 40 MG Tablet PO (05:05)
[2021-01-07] MEDS: Nystatin Powder 15gm Bottle 1 APPLIC TOPICAL ×2 (05:05→17:08)
[2021-01-07] MEDS: amLODIPine 5 MG Tablet PO (05:05)
[2021-01-07] MEDS: APIXABAN 2.5 MG TABLET PO ×2 (05:05→17:08)
[2021-01-07] MEDS: Levothyroxine 25 MCG TABLET PO (05:05)
[2021-01-07] MEDS: Menthol/Lanolin/Calamine/Znox 113 GM Tube 1 APPLIC TOPICAL ×2 (05:05→17:09)
[2021-01-07] MEDS: Povidone-Iodine Swabstick 1 PACKET TOPICAL (05:14)
[2021-01-07 14:08] VITALS: PULSE 72; RESP 16; O2SAT 95
[2021-01-07 17:07] VITALS: PULSE 72
[2021-01-08 05:37] VITALS: BP 161/73; PULSE 91; RESP 16; TEMP 37.3; O2SAT 96
[2021-01-08] MEDS: Menthol/Lanolin/Calamine/Znox 113 GM Tube 1 APPLIC TOPICAL ×2 (05:40→17:39)
[2021-01-08] MEDS: Acetaminophen 500 MG Tablet 1000 MG PO ×2 (05:43→21:12)
[2021-01-08] MEDS: APIXABAN 2.5 MG TABLET PO ×2 (05:44→17:39)
[2021-01-08] MEDS: Senna/Docusate Sodium 1 Tablet PO ×2 (05:44→17:38)
[2021-01-08 05:45] VITALS: PULSE 91
[2021-01-08] MEDS: amLODIPine 5 MG Tablet PO (05:45)
[2021-01-08] MEDS: Levothyroxine 25 MCG TABLET PO (05:45)
[2021-01-08] MEDS: Metoprolol Tartrate 25 MG Tablet PO ×2 (05:45→17:38)
[2021-01-08] MEDS: Pantoprazole Sodium 40 MG Tablet PO (05:45)
[2021-01-08] MEDS: Nystatin Powder 15gm Bottle 1 APPLIC TOPICAL ×2 (05:46→17:39)
[2021-01-08] MEDS: oxyCODONE 5 MG Tablet 2.5 MG PO ×2 (09:57→21:12)
[2021-01-08] MEDS: Bisacodyl 5 MG Tablet 10 MG PO (09:57)
--- NOTE | 2021-01-08 13:22 | CHAPLAIN ---
Type of Pastoral Visit ___ Initial Visit _x__ Follow-up Visit ___ On-call Visit ___ General Patient Visit ___ Spiritual Assessment ___ Family Conference ___ Bereavement ___ Rapid Response ___ Code Blue ___ Other (describe below) Pastoral Care Referral From _x__ Patient ___ Family ___ Nurse ___ Physician ___ Train Control Electronic Technician ___ Injection Molding Machine Offbearer ___ Other (describe below) Sacrament/Intervention _x__ Active listening ___ Anointing ___ Gnosticist ___ Bereavement ___ Communion ___ Luzmaria exploration ___ ___ Life review _x__ Prayer ___ Reconciliation ___ Sacrament of Sick _x__ Supportive presence ___ Wedding ___ Other (describe below) Pastoral Comments gave time and presence to patient who talks very slowly and with much effort; pt has some difficulty finding her words; pt says that she would welcome a prayer
[2021-01-08 14:48] VITALS: BP 156/77; PULSE 84; RESP 16; TEMP 36.7; O2SAT 96
[2021-01-08 17:38] VITALS: PULSE 84
--- NOTE | 2021-01-08 20:58 | NURSING ---
pt refused soap suds enema at this time, had large BM at this sophia and states she feels relief
[2021-01-08] MEDS: Senna/Docusate Sodium 1 Tablet 2 TABLET PO (21:12)
[2021-01-09 06:03] VITALS: BP 137/85; PULSE 89; RESP 16; TEMP 37; O2SAT 92
[2021-01-09 06:06] VITALS: PULSE 89
[2021-01-09] MEDS: Senna/Docusate Sodium 1 Tablet 2 TABLET PO ×2 (06:06→17:38)
[2021-01-09] MEDS: Metoprolol Tartrate 25 MG Tablet PO ×2 (06:06→17:37)
[2021-01-09] MEDS: APIXABAN 2.5 MG TABLET PO ×2 (06:06→17:37)
[2021-01-09] MEDS: amLODIPine 5 MG Tablet PO (06:06)
[2021-01-09] MEDS: Acetaminophen 500 MG Tablet 1000 MG PO ×3 (06:06→20:13)
[2021-01-09] MEDS: Pantoprazole Sodium 40 MG Tablet PO (06:06)
[2021-01-09] MEDS: Menthol/Lanolin/Calamine/Znox 113 GM Tube 1 APPLIC TOPICAL ×2 (06:06→17:38)
[2021-01-09] MEDS: Levothyroxine 25 MCG TABLET PO (06:06)
[2021-01-09] MEDS: Nystatin Powder 15gm Bottle 1 APPLIC TOPICAL ×2 (06:07→20:13)
[2021-01-09] MEDS: Povidone-Iodine Swabstick 1 PACKET TOPICAL (11:05)
--- NOTE | 2021-01-09 14:36 | CASEMGMT ---
BIMS and PHQ9 interviews completed on this date for MDS assessment. BREANNA Amezcua
[2021-01-09 15:16] VITALS: BP 136/63; PULSE 72; RESP 16; TEMP 36.9; O2SAT 94
[2021-01-09 17:37] VITALS: PULSE 72
[2021-01-10 05:43] VITALS: BP 166/70; PULSE 79; RESP 18; TEMP 36.7; O2SAT 96
[2021-01-10 05:44] VITALS: PULSE 86
[2021-01-10] MEDS: APIXABAN 2.5 MG TABLET PO ×2 (05:44→17:34)
[2021-01-10] MEDS: Menthol/Lanolin/Calamine/Znox 113 GM Tube 1 APPLIC TOPICAL ×2 (05:44→17:32)
[2021-01-10] MEDS: Metoprolol Tartrate 25 MG Tablet PO ×2 (05:44→17:33)
[2021-01-10] MEDS: Levothyroxine 25 MCG TABLET PO (05:45)
[2021-01-10] MEDS: Acetaminophen 500 MG Tablet 1000 MG PO ×2 (05:45→22:43)
[2021-01-10] MEDS: amLODIPine 5 MG Tablet PO (05:45)
[2021-01-10] MEDS: Nystatin Powder 15gm Bottle 1 APPLIC TOPICAL ×2 (05:45→17:33)
[2021-01-10] MEDS: Pantoprazole Sodium 40 MG Tablet PO (05:45)
[2021-01-10] MEDS: Senna/Docusate Sodium 1 Tablet 2 TABLET PO (05:45)
[2021-01-10 14:42] VITALS: BP 168/60; PULSE 89; RESP 16; TEMP 36.4; O2SAT 96
[2021-01-10 17:33] VITALS: PULSE 89
[2021-01-10] MEDS: Povidone-Iodine Swabstick 1 PACKET TOPICAL (18:09)
[2021-01-11 05:00] VITALS: BP 158/85; PULSE 80; RESP 18; TEMP 36.4; O2SAT 94
[2021-01-11] MEDS: Polyethylene Glycol 3350 17 GM PACKET PO (06:04)
[2021-01-11] MEDS: APIXABAN 2.5 MG TABLET PO (06:06)
[2021-01-11] MEDS: Acetaminophen 500 MG Tablet 1000 MG PO ×3 (06:06→20:19)
[2021-01-11] MEDS: Menthol/Lanolin/Calamine/Znox 113 GM Tube 1 APPLIC TOPICAL ×2 (06:06→17:22)
[2021-01-11] MEDS: amLODIPine 5 MG Tablet PO (06:06)
[2021-01-11] MEDS: Pantoprazole Sodium 40 MG Tablet PO (06:06)
[2021-01-11 06:07] VITALS: PULSE 80
[2021-01-11] MEDS: Metoprolol Tartrate 25 MG Tablet PO ×2 (06:07→17:22)
[2021-01-11] MEDS: Senna/Docusate Sodium 1 Tablet 2 TABLET PO ×2 (06:07→17:23)
[2021-01-11] MEDS: Levothyroxine 25 MCG TABLET PO (06:07)
[2021-01-11] MEDS: Nystatin Powder 15gm Bottle 1 APPLIC TOPICAL ×2 (06:08→17:23)
[2021-01-11 13:06] VITALS: PULSE 84; O2SAT 95
[2021-01-11] MEDS: Povidone-Iodine Swabstick 1 PACKET TOPICAL (13:32)
[2021-01-11 14:45] VITALS: BP 124/63; PULSE 64; RESP 14; TEMP 36.6; O2SAT 95
[2021-01-11 17:22] VITALS: BP 140/64; PULSE 77
[2021-01-12 05:35] VITALS: BP 137/73; PULSE 87; RESP 16; TEMP 36.9; O2SAT 93
[2021-01-12 05:41] VITALS: PULSE 87
[2021-01-12] MEDS: Metoprolol Tartrate 25 MG Tablet PO ×2 (05:41→17:31)
[2021-01-12] MEDS: Pantoprazole Sodium 40 MG Tablet PO (05:41)
[2021-01-12] MEDS: Levothyroxine 25 MCG TABLET PO (05:41)
[2021-01-12] MEDS: amLODIPine 5 MG Tablet PO (05:41)
[2021-01-12] MEDS: Acetaminophen 500 MG Tablet 1000 MG PO ×3 (05:42→21:30)
[2021-01-12] MEDS: Nystatin Powder 15gm Bottle 1 APPLIC TOPICAL ×2 (05:44→17:26)
[2021-01-12] MEDS: Menthol/Lanolin/Calamine/Znox 113 GM Tube 1 APPLIC TOPICAL ×2 (05:45→17:26)
[2021-01-12] MEDS: Povidone-Iodine Swabstick 1 PACKET TOPICAL (05:53)
[2021-01-12 14:07] VITALS: BP 137/65; PULSE 82; RESP 20; TEMP 36.9; O2SAT 95
--- NOTE | 2021-01-12 14:35 | NURSING ---
wound photo: right heel
[2021-01-12] MEDS: Senna/Docusate Sodium 1 Tablet 2 TABLET PO (17:28)
[2021-01-12] MEDS: APIXABAN 2.5 MG TABLET PO (17:28)
[2021-01-12 17:31] VITALS: PULSE 82
[2021-01-12 20:45] VITALS: O2SAT 94
[2021-01-12] MEDS: oxyCODONE 5 MG Tablet 2.5 MG PO (21:29)
[2021-01-13 05:53] LABS: Absolute Lymphocyte Count 0.87 X10^3/uL (0.83-4.51); Absolute Neutrophil Count 4.7 X10^3/uL (2.0-7.7); Basophil# 0.02 X10^3/uL; Basophil% 0.3 % (0-1); Eosinophil# 0.15 X10^3/uL; Eosinophils% 2.4 % (0-5); Hematocrit 30.3 % (37-47); Hemoglobin 9.1 g/dL (12.0-15.0); Lymphocyte # 0.87 X10^3/ul (0.83-4.51); Lymphocyte % 13.6 % (19-41); Mean Corpuscular Hgb 29.7 pg (27.0-32.0); Monocyte# 0.56 X10^3/uL; Monocyte% 8.8 % (0-10); NRBC Flagged by Analyzer 0 % (0-5); Neutrophil # 4.72 X10^3/uL (2.7-7.7); Platelet Count 293 K/mm3 (150-450); RBC Distribution Width CV 17.7 % (11.6-14.6); Red Blood Count 3.06 M/mm3 (4.2-5.4); White Blood Count 6.4 K/mm3 (4.4-11.0)
[2021-01-13 06:23] VITALS: BP 159/68; PULSE 72; RESP 18; TEMP 36.7; O2SAT 95
[2021-01-13 06:24] LABS: Anion Gap 6 (5-15); BUN 27 mg/dL (7-18); BUN/Creat Ratio 23.5 RATIO (10-20); Calcium,Total 8.6 mg/dL (8.5-10.1); Chloride 111 mmol/L (98-107); Creatinine, Serum 1.15 mg/dL (0.55-1.02); EST Glomerular Filtration Rate 48 mL/min (>60); Est Glom Filt Rate - Afr Amer 58 mL/min (>60); Estimated Creatinine Clearance 39.17 ml/min; Glucose 98 mg/dL (74-106); Potassium 3.9 mmol/L (3.5-5.1); Sodium Level 142 mmol/L (136-145)
[2021-01-13] MEDS: Polyethylene Glycol 3350 17 GM PACKET PO (06:27)
[2021-01-13 06:29] VITALS: BP 159/68; PULSE 72
[2021-01-13] MEDS: Metoprolol Tartrate 25 MG Tablet PO ×2 (06:29→17:56)
[2021-01-13] MEDS: Pantoprazole Sodium 40 MG Tablet PO (06:30)
[2021-01-13] MEDS: amLODIPine 5 MG Tablet PO (06:30)
[2021-01-13] MEDS: Acetaminophen 500 MG Tablet 1000 MG PO ×3 (06:30→21:12)
[2021-01-13] MEDS: Levothyroxine 25 MCG TABLET PO (06:30)
[2021-01-13] MEDS: Senna/Docusate Sodium 1 Tablet 2 TABLET PO ×2 (06:31→17:56)
[2021-01-13] MEDS: APIXABAN 2.5 MG TABLET PO ×2 (06:31→17:56)
[2021-01-13] MEDS: Menthol/Lanolin/Calamine/Znox 113 GM Tube 1 APPLIC TOPICAL ×2 (06:32→17:54)
[2021-01-13] MEDS: Nystatin Powder 15gm Bottle 1 APPLIC TOPICAL ×2 (06:32→17:55)
[2021-01-13] MEDS: oxyCODONE 5 MG Tablet 2.5 MG PO (06:38)
[2021-01-13] MEDS: Tuberculin,Purif.prot.deriv. 50 TU/ML Vial 0.1 ML ID (11:52)
[2021-01-13 14:26] VITALS: BP 124/52; PULSE 66; RESP 15; TEMP 36.4; O2SAT 97
--- NOTE | 2021-01-13 14:27 | MDS.RN ---
Information for the mds was obtained from review of the clinical record, interview of resident, staff, and direct observation of resident's care.
[2021-01-13] MEDS: Povidone-Iodine Swabstick 1 PACKET TOPICAL (16:54)
[2021-01-13 17:56] VITALS: BP 140/63; PULSE 85
[2021-01-14] MEDS: Menthol/Lanolin/Calamine/Znox 113 GM Tube 1 APPLIC TOPICAL ×2 (05:34→16:57)
[2021-01-14] MEDS: APIXABAN 2.5 MG TABLET PO ×2 (05:34→16:56)
[2021-01-14] MEDS: Nystatin Powder 15gm Bottle 1 APPLIC TOPICAL ×2 (05:35→16:57)
[2021-01-14] MEDS: Senna/Docusate Sodium 1 Tablet 2 TABLET PO ×2 (05:35→16:57)
[2021-01-14] MEDS: Pantoprazole Sodium 40 MG Tablet PO (05:35)
[2021-01-14 05:36] VITALS: BP 152/67; PULSE 74
[2021-01-14] MEDS: Levothyroxine 25 MCG TABLET PO (05:36)
[2021-01-14] MEDS: Metoprolol Tartrate 25 MG Tablet PO ×2 (05:36→16:56)
[2021-01-14] MEDS: Polyethylene Glycol 3350 17 GM PACKET PO (05:36)
[2021-01-14] MEDS: amLODIPine 5 MG Tablet PO (05:37)
[2021-01-14] MEDS: Acetaminophen 500 MG Tablet 1000 MG PO ×3 (05:37→21:23)
[2021-01-14] MEDS: Povidone-Iodine Swabstick 1 PACKET TOPICAL (05:43)
[2021-01-14 07:26] VITALS: BP 152/67; PULSE 77; RESP 12; TEMP 37.2; O2SAT 95
[2021-01-14 14:44] VITALS: BP 154/67; PULSE 75; RESP 16; TEMP 36.3; O2SAT 98
--- NOTE | 2021-01-14 15:40 | CASEMGMT ---
Social Work Plan of care meeting held today with pt and dgt Margot present. Pt is receiving PT/OT/ST and nursing care for wound. Pt is currently TTWB and having difficulty maintaining this. Insurance update is due 01/16 and family and pt made aware that continued stay is not guarranteed. SW spoke with pt and family about alternate d/c plan as pt was previously living independently in an in law suite at [facility]. SW provided list of private duty aides, Home Health Care and shelter facilities. SW also explained that once insurance denies continued stay, pt would be responsible for payment at [facility]. Margot and pt express understanding. Margot would like time to talk to pt and other siblings prior to making a decision on discharge plan and will notify SW on plans once they have talked. SW to continue to follow for support and d/c planning. BREANNA Amezcua
[2021-01-14 16:56] VITALS: BP 154/67; PULSE 75
[2021-01-14] MEDS: Juven (unflavored) Packet 1 PACKET PO (16:56)
--- NOTE | 2021-01-14 20:15 | NURSING ---
Pt had appt with Dr. Mizra 01/14 removed proximal forrest. No new orders given at this time.
[2021-01-15 05:34] VITALS: BP 147/66; PULSE 82; RESP 16; TEMP 37.1; O2SAT 97
[2021-01-15] MEDS: Senna/Docusate Sodium 1 Tablet 2 TABLET PO ×2 (05:36→17:31)
[2021-01-15] MEDS: Polyethylene Glycol 3350 17 GM PACKET PO (05:36)
[2021-01-15 05:37] VITALS: BP 147/66; PULSE 82
[2021-01-15] MEDS: Metoprolol Tartrate 25 MG Tablet PO ×2 (05:37→17:31)
[2021-01-15] MEDS: Acetaminophen 500 MG Tablet 1000 MG PO ×3 (05:37→20:27)
[2021-01-15] MEDS: APIXABAN 2.5 MG TABLET PO ×2 (05:37→17:39)
[2021-01-15] MEDS: Levothyroxine 25 MCG TABLET PO (05:38)
[2021-01-15] MEDS: amLODIPine 5 MG Tablet PO (05:38)
[2021-01-15] MEDS: Povidone-Iodine Swabstick 1 PACKET TOPICAL (05:39)
[2021-01-15] MEDS: Juven (unflavored) Packet 1 PACKET PO ×2 (09:21→17:31)
[2021-01-15] MEDS: Menthol/Lanolin/Calamine/Znox 113 GM Tube 1 APPLIC TOPICAL ×2 (09:21→17:32)
[2021-01-15] MEDS: Nystatin Powder 15gm Bottle 1 APPLIC TOPICAL ×2 (09:22→17:40)
[2021-01-15 10:00] VITALS: PULSE 61; RESP 18; O2SAT 96
--- NOTE | 2021-01-15 14:54 | NURSING ---
13 forrest removed from right hip per orders. pt tolerated well.
[2021-01-15 14:58] VITALS: BP 155/80; PULSE 92; RESP 16; TEMP 37.1; O2SAT 99
--- NOTE | 2021-01-15 16:27 | CASEMGMT ---
Social Work Phone call from pt dgt Dari and reviewed information from team meeting yesterday. Dari spoke with pt regarding alternate discharge plan if she is not able to return home at time of insurance non renewal and they have agreed that pt would go to the [facility] private pay. Pt and dgt are hopeful pt can remain skilled at TCU to continue with therapy at this time. BREANNA Amezcua
[2021-01-15 17:31] VITALS: PULSE 92
--- NOTE | 2021-01-15 20:40 | NURSING ---
Gave patient her tylenol crushed in pudding and a few sip of ensure. She became nauseated and threw up shortly after. Gave andres joseph and crackers, nausea resolved.
[2021-01-16 05:00] VITALS: BP 147/88; PULSE 87; RESP 16; TEMP 36.3; O2SAT 94
[2021-01-16 05:33] VITALS: PULSE 87
[2021-01-16] MEDS: Metoprolol Tartrate 25 MG Tablet PO ×2 (05:33→17:37)
[2021-01-16] MEDS: APIXABAN 2.5 MG TABLET PO ×2 (05:33→17:36)
[2021-01-16] MEDS: amLODIPine 5 MG Tablet PO (05:34)
[2021-01-16] MEDS: Senna/Docusate Sodium 1 Tablet 2 TABLET PO ×2 (05:34→17:37)
[2021-01-16] MEDS: Levothyroxine 25 MCG TABLET PO (05:34)
[2021-01-16] MEDS: Acetaminophen 500 MG Tablet 1000 MG PO ×3 (05:34→21:06)
[2021-01-16] MEDS: Menthol/Lanolin/Calamine/Znox 113 GM Tube 1 APPLIC TOPICAL ×2 (05:35→17:48)
[2021-01-16] MEDS: Lansoprazole 15 MG Capsule.DR 30 MG PO (05:37)
[2021-01-16] MEDS: Nystatin Powder 15gm Bottle 1 APPLIC TOPICAL ×2 (05:38→17:47)
[2021-01-16] MEDS: Polyethylene Glycol 3350 17 GM PACKET PO (05:38)
[2021-01-16] MEDS: Juven (unflavored) Packet 1 PACKET PO ×2 (09:07→17:37)
[2021-01-16 14:15] VITALS: BP 147/70; PULSE 89; RESP 16; TEMP 36.6; O2SAT 96
--- NOTE | 2021-01-16 14:28 | CASEMGMT ---
SW called [facility], spoke w/Rossy. VINOD explained that pt may be cut from insurance with a discharge from TCU Tuesday, and pt and family would like pt to go to [facility] private pay. Rossy states to fax referral, referral faxed. VINOD will continue to follow. KAJAL Guerrero
--- NOTE | 2021-01-16 16:27 | CASEMGMT ---
Social Work Next review date per insurance is 01/21/21. SW let daughter who is visiting and pt know. SW also let daughter know that the referral to [facility] was initiated. KAJAL Guerrero
[2021-01-16 17:37] VITALS: BP 147/70; PULSE 89
[2021-01-16 23:47] VITALS: PULSE 81; RESP 14
[2021-01-17] MEDS: Povidone-Iodine Swabstick 1 PACKET TOPICAL (05:27)
[2021-01-17] MEDS: Menthol/Lanolin/Calamine/Znox 113 GM Tube 1 APPLIC TOPICAL ×2 (05:27→18:11)
[2021-01-17] MEDS: APIXABAN 2.5 MG TABLET PO ×2 (05:28→18:11)
[2021-01-17] MEDS: Lansoprazole 15 MG Capsule.DR 30 MG PO (05:28)
[2021-01-17] MEDS: Polyethylene Glycol 3350 17 GM PACKET PO (05:28)
[2021-01-17 05:29] VITALS: BP 156/74; PULSE 75
[2021-01-17] MEDS: Nystatin Powder 15gm Bottle 1 APPLIC TOPICAL ×2 (05:29→18:11)
[2021-01-17] MEDS: amLODIPine 5 MG Tablet PO (05:29)
[2021-01-17] MEDS: Metoprolol Tartrate 25 MG Tablet PO ×2 (05:29→18:11)
[2021-01-17] MEDS: Levothyroxine 25 MCG TABLET PO (05:29)
[2021-01-17] MEDS: Senna/Docusate Sodium 1 Tablet 2 TABLET PO ×2 (05:30→18:11)
[2021-01-17] MEDS: Acetaminophen 500 MG Tablet 1000 MG PO ×3 (05:30→20:58)
[2021-01-17 06:32] VITALS: BP 156/74; PULSE 75; RESP 14; TEMP 36.8; O2SAT 96
[2021-01-17] MEDS: Juven (unflavored) Packet 1 PACKET PO ×2 (07:51→16:25)
[2021-01-17 14:08] VITALS: BP 131/64; PULSE 83; RESP 14; TEMP 36.1; O2SAT 97
[2021-01-17 15:56] VITALS: PULSE 61; RESP 16; O2SAT 95
[2021-01-17 18:11] VITALS: PULSE 61
[2021-01-18] MEDS: Povidone-Iodine Swabstick 1 PACKET TOPICAL (05:00)
[2021-01-18] MEDS: Lansoprazole 15 MG Capsule.DR 30 MG PO (05:01)
[2021-01-18] MEDS: Menthol/Lanolin/Calamine/Znox 113 GM Tube 1 APPLIC TOPICAL ×2 (05:01→17:02)
[2021-01-18] MEDS: APIXABAN 2.5 MG TABLET PO ×2 (05:01→17:02)
[2021-01-18 05:02] VITALS: BP 149/72; PULSE 85
[2021-01-18] MEDS: Nystatin Powder 15gm Bottle 1 APPLIC TOPICAL ×2 (05:02→17:02)
[2021-01-18] MEDS: Metoprolol Tartrate 25 MG Tablet PO ×2 (05:02→17:02)
[2021-01-18] MEDS: Polyethylene Glycol 3350 17 GM PACKET PO (05:03)
[2021-01-18] MEDS: Levothyroxine 25 MCG TABLET PO (05:03)
[2021-01-18] MEDS: Senna/Docusate Sodium 1 Tablet 2 TABLET PO ×2 (05:03→17:02)
[2021-01-18] MEDS: Acetaminophen 500 MG Tablet 1000 MG PO ×3 (05:03→20:50)
[2021-01-18] MEDS: amLODIPine 5 MG Tablet PO (05:03)
[2021-01-18 07:23] VITALS: BP 149/72; PULSE 85; RESP 14; TEMP 36.7; O2SAT 94
[2021-01-18] MEDS: Juven (unflavored) Packet 1 PACKET PO ×2 (07:53→17:02)
[2021-01-18 14:33] VITALS: BP 141/64; PULSE 83; RESP 16; TEMP 36.3; O2SAT 99
[2021-01-18 17:02] VITALS: PULSE 83
[2021-01-19 04:57] VITALS: BP 161/55; PULSE 84; RESP 18; TEMP 36.3; O2SAT 96
[2021-01-19 05:02] VITALS: BP 161/55; PULSE 84
[2021-01-19] MEDS: Povidone-Iodine Swabstick 1 PACKET TOPICAL (05:02)
[2021-01-19] MEDS: amLODIPine 5 MG Tablet PO (05:02)
[2021-01-19] MEDS: Metoprolol Tartrate 25 MG Tablet PO ×2 (05:02→18:09)
[2021-01-19] MEDS: Levothyroxine 25 MCG TABLET PO (05:03)
[2021-01-19] MEDS: Acetaminophen 500 MG Tablet 1000 MG PO ×3 (05:03→22:16)
[2021-01-19] MEDS: Senna/Docusate Sodium 1 Tablet 2 TABLET PO ×2 (05:03→18:07)
[2021-01-19] MEDS: Lansoprazole 15 MG Capsule.DR 30 MG PO (05:03)
[2021-01-19] MEDS: Nystatin Powder 15gm Bottle 1 APPLIC TOPICAL ×2 (05:04→22:23)
[2021-01-19] MEDS: Menthol/Lanolin/Calamine/Znox 113 GM Tube 1 APPLIC TOPICAL ×2 (05:04→18:18)
[2021-01-19] MEDS: Polyethylene Glycol 3350 17 GM PACKET PO (05:14)
[2021-01-19] MEDS: APIXABAN 2.5 MG TABLET PO ×2 (05:17→18:06)
[2021-01-19] MEDS: Juven (unflavored) Packet 1 PACKET PO ×2 (10:25→18:06)
[2021-01-19 13:10] VITALS: BP 158/70; PULSE 83; RESP 16; TEMP 36.6; O2SAT 99
[2021-01-19 18:09] VITALS: BP 137/70; PULSE 84
[2021-01-19] MEDS: oxyCODONE 5 MG Tablet 2.5 MG PO (22:16)
--- NOTE | 2021-01-19 22:27 | NURSING ---
Pt reports pain to RLE at 8/10. Facial grimacing noted. Medicated w/ routine Tylenol and Oxycodone 2.5 mg po. Refusing ice to hip. Repositioned in bed for comfort. Will continue to monitor.
[2021-01-20 05:50] VITALS: BP 159/69; PULSE 77; RESP 16; TEMP 36.4; O2SAT 99
[2021-01-20 05:51] VITALS: BP 159/69; PULSE 77
[2021-01-20] MEDS: Metoprolol Tartrate 25 MG Tablet PO ×2 (05:51→18:14)
[2021-01-20] MEDS: amLODIPine 5 MG Tablet PO (05:51)
[2021-01-20] MEDS: Acetaminophen 500 MG Tablet 1000 MG PO ×3 (05:52→22:11)
[2021-01-20] MEDS: Senna/Docusate Sodium 1 Tablet 2 TABLET PO ×2 (05:52→18:13)
[2021-01-20] MEDS: Povidone-Iodine Swabstick 1 PACKET TOPICAL (05:52)
[2021-01-20] MEDS: Levothyroxine 25 MCG TABLET PO (05:53)
[2021-01-20] MEDS: APIXABAN 2.5 MG TABLET PO ×2 (05:53→18:13)
[2021-01-20] MEDS: Polyethylene Glycol 3350 17 GM PACKET PO (05:53)
[2021-01-20] MEDS: Menthol/Lanolin/Calamine/Znox 113 GM Tube 1 APPLIC TOPICAL ×2 (05:54→18:13)
[2021-01-20] MEDS: Nystatin Powder 15gm Bottle 1 APPLIC TOPICAL ×2 (05:54→18:13)
[2021-01-20] MEDS: Lansoprazole 15 MG Capsule.DR 30 MG PO (05:59)
[2021-01-20 06:02] LABS: Absolute Lymphocyte Count 1.07 X10^3/uL (0.83-4.51); Absolute Neutrophil Count 2.2 X10^3/uL (2.0-7.7); Basophil# 0.02 X10^3/uL; Basophil% 0.5 % (0-1); Eosinophil# 0.16 X10^3/uL; Hematocrit 30.2 % (37-47); Hemoglobin 9.1 g/dL (12.0-15.0); Lymphocyte # 1.07 X10^3/ul (0.83-4.51); Mean Corp Hgb Conc 30.1 g/dL (32-36); Mean Corpuscular Hgb 29.9 pg (27.0-32.0); Mean Corpuscular Volume 99.3 fL (81-99); Mean Platelet Vol. 9.2 fl (6.2-12.0); Monocyte# 0.54 X10^3/uL; Monocyte% 13.6 % (0-10); NRBC Flagged by Analyzer 0 % (0-5); Neutrophil # 2.15 X10^3/uL (2.7-7.7); Neutrophil % 54.1 % (47-70); Platelet Count 260 K/mm3 (150-450); RBC Distribution Width CV 16.8 % (11.6-14.6); Red Blood Count 3.04 M/mm3 (4.2-5.4)
[2021-01-20 06:25] LABS: Anion Gap 5 (5-15); BUN 46 mg/dL (7-18); BUN/Creat Ratio 41.4 RATIO (10-20); Calcium,Total 8.5 mg/dL (8.5-10.1); Chloride 111 mmol/L (98-107); Creatinine, Serum 1.11 mg/dL (0.55-1.02); EST Glomerular Filtration Rate 50 mL/min (>60); Est Glom Filt Rate - Afr Amer 60 mL/min (>60); Estimated Creatinine Clearance 40.58 ml/min; Glucose 97 mg/dL (74-106); Potassium 4.1 mmol/L (3.5-5.1); Sodium Level 141 mmol/L (136-145)
[2021-01-20] MEDS: Juven (unflavored) Packet 1 PACKET PO ×2 (08:50→18:12)
[2021-01-20] MEDS: oxyCODONE 5 MG Tablet 2.5 MG PO (10:38)
--- NOTE | 2021-01-20 12:02 | CASEMGMT ---
Social Work SW spoke with the [facility] and they are able to accept pt when she is ready for discharge. VINOD spoke with pt dgt Dari and updated her as well. Pt plans to remain in TCU for therapy as long as insurnace allows. Once pt is denied continued stay from insurance, family will make decision if pt can return home or if she will need ECF at the [facility] private pay. BREANNA Amezcua
[2021-01-20 15:11] VITALS: BP 128/72; PULSE 65; RESP 16; TEMP 36.2; O2SAT 96
[2021-01-20 18:14] VITALS: PULSE 65
[2021-01-21 05:06] VITALS: BP 137/58; PULSE 87
[2021-01-21] MEDS: APIXABAN 2.5 MG TABLET PO ×2 (05:07→18:11)
[2021-01-21] MEDS: Menthol/Lanolin/Calamine/Znox 113 GM Tube 1 APPLIC TOPICAL ×2 (05:07→18:11)
[2021-01-21] MEDS: Polyethylene Glycol 3350 17 GM PACKET PO (05:08)
[2021-01-21] MEDS: Lansoprazole 15 MG Capsule.DR 30 MG PO (05:08)
[2021-01-21 05:09] VITALS: PULSE 87
[2021-01-21] MEDS: Metoprolol Tartrate 25 MG Tablet PO ×2 (05:09→18:11)
[2021-01-21] MEDS: Nystatin Powder 15gm Bottle 1 APPLIC TOPICAL ×2 (05:10→18:11)
[2021-01-21] MEDS: Levothyroxine 25 MCG TABLET PO (05:10)
[2021-01-21] MEDS: Acetaminophen 500 MG Tablet 1000 MG PO ×3 (05:10→21:02)
[2021-01-21] MEDS: Senna/Docusate Sodium 1 Tablet 2 TABLET PO ×2 (05:10→18:11)
[2021-01-21] MEDS: amLODIPine 5 MG Tablet PO (05:10)
[2021-01-21] MEDS: Juven (unflavored) Packet 1 PACKET PO ×2 (08:28→18:11)
[2021-01-21 10:37] VITALS: PULSE 72; RESP 18; O2SAT 97
--- NOTE | 2021-01-21 15:49 | CHAPLAIN ---
Type of Pastoral Visit ___ Initial Visit _x__ Follow-up Visit ___ On-call Visit ___ General Patient Visit ___ Spiritual Assessment ___ Family Conference ___ Bereavement ___ Rapid Response ___ Code Blue ___ Other (describe below) Pastoral Care Referral From _x__ Patient ___ Family ___ Nurse ___ Physician ___ Magnetic Testing Technician ___ Cream Gatherer ___ Other (describe below) Sacrament/Intervention _x__ Active listening ___ Anointing ___ Latter-Day ___ Bereavement ___ Communion ___ Luzmaria exploration ___ ___ Life review _x__ Prayer ___ Reconciliation ___ Sacrament of Sick _x__ Supportive presence ___ Wedding ___ Other (describe below) Pastoral Comments
[2021-01-21 16:00] VITALS: BP 126/55; PULSE 90; RESP 15; TEMP 36.3
[2021-01-21 18:11] VITALS: PULSE 90
[2021-01-22 04:45] VITALS: BP 144/74; PULSE 90; RESP 14; TEMP 36.5; O2SAT 97
[2021-01-22 04:53] VITALS: BP 144/74; PULSE 90
[2021-01-22] MEDS: Polyethylene Glycol 3350 17 GM PACKET PO (04:53)
[2021-01-22] MEDS: Senna/Docusate Sodium 1 Tablet 2 TABLET PO ×2 (04:53→17:14)
[2021-01-22] MEDS: Metoprolol Tartrate 25 MG Tablet PO ×2 (04:53→17:14)
[2021-01-22] MEDS: Levothyroxine 25 MCG TABLET PO (04:53)
[2021-01-22] MEDS: APIXABAN 2.5 MG TABLET PO ×2 (04:54→17:13)
[2021-01-22] MEDS: Lansoprazole 15 MG Capsule.DR 30 MG PO (04:54)
[2021-01-22] MEDS: Nystatin Powder 15gm Bottle 1 APPLIC TOPICAL ×2 (04:54→15:08)
[2021-01-22] MEDS: amLODIPine 5 MG Tablet PO (04:54)
[2021-01-22] MEDS: Menthol/Lanolin/Calamine/Znox 113 GM Tube 1 APPLIC TOPICAL ×3 (04:55→20:41)
[2021-01-22] MEDS: Acetaminophen 500 MG Tablet 1000 MG PO ×3 (04:56→20:41)
[2021-01-22] MEDS: Juven (unflavored) Packet 1 PACKET PO ×2 (08:17→17:13)
[2021-01-22 12:57] VITALS: BP 139/58; PULSE 94; RESP 16; TEMP 36.1; O2SAT 97
[2021-01-22 17:14] VITALS: PULSE 94
[2021-01-23] MEDS: APIXABAN 2.5 MG TABLET PO ×2 (05:09→17:36)
[2021-01-23] MEDS: Lansoprazole 15 MG Capsule.DR 30 MG PO (05:10)
[2021-01-23 05:11] VITALS: BP 156/74; PULSE 82
[2021-01-23] MEDS: Polyethylene Glycol 3350 17 GM PACKET PO (05:11)
[2021-01-23] MEDS: Metoprolol Tartrate 25 MG Tablet PO ×2 (05:11→17:36)
[2021-01-23] MEDS: Nystatin Powder 15gm Bottle 1 APPLIC TOPICAL ×2 (05:11→17:42)
[2021-01-23] MEDS: Acetaminophen 500 MG Tablet 1000 MG PO ×3 (05:12→21:20)
[2021-01-23] MEDS: Senna/Docusate Sodium 1 Tablet 2 TABLET PO ×2 (05:12→17:36)
[2021-01-23] MEDS: Levothyroxine 25 MCG TABLET PO (05:12)
[2021-01-23] MEDS: amLODIPine 5 MG Tablet PO (05:12)
[2021-01-23] MEDS: Juven (unflavored) Packet 1 PACKET PO ×2 (09:52→17:36)
--- NOTE | 2021-01-23 13:24 | CASEMGMT ---
Social Work Pt insurance issued letter of Non coverage with LCD 01/25 and d/c 01/26. VINOD spoke with pt dgt Dari Estrella and Margot Mckeon on phone and updated about this. SW informed of option of appeal and that discharge or private pay is to start on Friday 01/26. Family would like pt to transfer to [facility] on tuesday under intermediate level of care. Dgts requesting SW not tell pt at this time as they will be in this evening and want to tell her themselves as they feel she will be upset. Family requesting WC van to transport and they are aware of the cost. Phone call to [facility] and they are able to accept pt on Tuesday. Updated clinicals faxed along with PASSR[facility]. Transportation arranged with [facility] for 10:00 warehouse picker by [employer]. Discharge Date: 01/26/21 Discharge Disposition: [facility], Intermediate Level of Care BREANNA Amezcua
--- NOTE | 2021-01-23 13:52 | DS.PCM_ITS ---
Providers Date of Admission: 01/05/21 Primary Care Physician: Dr. Derek Jackson MD Consultations 01/09/21 13:30 Consult: Onc/Wound/cold meat chef Routine Comment: Reason for Consult:: Right heel wound. Reason For Visit: RIGHT HIP FRACTURE Diagnosis Discharge Diagnosis (1) Debility: Status: Acute Code(s): R53.81 - Other malaise (2) Fall: Status: Acute Code(s): W19.XXXA - Unspecified fall, initial encounter (3) Closed right hip fracture: Status: Acute Code(s): S72.001A - Fracture of unspecified part of neck of right femur, initial encounter for closed fracture (4) Stroke: Status: Acute Code(s): I63.9 - Cerebral infarction, unspecified (5) Hypothyroidism: Status: Acute Code(s): E03.9 - Hypothyroidism, unspecified (6) Hypertension: Status: Chronic Code(s): I10 - Essential (primary) hypertension (7) Gastroesophageal reflux disease: Status: Acute Code(s): K21.9 - Gastro-esophageal reflux disease without esophagitis (8) Postoperative anemia: Status: Acute Code(s): D64.9 - Anemia, unspecified (9) Chronic kidney disease, stage 4 (severe): Status: Chronic Code(s): N18.4 - Chronic kidney disease, stage 4 (severe) Medications at Discharge Home Medications levothyroxine 25 mcg PO DAILY 08/22/20 Eliquis 2.5 mg PO BID 01/05/21 Ensure Enlive 120 ml PO 4X/DAY 01/05/21 acetaminophen 1,000 mg PO Q8 01/05/21 amlodipine 5 mg PO DAILY #0 tab 01/23/21 [id number] [Felix (with collagen)] 1 packet PO BIDCM #0 ea 01/23/21 lansoprazole 30 mg PO DAILY #0 cap 01/23/21 menthol-zinc oxide [Calmoseptine] 1 applic TOPICAL BID #0 g 01/23/21 metoprolol tartrate 25 mg PO BID #0 tab 01/23/21 nystatin [Nyamyc] 1 applic TOPICAL BID #0 g 01/23/21 polyethylene glycol 3350 17 g PO DAILY #0 ea 01/23/21 Hospital Course Operations - (Right hip nail fixation.) Procedures None Summary of Care Provided Minutes Spent on Discharge: 35 Hospital Course: 85 year old female with below past medical history hospitalized for right hip fracture, underwent nail fixation 12/31/[address] Velasquez, postoperative course complicated by anemia requiring transfusion, admitted to TCU with debility, here for rehabilitation, strengthening, prior to discharge home with daughter. Discharge to [facility] 01/26/2021, intermediate care. Physical Exam Const alert and oriented x3 General Appearance: cooperative HEENT normocephalic Eyes PERRL and EOMs intact bilaterally Neck supple, no JVD and no carotid bruits Resp normal respiratory effort, normal air movement and clear to auscultation bilaterally Cardio regular rate and regular rhythm GI normal to inspection, nondistended, normoactive bowel sounds, non-tender and non-distended Extremity normal capillary refill General Extremity: Negative for edema Skin no rashes or lesions noted General Skin Exam: no breakdown Psych affect normal Appearance: appropriate Medical Records Data Medical Nutrition Assessment Dietitian: Malnutrition Criteria Met Start: 01/07/21 14:12 Freq: Status: Active Protocol: Document 01/14/21 15:07 [facility] (Rec: 01/14/21 15:07 [facility] [id number]) Nutrition Malnutrition Evidence of Malnutrition Exists No Intake Problem Inadequate Oral Intake Etiology r/t decreased appetite and res c/o not hungry Signs/Symptoms as evidenced by variable po intake Status Active Problem Recommendation Dietitian Recommendations/Changes Continue regular diet Will discontinue magic cup and ensure pudding w/ lunch and dinner due to res dislike. Will continue Ensure enlive 120mL 4x/day w/ medpass. Rec appetite stimulant to help encourage increased po intake at meals. Will add Felix bid to help w/ wound healing (mix w/ grape juice per res preference). Weight / BMI Weight Weight: 58.967 kg Body Mass Index (BMI) 31.3 ABG / Lab / Microbiology Data Result Diagrams: 01/20/21 05:37 01/20/21 05:37 D/C Instructions Discharge Diet: No restrictions Discharge Activity: Return to Normal Activity, May Shower and Use Walker Weight Bearing Status: Toe touch weight bearing (Right lower extremity.) Call your doctor if you observe: Fever of 101 or Higher, Inability to urinate, Inability to have a bowel movement, Shortness of breath, Dizziness, Fainting spells, Swelling in the ankles, Chest pain, Increased palpitations (irregular heartbeat) and Uncontrolled pain Additional Instructions: Discharge to [facility] 01/26/2021, intermediate care. Please Follow Up With: Kiran Velasquez DO When: As scheduled. Meaningful Use Info Meaningful Use Diagnoses (Choose all that apply): None applicable Discharge Plan Admission Admit Date/Time: 01/05/21 13:30 Primary Reason for Your Visit: Debility. Attending Provider: Derek Jackson Chi Primary Care Provider: Derek Jackson Chi Instructions Additional Instructions / Restrictions: [facility] Discharge Orders/Prescriptions Prescriptions: New polyethylene glycol 3350 17 gram Powder In Packet 17 g PO DAILY Qty: 0 RF: 0 amlodipine 5 mg Tablet 5 mg PO DAILY Qty: 0 RF: 0 lansoprazole 15 mg Capsule,Delayed Release(Dr/Ec) 30 mg PO DAILY Qty: 0 RF: 0 nystatin [Nyamyc] 100,000 unit/gram Powder 1 applic topical BID Qty: 0 RF: 0 metoprolol tartrate 25 mg Tablet 25 mg PO BID Qty: 0 RF: 0 menthol-zinc oxide [Calmoseptine] 0.44-20.6 % Ointment 1 applic topical BID Qty: 0 RF: 0 Felix (with collagen) 7-7-1.5 gram Powder In Packet 1 packet PO BIDCM Qty: 0 RF: 0 Continued levothyroxine 25 MCG tablet 25 mcg PO DAILY RF: 0 acetaminophen 500 mg tablet 1,000 mg PO Q8 RF: 0 Eliquis 2.5 mg tablet 2.5 mg PO BID RF: 0 Ensure Enlive 0.08 gram-1.5 kcal/mL liquid 120 ml PO 4X/DAY RF: 0 Discontinued amlodipine 2.5 mg tablet 2.5 mg PO DAILY RF: 0 pantoprazole 40 mg tablet,delayed release (DR/EC) 40 mg PO DAILY RF: 0 metoprolol tartrate 25 MG tablet 12.5 mg PO BID RF: 0 Referrals / Follow Up: Derek Jackson Chi, MD [Primary Care Provider] - Disposition Disposition (needs filled in before D/C Order can be placed): NonSkilled NH/Intermed Care
[2021-01-23 14:12] VITALS: BP 137/74; PULSE 78; RESP 16; TEMP 36.2; O2SAT 97
--- NOTE | 2021-01-23 14:37 | NURSING ---
wound photo: right heel
[2021-01-23 17:36] VITALS: BP 153/74; PULSE 83
[2021-01-23] MEDS: Menthol/Lanolin/Calamine/Znox 113 GM Tube 1 APPLIC TOPICAL (17:37)
[2021-01-23 20:30] VITALS: PULSE 73; RESP 14; O2SAT 97
[2021-01-24 04:49] VITALS: BP 143/71; PULSE 88; RESP 14; O2SAT 94
[2021-01-24] MEDS: Menthol/Lanolin/Calamine/Znox 113 GM Tube 1 APPLIC TOPICAL ×2 (04:49→17:40)
[2021-01-24] MEDS: Nystatin Powder 15gm Bottle 1 APPLIC TOPICAL ×2 (04:50→23:01)
[2021-01-24] MEDS: Polyethylene Glycol 3350 17 GM PACKET PO (04:51)
[2021-01-24] MEDS: Acetaminophen 500 MG Tablet 1000 MG PO ×3 (04:55→22:54)
[2021-01-24 04:56] VITALS: BP 143/71; PULSE 88
[2021-01-24] MEDS: Metoprolol Tartrate 25 MG Tablet PO ×2 (04:56→17:35)
[2021-01-24] MEDS: amLODIPine 5 MG Tablet PO (04:56)
[2021-01-24] MEDS: Levothyroxine 25 MCG TABLET PO (04:56)
[2021-01-24] MEDS: Senna/Docusate Sodium 1 Tablet 2 TABLET PO ×2 (04:56→17:35)
[2021-01-24] MEDS: APIXABAN 2.5 MG TABLET PO ×2 (04:56→17:35)
[2021-01-24] MEDS: Lansoprazole 15 MG Capsule.DR 30 MG PO (04:57)
[2021-01-24] MEDS: Juven (unflavored) Packet 1 PACKET PO ×2 (07:43→17:35)
--- NOTE | 2021-01-24 12:45 | PCM.TXEXTCAR ---
Diet 01/05/21 13:46 Diet: Regular - General Food consistency:: Soft & Bite Sized Liquid Consistency:: Regular/Thin Diet Comments: bread/buns ok cut up in 1/4 size pieces; soup ok as is Routine Orders/Code Status Suppository Type: Dulcolax 10mg Suppository Frequency: Daily PRN Code Status: DNRCC-A (No intubation.) Wound(s) Left buttock: Wound Type: Blister and shearing Dressing Change: cheryl Right heel: Wound Type: Pressure Injury Dressing Change: Adaptic rt hip incisions: Wound Type: Surgical Incision Dressing Change: Dry Sterile Dressing 2nd Digit Left Foot: Wound Type: Blister Therapies Weight Bearing: Toe-touch weight bearing (Right lower extremity.) Extremity Affected:: Bilateral Lower Physical Therapy: Eval and Treat Occupational Therapy: Eval and Treat Problem/Diagnosis (1) Debility: Status: Acute (2) Fall: Status: Acute (3) Closed right hip fracture: Status: Acute (4) Stroke: Status: Acute (5) Hypothyroidism: Status: Acute (6) Hypertension: Status: Chronic (7) Gastroesophageal reflux disease: Status: Acute (8) Postoperative anemia: Status: Acute (9) Chronic kidney disease, stage 4 (severe): Status: Chronic Allergies/Procedures Done in Hospital Allergies heparin Allergy (Verified 01/14/21 10:29) Rash latex Allergy (Verified 01/14/21 10:29) PT UNSURE OF REACTION aspartame [From Nutrasweet Aspartame] Adverse Reaction (Verified 01/14/21 10:29) headache Procedures: - (Right hip intramedullary nail fixation.) Type of Care/Length of Stay Estimated LOS: More Than 30 Days Type of Care Needed: Intermediate Rehab Potential: Fair Prognosis: Fair Additional Orders/Day of Discharge Day of Discharge: 01/26/21 Dietary and Speech Recommendations Dietitian Recommendations/Changes: Continue regular diet Will continue Ensure enlive 120mL 4x/day w/ medpass. Rec appetite stimulant to help encourage increased po intake at meals. Will continue Felix bid to help w/ wound healing (mix w/ grape juice per res preference). Speech Linguistic Eval Summary: Pt oriented to self, , and month/year. Pt reoriented to location, room, number, and reason for admission. Pt able to follow directions with mild cues and reminders. Pt able to recall 0/3 words with 1 minute delay. Pt named 2 animals in one minute. Pt lives with daughter who handles all med administration and finance management tasks. Pt no longer drives and has family that takes her to appointments. Pt and dtr report no significant changes in mental status. Will plan to continue with ongoing assessment and treatment for STM and word finding deficits. Follow Up Care Please follow up with your Primary Care Physician in: Derek Jackson Chi Please Follow Up With: Kiran Velasquez DO When: f/u 2 weeks fro 01/14 Discharge Plan Admission Admit Date/Time: 01/05/21 13:30 Primary Reason for Your Visit: Debility. Attending Provider: Derek Jackson Chi Primary Care Provider: Derek Jackson Chi Instructions Additional Instructions / Restrictions: [facility] Discharge Orders/Prescriptions Prescriptions: New polyethylene glycol 3350 17 gram Powder In Packet 17 g PO DAILY Qty: 0 RF: 0 amlodipine 5 mg Tablet 5 mg PO DAILY Qty: 0 RF: 0 lansoprazole 15 mg Capsule,Delayed Release(Dr/Ec) 30 mg PO DAILY Qty: 0 RF: 0 nystatin [Nyamyc] 100,000 unit/gram Powder 1 applic topical BID Qty: 0 RF: 0 metoprolol tartrate 25 mg Tablet 25 mg PO BID Qty: 0 RF: 0 menthol-zinc oxide [Calmoseptine] 0.44-20.6 % Ointment 1 applic topical BID Qty: 0 RF: 0 Felix (with collagen) 7-7-1.5 gram Powder In Packet 1 packet PO BIDCM Qty: 0 RF: 0 Continued levothyroxine 25 MCG tablet 25 mcg PO DAILY RF: 0 acetaminophen 500 mg tablet 1,000 mg PO Q8 RF: 0 Eliquis 2.5 mg tablet 2.5 mg PO BID RF: 0 Ensure Enlive 0.08 gram-1.5 kcal/mL liquid 120 ml PO 4X/DAY RF: 0 Discontinued amlodipine 2.5 mg tablet 2.5 mg PO DAILY RF: 0 pantoprazole 40 mg tablet,delayed release (DR/EC) 40 mg PO DAILY RF: 0 metoprolol tartrate 25 MG tablet 12.5 mg PO BID RF: 0 Referrals / Follow Up: Derek Jackson Chi, MD [Primary Care Provider] - Disposition Disposition (needs filled in before D/C Order can be placed): NonSkilled NH/Intermed Care
[2021-01-24 16:00] VITALS: BP 129/61; PULSE 70; RESP 18; TEMP 36.7; O2SAT 95
[2021-01-24 17:35] VITALS: PULSE 70
[2021-01-24 20:15] VITALS: PULSE 77; RESP 16; O2SAT 99
[2021-01-25 04:51] VITALS: BP 151/82; PULSE 80; RESP 14; TEMP 36.9; O2SAT 98
[2021-01-25] MEDS: Lansoprazole 15 MG Capsule.DR 30 MG PO (04:55)
[2021-01-25] MEDS: Polyethylene Glycol 3350 17 GM PACKET PO (04:55)
[2021-01-25] MEDS: APIXABAN 2.5 MG TABLET PO ×2 (04:56→17:21)
[2021-01-25] MEDS: Levothyroxine 25 MCG TABLET PO (04:56)
[2021-01-25] MEDS: Senna/Docusate Sodium 1 Tablet 2 TABLET PO (04:56)
[2021-01-25] MEDS: amLODIPine 5 MG Tablet PO (04:56)
[2021-01-25 04:58] VITALS: BP 151/82; PULSE 80
[2021-01-25] MEDS: Metoprolol Tartrate 25 MG Tablet PO ×2 (04:58→17:21)
[2021-01-25] MEDS: Acetaminophen 500 MG Tablet 1000 MG PO ×3 (04:59→20:58)
[2021-01-25] MEDS: Nystatin Powder 15gm Bottle 1 APPLIC TOPICAL ×2 (05:01→17:21)
[2021-01-25] MEDS: Menthol/Lanolin/Calamine/Znox 113 GM Tube 1 APPLIC TOPICAL ×2 (05:01→17:25)
[2021-01-25] MEDS: Juven (unflavored) Packet 1 PACKET PO (07:44)
[2021-01-25 09:54] VITALS: PULSE 68; RESP 16; O2SAT 96
[2021-01-25 13:40] VITALS: BP 126/60; PULSE 85; RESP 18; TEMP 36.5; O2SAT 92
[2021-01-25 16:22] VITALS: BP 128/58; PULSE 80; RESP 18; TEMP 35.9; O2SAT 93
[2021-01-25 17:21] VITALS: PULSE 80
[2021-01-26 05:15] VITALS: BP 148/74; PULSE 92
[2021-01-26] MEDS: Lansoprazole 15 MG Capsule.DR 30 MG PO (05:15)
[2021-01-26] MEDS: Acetaminophen 500 MG Tablet 1000 MG PO (05:15)
[2021-01-26] MEDS: amLODIPine 5 MG Tablet PO (05:15)
[2021-01-26] MEDS: Senna/Docusate Sodium 1 Tablet 2 TABLET PO (05:15)
[2021-01-26] MEDS: APIXABAN 2.5 MG TABLET PO (05:15)
[2021-01-26] MEDS: Levothyroxine 25 MCG TABLET PO (05:15)
[2021-01-26] MEDS: Metoprolol Tartrate 25 MG Tablet PO (05:15)
[2021-01-26] MEDS: Menthol/Lanolin/Calamine/Znox 113 GM Tube 1 APPLIC TOPICAL (05:16)
[2021-01-26] MEDS: Nystatin Powder 15gm Bottle 1 APPLIC TOPICAL (05:16)
[2021-01-26] MEDS: Polyethylene Glycol 3350 17 GM PACKET PO (07:00)
[2021-01-26 10:00] VITALS: PULSE 78; RESP 18; O2SAT 98
[2021-01-26 10:09] VITALS: BP 141/68; PULSE 78; RESP 18; TEMP 36.3; O2SAT 96
== END 2021-01-26 10:30 | disposition intermediate care facility (04) | DRG 560 ==
PROVIDERS: Admitting Provider Family Medicine Geriatric Medicine; PCP Family Medicine Geriatric Medicine; Visit Provider Family Medicine Geriatric Medicine
DX: S72.001D Fracture of unspecified part of neck of right femur, subsequent encounter for closed fracture with routine healing (principal); N18.4 Chronic kidney disease, stage 4 (severe); W19.XXXD Unspecified fall, subsequent encounter; K21.9 Gastro-esophageal reflux disease without esophagitis; M06.9 Rheumatoid arthritis, unspecified; I12.9 Hypertensive chronic kidney disease with stage 1 through stage 4 chronic kidney disease, or unspecified chronic kidney disease; E03.9 Hypothyroidism, unspecified; B35.4 Tinea corporis; Z79.899 Other long term (current) drug therapy; Z79.01 Long term (current) use of anticoagulants; Z86.718 Personal history of other venous thrombosis and embolism; D64.9 Anemia, unspecified
CPT/HCPCS: 36415; 80048; 85025; 87426; 92507; 92523; 92526; 92610; 97110; 97162; 97166; 97530; 97535; 97802

== ENCOUNTER → 2021-01-08 08:52 | Outpatient (CLI) | payer MEDICARE, SELFPAY ==
[2021-01-05 13:39] VITALS: BMI 31.3
--- NOTE | 2021-01-08 09:35 | VDLE_ITS ---
Reason For Study: Right leg swelling RIGHT GSV is normal. CFV is compressible, spontaneous, phasic, competent and demonstrates normal augmentation. FV is partially compressible throughout with bright intraluminal echoes noted consistent with chronic DVT. Normal venous flow noted. POP V is compressible, spontaneous, phasic, competent and demonstrates normal augmentation. T/P Trunk is compressible. PTV is compressible. RT PerV is compressible. Procedure This is a venous duplex using B-mode, color flow and spectral Doppler. Exam performed in department. A preliminary report was called and/or faxed to TCU RN. VL/Venous Duplex US, Unilateral Interpretation Summary Chronic venous changes are noted in the right femoral vein, which is partially compressible and demonstrates bright intraluminal echogenicity, and normal venous flow. The anai monty of the right lower extremity deep venous system is patent and compressible. Valvular compete nce appears intact within the proximal deep venous system on the right . The right great saphenous vein appears patent and compressible segmentally. There has been no significant change since a prio r study on 02/06/2020. Ordering Physician: Derek Jackson Referring Physician: Derek Jackson Chi Performed By: Jayda Macdonald RVT and Student
== END ==
PROVIDERS: PCP Family Medicine Geriatric Medicine; Referring Provider Family Medicine Geriatric Medicine; Visit Provider Family Medicine Geriatric Medicine
DX: M79.89 Other specified soft tissue disorders (principal)
CPT/HCPCS: 93971

== ENCOUNTER → 2021-02-08 14:20 | Outpatient (REF) | payer MEDICARE, SELFPAY ==
[2021-02-08 15:14] LABS: Color, Urine Yellow (Yellow); Glucose, Dipstick Normal (Normal); Ketone-Dipstick Negative (Negative); Leukocyte Esterase-Dipstick 500 /ul (Negative); Nitrite-Dipstick Positive (Negative); Occult Blood-Urine 10 /ul (Negative); Protein-Dipstick 30 mg/dl (Negative); Specific Gravity, Urine 1.015 (1.002-1.030); Urine Bilirubin Dipstick Negative (Negative); Urine Clarity Cloudy (Clear); Urine Urobilinogen Normal (Normal)
[2021-02-08 15:20] LABS: Absolute Lymphocyte Count 0.95 X10^3/uL (0.83-4.51); Absolute Neutrophil Count 9.4 X10^3/uL (2.0-7.7); Basophil# 0.03 X10^3/uL; Basophil% 0.3 % (0-1); Eosinophil# 0.02 X10^3/uL; Eosinophils% 0.2 % (0-5); Hematocrit 33.3 % (37-47); Hemoglobin 10.4 g/dL (12.0-15.0); Lymphocyte # 0.95 X10^3/ul (0.83-4.51); Lymphocyte % 8.1 % (19-41); Mean Corp Hgb Conc 31.2 g/dL (32-36); Mean Corpuscular Hgb 30.7 pg (27.0-32.0); Mean Corpuscular Volume 98.2 fL (81-99); Mean Platelet Vol. 9.7 fl (6.2-12.0); Monocyte# 1.32 X10^3/uL; Monocyte% 11.2 % (0-10); NRBC Flagged by Analyzer 0 % (0-5); Neutrophil # 9.42 X10^3/uL (2.7-7.7); Neutrophil % 79.7 % (47-70); Platelet Count 199 K/mm3 (150-450); RBC Distribution Width CV 15.4 % (11.6-14.6); RBC Distribution Width SD 55.1 fl (35.1-43.9); Red Blood Count 3.39 M/mm3 (4.2-5.4); White Blood Count 11.8 K/mm3 (4.4-11.0)
[2021-02-08 15:23] LABS: ALB/GLOB Ratio 0.6 RATIO (0.9-2.4); AST(SGOT) 11 U/L (15-37); Alanine Aminotransfer ALT/SGPT 15 U/L (13-56); Albumin, Serum 2.8 g/dL (3.2-5.0); Alkaline Phosphatase 114 U/L (45-117); Anion Gap 8 (5-15); BUN 31 mg/dL (7-18); Calcium,Total 9.4 mg/dL (8.5-10.1); Chloride 102 mmol/L (98-107); Creatinine, Serum 1.35 mg/dL (0.55-1.02); EST Glomerular Filtration Rate 40 mL/min (>60); Est Glom Filt Rate - Afr Amer 48 mL/min (>60); Globulin 4.4 g/dL (2.2-4.2); Glucose 127 mg/dL (74-106); Potassium 3.8 mmol/L (3.5-5.1); Protein, Total 7.2 g/dL (6.4-8.2); Sodium Level 135 mmol/L (136-145)
== END ==
LOC: OLS.ACH 14:20
PROVIDERS: PCP Family Medicine Geriatric Medicine; Visit Provider Family Medicine
DX: R53.81 Other malaise (principal); N18.4 Chronic kidney disease, stage 4 (severe); D63.1 Anemia in chronic kidney disease
CPT/HCPCS: 36415; 80053; 81002; 85025; 87086; 87088; 87186

== ENCOUNTER → 2021-02-10 04:00 | Outpatient (REF) | payer MEDICARE, SELFPAY ==
[2021-02-10 09:17] LABS: Absolute Lymphocyte Count 1.15 X10^3/uL (0.83-4.51); Absolute Neutrophil Count 4.3 X10^3/uL (2.0-7.7); Basophil# 0.04 X10^3/uL; Basophil% 0.6 % (0-1); Eosinophil# 0.15 X10^3/uL; Eosinophils% 2.3 % (0-5); Hematocrit 30.3 % (37-47); Hemoglobin 9.3 g/dL (12.0-15.0); Lymphocyte # 1.15 X10^3/ul (0.83-4.51); Lymphocyte % 17.7 % (19-41); Mean Corp Hgb Conc 30.7 g/dL (32-36); Mean Corpuscular Hgb 30.1 pg (27.0-32.0); Mean Corpuscular Volume 98.1 fL (81-99); Monocyte# 0.82 X10^3/uL; Monocyte% 12.7 % (0-10); NRBC Flagged by Analyzer 0 % (0-5); Neutrophil # 4.29 X10^3/uL (2.7-7.7); Neutrophil % 66.2 % (47-70); Platelet Count 235 K/mm3 (150-450); RBC Distribution Width CV 14.7 % (11.6-14.6); RBC Distribution Width SD 53.5 fl (35.1-43.9); Red Blood Count 3.09 M/mm3 (4.2-5.4); White Blood Count 6.5 K/mm3 (4.4-11.0)
[2021-02-10 09:35] LABS: Vitamin B12 447 pg/mL (211-911)
[2021-02-10 12:26] LABS: Anion Gap 5 (5-15); BUN 31 mg/dL (7-18); BUN/Creat Ratio 23.3 RATIO (10-20); Calcium,Total 9.5 mg/dL (8.5-10.1); Chloride 106 mmol/L (98-107); Creatinine, Serum 1.33 mg/dL (0.55-1.02); EST Glomerular Filtration Rate 41 mL/min (>60); Est Glom Filt Rate - Afr Amer 49 mL/min (>60); Ferritin 391 ng/mL (8-252); Glucose 92 mg/dL (74-106); Iron 23 ug/dL (50-170); Iron Binding Capacity,Total 241 ug/dL (250-450); PERCENT IRON SATURATION 9.5 % (15.0-55.0); Sodium Level 136 mmol/L (136-145); Thyroid Stim Hormone (TSH) 3.64 uIU/mL (0.358-3.74)
[2021-02-11 14:09] LABS: PROEL- A/G Ratio 0.8 (0.7-1.7); PROEL- Albumin 2.7 g/dL (2.9-4.4); PROEL- Alpha-1 Globulin 0.5 g/dL (0.0-0.4); PROEL- Alpha-2 Globulin 0.9 g/dL (0.4-1.0); PROEL- Beta Globulin 0.9 g/dL (0.7-1.3); PROEL- Globulin, Total 3.2 g/dL (2.2-3.9); PROEL- TOTAL PROTEIN 5.9 g/dL (6.0-8.5)
== END ==
LOC: OLS.ACH 04:00
PROVIDERS: PCP Family Medicine Geriatric Medicine; Visit Provider Family Medicine
DX: I12.9 Hypertensive chronic kidney disease with stage 1 through stage 4 chronic kidney disease, or unspecified chronic kidney disease (principal); N18.4 Chronic kidney disease, stage 4 (severe); D64.9 Anemia, unspecified
CPT/HCPCS: 36415; 80048; 82607; 82728; 82746; 83540; 83550; 84165; 84443; 85025

== ENCOUNTER → 2021-03-09 03:00 | Outpatient (REF) | payer MEDICARE, SELFPAY ==
[2021-03-09 08:09] LABS: Mucous, Urine 0 SEEN /hpf (<or=2+); Red Blood Cells-Urine 0 SEEN /hpf (0-5); White Blood Cells 0 SEEN /hpf (0-5)
[2021-03-09 08:55] LABS: Color, Urine Yellow (Yellow); Glucose, Dipstick Normal (Normal); Ketone-Dipstick Negative (Negative); Leukocyte Esterase-Dipstick Negative /ul (Negative); Nitrite-Dipstick Negative (Negative); Occult Blood-Urine Negative /ul (Negative); Protein-Dipstick Negative (Negative); Urine Bilirubin Dipstick Negative (Negative); Urine Clarity Sl. Cloudy (Clear); Urine Urobilinogen Normal (Normal)
[2021-03-09 09:06] LABS: Bacteria 2+ /hpf (None Seen); Squamous Epithelial Cells - UA 0-5 SEEN /hpf (5-10)
== END ==
LOC: OLS.ACH 03:00
PROVIDERS: PCP Family Medicine Geriatric Medicine; Visit Provider Family Medicine
DX: I12.9 Hypertensive chronic kidney disease with stage 1 through stage 4 chronic kidney disease, or unspecified chronic kidney disease (principal); N18.4 Chronic kidney disease, stage 4 (severe); N39.0 Urinary tract infection, site not specified
CPT/HCPCS: 81001; 87077; 87086; 87088; 87186

== ENCOUNTER → 2021-03-10 05:00 | Outpatient (REF) | payer MEDICARE, SELFPAY ==
[2021-03-10 10:19] LABS: Absolute Lymphocyte Count 1.34 X10^3/uL (0.83-4.51); Absolute Neutrophil Count 4.3 X10^3/uL (2.0-7.7); Basophil# 0.05 X10^3/uL; Basophil% 0.7 % (0-1); Eosinophil# 0.48 X10^3/uL; Eosinophils% 6.9 % (0-5); Hematocrit 32.2 % (37-47); Lymphocyte # 1.34 X10^3/ul (0.83-4.51); Lymphocyte % 19.3 % (19-41); Mean Corp Hgb Conc 31.1 g/dL (32-36); Mean Corpuscular Volume 93.3 fL (81-99); Mean Platelet Vol. 9.9 fl (6.2-12.0); Monocyte# 0.77 X10^3/uL; Monocyte% 11.1 % (0-10); NRBC Flagged by Analyzer 0 % (0-5); Neutrophil # 4.26 X10^3/uL (2.7-7.7); Neutrophil % 61.6 % (47-70); Platelet Count 337 K/mm3 (150-450); RBC Distribution Width CV 14.8 % (11.6-14.6); RBC Distribution Width SD 51.1 fl (35.1-43.9); Red Blood Count 3.45 M/mm3 (4.2-5.4); White Blood Count 6.9 K/mm3 (4.4-11.0)
[2021-03-10 10:55] LABS: ALB/GLOB Ratio 0.6 RATIO (0.9-2.4); AST(SGOT) 20 U/L (15-37); Alanine Aminotransfer ALT/SGPT 14 U/L (13-56); Albumin, Serum 2.5 g/dL (3.2-5.0); Alkaline Phosphatase 87 U/L (45-117); Anion Gap 9 (5-15); BUN 23 mg/dL (7-18); BUN/Creat Ratio 18.7 RATIO (10-20); Calcium,Total 9.5 mg/dL (8.5-10.1); Chloride 107 mmol/L (98-107); Creatinine, Serum 1.23 mg/dL (0.55-1.02); EST Glomerular Filtration Rate 44 mL/min (>60); Est Glom Filt Rate - Afr Amer 54 mL/min (>60); Globulin 4.5 g/dL (2.2-4.2); Glucose 90 mg/dL (74-106); Potassium 4.4 mmol/L (3.5-5.1); Sodium Level 139 mmol/L (136-145)
== END ==
LOC: OLS.ACH 05:00
PROVIDERS: PCP Family Medicine Geriatric Medicine; Visit Provider Family Medicine
DX: R53.81 Other malaise (principal)
CPT/HCPCS: 36415; 80053; 85025

== ENCOUNTER → 2021-03-16 04:00 | Outpatient (REF) | payer MEDICARE, SELFPAY ==
[2021-03-16 08:10] LABS: Absolute Lymphocyte Count 1.18 X10^3/uL (0.83-4.51); Absolute Neutrophil Count 5.3 X10^3/uL (2.0-7.7); Basophil# 0.06 X10^3/uL; Basophil% 0.8 % (0-1); Eosinophil# 0.34 X10^3/uL; Eosinophils% 4.4 % (0-5); Hematocrit 28.7 % (37-47); Hemoglobin 9.1 g/dL (12.0-15.0); Lymphocyte # 1.18 X10^3/ul (0.83-4.51); Lymphocyte % 15.1 % (19-41); Mean Corp Hgb Conc 31.7 g/dL (32-36); Mean Corpuscular Hgb 28.8 pg (27.0-32.0); Mean Corpuscular Volume 90.8 fL (81-99); Mean Platelet Vol. 9.6 fl (6.2-12.0); Monocyte% 11.5 % (0-10); NRBC Flagged by Analyzer 0 % (0-5); Neutrophil % 67.8 % (47-70); Platelet Count 284 K/mm3 (150-450); RBC Distribution Width CV 14.8 % (11.6-14.6); RBC Distribution Width SD 49.6 fl (35.1-43.9); Red Blood Count 3.16 M/mm3 (4.2-5.4); White Blood Count 7.8 K/mm3 (4.4-11.0)
[2021-03-16 08:21] LABS: ALB/GLOB Ratio 0.5 RATIO (0.9-2.4); AST(SGOT) 11 U/L (15-37); Alanine Aminotransfer ALT/SGPT 15 U/L (13-56); Albumin, Serum 2.3 g/dL (3.2-5.0); Alkaline Phosphatase 82 U/L (45-117); Anion Gap 9 (5-15); BUN 26 mg/dL (7-18); BUN/Creat Ratio 19.8 RATIO (10-20); Calcium,Total 9.3 mg/dL (8.5-10.1); Chloride 105 mmol/L (98-107); Creatinine, Serum 1.31 mg/dL (0.55-1.02); EST Glomerular Filtration Rate 41 mL/min (>60); Est Glom Filt Rate - Afr Amer 50 mL/min (>60); Globulin 4.4 g/dL (2.2-4.2); Glucose 92 mg/dL (74-106); Potassium 3.9 mmol/L (3.5-5.1); Protein, Total 6.7 g/dL (6.4-8.2); Sodium Level 138 mmol/L (136-145)
== END ==
LOC: OLS.ACH 04:00
PROVIDERS: PCP Family Medicine Geriatric Medicine; Visit Provider Family Medicine
DX: N18.4 Chronic kidney disease, stage 4 (severe) (principal); D63.1 Anemia in chronic kidney disease
CPT/HCPCS: 36415; 80053; 85025

== ENCOUNTER → 2021-03-23 04:00 | Outpatient (REF) | payer MEDICARE, SELFPAY ==
[2021-03-23 06:28] LABS: Absolute Lymphocyte Count 1.19 X10^3/uL (0.83-4.51); Absolute Neutrophil Count 3.9 X10^3/uL (2.0-7.7); Basophil# 0.04 X10^3/uL; Basophil% 0.6 % (0-1); Eosinophil# 0.49 X10^3/uL; Eosinophils% 7.8 % (0-5); Hematocrit 30.2 % (37-47); Hemoglobin 9.5 g/dL (12.0-15.0); Lymphocyte # 1.19 X10^3/ul (0.83-4.51); Mean Corp Hgb Conc 31.5 g/dL (32-36); Mean Corpuscular Hgb 28.8 pg (27.0-32.0); Mean Corpuscular Volume 91.5 fL (81-99); Mean Platelet Vol. 9.3 fl (6.2-12.0); Monocyte# 0.65 X10^3/uL; Monocyte% 10.4 % (0-10); NRBC Flagged by Analyzer 0 % (0-5); Neutrophil # 3.86 X10^3/uL (2.7-7.7); Neutrophil % 61.9 % (47-70); Platelet Count 273 K/mm3 (150-450); RBC Distribution Width CV 14.6 % (11.6-14.6); RBC Distribution Width SD 49.9 fl (35.1-43.9); White Blood Count 6.3 K/mm3 (4.4-11.0)
== END ==
LOC: OLS.ACH 04:00
PROVIDERS: PCP Family Medicine Geriatric Medicine; Visit Provider Family Medicine
DX: N18.9 Chronic kidney disease, unspecified (principal); D63.1 Anemia in chronic kidney disease
CPT/HCPCS: 36415; 85025

== ENCOUNTER → 2021-04-20 05:00 | Outpatient (REF) | payer MEDICARE, SELFPAY ==
[2021-04-20 07:58] LABS: Absolute Neutrophil Count 2.4 X10^3/uL (2.0-7.7); Basophil# 0.02 X10^3/uL; Basophil% 0.5 % (0-1); Eosinophil# 0.04 X10^3/uL; Hematocrit 29.5 % (37-47); Hemoglobin 9.2 g/dL (12.0-15.0); Lymphocyte % 27.1 % (19-41); Mean Corp Hgb Conc 31.2 g/dL (32-36); Mean Corpuscular Hgb 27.6 pg (27.0-32.0); Mean Corpuscular Volume 88.6 fL (81-99); Mean Platelet Vol. 9.9 fl (6.2-12.0); Monocyte# 0.46 X10^3/uL; Monocyte% 11.3 % (0-10); NRBC Flagged by Analyzer 0 % (0-5); Neutrophil # 2.43 X10^3/uL (2.7-7.7); Neutrophil % 59.9 % (47-70); Platelet Count 204 K/mm3 (150-450); RBC Distribution Width CV 15.1 % (11.6-14.6); Red Blood Count 3.33 M/mm3 (4.2-5.4); White Blood Count 4.1 K/mm3 (4.4-11.0)
[2021-04-20 08:25] LABS: BUN 32 mg/dL (7-18); Creatinine, Serum 1.48 mg/dL (0.55-1.02); Glucose 87 mg/dL (74-106)
[2021-04-20 08:26] LABS: ALB/GLOB Ratio 0.6 RATIO (0.9-2.4); AST(SGOT) 13 U/L (15-37); Alanine Aminotransfer ALT/SGPT 15 U/L (13-56); Albumin, Serum 2.5 g/dL (3.2-5.0); Alkaline Phosphatase 68 U/L (45-117); Anion Gap 5 (5-15); BUN/Creat Ratio 21.6 RATIO (10-20); Calcium,Total 9.1 mg/dL (8.5-10.1); Chloride 110 mmol/L (98-107); EST Glomerular Filtration Rate 36 mL/min (>60); Est Glom Filt Rate - Afr Amer 43 mL/min (>60); Globulin 3.9 g/dL (2.2-4.2); Protein, Total 6.4 g/dL (6.4-8.2); Sodium Level 140 mmol/L (136-145)
== END ==
LOC: OLS.ACH 05:00
PROVIDERS: PCP Family Medicine Geriatric Medicine; Visit Provider Family Medicine
DX: I12.9 Hypertensive chronic kidney disease with stage 1 through stage 4 chronic kidney disease, or unspecified chronic kidney disease (principal); N18.9 Chronic kidney disease, unspecified; D63.1 Anemia in chronic kidney disease
CPT/HCPCS: 36415; 80053; 85025

== ENCOUNTER → 2021-05-08 17:32 | Outpatient (REF) | payer MEDICARE, SELFPAY ==
[2021-05-08 17:33] LABS: Mucous, Urine 0 SEEN /hpf (<or=2+); Red Blood Cells-Urine 0 SEEN /hpf (0-5); White Blood Cells 0 SEEN /hpf (0-5)
[2021-05-08 17:59] LABS: Color, Urine Yellow (Yellow); Glucose, Dipstick Normal (Normal); Ketone-Dipstick Negative (Negative); Leukocyte Esterase-Dipstick Negative /ul (Negative); Nitrite-Dipstick Negative (Negative); Occult Blood-Urine Negative /ul (Negative); Protein-Dipstick Negative (Negative); Urine Bilirubin Dipstick Negative (Negative); Urine Clarity Clear (Clear); Urine Urobilinogen Normal (Normal)
[2021-05-08 18:10] LABS: Bacteria 1+ /hpf (None Seen); Squamous Epithelial Cells - UA 0-5 SEEN /hpf (5-10)
== END ==
LOC: OLS.ACH 17:32
PROVIDERS: PCP Family Medicine Geriatric Medicine; Visit Provider Family Medicine
DX: F03.90 Unspecified dementia, unspecified severity, without behavioral disturbance, psychotic disturbance, mood disturbance, and anxiety (principal); Z79.899 Other long term (current) drug therapy
CPT/HCPCS: 81001; 87077; 87086; 87088

== ENCOUNTER → 2021-05-18 04:00 | Outpatient (REF) | payer MEDICARE, SELFPAY ==
[2021-05-18 08:53] LABS: Absolute Neutrophil Count 3.4 X10^3/uL (2.0-7.7); Basophil# 0.03 X10^3/uL; Basophil% 0.5 % (0-1); Eosinophil# 0.03 X10^3/uL; Eosinophils% 0.5 % (0-5); Hemoglobin 11.2 g/dL (12.0-15.0); Lymphocyte % 27.5 % (19-41); Mean Corpuscular Hgb 28.2 pg (27.0-32.0); Mean Corpuscular Volume 88.2 fL (81-99); Mean Platelet Vol. 10.1 fl (6.2-12.0); Monocyte# 0.52 X10^3/uL; Monocyte% 9.5 % (0-10); NRBC Flagged by Analyzer 0 % (0-5); Neutrophil # 3.36 X10^3/uL (2.7-7.7); Neutrophil % 61.6 % (47-70); Platelet Count 227 K/mm3 (150-450); RBC Distribution Width CV 15.9 % (11.6-14.6); Red Blood Count 3.97 M/mm3 (4.2-5.4); White Blood Count 5.5 K/mm3 (4.4-11.0)
[2021-05-18 09:17] LABS: ALB/GLOB Ratio 0.7 RATIO (0.9-2.4); AST(SGOT) 14 U/L (15-37); Alanine Aminotransfer ALT/SGPT 17 U/L (13-56); Albumin, Serum 3.2 g/dL (3.2-5.0); Alkaline Phosphatase 82 U/L (45-117); Anion Gap 8 (5-15); BUN 32 mg/dL (7-18); BUN/Creat Ratio 22.5 RATIO (10-20); Calcium,Total 9.8 mg/dL (8.5-10.1); Chloride 108 mmol/L (98-107); Creatinine, Serum 1.42 mg/dL (0.55-1.02); EST Glomerular Filtration Rate 38 mL/min (>60); Est Glom Filt Rate - Afr Amer 45 mL/min (>60); Globulin 4.6 g/dL (2.2-4.2); Glucose 89 mg/dL (74-106); Protein, Total 7.8 g/dL (6.4-8.2); Sodium Level 138 mmol/L (136-145)
== END ==
LOC: OLS.ACH 04:00
PROVIDERS: PCP Family Medicine Geriatric Medicine; Visit Provider Family Medicine
DX: I12.9 Hypertensive chronic kidney disease with stage 1 through stage 4 chronic kidney disease, or unspecified chronic kidney disease (principal); D63.1 Anemia in chronic kidney disease; N18.9 Chronic kidney disease, unspecified
CPT/HCPCS: 36415; 80053; 85025

== ENCOUNTER → 2021-05-20 04:00 | Outpatient (REF) | payer MEDICARE, SELFPAY ==
[2021-05-20 08:17] LABS: Absolute Neutrophil Count 2.6 X10^3/uL (2.0-7.7); Basophil# 0.03 X10^3/uL; Basophil% 0.7 % (0-1); Eosinophil# 0.04 X10^3/uL; Eosinophils% 0.9 % (0-5); Hematocrit 32.8 % (37-47); Hemoglobin 10.1 g/dL (12.0-15.0); Mean Corp Hgb Conc 30.8 g/dL (32-36); Mean Corpuscular Hgb 27.4 pg (27.0-32.0); Mean Corpuscular Volume 88.9 fL (81-99); Monocyte% 9.3 % (0-10); NRBC Flagged by Analyzer 0 % (0-5); Neutrophil % 60.9 % (47-70); Platelet Count 191 K/mm3 (150-450); RBC Distribution Width CV 15.9 % (11.6-14.6); Red Blood Count 3.69 M/mm3 (4.2-5.4); White Blood Count 4.3 K/mm3 (4.4-11.0)
[2021-05-20 08:44] LABS: ALB/GLOB Ratio 0.7 RATIO (0.9-2.4); AST(SGOT) 13 U/L (15-37); Alanine Aminotransfer ALT/SGPT 16 U/L (13-56); Albumin, Serum 2.6 g/dL (3.2-5.0); Alkaline Phosphatase 65 U/L (45-117); Anion Gap 8 (5-15); BUN 38 mg/dL (7-18); BUN/Creat Ratio 28.4 RATIO (10-20); Chloride 110 mmol/L (98-107); Creatinine, Serum 1.34 mg/dL (0.55-1.02); EST Glomerular Filtration Rate 40 mL/min (>60); Est Glom Filt Rate - Afr Amer 49 mL/min (>60); Ferritin 105 ng/mL (8-252); Globulin 3.6 g/dL (2.2-4.2); Glucose 80 mg/dL (74-106); Iron 57 ug/dL (50-170); Iron Binding Capacity,Total 338 ug/dL (250-450); PERCENT IRON SATURATION 16.9 % (15.0-55.0); Potassium 4.4 mmol/L (3.5-5.1); Protein, Total 6.2 g/dL (6.4-8.2); Sodium Level 141 mmol/L (136-145)
== END ==
LOC: OLS.ACH 04:00
PROVIDERS: PCP Family Medicine Geriatric Medicine; Visit Provider Family Medicine
DX: Z00.00 Encounter for general adult medical examination without abnormal findings (principal); D63.1 Anemia in chronic kidney disease
CPT/HCPCS: 36415; 80053; 82728; 83540; 83550; 85025

== ENCOUNTER → 2021-06-15 | Outpatient (REF) | payer MEDICARE, SELFPAY ==
[2021-06-15 08:20] LABS: Absolute Lymphocyte Count 1.09 X10^3/uL (0.83-4.51); Absolute Neutrophil Count 2.2 X10^3/uL (2.0-7.7); Basophil# 0.02 X10^3/uL; Basophil% 0.5 % (0-1); Eosinophil# 0.06 X10^3/uL; Eosinophils% 1.6 % (0-5); Hematocrit 31.1 % (37-47); Hemoglobin 10.1 g/dL (12.0-15.0); Lymphocyte # 1.09 X10^3/ul (0.83-4.51); Lymphocyte % 28.6 % (19-41); Mean Corp Hgb Conc 32.5 g/dL (32-36); Mean Corpuscular Hgb 28.9 pg (27.0-32.0); Mean Corpuscular Volume 88.9 fL (81-99); Mean Platelet Vol. 10.2 fl (6.2-12.0); Monocyte# 0.39 X10^3/uL; Monocyte% 10.2 % (0-10); NRBC Flagged by Analyzer 0 % (0-5); Neutrophil # 2.23 X10^3/uL (2.7-7.7); Neutrophil % 58.6 % (47-70); Platelet Count 154 K/mm3 (150-450); RBC Distribution Width CV 16.1 % (11.6-14.6); RBC Distribution Width SD 52.9 fl (35.1-43.9); White Blood Count 3.8 K/mm3 (4.4-11.0)
[2021-06-15 08:38] LABS: ALB/GLOB Ratio 0.7 RATIO (0.9-2.4); AST(SGOT) 14 U/L (15-37); Alanine Aminotransfer ALT/SGPT 15 U/L (13-56); Albumin, Serum 2.6 g/dL (3.2-5.0); Alkaline Phosphatase 68 U/L (45-117); Anion Gap 8 (5-15); BUN 32 mg/dL (7-18); BUN/Creat Ratio 22.9 RATIO (10-20); Calcium,Total 9.1 mg/dL (8.5-10.1); Chloride 108 mmol/L (98-107); EST Glomerular Filtration Rate 38 mL/min (>60); Est Glom Filt Rate - Afr Amer 46 mL/min (>60); Globulin 3.6 g/dL (2.2-4.2); Glucose 81 mg/dL (74-106); Potassium 4.3 mmol/L (3.5-5.1); Protein, Total 6.2 g/dL (6.4-8.2); Sodium Level 140 mmol/L (136-145)
== END | disposition home or self-care (01) ==
LOC: OLS.ACH 04:00
PROVIDERS: PCP Family Medicine Geriatric Medicine; Visit Provider Family Medicine
DX: D63.1 Anemia in chronic kidney disease (principal); N17.9 Acute kidney failure, unspecified; I12.9 Hypertensive chronic kidney disease with stage 1 through stage 4 chronic kidney disease, or unspecified chronic kidney disease
CPT/HCPCS: 36415; 80053; 85025

== ENCOUNTER 2021-07-07 05:00 | Outpatient (REF) | payer MEDICARE, SELFPAY ==
[2021-07-07 08:54] LABS: Absolute Lymphocyte Count 1.22 X10^3/uL (0.83-4.51); Absolute Neutrophil Count 3.5 X10^3/uL (2.0-7.7); Basophil# 0.03 X10^3/uL; Basophil% 0.6 % (0-1); Eosinophil# 0.08 X10^3/uL; Eosinophils% 1.5 % (0-5); Hematocrit 37.7 % (37-47); Hemoglobin 12.2 g/dL (12.0-15.0); Lymphocyte # 1.22 X10^3/ul (0.83-4.51); Lymphocyte % 22.7 % (19-41); Mean Corp Hgb Conc 32.4 g/dL (32-36); Mean Corpuscular Volume 89.5 fL (81-99); Monocyte# 0.52 X10^3/uL; Monocyte% 9.7 % (0-10); NRBC Flagged by Analyzer 0 % (0-5); Neutrophil # 3.51 X10^3/uL (2.7-7.7); Neutrophil % 65.3 % (47-70); Platelet Count 191 K/mm3 (150-450); RBC Distribution Width CV 15.3 % (11.6-14.6); RBC Distribution Width SD 50.3 fl (35.1-43.9); Red Blood Count 4.21 M/mm3 (4.2-5.4); White Blood Count 5.4 K/mm3 (4.4-11.0)
[2021-07-07 09:13] LABS: Iron 45 ug/dL (50-170)
== END 2021-07-07 23:59 | disposition home or self-care (01) ==
LOC: OLS.ACH 05:00
PROVIDERS: PCP Family Medicine Geriatric Medicine; Visit Provider Family Medicine
DX: Z00.00 Encounter for general adult medical examination without abnormal findings (principal); D63.8 Anemia in other chronic diseases classified elsewhere
CPT/HCPCS: 36415; 83540; 85025

== ENCOUNTER → 2021-07-13 | Outpatient (REF) | payer MEDICARE, SELFPAY ==
[2021-07-13 09:17] LABS: Absolute Lymphocyte Count 1.12 X10^3/uL (0.83-4.51); Absolute Neutrophil Count 2.3 X10^3/uL (2.0-7.7); Basophil# 0.03 X10^3/uL; Basophil% 0.8 % (0-1); Eosinophil# 0.06 X10^3/uL; Eosinophils% 1.5 % (0-5); Hematocrit 32.4 % (37-47); Hemoglobin 10.8 g/dL (12.0-15.0); Lymphocyte # 1.12 X10^3/ul (0.83-4.51); Lymphocyte % 28.6 % (19-41); Mean Corp Hgb Conc 33.3 g/dL (32-36); Mean Corpuscular Hgb 29.8 pg (27.0-32.0); Mean Corpuscular Volume 89.3 fL (81-99); Mean Platelet Vol. 10.1 fl (6.2-12.0); Monocyte% 10.2 % (0-10); NRBC Flagged by Analyzer 0 % (0-5); Neutrophil # 2.28 X10^3/uL (2.7-7.7); Neutrophil % 58.4 % (47-70); Platelet Count 184 K/mm3 (150-450); RBC Distribution Width CV 14.8 % (11.6-14.6); RBC Distribution Width SD 48.7 fl (35.1-43.9); Red Blood Count 3.63 M/mm3 (4.2-5.4); White Blood Count 3.9 K/mm3 (4.4-11.0)
[2021-07-13 09:54] LABS: ALB/GLOB Ratio 0.8 RATIO (0.9-2.4); AST(SGOT) 13 U/L (15-37); Alanine Aminotransfer ALT/SGPT 15 U/L (13-56); Albumin, Serum 2.8 g/dL (3.2-5.0); Alkaline Phosphatase 70 U/L (45-117); Anion Gap 4 (5-15); BUN 34 mg/dL (7-18); BUN/Creat Ratio 25.2 RATIO (10-20); Calcium,Total 8.9 mg/dL (8.5-10.1); Chloride 109 mmol/L (98-107); Creatinine, Serum 1.35 mg/dL (0.55-1.02); EST Glomerular Filtration Rate 40 mL/min (>60); Est Glom Filt Rate - Afr Amer 48 mL/min (>60); Globulin 3.6 g/dL (2.2-4.2); Glucose 86 mg/dL (74-106); Potassium 4.2 mmol/L (3.5-5.1); Protein, Total 6.4 g/dL (6.4-8.2); Sodium Level 140 mmol/L (136-145)
== END | disposition home or self-care (01) ==
LOC: OLS.ACH 04:00
PROVIDERS: PCP Family Medicine Geriatric Medicine; Referring Provider Family Medicine; Visit Provider Family Medicine
DX: I12.9 Hypertensive chronic kidney disease with stage 1 through stage 4 chronic kidney disease, or unspecified chronic kidney disease (principal); N18.9 Chronic kidney disease, unspecified
CPT/HCPCS: 36415; 80053; 85025

== ENCOUNTER → 2021-09-14 | Outpatient (REF) | payer MEDICARE, SELFPAY ==
[2021-09-14 09:24] LABS: Absolute Lymphocyte Count 1.62 X10^3/uL (0.83-4.51); Absolute Neutrophil Count 3.2 X10^3/uL (2.0-7.7); Basophil# 0.04 X10^3/uL; Basophil% 0.7 % (0-1); Eosinophil# 0.08 X10^3/uL; Eosinophils% 1.4 % (0-5); Hematocrit 36.3 % (37-47); Hemoglobin 11.7 g/dL (12.0-15.0); Lymphocyte # 1.62 X10^3/ul (0.83-4.51); Lymphocyte % 29.2 % (19-41); Mean Corp Hgb Conc 32.2 g/dL (32-36); Mean Corpuscular Hgb 28.8 pg (27.0-32.0); Mean Corpuscular Volume 89.4 fL (81-99); Mean Platelet Vol. 9.7 fl (6.2-12.0); Monocyte# 0.55 X10^3/uL; Monocyte% 9.9 % (0-10); NRBC Flagged by Analyzer 0 % (0-5); Neutrophil # 3.24 X10^3/uL (2.7-7.7); Neutrophil % 58.4 % (47-70); Platelet Count 247 K/mm3 (150-450); RBC Distribution Width CV 14.3 % (11.6-14.6); RBC Distribution Width SD 46.5 fl (35.1-43.9); Red Blood Count 4.06 M/mm3 (4.2-5.4); White Blood Count 5.6 K/mm3 (4.4-11.0)
[2021-09-14 09:39] LABS: Ferritin 85 ng/mL (8-252); Iron 53 ug/dL (50-170); Iron Binding Capacity,Total 320 ug/dL (250-450)
== END | disposition home or self-care (01) ==
LOC: OLS.ACH 05:00
PROVIDERS: PCP Family Medicine Geriatric Medicine; Visit Provider Family Medicine
DX: N18.9 Chronic kidney disease, unspecified (principal); D63.1 Anemia in chronic kidney disease
CPT/HCPCS: 36415; 82728; 83540; 83550; 85025

== ENCOUNTER → 2021-11-04 | Outpatient (REF) | payer MEDICARE, SELFPAY ==
[2021-11-04 10:47] LABS: Hematocrit 32.6 % (37-47); Hemoglobin 10.4 g/dL (12.0-15.0); Mean Corp Hgb Conc 31.9 g/dL (32-36); Mean Corpuscular Hgb 28.9 pg (27.0-32.0); Mean Corpuscular Volume 90.6 fL (81-99); Mean Platelet Vol. 9.7 fl (6.2-12.0); Platelet Count 165 K/mm3 (150-450); RBC Distribution Width CV 14.2 % (11.6-14.6); RBC Distribution Width SD 47.1 fl (35.1-43.9); White Blood Count 4.6 K/mm3 (4.4-11.0)
[2021-11-04 11:05] LABS: Vitamin B12 485 pg/mL (211-911)
[2021-11-04 11:14] LABS: Anion Gap 8 (5-15); BUN 42 mg/dL (7-18); Calcium,Total 9.1 mg/dL (8.5-10.1); Chloride 108 mmol/L (98-107); Creatinine, Serum 1.45 mg/dL (0.55-1.02); EST Glomerular Filtration Rate 37 mL/min (>60); Est Glom Filt Rate - Afr Amer 44 mL/min (>60); Glucose 82 mg/dL (74-106); Potassium 4.3 mmol/L (3.5-5.1); Sodium Level 141 mmol/L (136-145); Thyroid Stim Hormone (TSH) 5.38 uIU/mL (0.358-3.74)
== END | disposition home or self-care (01) ==
LOC: OLS.ACH 05:00
PROVIDERS: PCP Family Medicine Geriatric Medicine; Visit Provider Family Medicine
DX: E03.9 Hypothyroidism, unspecified (principal); M06.9 Rheumatoid arthritis, unspecified; I12.9 Hypertensive chronic kidney disease with stage 1 through stage 4 chronic kidney disease, or unspecified chronic kidney disease; N18.9 Chronic kidney disease, unspecified
CPT/HCPCS: 36415; 80048; 82607; 84443; 85027

== ENCOUNTER → 2022-01-04 | Outpatient (REF) | payer MEDICARE, SELFPAY ==
[2022-01-04 08:57] LABS: Absolute Lymphocyte Count 1.46 X10^3/uL (0.83-4.51); Absolute Neutrophil Count 3.5 X10^3/uL (2.0-7.7); Basophil# 0.04 X10^3/uL; Basophil% 0.7 % (0-1); Eosinophils% 5.1 % (0-5); Hematocrit 37.3 % (37-47); Hemoglobin 11.9 g/dL (12.0-15.0); Lymphocyte # 1.46 X10^3/ul (0.83-4.51); Lymphocyte % 24.8 % (19-41); Mean Corp Hgb Conc 31.9 g/dL (32-36); Mean Corpuscular Hgb 28.5 pg (27.0-32.0); Mean Corpuscular Volume 89.4 fL (81-99); Mean Platelet Vol. 10.1 fl (6.2-12.0); Monocyte# 0.56 X10^3/uL; Monocyte% 9.5 % (0-10); NRBC Flagged by Analyzer 0 % (0-5); Neutrophil % 59.6 % (47-70); Platelet Count 217 K/mm3 (150-450); RBC Distribution Width CV 14.6 % (11.6-14.6); RBC Distribution Width SD 47.9 fl (35.1-43.9); Red Blood Count 4.17 M/mm3 (4.2-5.4); White Blood Count 5.9 K/mm3 (4.4-11.0)
[2022-01-04 09:15] LABS: ALB/GLOB Ratio 0.8 RATIO (0.9-2.4); AST(SGOT) 17 U/L (15-37); Alanine Aminotransfer ALT/SGPT 17 U/L (13-56); Albumin, Serum 3.2 g/dL (3.2-5.0); Alkaline Phosphatase 91 U/L (45-117); Anion Gap 9 (5-15); BUN 37 mg/dL (7-18); BUN/Creat Ratio 26.1 RATIO (10-20); Calcium,Total 9.7 mg/dL (8.5-10.1); Chloride 106 mmol/L (98-107); Creatinine, Serum 1.42 mg/dL (0.55-1.02); EST Glomerular Filtration Rate 37 mL/min (>60); Est Glom Filt Rate - Afr Amer 45 mL/min (>60); Globulin 3.9 g/dL (2.2-4.2); Glucose 115 mg/dL (74-106); Potassium 4.2 mmol/L (3.5-5.1); Protein, Total 7.1 g/dL (6.4-8.2); Sodium Level 139 mmol/L (136-145)
== END ==
LOC: OLS.ACH 05:00
PROVIDERS: PCP Family Medicine Geriatric Medicine; Visit Provider Family Medicine
DX: N18.4 Chronic kidney disease, stage 4 (severe) (principal); D63.1 Anemia in chronic kidney disease
CPT/HCPCS: 36415; 80053; 85025

== ENCOUNTER → 2022-06-21 | Outpatient (REF) | payer MEDICARE, SELFPAY ==
[2022-06-21 09:01] LABS: Absolute Lymphocyte Count 1.04 X10^3/uL (0.83-4.51); Absolute Neutrophil Count 2.3 X10^3/uL (2.0-7.7); Basophil# 0.04 X10^3/uL; Eosinophil# 0.16 X10^3/uL; Eosinophils% 4.1 % (0-5); Hematocrit 33.8 % (37-47); Hemoglobin 10.8 g/dL (12.0-15.0); Lymphocyte # 1.04 X10^3/ul (0.83-4.51); Lymphocyte % 26.5 % (19-41); Mean Corpuscular Hgb 29.3 pg (27.0-32.0); Mean Corpuscular Volume 91.8 fL (81-99); Monocyte# 0.38 X10^3/uL; Monocyte% 9.7 % (0-10); NRBC Flagged by Analyzer 0 % (0-5); Neutrophil # 2.29 X10^3/uL (2.7-7.7); Neutrophil % 58.4 % (47-70); Platelet Count 168 K/mm3 (150-450); RBC Distribution Width CV 14.5 % (11.6-14.6); RBC Distribution Width SD 48.9 fl (35.1-43.9); Red Blood Count 3.68 M/mm3 (4.2-5.4); White Blood Count 3.9 K/mm3 (4.4-11.0)
[2022-06-21 09:23] LABS: ALB/GLOB Ratio 0.8 RATIO (0.9-2.4); AST(SGOT) 14 U/L (15-37); Alanine Aminotransfer ALT/SGPT 14 U/L (13-56); Albumin, Serum 2.6 g/dL (3.2-5.0); Alkaline Phosphatase 77 U/L (45-117); Anion Gap 9 (5-15); BUN 21 mg/dL (7-18); BUN/Creat Ratio 16.8 RATIO (10-20); Calcium,Total 8.7 mg/dL (8.5-10.1); Chloride 109 mmol/L (98-107); Creatinine, Serum 1.25 mg/dL (0.55-1.02); EST Glomerular Filtration Rate 43 mL/min (>60); Est Glom Filt Rate - Afr Amer 52 mL/min (>60); Globulin 3.3 g/dL (2.2-4.2); Glucose 85 mg/dL (74-106); Protein, Total 5.9 g/dL (6.4-8.2); Sodium Level 143 mmol/L (136-145); Thyroid Stim Hormone (TSH) 1.91 uIU/mL (0.358-3.74)
[2022-06-21 10:25] LABS: Vitamin D,25 Hydroxy 50.7 ng/mL
== END ==
LOC: OLS.ACH2 04:00
PROVIDERS: PCP Family Medicine Geriatric Medicine; Referring Provider Internal Medicine; Visit Provider Internal Medicine
DX: M06.9 Rheumatoid arthritis, unspecified (principal); E55.9 Vitamin D deficiency, unspecified; I12.9 Hypertensive chronic kidney disease with stage 1 through stage 4 chronic kidney disease, or unspecified chronic kidney disease; N18.9 Chronic kidney disease, unspecified; E03.9 Hypothyroidism, unspecified
CPT/HCPCS: 36415; 80053; 82306; 84443; 85025

== ENCOUNTER → 2022-08-31 | Outpatient (CLI) | payer MEDICARE, SELFPAY ==
[2022-08-31 12:58] LABS: Absolute Lymphocyte Count 1.26 X10^3/uL (0.83-4.51); Absolute Neutrophil Count 3.9 X10^3/uL (2.0-7.7); Basophil# 0.04 X10^3/uL; Basophil% 0.7 % (0-1); Eosinophil# 0.07 X10^3/uL; Eosinophils% 1.2 % (0-5); Hematocrit 37.5 % (37-47); Hemoglobin 11.8 g/dL (12.0-15.0); Lymphocyte # 1.26 X10^3/ul (0.83-4.51); Lymphocyte % 21.6 % (19-41); Mean Corp Hgb Conc 31.5 g/dL (32-36); Mean Corpuscular Hgb 29.1 pg (27.0-32.0); Mean Corpuscular Volume 92.6 fL (81-99); Mean Platelet Vol. 9.6 fl (6.2-12.0); Monocyte% 8.6 % (0-10); NRBC Flagged by Analyzer 0 % (0-5); Neutrophil # 3.94 X10^3/uL (2.7-7.7); Neutrophil % 67.6 % (47-70); Platelet Count 181 K/mm3 (150-450); RBC Distribution Width CV 14.6 % (11.6-14.6); RBC Distribution Width SD 49.9 fl (35.1-43.9); Red Blood Count 4.05 M/mm3 (4.2-5.4); White Blood Count 5.8 K/mm3 (4.4-11.0)
[2022-08-31 13:29] LABS: Vitamin D,25 Hydroxy 45.2 ng/mL
[2022-08-31 13:36] LABS: ALB/GLOB Ratio 0.8 RATIO (0.9-2.4); AST(SGOT) 18 U/L (15-37); Alanine Aminotransfer ALT/SGPT 17 U/L (13-56); Albumin, Serum 3.3 g/dL (3.2-5.0); Alkaline Phosphatase 102 U/L (45-117); Anion Gap 3 (5-15); BUN 30 mg/dL (7-18); Chloride 113 mmol/L (98-107); Creatinine, Serum 1.25 mg/dL (0.55-1.02); EST Glomerular Filtration Rate 43 mL/min (>60); Est Glom Filt Rate - Afr Amer 52 mL/min (>60); Globulin 3.9 g/dL (2.2-4.2); Glucose 99 mg/dL (74-106); Protein, Total 7.2 g/dL (6.4-8.2); Sodium Level 141 mmol/L (136-145); Thyroid Stim Hormone (TSH) 3.88 uIU/mL (0.358-3.74)
== END | disposition home or self-care (01) ==
LOC: LAB 12:28
PROVIDERS: PCP Family Medicine Geriatric Medicine; Referring Provider Family Medicine Geriatric Medicine; Visit Provider Family Medicine Geriatric Medicine
DX: R53.83 Other fatigue (principal); E55.9 Vitamin D deficiency, unspecified
CPT/HCPCS: 36415; 80053; 82306; 84443; 85025

== ENCOUNTER → 2023-03-01 | Outpatient (CLI) | payer MEDICARE, SELFPAY ==
[2023-03-01 12:13] LABS: Absolute Lymphocyte Count 1.14 X10^3/uL (0.83-4.51); Absolute Neutrophil Count 4.2 X10^3/uL (2.0-7.7); Basophil# 0.03 X10^3/uL; Basophil% 0.5 % (0-1); Eosinophil# 0.05 X10^3/uL; Eosinophils% 0.8 % (0-5); Hematocrit 36.8 % (37-47); Hemoglobin 11.5 g/dL (12.0-15.0); Lymphocyte # 1.14 X10^3/ul (0.83-4.51); Lymphocyte % 18.9 % (19-41); Mean Corp Hgb Conc 31.3 g/dL (32-36); Mean Corpuscular Hgb 29.4 pg (27.0-32.0); Mean Corpuscular Volume 94.1 fL (81-99); Mean Platelet Vol. 10.3 fl (6.2-12.0); Monocyte# 0.64 X10^3/uL; Monocyte% 10.6 % (0-10); NRBC Flagged by Analyzer 0 % (0-5); Neutrophil # 4.15 X10^3/uL (2.7-7.7); Neutrophil % 68.7 % (47-70); Platelet Count 179 K/mm3 (150-450); RBC Distribution Width CV 14.6 % (11.6-14.6); RBC Distribution Width SD 50.5 fl (35.1-43.9); Red Blood Count 3.91 M/mm3 (4.2-5.4)
[2023-03-01 12:35] LABS: Vitamin D,25 Hydroxy 28.3 ng/mL
[2023-03-01 12:53] LABS: ALB/GLOB Ratio 0.9 RATIO (0.9-2.4); AST(SGOT) 13 U/L (15-37); Alanine Aminotransfer ALT/SGPT 16 U/L (13-56); Albumin, Serum 3.3 g/dL (3.2-5.0); Alkaline Phosphatase 83 U/L (45-117); Anion Gap 7 (5-15); BUN 22 mg/dL (7-18); BUN/Creat Ratio 16.9 RATIO (10-20); Calcium,Total 8.9 mg/dL (8.5-10.1); Chloride 111 mmol/L (98-107); EST Glomerular Filtration Rate 41 mL/min (>60); Est Glom Filt Rate - Afr Amer 50 mL/min (>60); Globulin 3.7 g/dL (2.2-4.2); Glucose 92 mg/dL (74-106); Potassium 4.1 mmol/L (3.5-5.1); Sodium Level 143 mmol/L (136-145); Thyroid Stim Hormone (TSH) 4.19 uIU/mL (0.358-3.74)
== END | disposition home or self-care (01) ==
LOC: POLAB3 10:39
PROVIDERS: PCP Family Medicine Geriatric Medicine; Visit Provider Family Medicine Geriatric Medicine
DX: I10 Essential (primary) hypertension (principal); E55.9 Vitamin D deficiency, unspecified
CPT/HCPCS: 36415; 80053; 82306; 84443; 85025

== ENCOUNTER → 2023-04-27 | Outpatient (CLI) | payer MEDICARE, SELFPAY | END | disposition home or self-care (01) | LOC: POLAB3 10:32 | PROVIDERS: PCP Family Medicine Geriatric Medicine; Visit Provider Family Medicine Geriatric Medicine | DX: E03.9 Hypothyroidism, unspecified (principal) | CPT/HCPCS: 36415; 84443 ==

== ENCOUNTER → 2023-09-21 | Outpatient (CLI) | payer MEDICARE, SELFPAY ==
[2023-09-21 14:10] LABS: Absolute Lymphocyte Count 1.29 X10^3/uL (0.83-4.51); Basophil# 0.03 X10^3/uL; Basophil% 0.5 % (0-1); Eosinophil# 0.02 X10^3/uL; Eosinophils% 0.3 % (0-5); Hematocrit 36.8 % (37-47); Hemoglobin 11.8 g/dL (12.0-15.0); Lymphocyte # 1.29 X10^3/ul (0.83-4.51); Lymphocyte % 22.2 % (19-41); Mean Corp Hgb Conc 32.1 g/dL (32-36); Mean Corpuscular Hgb 29.1 pg (27.0-32.0); Mean Corpuscular Volume 90.9 fL (81-99); Mean Platelet Vol. 9.8 fl (6.2-12.0); Monocyte# 0.51 X10^3/uL; Monocyte% 8.8 % (0-10); NRBC Flagged by Analyzer 0 % (0-5); Neutrophil # 3.95 X10^3/uL (2.7-7.7); Platelet Count 177 K/mm3 (150-450); RBC Distribution Width CV 14.8 % (11.6-14.6); RBC Distribution Width SD 49.4 fl (35.1-43.9); Red Blood Count 4.05 M/mm3 (4.2-5.4); White Blood Count 5.8 K/mm3 (4.4-11.0)
[2023-09-21 14:25] LABS: Vitamin D,25 Hydroxy 31.5 ng/mL
[2023-09-21 14:35] LABS: ALB/GLOB Ratio 0.9 RATIO (0.9-2.4); AST(SGOT) 12 U/L (15-37); Alanine Aminotransfer ALT/SGPT 14 U/L (13-56); Albumin, Serum 3.3 g/dL (3.2-5.0); Alkaline Phosphatase 80 U/L (45-117); Anion Gap 5 (5-15); BUN 25 mg/dL (7-18); BUN/Creat Ratio 20.7 RATIO (10-20); Calcium,Total 8.9 mg/dL (8.5-10.1); Chloride 109 mmol/L (98-107); Creatinine, Serum 1.21 mg/dL (0.55-1.02); EST Glomerular Filtration Rate 45 mL/min (>60); Est Glom Filt Rate - Afr Amer 54 mL/min (>60); Globulin 3.6 g/dL (2.2-4.2); Glucose 116 mg/dL (74-106); Protein, Total 6.9 g/dL (6.4-8.2); Sodium Level 140 mmol/L (136-145)
== END | disposition home or self-care (01) ==
LOC: POLAB3 13:22
PROVIDERS: PCP Family Medicine Geriatric Medicine; Visit Provider Family Medicine Geriatric Medicine
DX: I10 Essential (primary) hypertension (principal); E55.9 Vitamin D deficiency, unspecified
CPT/HCPCS: 36415; 80053; 82306; 84443; 85025

== ENCOUNTER → 2024-03-20 | Outpatient (CLI) | payer MEDICARE, SELFPAY ==
[2024-03-20 14:50] LABS: Absolute Lymphocyte Count 1.21 X10^3/uL (0.83-4.51); Absolute Neutrophil Count 4.1 X10^3/uL (2.0-7.7); Basophil# 0.04 X10^3/uL; Basophil% 0.7 % (0-1); Eosinophil# 0.08 X10^3/uL; Eosinophils% 1.3 % (0-5); Hematocrit 39.6 % (37-47); Hemoglobin 12.4 g/dL (12.0-15.0); Lymphocyte # 1.21 X10^3/ul (0.83-4.51); Mean Corp Hgb Conc 31.3 g/dL (32-36); Mean Corpuscular Hgb 29.2 pg (27.0-32.0); Mean Corpuscular Volume 93.4 fL (81-99); Mean Platelet Vol. 9.6 fl (6.2-12.0); Monocyte% 9.9 % (0-10); NRBC Flagged by Analyzer 0 % (0-5); Neutrophil # 4.11 X10^3/uL (2.7-7.7); Neutrophil % 67.9 % (47-70); Platelet Count 190 K/mm3 (150-450); RBC Distribution Width CV 14.6 % (11.6-14.6); RBC Distribution Width SD 50.4 fl (35.1-43.9); Red Blood Count 4.24 M/mm3 (4.2-5.4); White Blood Count 6.1 K/mm3 (4.4-11.0)
[2024-03-20 15:31] LABS: ALB/GLOB Ratio 0.9 RATIO (0.9-2.4); AST(SGOT) 16 U/L (15-37); Alanine Aminotransfer ALT/SGPT 17 U/L (13-56); Albumin, Serum 3.7 g/dL (3.2-5.0); Alkaline Phosphatase 89 U/L (45-117); Anion Gap 4 (5-15); BUN 20 mg/dL (7-18); BUN/Creat Ratio 16.8 RATIO (10-20); Calcium,Total 9.5 mg/dL (8.5-10.1); Chloride 107 mmol/L (98-107); Creatinine, Serum 1.19 mg/dL (0.55-1.02); EST Glomerular Filtration Rate 46 mL/min (>60); Est Glom Filt Rate - Afr Amer 55 mL/min (>60); Glucose 102 mg/dL (74-106); Protein, Total 7.7 g/dL (6.4-8.2); Sodium Level 138 mmol/L (136-145)
== END | disposition home or self-care (01) ==
LOC: LAB 14:11
PROVIDERS: PCP Family Medicine Geriatric Medicine; Referring Provider Family Medicine Geriatric Medicine; Visit Provider Family Medicine Geriatric Medicine
DX: I10 Essential (primary) hypertension (principal); E55.9 Vitamin D deficiency, unspecified
CPT/HCPCS: 36415; 80053; 82306; 84443; 85025

== ENCOUNTER → 2024-10-08 | Outpatient (CLI) | payer MEDICARE, SELFPAY ==
[2024-10-08 18:18] LABS: Absolute Lymphocyte Count 1.42 X10^3/uL (0.83-4.51); Absolute Neutrophil Count 4.8 X10^3/uL (2.0-7.7); Basophil# 0.04 X10^3/uL; Basophil% 0.6 % (0-1); Eosinophil# 0.08 X10^3/uL; Eosinophils% 1.1 % (0-5); Hematocrit 38.4 % (37-47); Hemoglobin 12.4 g/dL (12.0-15.0); Lymphocyte # 1.42 X10^3/ul (0.83-4.51); Lymphocyte % 20.2 % (19-41); Mean Corp Hgb Conc 32.3 g/dL (32-36); Mean Corpuscular Hgb 29.7 pg (27.0-32.0); Mean Corpuscular Volume 91.9 fL (81-99); Mean Platelet Vol. 9.9 fl (6.2-12.0); Monocyte# 0.65 X10^3/uL; Monocyte% 9.2 % (0-10); NRBC Flagged by Analyzer 0 % (0-5); Neutrophil # 4.82 X10^3/uL (2.7-7.7); Neutrophil % 68.5 % (47-70); Platelet Count 195 K/mm3 (150-450); RBC Distribution Width CV 14.3 % (11.6-14.6); RBC Distribution Width SD 48.9 fl (35.1-43.9); Red Blood Count 4.18 M/mm3 (4.2-5.4)
[2024-10-08 18:59] LABS: ALB/GLOB Ratio 1.3 RATIO (0.9-2.4); AST(SGOT) 17 U/L (<=31); Alanine Aminotransfer ALT/SGPT 10 U/L (<=34); Alkaline Phosphatase 87 U/L (35-104); Anion Gap 11 (5-15); BUN 26 mg/dL (4-19); BUN/Creat Ratio 20.2 RATIO (10-20); Calcium,Total 9.2 mg/dL (7.6-11.0); Carbon Dioxide 22.4 mmol/L (21.0-32.0); Chloride 106 mmol/L (98-108); Creatinine, Serum 1.29 mg/dL (0.70-1.20); EST Glomerular Filtration Rate 40 (>60); Globulin 3.1 g/dL (2.2-4.2); Glucose 105 mg/dL (70-99); Potassium 4.1 mmol/L (3.3-5.1); Protein, Total 7.1 g/dL (5.9-8.4); Sodium Level 140 mmol/L (133-145); Total Bilirubin 0.21 mg/dL (0.00-1.30); Vitamin D,25 Hydroxy 29.6 ng/mL (30-100)
== END | disposition home or self-care (01) ==
LOC: LAB 16:00
PROVIDERS: PCP Family Medicine Geriatric Medicine; Referring Provider Family Medicine Geriatric Medicine; Visit Provider Family Medicine Geriatric Medicine
DX: I10 Essential (primary) hypertension (principal); E55.9 Vitamin D deficiency, unspecified
CPT/HCPCS: 36415; 80053; 82306; 84443; 85025

== ENCOUNTER → 2025-04-09 | Outpatient (CLI) | payer MEDICARE, SELFPAY ==
[2025-04-09 15:20] LABS: Hematocrit 36.9 % (37-47); Hemoglobin 12.2 g/dL (12.0-15.0); Immature Granulocytes Count 0.010 X10^3/uL (0.0-0.0); Mean Corp Hgb Conc 33.1 g/dL (32-36); Mean Corpuscular Volume 92.0 fL (81-99); Mean Platelet Vol. 9.5 fl (6.2-12.0); NRBC Flagged by Analyzer 0 % (0-5); Platelet Count 170 K/mm3 (150-450); RBC Distribution Width CV 13.7 % (11.6-14.6); RBC Distribution Width SD 46.9 fl (35.1-43.9); Red Blood Count 4.01 M/mm3 (4.2-5.4); White Blood Count 6.0 K/mm3 (4.4-11.0)
[2025-04-09 16:29] LABS: AST(SGOT) 16 U/L (<=31); Alanine Aminotransfer ALT/SGPT 6 U/L (<=34); Albumin, Serum 3.9 g/dL (3.4-4.8); Alkaline Phosphatase 73 U/L (35-104); Anion Gap 12 (5-15); BUN 18 mg/dL (4-19); BUN/Creat Ratio 16.7 RATIO (10-20); Calcium,Total 9.1 mg/dL (7.6-11.0); Carbon Dioxide 23.0 mmol/L (21.0-32.0); Chloride 106 mmol/L (98-108); Globulin 2.7 g/dL (2.2-4.2); Glucose 106 mg/dL (70-99); Potassium 3.9 mmol/L (3.3-5.1); Vitamin D,25 Hydroxy 26.5 ng/mL (30-100)
[2025-04-09 23:07] LABS: Xtra Tube Kwok EXTRA TUBE
== END | disposition home or self-care (01) ==
LOC: POLAB3 15:07
PROVIDERS: PCP Family Medicine Geriatric Medicine; Visit Provider Family Medicine Geriatric Medicine
DX: I10 Essential (primary) hypertension (principal); E55.9 Vitamin D deficiency, unspecified
CPT/HCPCS: 36415; 80053; 82306; 84443; 85025